=== PATIENT | female | born 1945 | race Caucasian/White ===

== ENCOUNTER 2018-05-20 15:39 | Inpatient (IN) ==
[2018-05-20] MEDS ORDERED: Sod Chloride 0.9% Inj 1,000 ML IV.SIG ONE ×2 (15:45→17:53)
--- NOTE | 2018-05-20 16:03 | ED ---
HPI General Chief Complaint: Altered Mental Status Stated Complaint: Evac/Weakness Time Seen by Provider: 05/20/18 15:45 Source: patient and EMS Mode of arrival: ambulatory Limitations: altered mental status History of Present Illness HPI narrative: The patient is 71 years old. She arrives by EMS. The patient was found unresponsive at home by family. She was last seen normal a few days ago. EMS reports the house to be in a state of total disarray unkempt. Urine and stool odor was present. EMS reports difficulty obtaining blood pressure and on scene it was 62 over palp. The heart rate was about 100. In the ED the patient has no complaint however is not cooperative with exam and history upon arrival. Related Data Home Medications Medication Instructions Recorded Confirmed naproxen sodium [Aleve] 1 - 2 tab PO BID PRN 05/20/18 05/20/18 Allergies Allergy/AdvReac Type Severity Reaction Status Date / Time No Known Allergies Uncoded 06/26/11 16:48 Review of Systems ROS Unobtainable ROS Unobtainable: unobtainable due to mental status PMFSH Social History Social History Second Hand Smoke Exposure: No Smoking Status: Never smoker How Often Do You Have a Drink Containing Alcohol: Never Recent Travel in [facility] within the Last 8 Weeks: No Recent Out of Country Travel within the Last 8 Weeks: No Immunization History Tetanus Immunization: Unsure Exam Narrative Exam Narrative: GENERAL: 72 female well-nourished well-developed, somewhat disheveled, well-nourished. Foul odor. SKIN: Occasional grade 1 wounds upon the buttocks. HEAD: Atraumatic. Normocephalic. EYES: Pupils equal and round. No scleral icterus. No injection or drainage. ENT: No nasal bleeding or discharge. Mucous membranes pink and moist. NECK: Trachea midline. No JVD. CARDIOVASCULAR: Regular rate and rhythm. No murmur appreciated. RESPIRATORY: No accessory muscle use. Clear to auscultation. Breath sounds equal bilaterally. GASTROINTESTINAL: Soft. No focal tenderness. MUSCULOSKELETAL: No obvious deformities. No clubbing. No cyanosis. No edema. NEUROLOGICAL: No focal cranial nerve deficit. Moving all extremities. PSYCHIATRIC: Uncooperative initially. Disheveled. Course Reevaluation(s) Reevaluation #1: Patient reassessed found to be resting comfortably. She is a and O 3. She reports following today. She was unable to get up. She states she is on the ground for a few hours. She reports being able to ambulate normally at home however today she felt much weaker than normal. She describes some dizziness in the ED. Vital signs are normal. She has no focus of tenderness. She reports her neighbor came to sit her upright and found her on the ground and for that reason EMS was activated. Time: 17:36 Initial Documented Vital Signs Temperature 98.3 F 05/20/18 15:44 Pulse Rate 103 H 05/20/18 15:44 Respiratory Rate 18 05/20/18 15:44 Blood Pressure 123/66 05/20/18 15:44 Pulse Oximetry 100 05/20/18 15:44 Last Documented Vital Signs Temperature 98.3 F 05/20/18 15:44 Pulse Rate 103 H 05/20/18 15:44 Respiratory Rate 18 05/20/18 15:44 Blood Pressure 123/66 05/20/18 15:44 Pulse Oximetry 100 05/20/18 15:53 Medical Decision Making MDM Narrative Medical decision making narrative: The patient will be admitted. Rocephin was ordered. Will bolus 1 L normal saline. Gradual second liter will be transfused. Hypernatremia noted as well as hypokalemia. Case discussed with Dr. Bills. Medical Screen Exam Complete: Yes Emergency Medical Condition: Yes Lab Data Lab results reviewed: Yes I reviewed the patient's lab results. Lab results narrative: Urinalysis shows UTI We see hypernatremia and hypokalemia There is mild dehydration with a BUN creatinine 27 and 1.37 Result diagrams: 05/20/18 16:10 05/20/18 17:05 Lab Results 05/20/18 05/20/18 05/20/18 Range/Units 16:05 16:05 16:10 WBC 10.6 (4.0-11.0) th/mm3 RBC 5.58 H (4.00-5.30) mil/mm3 Hgb 14.9 (11.6-15.3) gm/dL Hct 45.6 (35.0-46.0) % MCV 81.7 (80.0-100.0) fL MCH 26.7 L (27.0-34.0) pg MCHC 32.7 (32.0-36.0) % RDW 19.4 H (11.6-17.2) % Plt Count 350 (150-450) th/mm3 MPV 8.4 (7.0-11.0) fL Prelim Diff (Auto) Slide review pending Neut % (Auto) 75.2 H (16.0-70.0) % Lymph % (Auto) 15.7 (9.0-44.0) % [place] % (Auto) 8.7 H (0.0-8.0) % Eos % (Auto) 0.2 (0.0-4.0) % Baso % (Auto) 0.2 (0.0-2.0) % Neut # (Auto) 8.0 H (1.8-7.7) th/mm3 Lymph # (Auto) 1.7 (1.0-4.8) th/mm3 [place] # (Auto) 0.9 (0.0-0.9) th/mm3 Eos # (Auto) 0.0 (0.0-0.4) th/mm3 Baso # (Auto) 0.0 (0.0-0.2) th/mm3 WBC Differential Manual diff final Seg Neuts % (Manual) 67 (16-70) % Band Neuts % (Manual) 12 H (0-6) % Lymphocytes % (Manual) 12 (9-44) % Monocytes % (Manual) 7 (0-8) % Myelocytes % (Man) 1 H (0-0) % Promyelocytes % (Man) 1 H (0-0) % Abs Neuts (Manual) 8.6 H (1.8-7.7) th/mm3 Nucleated RBCs/100 WBC 5 H (0-0) /100 WBC Differential Comment . Platelet Estimate Normal (Normal) Platelet Morphology Normal (Normal) Ovalocytes 1+ H (None) PT (9.8-11.6) sec INR Ratio APTT (24.3-30.1) sec Sodium (136-145) meq/L Potassium (3.5-5.1) meq/L Chloride (98-107) meq/L Carbon Dioxide (21.0-32.0) meq/L Anion Gap (5-15) meq/L BUN (7-18) mg/dL Creatinine (0.50-1.00) mg/dL Estimated GFR (>89) mL/min Random Glucose (74-106) mg/dL Lactic Acid (0.4-2.0) mmol/L Calcium (8.5-10.1) mg/dL Total Bilirubin (0.2-1.0) mg/dL AST (15-37) U/L ALT (10-53) U/L Alkaline Phosphatase (45-117) U/L Ammonia (11-32) mcmol/L Total Creatine Kinase (26-192) U/L Troponin I (0.02-0.05) ng/mL Total Protein (6.4-8.2) g/dL Albumin (3.4-5.0) g/dL TSH (0.358-3.740) uIU/mL Urine Color Jaimie (Yellw/Straw) Urine Clarity Cloudy H (Clear) Urine pH 5.0 (5.0-8.5) Ur Specific Adams 1.029 (1.002-1.035) Urine Protein 100 H (Neg-Trace) mg/dL Urine Glucose (UA) Negative (Negative) mg/dL Urine Ketones Trace H (Negative) mg/dL Urine Occult Blood Small H (Negative) Urine Nitrate Positive H (Negative) Urine Bilirubin Negative (Negative) Urine Urobilinogen 4 or greater (Less than 2) mg/dL Ur Leukocyte Esterase Negative (Negative) Urine RBC Less than 1 (0-3) /hpf Urine WBC 4 (0-5) /hpf Ur Squamous Epith Cells 23 (0-5) /hpf Urine Bacteria Many H (None) /hpf Urine Mucus Few H (Occasional) /lpf Micro UA Comment Cath-culture ind Urine Culture Comments Cath-cult indicated Urine Opiates Screen Neg (Neg) Ur Barbiturates Screen Neg (Neg) Ur Amphetamines Screen Neg (Neg) U Benzodiazepines Scrn Neg (Neg) Urine Cocaine Screen Neg (Neg) U Cannabinoids Screen Neg (Neg) 05/20/18 05/20/18 05/20/18 Range/Units 16:10 16:10 16:10 WBC (4.0-11.0) th/mm3 RBC (4.00-5.30) mil/mm3 Hgb (11.6-15.3) gm/dL Hct (35.0-46.0) % MCV (80.0-100.0) fL MCH (27.0-34.0) pg MCHC (32.0-36.0) % RDW (11.6-17.2) % Plt Count (150-450) th/mm3 MPV (7.0-11.0) fL Prelim Diff (Auto) Neut % (Auto) (16.0-70.0) % Lymph % (Auto) (9.0-44.0) % [place] % (Auto) (0.0-8.0) % Eos % (Auto) (0.0-4.0) % Baso % (Auto) (0.0-2.0) % Neut # (Auto) (1.8-7.7) th/mm3 Lymph # (Auto) (1.0-4.8) th/mm3 [place] # (Auto) (0.0-0.9) th/mm3 Eos # (Auto) (0.0-0.4) th/mm3 Baso # (Auto) (0.0-0.2) th/mm3 WBC Differential Seg Neuts % (Manual) (16-70) % Band Neuts % (Manual) (0-6) % Lymphocytes % (Manual) (9-44) % Monocytes % (Manual) (0-8) % Myelocytes % (Man) (0-0) % Promyelocytes % (Man) (0-0) % Abs Neuts (Manual) (1.8-7.7) th/mm3 Nucleated RBCs/100 WBC (0-0) /100 WBC Differential Comment Platelet Estimate (Normal) Platelet Morphology (Normal) Ovalocytes (None) PT 11.4 (9.8-11.6) sec INR 1.1 Ratio APTT 23.1 L (24.3-30.1) sec Sodium (136-145) meq/L Potassium (3.5-5.1) meq/L Chloride (98-107) meq/L Carbon Dioxide (21.0-32.0) meq/L Anion Gap (5-15) meq/L BUN (7-18) mg/dL Creatinine (0.50-1.00) mg/dL Estimated GFR (>89) mL/min Random Glucose (74-106) mg/dL Lactic Acid 5.3 H* (0.4-2.0) mmol/L Calcium (8.5-10.1) mg/dL Total Bilirubin (0.2-1.0) mg/dL AST (15-37) U/L ALT (10-53) U/L Alkaline Phosphatase (45-117) U/L Ammonia Less than 10 L (11-32) mcmol/L Total Creatine Kinase (26-192) U/L Troponin I (0.02-0.05) ng/mL Total Protein (6.4-8.2) g/dL Albumin (3.4-5.0) g/dL TSH (0.358-3.740) uIU/mL Urine Color (Yellw/Straw) Urine Clarity (Clear) Urine pH (5.0-8.5) Ur Specific Adams (1.002-1.035) Urine Protein (Neg-Trace) mg/dL Urine Glucose (UA) (Negative) mg/dL Urine Ketones (Negative) mg/dL Urine Occult Blood (Negative) Urine Nitrate (Negative) Urine Bilirubin (Negative) Urine Urobilinogen (Less than 2) mg/dL Ur Leukocyte Esterase (Negative) Urine RBC (0-3) /hpf Urine WBC (0-5) /hpf Ur Squamous Epith Cells (0-5) /hpf Urine Bacteria (None) /hpf Urine Mucus (Occasional) /lpf Micro UA Comment Urine Culture Comments Urine Opiates Screen (Neg) Ur Barbiturates Screen (Neg) Ur Amphetamines Screen (Neg) U Benzodiazepines Scrn (Neg) Urine Cocaine Screen (Neg) U Cannabinoids Screen (Neg) 05/20/18 05/20/18 Range/Units 17:05 18:05 WBC (4.0-11.0) th/mm3 RBC (4.00-5.30) mil/mm3 Hgb (11.6-15.3) gm/dL Hct (35.0-46.0) % MCV (80.0-100.0) fL MCH (27.0-34.0) pg MCHC (32.0-36.0) % RDW (11.6-17.2) % Plt Count (150-450) th/mm3 MPV (7.0-11.0) fL Prelim Diff (Auto) Neut % (Auto) (16.0-70.0) % Lymph % (Auto) (9.0-44.0) % [place] % (Auto) (0.0-8.0) % Eos % (Auto) (0.0-4.0) % Baso % (Auto) (0.0-2.0) % Neut # (Auto) (1.8-7.7) th/mm3 Lymph # (Auto) (1.0-4.8) th/mm3 [place] # (Auto) (0.0-0.9) th/mm3 Eos # (Auto) (0.0-0.4) th/mm3 Baso # (Auto) (0.0-0.2) th/mm3 WBC Differential Seg Neuts % (Manual) (16-70) % Band Neuts % (Manual) (0-6) % Lymphocytes % (Manual) (9-44) % Monocytes % (Manual) (0-8) % Myelocytes % (Man) (0-0) % Promyelocytes % (Man) (0-0) % Abs Neuts (Manual) (1.8-7.7) th/mm3 Nucleated RBCs/100 WBC (0-0) /100 WBC Differential Comment Platelet Estimate (Normal) Platelet Morphology (Normal) Ovalocytes (None) PT (9.8-11.6) sec INR Ratio APTT (24.3-30.1) sec Sodium 157 H* (136-145) meq/L Potassium 2.9 L* (3.5-5.1) meq/L Chloride 117 H (98-107) meq/L Carbon Dioxide 26.7 (21.0-32.0) meq/L Anion Gap 13 (5-15) meq/L BUN 27 H (7-18) mg/dL Creatinine 1.37 H (0.50-1.00) mg/dL Estimated GFR 38 L (>89) mL/min Random Glucose 93 (74-106) mg/dL Lactic Acid 3.2 H (0.4-2.0) mmol/L Calcium 7.5 L (8.5-10.1) mg/dL Total Bilirubin 1.9 H (0.2-1.0) mg/dL AST 23 (15-37) U/L ALT 21 (10-53) U/L Alkaline Phosphatase 63 (45-117) U/L Ammonia (11-32) mcmol/L Total Creatine Kinase 43 (26-192) U/L Troponin I Less than 0.02 L (0.02-0.05) ng/mL Total Protein 6.0 L (6.4-8.2) g/dL Albumin 2.1 L (3.4-5.0) g/dL TSH 0.184 L (0.358-3.740) uIU/mL Urine Color (Yellw/Straw) Urine Clarity (Clear) Urine pH (5.0-8.5) Ur Specific Adams (1.002-1.035) Urine Protein (Neg-Trace) mg/dL Urine Glucose (UA) (Negative) mg/dL Urine Ketones (Negative) mg/dL Urine Occult Blood (Negative) Urine Nitrate (Negative) Urine Bilirubin (Negative) Urine Urobilinogen (Less than 2) mg/dL Ur Leukocyte Esterase (Negative) Urine RBC (0-3) /hpf Urine WBC (0-5) /hpf Ur Squamous Epith Cells (0-5) /hpf Urine Bacteria (None) /hpf Urine Mucus (Occasional) /lpf Micro UA Comment Urine Culture Comments Urine Opiates Screen (Neg) Ur Barbiturates Screen (Neg) Ur Amphetamines Screen (Neg) U Benzodiazepines Scrn (Neg) Urine Cocaine Screen (Neg) U Cannabinoids Screen (Neg) Imaging Data Radiologist's impression: Chest X-Ray 05/20/18 15:45 CONCLUSION: No acute cardiopulmonary process to explain current clinical symptoms. Head CT 05/20/18 15:45 CONCLUSION: 1. Stable senescent changes without acute intracranial abnormality. . Discharge Plan Discharge Disposition Patient Disposition: 30 Still Patient Physicians Team ED Provider: Alejandro Cadet Primary Care Provider: Harjeet Lund Attending Provider: Harjeet La Status ED Status: Admitted Patient
[2018-05-20 16:48] LABS: Baso % (Auto) 0.2 % (0.0-2.0); Eos % (Auto) 0.2 % (0.0-4.0); Hematocrit 45.6 % (35.0-46.0); Hemoglobin 14.9 gm/dL (11.6-15.3); Lymph # (Auto) 1.7 th/mm3 (1.0-4.8); Lymph % (Auto) 15.7 % (9.0-44.0); Mean Corpuscular HGB Conc 32.7 % (32.0-36.0); Mean Corpuscular Hemoglobin 26.7 pg (27.0-34.0); Mean Corpuscular Volume 81.7 fL (80.0-100.0); Mean Platelet Volume 8.4 fL (7.0-11.0); Mono # (Auto) 0.9 th/mm3 (0.0-0.9); Mono % (Auto) 8.7 % (0.0-8.0); Neut % (Auto) 75.2 % (16.0-70.0); Platelet Count 350 th/mm3 (150-450); Red Blood Count 5.58 mil/mm3 (4.00-5.30); Red Cell Distribution Width 19.4 % (11.6-17.2); White Blood Count 10.6 th/mm3 (4.0-11.0)
--- NOTE | 2018-05-20 16:52 | CT ---
EXAM DATE: 05/20/2018 4:44 PM EDT AGE/SEX: 72 years / Female INDICATIONS: Altered mental status hypotensive CLINICAL DATA: This is the patient's initial encounter. Patient reports that signs and symptoms have been present for 1 day and indicates a pain score of Nonresponsive. MEDICAL/SURGICAL HISTORY: Non-responsive. Non-responsive. RADIATION DOSE: 56.35 CTDI (mGy) COMPARISON: [facility], CT BRAIN W/O CONTRAST, 08/13/2014. . TECHNIQUE: CT of the head without contrast. Using automated exposure control and adjustment of the mA and/or kV according to patient size, radiation dose was kept as low as reasonably achievable to ob tain optimal diagnostic quality images. DICOM format image data is available electronically for revi ew and comparison. FINDINGS: Cerebrum: Moderate diffuse cerebral atrophy. The ventricles are normal for degree of atrophy. No mariela dence of midline shift, mass lesion, hemorrhage or acute infarction. No extraaxial fluid collections are seen. Posterior Fossa: The cerebellum and brainstem are intact. The 4th ventricle is midline. The cerebe llopontine angle is unremarkable. Extracranial: The visualized portion of the orbits is intact. Skull: The calvaria is intact. No evidence of skull fracture. CONCLUSION: 1. Stable senescent changes without acute intracranial abnormality. . Electronically signed by: Yo Ridley MD 05/20/2018 4:50 PM EDT
[2018-05-20 16:56] LABS: Amphetamine Screen,Urine Neg (Neg); Barbiturate Screen,Urine Neg (Neg); Cannabinoid Screen,Urine Neg (Neg); Cocaine Screen,Urine Neg (Neg)
[2018-05-20 16:57] LABS: Opiate Screen,Urine Neg (Neg)
[2018-05-20 17:02] LABS: Bacteria,Urine Many /hpf; Clarity,Urine Cloudy (Clear); Color,Urine Amber (Yellw/Straw); Glucose,Urine (UA) Negative (Negative); Leukocyte Esterase,Urine Negative (Negative); Mucus,Urine Few /lpf (Occasional); Nitrite,Urine Positive (Negative); Specific Gravity,Urine 1.029 (1.002-1.035); Squamous Epithelial Cell,Urine 23 /hpf (0-5); Urobilinogen,Urine 4 or Greater mg/dL (Less than 2)
[2018-05-20 17:02] LABS: Activated Partial Thrombo Time 23.1 sec (24.3-30.1); INR 1.1 Ratio
--- NOTE | 2018-05-20 17:02 | XR ---
EXAM DATE: 05/20/2018 4:55 PM EDT AGE/SEX: 72 years / Female INDICATIONS: Fever. CLINICAL DATA: This is the patient's initial encounter. Patient reports that signs and symptoms have been present for 1 day and indicates a pain score of Nonresponsive. MEDICAL/SURGICAL HISTORY: Non-responsive. Non-responsive. COMPARISON: [facility] [place], CHEST SINGLE AP, 06/26/2011. . FINDINGS: A single AP view of the chest demonstrates the lungs to be symmetrically aerated without evidence of mass, infiltrate or effusion. The cardiomediastinal contours are unremarkable. Osseous structures a re intact with some degenerative spurring of the dorsal spine. CONCLUSION: No acute cardiopulmonary process to explain current clinical symptoms. Electronically signed by: Garland Stock MD 05/20/2018 5:00 PM EDT
[2018-05-20 17:04] LABS: Prothrombin Time 11.4 sec (9.8-11.6)
[2018-05-20 17:06] LABS: Bilirubin,Urine Negative (Negative)
[2018-05-20 17:46] LABS: Lymphocytes 12 % (9-44); Monocytes 7 % (0-8); Myelocytes 1 % (0-0); Promyelocyte 1 % (0-0); Tallied Nucleated RBC 5 (0-0)
[2018-05-20 17:49] LABS: Ovalocytes 1+; Platelet Estimate Normal (Normal); Platelet Morphology Normal (Normal)
[2018-05-20 18:16] LABS: Anion Gap 13 meq/L (5-15)
[2018-05-20 18:19] LABS: Alanine Aminotransferase 21 U/L (10-53); Albumin 2.1 g/dL (3.4-5.0); Alkaline Phosphatase 63 U/L (45-117); Aspartate Aminotransferase 23 U/L (15-37); Blood Urea Nitrogen 27 mg/dL (7-18); Calcium 7.5 mg/dL (8.5-10.1); Carbon Dioxide 26.7 meq/L (21.0-32.0); Chloride 117 meq/L (98-107); Glomerular Filtration Rate 38 mL/min (>89); Glucose,Random 93 mg/dL (74-106); Thyroid Stimulating Hormone 0.184 uIU/mL (0.358-3.740)
[2018-05-20 18:20] LABS: Creatine Kinase 43 U/L (26-192)
[2018-05-20 18:22] LABS: Potassium 2.9 meq/L (3.5-5.1); Sodium 157 meq/L (136-145)
--- NOTE | 2018-05-20 20:58 | ECG ---
Date Performed: 05/20/2018 Time Performed: 15:49:46 PTAGE: 72 years EKG: Sinus rhythm POSSIBLE RIGHT VENTRICULAR CONDUCTION DELAY NONSPECIFIC ST & T-WAVE ABNORMALITY BORDERLINE ECG NO PREVIOUS TRACING DOCTOR: George Ambriz Interpretating Date/Time 05/20/2018 20:57:18
[2018-05-20] MEDS ORDERED: Temazepam 15 MG Capsule PO PRN (21:51)
[2018-05-20] MEDS ORDERED: Bisacodyl 10 MG Supp RECTAL PRN (21:51)
[2018-05-20] MEDS ORDERED: Sodium Chloride 0.45 % Inj 1,000 ML IV.CONT SCH (22:00)
[2018-05-20] MEDS ORDERED: Acetaminophen 325 MG Tablet PO PRN (22:22)
--- NOTE | 2018-05-20 22:22 | P.HP ---
History of Present Illness Service: CP Hospitalist Primary Care Physician: Harjeet Lund MD Chief Complaint: found on floor in home poorly responsive History of Present Illness: Patient brought by [facility] to hospital . Patient was unresponsive ,given IV fluid and became more responsive. Approximately 4 weeks ago had food poisoning and has had intermittent nausea and vomit poor oral intake and today was very weak and was on floor unable to get up ,friends found her and they tried to give her some water but she vomited . In er found to have UTI with elevated lactic acid and increase sodium and admitted for IV hydration sepsis protocol in er and lactic acid repeat is improved . Patient denies any chest pain, SOB, not sure if she had loose stool but did have GERD symptoms. - Diagnosis (1) Dehydration (2) Sepsis (3) UTI (urinary tract infection) (4) Hypernatremia (5) Hypokalemia Inpatient Certification: I certify that the inpatient services were ordered in accordance with Medicare regulations governing the order. This includes certification that hospital inpatient services are reasonable and necessary and in the case of services not specified as inpatient-only under 42 CFR 419.22(n), that they are appropriately provided as inpatient services in accordance to with the 2-midnight benchmark under 43 CFR 412.3(e) Estimated Total Length of Stay (Days): 2 Plans for Post Hospital Care: Not yet determined Review of Systems Constitutional: Reports fatigue, Reports lack of energy, Reports weakness Gastrointestinal: Reports heartburn, Reports loose stools, Reports nausea, Reports vomiting PMFSH - History History Provided By: Irrigationist Designer / EMT - Medical / Surgical Hx Neg / Unobtainable Medical Problems Denied: Unable to Obtain Surgical History: No Previous Surgery - Tobacco History Second Hand Smoke Exposure: No Tobacco Use In Past 30 Days: No Smoking Status: Never smoker - Alcohol History How Often Do You Have a Drink Containing Alcohol: Never - Travel History Recent Travel in the [place] Within the Last 8 Weeks: No Recent Travel Out of the Country Within the Last 8 Weeks: No - Immunization History Tetanus Immunization: Unsure Medications and Allergies Active Medications: Active Medications Al Hydroxide/Mg Hydroxide (Milk Of Magnesia Liq) 30 ml PO Q12H PRN PRN Reason: Mild Constipation Bisacodyl (Dulcolax Supp) 10 mg RECTAL DAILY PRN PRN Reason: SEVERE CONSITIPATION Ceftriaxone Sodium 1,000 mg/ (Sodium Chloride) 100 mls @ 200 mls/hr IV.SIG Q24H SEB Potassium Chloride 10 meq/ (Sodium Chloride) 1,005 mls @ 84 mls/hr IV.CONT .[id number] SEB Lactulose (Lactulose Liq) 30 ml PO DAILY PRN PRN Reason: SEVERE CONSITIPATION Ondansetron HCl (Zofran Inj) 4 mg IV.PUSH Q6H PRN PRN Reason: NAUSEA OR VOMITING Pantoprazole Sodium (Protonix Inj) 40 mg IV.PUSH Q24H SEB Senna/Docusate Sodium (Gladys-Colace) 1 tab PO BID SEB Sennosides (Senokot) 17.2 mg PO Q12H PRN PRN Reason: Moderate Constipation Sodium Chloride (Ns Flush) 2 ml IV.FLUSH PRN PRN PRN Reason: FLUSH AFTER USING IV ACCESS Temazepam (Restoril) 15 mg PO HS PRN PRN Reason: INSOMNIA Allergies Allergy/AdvReac Type Severity Reaction Status Date / Time No Known Allergies Uncoded 06/26/11 16:48 Home Medications Medication Instructions Recorded Confirmed Type naproxen sodium [Aleve] 1 - 2 tab PO BID PRN 05/20/18 05/20/18 History Exam Vital signs: Vital Signs 05/20/18 15:44 05/20/18 15:53 05/20/18 19:00 Temperature 98.3 F Pulse Rate 103 H 89 Respiratory Rate 18 16 Blood Pressure 123/66 112/66 Pulse Oximetry 100 100 100 05/20/18 19:55 Temperature Pulse Rate Respiratory Rate Blood Pressure Pulse Oximetry 100 Intake & Output 05/20/18 05/20/18 05/21/18 06:59 18:59 06:59 Weight 127.006 kg 87.8 kg Other: Weight On Admission 127 kg Narrative: GENERAL: SKIN: poor skin turgor HEAD: Atraumatic. Normocephalic. EYES: Pupils equal and round. No scleral icterus. No injection or drainage. ENT: No nasal bleeding or discharge. Mucous membranes pink and moist. NECK: Trachea midline. No JVD. CARDIOVASCULAR: Regular rate and rhythm. RESPIRATORY: No accessory muscle use. Clear to auscultation. Breath sounds equal bilaterally. GASTROINTESTINAL: Abdomen soft, non-tender, nondistended. Hepatic and splenic margins not palpable. MUSCULOSKELETAL: Extremities without clubbing, cyanosis, or edema. No obvious deformities. NEUROLOGICAL: Awake and alert. No obvious cranial nerve deficits. Motor grossly within normal limits. Five out of 5 muscle strength in the arms and legs. Normal speech. PSYCHIATRIC: Appropriate mood and affect; insight and judgment normal. Results - Labs CBC & Chem 7: 05/20/18 16:10 05/20/18 17:05 Labs: Laboratory Results - last 24 hr 05/20/18 05/20/18 05/20/18 16:05 16:05 16:10 WBC 10.6 RBC 5.58 H Hgb 14.9 Hct 45.6 MCV 81.7 MCH 26.7 L MCHC 32.7 RDW 19.4 H Plt Count 350 MPV 8.4 Prelim Diff (Auto) Slide review pending Neut % (Auto) 75.2 H Lymph % (Auto) 15.7 Clare % (Auto) 8.7 H Eos % (Auto) 0.2 Baso % (Auto) 0.2 Neut # (Auto) 8.0 H Lymph # (Auto) 1.7 Clare # (Auto) 0.9 Eos # (Auto) 0.0 Baso # (Auto) 0.0 WBC Differential Manual diff final Seg Neuts % (Manual) 67 Band Neuts % (Manual) 12 H Lymphocytes % (Manual) 12 Monocytes % (Manual) 7 Myelocytes % (Man) 1 H Promyelocytes % (Man) 1 H Abs Neuts (Manual) 8.6 H Nucleated RBCs/100 WBC 5 H Differential Comment . Platelet Estimate Normal Platelet Morphology Normal Ovalocytes 1+ H PT INR APTT Sodium Potassium Chloride Carbon Dioxide Anion Gap BUN Creatinine Estimated GFR Random Glucose Lactic Acid Calcium Total Bilirubin AST ALT Alkaline Phosphatase Ammonia Total Creatine Kinase Troponin I Total Protein Albumin TSH Urine Color Jaimie Urine Clarity Cloudy H Urine pH 5.0 Ur Specific [place] 1.029 Urine Protein 100 H Urine Glucose (UA) Negative Urine Ketones Trace H Urine Occult Blood Small H Urine Nitrate Positive H Urine Bilirubin Negative Urine Urobilinogen 4 or greater Ur Leukocyte Esterase Negative Urine RBC Less than 1 Urine WBC 4 Ur Squamous Epith Cells 23 Urine Bacteria Many H Urine Mucus Few H Micro UA Comment Cath-culture ind Urine Culture Comments Cath-cult indicated Urine Opiates Screen Neg Ur Barbiturates Screen Neg Ur Amphetamines Screen Neg U Benzodiazepines Scrn Neg Urine Cocaine Screen Neg U Cannabinoids Screen Neg 05/20/18 05/20/18 05/20/18 16:10 16:10 16:10 WBC RBC Hgb Hct MCV MCH MCHC RDW Plt Count MPV Prelim Diff (Auto) Neut % (Auto) Lymph % (Auto) Clare % (Auto) Eos % (Auto) Baso % (Auto) Neut # (Auto) Lymph # (Auto) Clare # (Auto) Eos # (Auto) Baso # (Auto) WBC Differential Seg Neuts % (Manual) Band Neuts % (Manual) Lymphocytes % (Manual) Monocytes % (Manual) Myelocytes % (Man) Promyelocytes % (Man) Abs Neuts (Manual) Nucleated RBCs/100 WBC Differential Comment Platelet Estimate Platelet Morphology Ovalocytes PT 11.4 INR 1.1 APTT 23.1 L Sodium Potassium Chloride Carbon Dioxide Anion Gap BUN Creatinine Estimated GFR Random Glucose Lactic Acid 5.3 H* Calcium Total Bilirubin AST ALT Alkaline Phosphatase Ammonia Less than 10 L Total Creatine Kinase Troponin I Total Protein Albumin TSH Urine Color Urine Clarity Urine pH Ur Specific [place] Urine Protein Urine Glucose (UA) Urine Ketones Urine Occult Blood Urine Nitrate Urine Bilirubin Urine Urobilinogen Ur Leukocyte Esterase Urine RBC Urine WBC Ur Squamous Epith Cells Urine Bacteria Urine Mucus Micro UA Comment Urine Culture Comments Urine Opiates Screen Ur Barbiturates Screen Ur Amphetamines Screen U Benzodiazepines Scrn Urine Cocaine Screen U Cannabinoids Screen 05/20/18 05/20/18 17:05 18:05 WBC RBC Hgb Hct MCV MCH MCHC RDW Plt Count MPV Prelim Diff (Auto) Neut % (Auto) Lymph % (Auto) Clare % (Auto) Eos % (Auto) Baso % (Auto) Neut # (Auto) Lymph # (Auto) Clare # (Auto) Eos # (Auto) Baso # (Auto) WBC Differential Seg Neuts % (Manual) Band Neuts % (Manual) Lymphocytes % (Manual) Monocytes % (Manual) Myelocytes % (Man) Promyelocytes % (Man) Abs Neuts (Manual) Nucleated RBCs/100 WBC Differential Comment Platelet Estimate Platelet Morphology Ovalocytes PT INR APTT Sodium 157 H* Potassium 2.9 L* Chloride 117 H Carbon Dioxide 26.7 Anion Gap 13 BUN 27 H Creatinine 1.37 H Estimated GFR 38 L Random Glucose 93 Lactic Acid 3.2 H Calcium 7.5 L Total Bilirubin 1.9 H AST 23 ALT 21 Alkaline Phosphatase 63 Ammonia Total Creatine Kinase 43 Troponin I Less than 0.02 L Total Protein 6.0 L Albumin 2.1 L TSH 0.184 L Urine Color Urine Clarity Urine pH Ur Specific [place] Urine Protein Urine Glucose (UA) Urine Ketones Urine Occult Blood Urine Nitrate Urine Bilirubin Urine Urobilinogen Ur Leukocyte Esterase Urine RBC Urine WBC Ur Squamous Epith Cells Urine Bacteria Urine Mucus Micro UA Comment Urine Culture Comments Urine Opiates Screen Ur Barbiturates Screen Ur Amphetamines Screen U Benzodiazepines Scrn Urine Cocaine Screen U Cannabinoids Screen - Imaging Impressions Chest X-Ray 05/20/18 15:45 CONCLUSION: No acute cardiopulmonary process to explain current clinical symptoms. Head CT 05/20/18 15:45 CONCLUSION: 1. Stable senescent changes without acute intracranial abnormality. . Caprini VTE Risk Assessment Caprini VTE Risk Assessment: Moderate/High Risk (score >= 2) Caprini Risk Assessment Model: Point Value = 1 Point Value = 2 Point Value = 3 Point Value = 5 Age 41-60 Minor surgery BMI > 25 kg/m2 Swollen legs Varicose veins or History of unexplained or recurrent spontaneous Oral contraceptives or hormone replacement Sepsis (< 1 month) Serious lung disease, including pneumonia (< 1 month) Abnormal pulmonary function Acute myocardial infarction Congestive heart failure (< 1 month) History of inflammatory bowel disease Medical patient at bed rest Age 61-74 Arthroscopic surgery Major open surgery (> 45 min) Laparoscopic surgery (> 45 min) Malignancy Confined to bed (> 72 hours) Immobilizing plaster cast Central venous access Age >= 75 History of VTE Family history of VTE Factor V Leiden Prothrombin [id number] Lupus anticoagulant Anticardiolipin antibodies Elevated serum homocysteine Heparin-induced thrombocytopenia Other congenital or acquired thrombophilia Stroke (< 1 month) Elective arthroplasty Hip, pelvis, or leg fracture Acute spinal cord injury (< 1 month) Prophylaxis Regimen: Total Risk Factor Score Risk Level Prophylaxis Regimen 0-1 Low Early ambulation 2 Moderate Order ONE of the following: *Sequential Compression Device (SCD) *Heparin 5000 units SQ BID 3-4 Higher Order ONE of the following medications: *Heparin 5000 units SQ TID *Enoxaparin/Lovenox 40 mg SQ daily (WT < 150 kg, CrCl > 30 mL/min) *Enoxaparin/Lovenox 30 mg SQ daily (WT < 150 kg, CrCl > 10-29 mL/min) *Enoxaparin/Lovenox 30 mg SQ BID (WT < 150 kg, CrCl > 30 mL/min) AND/OR *Sequential Compression Device (SCD) 5 or more Highest Order ONE of the following medications: *Heparin 5000 units SQ TID (Preferred with Epidurals) *Enoxaparin/Lovenox 40 mg SQ daily (WT < 150 kg, CrCl > 30 mL/min) *Enoxaparin/Lovenox 30 mg SQ daily (WT < 150 kg, CrCl > 10-29 mL/min) *Enoxaparin/Lovenox 30 mg SQ BID (WT < 150 kg, CrCl > 30 mL/min) AND *Sequential Compression Device (SCD) Assessment and Plan - Assessment (1) Dehydration Code(s): E86.0 - Dehydration Status: Acute Plan: IV fluid recheck labs follow electrolytes (2) Sepsis Code(s): A41.9 - Sepsis, unspecified organism Status: Acute Plan: based on lab work and lactic acid probable urine source as has urine smell (3) UTI (urinary tract infection) Code(s): N39.0 - Urinary tract infection, site not specified Status: Acute Plan: for now rocephin IV urine and blood c/s sent (4) Hypernatremia Code(s): E87.0 - Hyperosmolality and hypernatremia Status: Acute Plan: IV fluid and follow up labs (5) Hypokalemia Code(s): E87.6 - Hypokalemia Status: Acute Plan: IV potassium and follow up labs - Plan further plan as case develops Code Status: full Discussed Condition With: patient
[2018-05-20] MEDS: Potassium Chloride Inj 10 MEQ in Sodium Chloride 0.45 % Inj 1,000 ML IV.CONT SCH (23:21)
[2018-05-20] MEDS: Pantoprazole Inj 40 MG Vial IV.PUSH SCH (23:21)
[2018-05-21 07:19] LABS: Baso % (Auto) 0.1 % (0.0-2.0); Eos % (Auto) 0.4 % (0.0-4.0); Hematocrit 31.9 % (35.0-46.0); Hemoglobin 10.5 gm/dL (11.6-15.3); Lymph # (Auto) 1.7 th/mm3 (1.0-4.8); Lymph % (Auto) 17.9 % (9.0-44.0); Mean Corpuscular Hemoglobin 26.8 pg (27.0-34.0); Mono # (Auto) 0.9 th/mm3 (0.0-0.9); Mono % (Auto) 9.6 % (0.0-8.0); Neut # (Auto) 6.7 th/mm3 (1.8-7.7); Platelet Count 233 th/mm3 (150-450); Red Blood Count 3.94 mil/mm3 (4.00-5.30); Red Cell Distribution Width 19.2 % (11.6-17.2); White Blood Count 9.4 th/mm3 (4.0-11.0)
[2018-05-21 08:01] LABS: Albumin 1.8 g/dL (3.4-5.0); Calcium 6.7 mg/dL (8.5-10.1); Carbon Dioxide 24.5 meq/L (21.0-32.0); Total Protein 5.2 g/dL (6.4-8.2)
[2018-05-21 08:10] LABS: Potassium 2.7 meq/L (3.5-5.1)
[2018-05-21] MEDS: Senna/Docusate Sodium 8.6/50 MG Tablet PO SCH ×2 (09:55→22:09)
--- NOTE | 2018-05-21 15:50 | P.PNIM ---
Subjective Interval history: Pt eating meals, but having some nausea after meals. Some relief of nausea with zofran. Physical Exam Vital signs: 05/21/18 12:00 Temperature 97.3 F L Pulse Rate 91 H Respiratory Rate 18 Blood Pressure 131/66 Pulse Oximetry 100 Narrative: GENERAL: This is a well-nourished, well-developed patient, in no apparent distress. CARDIOVASCULAR: Regular rate and rhythm without murmurs, gallops, or rubs. RESPIRATORY: Clear to auscultation. Breath sounds equal bilaterally. No wheezes , rales, or rhonchi. GASTROINTESTINAL: Abdomen soft, non-tender, nondistended. Normal active bowel sounds MUSCULOSKELETAL: Extremities without clubbing, cyanosis, or edema. NEURO: Alert & Oriented x4 to person, place, time, situation. Moves all ext x4 - Urinary Catheter Management Straight Cath placed during this visit: yes Reason for continuing: Not indwelling catheter Insertion date: 05/20/18 Insertion time: 15:54 Results - Labs CBC & Chem 7: 05/21/18 06:45 05/21/18 06:43 Microbiology 05/20/18 16:05 Catheterized Urine Urine Culture - Preliminary gram negative rods 05/20/18 18:05 Blood - Peripheral Aerobic Blood Culture - Preliminary No growth in 1 day 05/20/18 18:05 Blood - Peripheral Anaerobic Blood Culture - Preliminary No growth in 1 day 05/20/18 17:30 Blood - Peripheral Aerobic Blood Culture - Preliminary No growth in 1 day 05/20/18 17:30 Blood - Peripheral Anaerobic Blood Culture - Preliminary No growth in 1 day - Imaging Chest X-Ray 05/20/18 15:45 CONCLUSION: No acute cardiopulmonary process to explain current clinical symptoms. Head CT 05/20/18 15:45 CONCLUSION: 1. Stable senescent changes without acute intracranial abnormality. . Assessment and Plan - Assessment (1) Dehydration Code(s): E86.0 - Dehydration Status: Acute Plan: Patient brought by [facility] to hospital . Patient was unresponsive ,given IV fluid and became more responsive. Approximately 4 weeks ago had food poisoning and has had intermittent nausea and vomit poor oral intake and today was very weak and was on floor unable to get up ,friends found her and they tried to give her some water but she vomited . In er found to have UTI with elevated lactic acid and increase sodium and admitted for IV hydration sepsis protocol in er and lactic acid repeat is improved . Patient denies any chest pain, SOB, not sure if she had loose stool but did have GERD symptoms. - Pt has been afebrile since presentation to the ER - No hypotension or tachycardia - No leukocytosis - elevated lactic acid likely d/t dehydration NOT sepsis - hypernatremia slowly improving - continue IVFs - Urine Cx (05/20) --> gram negative rods, await final results - Blood Cx (05/20) --> No growth to date - follow cultures - continue IV rocephin - DVT prophylaxis - supportive care (3) UTI (urinary tract infection) Code(s): N39.0 - Urinary tract infection, site not specified Status: Acute - see above (4) Hypernatremia - see above (5) Hypokalemia Code(s): E87.6 - Hypokalemia Status: Acute - continue repletion - repeat bmp/mag in AM (2) Hypernatremia Code(s): E87.0 - Hyperosmolality and hypernatremia Status: Acute (3) Hypokalemia Code(s): E87.6 - Hypokalemia Status: Acute (4) Sepsis Code(s): A41.9 - Sepsis, unspecified organism Status: Acute (5) UTI (urinary tract infection) Code(s): N39.0 - Urinary tract infection, site not specified Status: Acute
[2018-05-21] MEDS: Potassium Chloride Inj 10 MEQ in Sodium Chloride 0.45 % Inj 1,000 ML IV.CONT SCH (16:57)
[2018-05-21 19:09] LABS: Calcium 7.1 mg/dL (8.5-10.1); Carbon Dioxide 22.8 meq/L (21.0-32.0)
[2018-05-21 19:22] LABS: Total Protein 6.3 g/dL (6.4-8.2)
[2018-05-21] MEDS: Pantoprazole Inj 40 MG Vial IV.PUSH SCH (22:08)
[2018-05-22] MEDS: Potassium Chloride Inj 10 MEQ in Sodium Chloride 0.45 % Inj 1,000 ML IV.CONT SCH ×3 (05:44→18:49)
[2018-05-22 08:50] LABS: Baso % (Auto) 0.1 % (0.0-2.0); Eos # (Auto) 0.1 th/mm3 (0.0-0.4); Eos % (Auto) 0.6 % (0.0-4.0); Hematocrit 36.2 % (35.0-46.0); Hemoglobin 11.7 gm/dL (11.6-15.3); Lymph # (Auto) 1.1 th/mm3 (1.0-4.8); Lymph % (Auto) 13.2 % (9.0-44.0); Mean Corpuscular HGB Conc 32.4 % (32.0-36.0); Mean Corpuscular Hemoglobin 26.5 pg (27.0-34.0); Mean Corpuscular Volume 81.6 fL (80.0-100.0); Mean Platelet Volume 7.9 fL (7.0-11.0); Mono # (Auto) 0.6 th/mm3 (0.0-0.9); Mono % (Auto) 7.8 % (0.0-8.0); Neut # (Auto) 6.5 th/mm3 (1.8-7.7); Neut % (Auto) 78.3 % (16.0-70.0); Platelet Count 224 th/mm3 (150-450); Red Blood Count 4.43 mil/mm3 (4.00-5.30); Red Cell Distribution Width 19.7 % (11.6-17.2); White Blood Count 8.2 th/mm3 (4.0-11.0)
[2018-05-22] MEDS: Senna/Docusate Sodium 8.6/50 MG Tablet PO SCH ×2 (08:55→23:13)
[2018-05-22 09:33] LABS: Calcium 6.7 mg/dL (8.5-10.1); Carbon Dioxide 27.1 meq/L (21.0-32.0); Magnesium 1.6 mg/dL (1.5-2.5)
[2018-05-22 09:52] LABS: Total Protein 5.6 g/dL (6.4-8.2)
[2018-05-22] MEDS: Mag Sulf 1 gm/100 ml Premix 100 ML IV.SIG SCH ×2 (11:01→12:23)
--- NOTE | 2018-05-22 17:50 | P.PNIM ---
Subjective Interval history: No new complaints. Pt is tolerating PO intake. Nausea improved from admission. Physical Exam Vital signs: 05/22/18 12:00 Temperature 97.7 F Pulse Rate 84 Respiratory Rate 18 Blood Pressure 133/75 Pulse Oximetry 98 Narrative: GENERAL: This is a well-nourished, well-developed patient, in no apparent distress. CARDIOVASCULAR: Regular rate and rhythm without murmurs, gallops, or rubs. RESPIRATORY: Clear to auscultation. Breath sounds equal bilaterally. No wheezes , rales, or rhonchi. GASTROINTESTINAL: Abdomen soft, non-tender, nondistended. Normal active bowel sounds MUSCULOSKELETAL: Extremities without clubbing, cyanosis, or edema. NEURO: Alert & Oriented x4 to person, place, time, situation. Moves all ext x4 - Urinary Catheter Management Straight Cath placed during this visit: yes Reason for continuing: Not indwelling catheter Insertion date: 05/20/18 Insertion time: 15:54 Results - Labs CBC & Chem 7: 05/23/18 10:45 05/23/18 10:45 Microbiology 05/20/18 18:05 Blood - Peripheral Aerobic Blood Culture - Preliminary No growth in 2 days 05/20/18 18:05 Blood - Peripheral Anaerobic Blood Culture - Preliminary No growth in 2 days 05/20/18 17:30 Blood - Peripheral Aerobic Blood Culture - Preliminary No growth in 2 days 05/20/18 17:30 Blood - Peripheral Anaerobic Blood Culture - Preliminary No growth in 2 days 05/20/18 16:05 Catheterized Urine Urine Culture - Final Escherichia coli Assessment and Plan - Assessment (1) Dehydration Code(s): E86.0 - Dehydration Status: Acute Plan: Patient brought by [facility] to hospital . Patient was unresponsive ,given IV fluid and became more responsive. Approximately 4 weeks ago had food poisoning and has had intermittent nausea and vomit poor oral intake and today was very weak and was on floor unable to get up ,friends found her and they tried to give her some water but she vomited . In er found to have UTI with elevated lactic acid and increase sodium and admitted for IV hydration sepsis protocol in er and lactic acid repeat is improved . Patient denies any chest pain, SOB, not sure if she had loose stool but did have GERD symptoms. - Pt has been afebrile since presentation to the ER - No hypotension or tachycardia - No leukocytosis - elevated lactic acid likely d/t dehydration NOT sepsis - hypernatremia slowly improving - continue IVFs - Urine Cx (05/20) --> gram negative rods, await final results - Blood Cx (05/20) --> E. Coli - follow cultures - continue IV rocephin - DVT prophylaxis - supportive care - anticipate d/c to [facility] 05/23 (3) UTI (urinary tract infection) Code(s): N39.0 - Urinary tract infection, site not specified Status: Acute - see above (4) Hypernatremia - see above (5) Hypokalemia Code(s): E87.6 - Hypokalemia Status: Acute - improving - continue repletion - repeat bmp/mag in AM (2) Hypernatremia Code(s): E87.0 - Hyperosmolality and hypernatremia Status: Acute (3) Hypokalemia Code(s): E87.6 - Hypokalemia Status: Acute (4) Sepsis Code(s): A41.9 - Sepsis, unspecified organism Status: Acute (5) UTI (urinary tract infection) Code(s): N39.0 - Urinary tract infection, site not specified Status: Acute
[2018-05-22] MEDS: Pantoprazole Inj 40 MG Vial IV.PUSH SCH (23:13)
[2018-05-23] MEDS: Potassium Chloride Inj 10 MEQ in Sodium Chloride 0.45 % Inj 1,000 ML IV.CONT SCH ×2 (05:28→11:43)
[2018-05-23] MEDS: Senna/Docusate Sodium 8.6/50 MG Tablet PO SCH (08:28)
[2018-05-23 11:12] LABS: Baso % (Auto) 0.2 % (0.0-2.0); Eos % (Auto) 0.5 % (0.0-4.0); Hematocrit 36.9 % (35.0-46.0); Hemoglobin 12.1 gm/dL (11.6-15.3); Lymph # (Auto) 1.5 th/mm3 (1.0-4.8); Lymph % (Auto) 20.2 % (9.0-44.0); Mean Corpuscular HGB Conc 32.7 % (32.0-36.0); Mean Corpuscular Hemoglobin 26.4 pg (27.0-34.0); Mean Corpuscular Volume 80.9 fL (80.0-100.0); Mean Platelet Volume 8.3 fL (7.0-11.0); Mono # (Auto) 0.8 th/mm3 (0.0-0.9); Neut # (Auto) 4.9 th/mm3 (1.8-7.7); Neut % (Auto) 68.1 % (16.0-70.0); Platelet Count 216 th/mm3 (150-450); Red Blood Count 4.56 mil/mm3 (4.00-5.30); White Blood Count 7.2 th/mm3 (4.0-11.0)
[2018-05-23 11:41] LABS: Calcium 6.5 mg/dL (8.5-10.1); Carbon Dioxide 27.3 meq/L (21.0-32.0)
[2018-05-23 11:42] LABS: Potassium 3.5 meq/L (3.5-5.1)
[2018-05-23 11:54] LABS: Total Protein 5.5 g/dL (6.4-8.2)
[2018-05-23 12:44] VITALS: RESP 18
[2018-05-23] MEDS ORDERED: Calcium Chloride Inj 1 GM in Dextrose 5% in Water Inj 100 ML IV.SIG ONE ×2 (14:00)
--- NOTE | 2018-05-23 15:03 | P.DS ---
<Shahla Ag W - Last Filed: 05/23/18 14:58> Date of admission: 05/20/18 18:36 Primary care physician: Harjeet Lund MD Attending physician on discharge: Harjeet La Anticipated date of discharge: 05/23/18 Brief History from admission: Patient brought by [facility] to hospital . Patient was unresponsive ,given IV fluid and became more responsive. Approximately 4 weeks ago had food poisoning and has had intermittent nausea and vomit poor oral intake and today was very weak and was on floor unable to get up ,friends found her and they tried to give her some water but she vomited . In er found to have UTI with elevated lactic acid and increase sodium and admitted for IV hydration sepsis protocol in er and lactic acid repeat is improved . Patient denies any chest pain, SOB, not sure if she had loose stool but did have GERD symptoms. DS: Diagnosis - Discharge Diagnosis (1) Dehydration Status: Acute (2) UTI (urinary tract infection) Status: Acute (3) Hypernatremia Status: Acute (4) Hypokalemia Status: Acute DS: Summary Hospital Course: Dehydration Patient brought by [facility] to hospital . Patient was unresponsive ,given IV fluid and became more responsive. Approximately 4 weeks ago had food poisoning and has had intermittent nausea and vomit poor oral intake and today was very weak and was on floor unable to get up ,friends found her and they tried to give her some water but she vomited . In er found to have UTI with elevated lactic acid and increase sodium and admitted for IV hydration sepsis protocol in er and lactic acid repeat is improved . Patient denies any chest pain, SOB, not sure if she had loose stool but did have GERD symptoms. - Pt has been afebrile since presentation to the ER - No hypotension or tachycardia - No leukocytosis - elevated lactic acid likely d/t dehydration NOT sepsis - hypernatremia improved - IVFs - Urine Cx (05/20) --> E coli - Blood Cx (05/20) --> NG x 3days - IV Rocephin - DVT prophylaxis - supportive care UTI (urinary tract infection) - Urine culture reveled E coli sensitive to Rocephin - Patient completed 3 days of Rocephin Hypernatremia - Improved after hydration Hypokalemia - improved after replacement - Time Spent with Patient Total time spent providing and/or coordinating discharge services: Greater than 30 minutes - Quality: VTE Deep Vein Thrombosis/Pulmonary Embolism Present on Admission: No Exam Vital signs: Vital Signs 05/22/18 16:00 05/22/18 19:54 05/22/18 20:00 Temperature 97.3 F L 97.3 F L Pulse Rate 82 79 83 Respiratory Rate 18 18 Blood Pressure 133/71 139/63 Pulse Oximetry 99 99 05/22/18 23:49 05/23/18 00:00 05/23/18 04:00 Temperature 98.0 F 97.8 F Pulse Rate 94 H 91 H 100 H Respiratory Rate 18 18 Blood Pressure 134/63 151/71 H Pulse Oximetry 95 99 05/23/18 08:00 05/23/18 11:18 05/23/18 12:00 Temperature 98.2 F 98.0 F Pulse Rate 89 89 Respiratory Rate 17 18 Blood Pressure 142/82 H 116/69 Pulse Oximetry 100 99 99 Intake & Output 05/22/18 05/23/18 05/23/18 18:59 06:59 18:59 Intake Total 1905 / 1905 1125 / 1125 110 / 110 Balance 1905 / 1905 1125 / 1125 110 / 110 Weight 90.5 kg Intake: IV 1305 / 1305 1005 / 1005 110 / 110 KCl Inj 10 MEQ In 1/2 Normal 1005 / 1005 1005 / 1005 Saline Inj 1,000 ML @ 84 mls/hr IV.CONT .[id number] [facility] Rx#: [id number] Calcium Chloride Inj 1 GM In 110 / 110 D5W Inj 100 ML @ 110 mls/hr IV. SIG ONCE ONE Rx#:[id number] Magnesium Sulfate 1 gm/D5W 100 200 / 200 ml Premix 100 ML @ 100 mls/hr IV.SIG Q1H [facility] Rx#:[id number] Rocephin Inj 1,000 MG In NS Inj 100 / 100 100 ML @ 200 mls/hr IV.SIG Q24H [facility] Rx#:[id number] Oral 600 / 600 120 / 120 Other: # Voids 2 # Incontinent Voids 3 # Bowel Movements 2 2 Narrative: GENERAL: This is a well-nourished, well-developed patient, in no apparent distress. CARDIOVASCULAR: Regular rate and rhythm RESPIRATORY: Clear to auscultation. Breath sounds equal bilaterally. GASTROINTESTINAL: Abdomen soft, non-tender, nondistended. Normal active bowel sounds MUSCULOSKELETAL: Extremities without clubbing, cyanosis, or edema. NEURO: Alert & Oriented x4 to person, place, time, situation. Moves all ext x4 Results Procedures completed during hospitalization: None Labs on day of discharge: Labs from last 24 hours 05/23/18 05/23/18 10:45 10:45 WBC 7.2 RBC 4.56 Hgb 12.1 Hct 36.9 MCV 80.9 MCH 26.4 L MCHC 32.7 RDW 19.0 H Plt Count 216 MPV 8.3 Neut % (Auto) 68.1 Lymph % (Auto) 20.2 [place] % (Auto) 11.0 H Eos % (Auto) 0.5 Baso % (Auto) 0.2 Neut # (Auto) 4.9 Lymph # (Auto) 1.5 [place] # (Auto) 0.8 Eos # (Auto) 0.0 Baso # (Auto) 0.0 WBC Differential . Differential Comment Auto diff final Sodium 142 Potassium 3.5 Chloride 106 Carbon Dioxide 27.3 Anion Gap 9 BUN 13 Creatinine 0.93 Estimated GFR 59 L Random Glucose 110 H Calcium 6.5 L* Prot Corrected Calcium 7.3 L* Total Protein 5.5 L Preliminary micro results at discharge 05/20/18 18:05 Aerobic Blood Culture - Preliminary Blood - Peripheral No growth in 3 days Anaerobic Blood Culture - Preliminary No growth in 3 days 05/20/18 17:30 Aerobic Blood Culture - Preliminary Blood - Peripheral No growth in 3 days Anaerobic Blood Culture - Preliminary No growth in 3 days - Impressions ITS Impressions Chest X-Ray 05/20/18 15:45 CONCLUSION: No acute cardiopulmonary process to explain current clinical symptoms. Head CT 05/20/18 15:45 CONCLUSION: 1. Stable senescent changes without acute intracranial abnormality. . <Harjeet La - Last Filed: 05/27/18 12:40> Date of admission: 05/20/18 18:36 Primary care physician: Harjeet Lund MD DS: Diagnosis - Discharge Diagnosis (1) Dehydration Status: Acute (2) Hypernatremia Status: Acute (3) Hypokalemia Status: Acute (4) Sepsis Status: Acute (5) UTI (urinary tract infection) Status: Acute DS: Summary Hospital Course: Patient examined. Assessment and plan formulated with Shahla Ag PA-C. I agree with the above. - Time Spent with Patient Total time spent providing and/or coordinating discharge services: Results - Impressions ITS Impressions Chest X-Ray 05/20/18 15:45 CONCLUSION: No acute cardiopulmonary process to explain current clinical symptoms. Head CT 05/20/18 15:45 CONCLUSION: 1. Stable senescent changes without acute intracranial abnormality. . Discharge Plan - Discharge Order Discharge Orders: Discharge Order (Routine); Ordered 05/23/18 Ordered By: Shahla Ag - Discharge Details Anticipated Discharge Date: 05/23/18 - Physicians Team Primary Care Provider: Harjeet Lund Attending Provider: Harjeet La Other Providers: [facility] ; [facility] [place],[facility]
[2018-05-23 16:58] VITALS: BP 131/77; TEMP 98.1; O2SAT 100
[2018-05-23 17:03] VITALS: PULSE 93
== END 2018-05-23 17:22 ==
LOC: NEPE 15:39 → NEDA 18:36 → N04 21:00
PROVIDERS: ADMIT Hospitalist; ATTEND Hospitalist

== ENCOUNTER 2018-05-26 19:26 | Inpatient (IN) ==
[2018-05-26] MEDS ORDERED: Sod Chloride 0.9% Inj 1,000 ML IV.SIG ONE (19:42)
--- NOTE | 2018-05-26 19:50 | ED ---
HPI General Chief complaint: GI Bleed Stated complaint: Vomiting Time Seen by Provider: 05/26/18 19:42 Source: patient, EMS, RN notes reviewed and old records reviewed Mode of arrival: EMS Limitations: no limitations History of Present Illness HPI Narrative: The patient is a 72-year-old female with past history significant for GERD and recent admission to the hospital for the weakness that was brought in from a rehab center where she was sent 4 days ago after she was discharged from [facility], for coffee-ground emesis. Patient reports that she has been having coffee-ground emesis for the past 2 weeks and she started having abdominal pain in the last couple of days. Today she had several episodes of coffee-ground emesis and was brought to the emergency department for evaluation. Blood thinners. Has no history of peptic ulcers. She does take NSAIDs occasionally but has not had any months. MD complaint: coffee ground emesis Onset (ago): week(s) (2) Pain Consistency: intermittent Severity: moderate Relieving factors: none Associated symptoms: abdominal pain, nausea, vomiting, malaise and weakness Related Data Home Medications Medication Instructions Recorded Confirmed acetaminophen [Tylenol] 650 mg PO Q6H PRN 05/26/18 05/26/18 omeprazole magnesium [Prilosec OTC] 20 mg PO BID 05/26/18 05/26/18 Allergies Allergy/AdvReac Type Severity Reaction Status Date / Time Penicillins AdvReac Dizziness Verified 05/26/18 19:40 Review of Systems ROS: all other systems reviewed are negative [facility] Medical History Medical History GERD (gastroesophageal reflux disease) (Acute) Hyperosmolality and hypernatremia (Acute) Hypokalemia (Acute) Sepsis (Acute) UTI (urinary tract infection) (Acute) Social History Social History Substance History: No History of Abuse Second Hand Smoke Exposure: No Smoking Status: Never smoker How Often Do You Have a Drink Containing Alcohol: Monthly or less Recent Travel in [facility] within the Last 8 Weeks: No Recent Out of Country Travel within the Last 8 Weeks: No Exam Narrative Exam Narrative: GENERAL: Alert and oriented in no distress SKIN: Focused skin assessment warm/dry. Pale. Patient with several stage II decubitus ulcers on bilateral buttocks that were dressed with Mepilex. No signs of overlying cellulitis. Desitin cream noted on the perirectal area HEAD: Atraumatic. Normocephalic. EYES: Pupils equal and round. No scleral icterus. No injection or drainage. Pale conjunctiva ENT: No nasal bleeding or discharge. Mucous membranes pink and moist. Dried blood in oral cavity NECK: Trachea midline. No JVD. CARDIOVASCULAR: Tachycardia. No murmur appreciated. Distal pulses intact no pitting edema RESPIRATORY: No accessory muscle use. Clear to auscultation. Breath sounds equal bilaterally. GASTROINTESTINAL: Abdomen soft, obese with diffuse tenderness to palpation, nondistended. Hepatic and splenic margins not palpable. Rectal exam revealed several external hemorrhoids nonthrombosed nonbleeding stool was green positive guaiac for occult blood MUSCULOSKELETAL: No obvious deformities. No clubbing. No cyanosis. No edema. NEUROLOGICAL: Awake and alert. No obvious cranial nerve deficits. Motor grossly within normal limits. Normal speech. PSYCHIATRIC: Appropriate mood and affect; insight and judgment normal. Course Hospital Course: Patient with upper and lower GI bleeds based on examination and symptoms. Tachycardic on arrival. Started on octreotide and Protonix. Typed and screened. Fluids given for tachycardia. We will place an NG tube. Initial Documented Vital Signs Temperature 98.7 F 05/26/18 19:46 Pulse Rate 117 H 05/26/18 19:46 Respiratory Rate 20 05/26/18 19:46 Blood Pressure 133/87 05/26/18 19:46 Pulse Oximetry 99 05/26/18 19:46 Last Documented Vital Signs Temperature 98.5 F 05/27/18 04:00 Pulse Rate 96 H 05/27/18 04:00 Respiratory Rate 19 05/27/18 04:00 Blood Pressure 118/64 05/27/18 04:00 Pulse Oximetry 95 05/27/18 04:00 Critical Care Time Critical Care Time: Yes Total Critical Care Time: 35 Attestation: Aggregate critical care time was 35 minutes. Time to perform other separately billable procedures was not included in the critical care time. My time did not include minutes spent treating any other patients simultaneously or on activities that did not directly contribute to the patient's treatment. The services I provided to this patient were to treat and/or prevent clinically significant deterioration that could result in: Cardiopulmonary collapse loss of current lifestyle I provided critical care services requiring my management, as noted below: Chart data review, documentation time, medication orders and management, vital sign assessments/reviewing monitor data, ordering and reviewing lab tests, ordering and interpreting/reviewing x-rays and diagnostic studies, care of the patient and discussion of the patient with the admitting physicians. Medical Decision Making MDM Narrative Medical decision making narrative: Patient with pneumatosis coli several dilated loops on CT abdomen and pelvis. Findings were discussed with surgery senior electronics technician. No recommendation for antibiotics at this time. No lactic acidosis. No peritoneal signs no signs of perforation. Primary care physician at bedside. Findings discussed with patient. Hemoglobin stable at 13.3. Occult was negative. NG tube was inserted and there was no aspirate. Was admitted for further evaluation and surgical consultation in the a.m. No signs of acute abdomen Medical Screen Exam Complete: Yes Emergency Medical Condition: Yes Lab Data Lab results reviewed: Yes I reviewed the patient's lab results. Result diagrams: 05/26/18 19:45 05/26/18 19:45 Lab Results 05/26/18 05/26/18 05/26/18 Range/Units 19:45 19:45 19:45 WBC 6.1 (4.0-11.0) th/mm3 RBC 5.06 (4.00-5.30) mil/mm3 Hgb 13.3 (11.6-15.3) gm/dL Hct 41.1 (35.0-46.0) % MCV 81.2 (80.0-100.0) fL MCH 26.3 L (27.0-34.0) pg MCHC 32.4 (32.0-36.0) % RDW 19.7 H (11.6-17.2) % Plt Count 219 (150-450) th/mm3 MPV 8.4 (7.0-11.0) fL Neut % (Auto) 61.2 (16.0-70.0) % Lymph % (Auto) 23.3 (9.0-44.0) % [place] % (Auto) 14.4 H (0.0-8.0) % Eos % (Auto) 0.6 (0.0-4.0) % Baso % (Auto) 0.5 (0.0-2.0) % Neut # (Auto) 3.8 (1.8-7.7) th/mm3 Lymph # (Auto) 1.4 (1.0-4.8) th/mm3 [place] # (Auto) 0.9 (0.0-0.9) th/mm3 Eos # (Auto) 0.0 (0.0-0.4) th/mm3 Baso # (Auto) 0.0 (0.0-0.2) th/mm3 WBC Differential . Differential Comment Auto diff final PT 10.0 (9.8-11.6) sec INR 1.0 Ratio APTT 24.3 (24.3-30.1) sec Sodium 138 (136-145) meq/L Potassium 4.0 (3.5-5.1) meq/L Chloride 102 (98-107) meq/L Carbon Dioxide 27.0 (21.0-32.0) meq/L Anion Gap 9 (5-15) meq/L BUN 13 (7-18) mg/dL Creatinine 0.92 (0.50-1.00) mg/dL Estimated GFR 60 L (>89) mL/min Random Glucose 107 H (74-106) mg/dL Lactic Acid (0.4-2.0) mmol/L Calcium 7.7 L (8.5-10.1) mg/dL Magnesium 1.9 (1.5-2.5) mg/dL Total Bilirubin 0.6 (0.2-1.0) mg/dL AST 16 (15-37) U/L ALT 18 (10-53) U/L Alkaline Phosphatase 83 (45-117) U/L Total Protein 6.1 L D (6.4-8.2) g/dL Albumin 1.8 L (3.4-5.0) g/dL Blood Type Blood Type Recheck Antibody Screen 05/26/18 05/26/18 Range/Units 19:45 23:20 WBC (4.0-11.0) th/mm3 RBC (4.00-5.30) mil/mm3 Hgb (11.6-15.3) gm/dL Hct (35.0-46.0) % MCV (80.0-100.0) fL MCH (27.0-34.0) pg MCHC (32.0-36.0) % RDW (11.6-17.2) % Plt Count (150-450) th/mm3 MPV (7.0-11.0) fL Neut % (Auto) (16.0-70.0) % Lymph % (Auto) (9.0-44.0) % [place] % (Auto) (0.0-8.0) % Eos % (Auto) (0.0-4.0) % Baso % (Auto) (0.0-2.0) % Neut # (Auto) (1.8-7.7) th/mm3 Lymph # (Auto) (1.0-4.8) th/mm3 [place] # (Auto) (0.0-0.9) th/mm3 Eos # (Auto) (0.0-0.4) th/mm3 Baso # (Auto) (0.0-0.2) th/mm3 WBC Differential Differential Comment PT (9.8-11.6) sec INR Ratio APTT (24.3-30.1) sec Sodium (136-145) meq/L Potassium (3.5-5.1) meq/L Chloride (98-107) meq/L Carbon Dioxide (21.0-32.0) meq/L Anion Gap (5-15) meq/L BUN (7-18) mg/dL Creatinine (0.50-1.00) mg/dL Estimated GFR (>89) mL/min Random Glucose (74-106) mg/dL Lactic Acid 1.7 (0.4-2.0) mmol/L Calcium (8.5-10.1) mg/dL Magnesium (1.5-2.5) mg/dL Total Bilirubin (0.2-1.0) mg/dL AST (15-37) U/L ALT (10-53) U/L Alkaline Phosphatase (45-117) U/L Total Protein (6.4-8.2) g/dL Albumin (3.4-5.0) g/dL Blood Type A Positive Blood Type Recheck Required Antibody Screen Negative Imaging Data Radiologist's impression: Abdomen/Pelvis CT 05/26/18 19:42 CONCLUSION: 1. Abnormal appearance to the bowel with pneumatosis coli and dilated loops of both small and large bowel. No evidence of free fluid, portal gas, or free intraperitoneal gas. 2. Moderate size hiatus hernia. 3. Tiny bilateral pleural effusions. Chest X-Ray 05/26/18 21:33 CONCLUSION: The lungs are clear. Discharge Plan Discharge Disposition Patient Disposition: 30 Still Patient Discharge Condition Condition: Good Discharge Details Diagnosis: Acute GI bleeding, Dehydration, Pneumatosis coli Physicians Team ED Provider: Yared Forman Primary Care Provider: Harjeet Lund Attending Provider: Quinn Mancilla Other Providers: Amado Chester Jonathan Discharge Interventions Interventions: ED Discharge Assessment Last Done: 05/27/18 03:32 Status ED Status: Left Department Discharge Information Discharge Date/Time: 05/27/18 03:33
[2018-05-26 20:16] LABS: Baso % (Auto) 0.5 % (0.0-2.0); Eos % (Auto) 0.6 % (0.0-4.0); Hematocrit 41.1 % (35.0-46.0); Hemoglobin 13.3 gm/dL (11.6-15.3); Lymph # (Auto) 1.4 th/mm3 (1.0-4.8); Lymph % (Auto) 23.3 % (9.0-44.0); Mean Corpuscular HGB Conc 32.4 % (32.0-36.0); Mean Corpuscular Hemoglobin 26.3 pg (27.0-34.0); Mean Corpuscular Volume 81.2 fL (80.0-100.0); Mean Platelet Volume 8.4 fL (7.0-11.0); Mono # (Auto) 0.9 th/mm3 (0.0-0.9); Mono % (Auto) 14.4 % (0.0-8.0); Neut # (Auto) 3.8 th/mm3 (1.8-7.7); Neut % (Auto) 61.2 % (16.0-70.0); Platelet Count 219 th/mm3 (150-450); Red Blood Count 5.06 mil/mm3 (4.00-5.30); Red Cell Distribution Width 19.7 % (11.6-17.2); White Blood Count 6.1 th/mm3 (4.0-11.0)
[2018-05-26 20:34] LABS: Alanine Aminotransferase 18 U/L (10-53); Albumin 1.8 g/dL (3.4-5.0); Anion Gap 9 meq/L (5-15); Aspartate Aminotransferase 16 U/L (15-37); Blood Urea Nitrogen 13 mg/dL (7-18); Calcium 7.7 mg/dL (8.5-10.1); Chloride 102 meq/L (98-107); Glomerular Filtration Rate 60 mL/min (>89); Glucose,Random 107 mg/dL (74-106); Magnesium 1.9 mg/dL (1.5-2.5); Sodium 138 meq/L (136-145)
[2018-05-26 20:37] LABS: Alkaline Phosphatase 83 U/L (45-117); Total Protein 6.1 g/dL (6.4-8.2)
[2018-05-26 20:39] LABS: Activated Partial Thrombo Time 24.3 sec (24.3-30.1)
[2018-05-26] MEDS: Octreotide Inj 500 MCG in Sodium Chlor 0.9% Inj 500 ML IV.CONT SCH (20:56)
[2018-05-26] MEDS: Pantoprazole Inj 80 MG in Sodium Chlor 0.9% Inj 100 ML IV.CONT SCH (20:56)
--- NOTE | 2018-05-26 22:18 | CT ---
EXAM DATE: 05/26/2018 8:50 PM EDT AGE/SEX: 72 years / Female INDICATIONS: Coffee-ground emesis for three days, abdominal distention. CLINICAL DATA: This is the patient's initial encounter. Patient reports that signs and symptoms have been present for 3 days and indicates a pain score of 4/10. MEDICAL/SURGICAL HISTORY: Gastroesophageal reflux disease. Sepsis. None. RADIATION DOSE: 14.82 CTDI (mGy) COMPARISON: No prior exams available for comparison. TECHNIQUE: Multiple contiguous axial images were obtained through the abdomen. Images were obtained using multiple row detector helical technique. Using automated exposure control and adjustment of the mA and/or kV according to patient size, radiation dose was kept as low as reasonably achievable to o btain optimal diagnostic quality images. DICOM format image data is available electronically for rev iew and comparison. FINDINGS: Lower Lungs: The visualized lower lungs are clear. Tiny bilateral pleural effusions. Prominent hiatus hernia measuring 6.2 cm in width. Liver: The liver has a homogeneous density without space-occupying lesion for noncontrast technique.. There is no dilation of the biliary tree. No evidence of portal gas. No calcified gallstones. Spleen: Homogeneous density without enlargement. Pancreas: Unremarkable without mass or calcification. Kidneys: Normal in size and shape. No evidence of mass or hydronephrosis. Adrenal Glands: Unremarkable. Aorta: The aorta and proximal iliac vessels are grossly unremarkable without aneurysmal dilation. Bowel/Mesentery: There is an abnormal appearance to colon with diffuse dilation of the colon. There is gas seen in the wall of both dependent and nondependent colon suggesting pneumatosis; this extends from the hepatic flexure to the sigmoid. There are also multiple dilated loops of small bowel measur ing up to 3.8 cm in size. No evidence of free fluid. No evidence of free intraperitoneal gas. There i s a calcific density in the second portion of the duodenum which measures 9 mm. Abdominal Wall: Intact. Retroperitoneum: No evidence of adenopathy in the retrocrural, para-aortic, or deep pelvic regions. Bladder: Contours are smooth. Reproductive Organs: No abnormal masses or calcifications seen. Inguinal: The inguinal region is unremarkable without evidence of adenopathy. Bony Structures: Left lumbar curvature with moderate discogenic degenerative changes. CONCLUSION: 1. Abnormal appearance to the bowel with pneumatosis coli and dilated loops of both small and large bowel. No evidence of free fluid, portal gas, or free intraperitoneal gas. 2. Moderate size hiatus hernia. 3. Tiny bilateral pleural effusions. Electronically signed by: Fer Varela MD 05/26/2018 10:16 PM EDT
--- NOTE | 2018-05-26 22:38 | XR ---
EXAM DATE: 05/26/2018 9:55 PM EDT AGE/SEX: 72 years / Female INDICATIONS: Shortness of breath with vomiting. CLINICAL DATA: This is the patient's initial encounter. Patient reports that signs and symptoms have been present for 1 day and indicates a pain score of 0/10. MEDICAL/SURGICAL HISTORY: Gastroesophageal reflux disease. None. COMPARISON: [facility] [place], CHEST 1V SINGLE AP, 05/20/2018. . FINDINGS: A single AP view of the chest demonstrates the lungs to be symmetrically aerated without evidence of mass, infiltrate or effusion. The cardiomediastinal contours are unremarkable. Osseous structures a re intact. CONCLUSION: The lungs are clear. Electronically signed by: Fer Varela MD 05/26/2018 10:36 PM EDT
--- NOTE | 2018-05-27 00:19 | P.HP ---
History of Present Illness Service: [facility] Primary Care Physician: Harjeet Lund MD Chief Complaint: nausea ,vomit heamtemesis History of Present Illness: HPI Narrative: The patient is a 72-year-old female with past history significant for GERD and recent admission to the hospital for the weakness, dehydration. Patient has been having nausea vomiting with hematemesis for the last several days since admitted to the rehab center hematemesis started today with coffee-ground emesis. Patient reports that she started having abdominal pain in the last couple of days. Today she had several episodes of coffee- ground emesis and was brought to the emergency department for evaluation. On no blood thinners. Has no history of peptic ulcers. She does take NSAIDs occasionally but has not had any months. complaint: coffee ground emesis Onset (ago): week(s) (2) Pain Consistency: intermittent Severity: moderate Relieving factors: none Associated symptoms: abdominal pain, nausea, vomiting, malaise and weakness lab work in the emergency room was essentially unremarkable with ptosis coli with dilated loops of both small and large bowel patient will be admitted now for surgical evaluation as well as GI evaluation. Patient denies any chest pain shortness of breath does have generalized weakness and some chronic lower extremity +1 edema. 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 - Medical History Medical History: Medical History (Last Reviewed 05/26/18 @ 19:47 by Yared Forman DO) GERD (gastroesophageal reflux disease) Hyperosmolality and hypernatremia Hypokalemia Sepsis UTI (urinary tract infection) - Tobacco History Second Hand Smoke Exposure: No Smoking Status: Former smoker - Alcohol History How Often Do You Have a Drink Containing Alcohol: Monthly or less - Substance Use History Substance History: No History of Abuse - Travel History Recent Travel in the [place] Within the Last 8 Weeks: No Recent Travel Out of the Country Within the Last 8 Weeks: No - Immunization History Tetanus Immunization: <5 Years Hx Influenza Vaccine This Season: Yes Medications and Allergies Active Medications: Active Medications Pantoprazole Sodium 80 mg/ (Sodium Chloride) 100 mls @ 10 mls/hr IV.CONT CONT SEB Last Admin: 05/26/18 20:56 Dose: 10 mls/hr Octreotide Acetate 500 mcg/ (Sodium Chloride) 500.5 mls @ 50.05 mls/hr IV.CONT .Q10H SEB Last Admin: 05/26/18 20:56 Dose: 50 mcg/hr, 50.05 mls/hr Ondansetron HCl (Zofran Inj) 4 mg IV.PUSH Q6H PRN PRN Reason: NAUSEA OR VOMITING Sodium Chloride (Ns Flush) 2 ml IV.FLUSH PRN PRN PRN Reason: FLUSH AFTER USING IV ACCESS Allergies Allergy/AdvReac Type Severity Reaction Status Date / Time Penicillins AdvReac Dizziness Verified 05/26/18 19:40 Home Medications Medication Instructions Recorded Confirmed Type acetaminophen [Tylenol] 650 mg PO Q6H PRN 05/26/18 05/26/18 History omeprazole magnesium [Prilosec OTC] 20 mg PO BID 05/26/18 05/26/18 History Exam Vital signs: Vital Signs 05/26/18 19:46 05/26/18 19:49 05/26/18 20:29 Temperature 98.7 F Pulse Rate 117 H Respiratory Rate 20 Blood Pressure 133/87 Pulse Oximetry 99 98 98 05/26/18 21:06 05/26/18 22:37 05/26/18 23:00 Temperature Pulse Rate 100 H 99 H 100 H Respiratory Rate 19 18 19 Blood Pressure 140/80 141/81 H 124/81 Pulse Oximetry 95 100 98 Intake & Output 05/26/18 05/26/18 05/27/18 06:59 18:59 06:59 Intake Total 1000 / 1000 Balance 1000 / 1000 Weight 81.647 kg Intake: IV 1000 / 1000 NS Inj 1,000 ML @ Wide Open IV. 1000 / 1000 SIG BOLUS ONE Rx#:[id number] Narrative: GENERAL: SKIN: Warm and dry. HEAD: Atraumatic. Normocephalic. EYES: Pupils equal and round. No scleral icterus. No injection or drainage. ENT: No nasal bleeding or discharge. Mucous membranes pink and moist. NECK: Trachea midline. No JVD. CARDIOVASCULAR: Regular rate and rhythm. RESPIRATORY: No accessory muscle use. Clear to auscultation. Breath sounds equal bilaterally. GASTROINTESTINAL: Abdomen , -tender to direct palpation distended no rebound. Hepatic and splenic margins not palpable. MUSCULOSKELETAL: Extremities without clubbing, cyanosis, plus 2 edema. No obvious deformities. NEUROLOGICAL: Awake and alert. No obvious cranial nerve deficits. Motor grossly within normal limits. Five out of 5 muscle strength in the arms and legs. Normal speech. PSYCHIATRIC: Appropriate mood and affect; insight and judgment normal. Results - Labs CBC & Chem 7: 05/26/18 19:45 05/26/18 19:45 Labs: Laboratory Results - last 24 hr 05/26/18 05/26/18 05/26/18 19:45 19:45 19:45 WBC 6.1 RBC 5.06 Hgb 13.3 Hct 41.1 MCV 81.2 MCH 26.3 L MCHC 32.4 RDW 19.7 H Plt Count 219 MPV 8.4 Neut % (Auto) 61.2 Lymph % (Auto) 23.3 Richardson % (Auto) 14.4 H Eos % (Auto) 0.6 Baso % (Auto) 0.5 Neut # (Auto) 3.8 Lymph # (Auto) 1.4 Richardson # (Auto) 0.9 Eos # (Auto) 0.0 Baso # (Auto) 0.0 WBC Differential . Differential Comment Auto diff final PT 10.0 INR 1.0 APTT 24.3 Sodium 138 Potassium 4.0 Chloride 102 Carbon Dioxide 27.0 Anion Gap 9 BUN 13 Creatinine 0.92 Estimated GFR 60 L Random Glucose 107 H Lactic Acid Calcium 7.7 L Magnesium 1.9 Total Bilirubin 0.6 AST 16 ALT 18 Alkaline Phosphatase 83 Total Protein 6.1 L D Albumin 1.8 L Blood Type Blood Type Recheck Antibody Screen 05/26/18 05/26/18 19:45 23:20 WBC RBC Hgb Hct MCV MCH MCHC RDW Plt Count MPV Neut % (Auto) Lymph % (Auto) Richardson % (Auto) Eos % (Auto) Baso % (Auto) Neut # (Auto) Lymph # (Auto) Richardson # (Auto) Eos # (Auto) Baso # (Auto) WBC Differential Differential Comment PT INR APTT Sodium Potassium Chloride Carbon Dioxide Anion Gap BUN Creatinine Estimated GFR Random Glucose Lactic Acid 1.7 Calcium Magnesium Total Bilirubin AST ALT Alkaline Phosphatase Total Protein Albumin Blood Type A Positive Blood Type Recheck Required Antibody Screen Negative - Imaging Impressions Abdomen/Pelvis CT 05/26/18 19:42 CONCLUSION: 1. Abnormal appearance to the bowel with pneumatosis coli and dilated loops of both small and large bowel. No evidence of free fluid, portal gas, or free intraperitoneal gas. 2. Moderate size hiatus hernia. 3. Tiny bilateral pleural effusions. Chest X-Ray 05/26/18 21:33 CONCLUSION: The lungs are clear. Caprini VTE Risk Assessment Caprini VTE Risk Assessment: Moderate/High Risk (score >= 2) Caprini Risk Assessment Model: Point Value = 1 Point Value = 2 Point Value = 3 Point Value = 5 Age 41-60 Minor surgery BMI > 25 kg/m2 Swollen legs Varicose veins or History of unexplained or recurrent spontaneous Oral contraceptives or hormone replacement Sepsis (< 1 month) Serious lung disease, including pneumonia (< 1 month) Abnormal pulmonary function Acute myocardial infarction Congestive heart failure (< 1 month) History of inflammatory bowel disease Medical patient at bed rest Age 61-74 Arthroscopic surgery Major open surgery (> 45 min) Laparoscopic surgery (> 45 min) Malignancy Confined to bed (> 72 hours) Immobilizing plaster cast Central venous access Age >= 75 History of VTE Family history of VTE Factor V Leiden Prothrombin [id number] Lupus anticoagulant Anticardiolipin antibodies Elevated serum homocysteine Heparin-induced thrombocytopenia Other congenital or acquired thrombophilia Stroke (< 1 month) Elective arthroplasty Hip, pelvis, or leg fracture Acute spinal cord injury (< 1 month) Prophylaxis Regimen: Total Risk Factor Score Risk Level Prophylaxis Regimen 0-1 Low Early ambulation 2 Moderate Order ONE of the following: *Sequential Compression Device (SCD) *Heparin 5000 units SQ BID 3-4 Higher Order ONE of the following medications: *Heparin 5000 units SQ TID *Enoxaparin/Lovenox 40 mg SQ daily (WT < 150 kg, CrCl > 30 mL/min) *Enoxaparin/Lovenox 30 mg SQ daily (WT < 150 kg, CrCl > 10-29 mL/min) *Enoxaparin/Lovenox 30 mg SQ BID (WT < 150 kg, CrCl > 30 mL/min) AND/OR *Sequential Compression Device (SCD) 5 or more Highest Order ONE of the following medications: *Heparin 5000 units SQ TID (Preferred with Epidurals) *Enoxaparin/Lovenox 40 mg SQ daily (WT < 150 kg, CrCl > 30 mL/min) *Enoxaparin/Lovenox 30 mg SQ daily (WT < 150 kg, CrCl > 10-29 mL/min) *Enoxaparin/Lovenox 30 mg SQ BID (WT < 150 kg, CrCl > 30 mL/min) AND *Sequential Compression Device (SCD) Assessment and Plan - Assessment (1) Hematemesis/vomiting blood Code(s): K92.0 - Hematemesis Status: Acute Plan: We will continue Protonix at this time IV will add Zofran for nausea (2) Pneumatosis coli Code(s): K63.89 - Other specified diseases of intestine Status: Acute Plan: Place NG tube and will consult general surgery ER as already discussed case with general surgery - Plan Further plan as case develops Code Status: Full Discussed Condition With: Patient
[2018-05-27] MEDS ORDERED: Bisacodyl 10 MG Supp RECTAL PRN (00:20)
[2018-05-27] MEDS: Sodium Chloride 0.45 % Inj 1,000 ML IV.CONT SCH ×2 (07:01→14:58)
[2018-05-27 07:36] LABS: Calcium 7.1 mg/dL (8.5-10.1); Carbon Dioxide 27.3 meq/L (21.0-32.0); Potassium 4.1 meq/L (3.5-5.1)
[2018-05-27 07:44] LABS: Baso % (Auto) 0.3 % (0.0-2.0); Eos # (Auto) 0.1 th/mm3 (0.0-0.4); Eos % (Auto) 0.8 % (0.0-4.0); Hematocrit 32.9 % (35.0-46.0); Hemoglobin 11.3 gm/dL (11.6-15.3); Lymph # (Auto) 1.7 th/mm3 (1.0-4.8); Lymph % (Auto) 23.4 % (9.0-44.0); Mean Corpuscular HGB Conc 34.4 % (32.0-36.0); Mean Corpuscular Hemoglobin 27.4 pg (27.0-34.0); Mean Corpuscular Volume 79.8 fL (80.0-100.0); Mean Platelet Volume 9.1 fL (7.0-11.0); Mono % (Auto) 13.5 % (0.0-8.0); Neut # (Auto) 4.4 th/mm3 (1.8-7.7); Platelet Count 195 th/mm3 (150-450); Red Blood Count 4.13 mil/mm3 (4.00-5.30); White Blood Count 7.1 th/mm3 (4.0-11.0)
[2018-05-27] MEDS: Octreotide Inj 500 MCG in Sodium Chlor 0.9% Inj 500 ML IV.CONT SCH ×2 (08:07→16:47)
[2018-05-27 08:18] LABS: Total Protein 5.2 g/dL (6.4-8.2)
[2018-05-27 08:42] LABS: Eosinophils 2 % (0-4); Lymphocytes 31 % (9-44); Monocytes 14 % (0-8)
[2018-05-27 08:43] LABS: Ovalocytes 1+; Platelet Estimate Normal (Normal); Platelet Morphology Clumped (Normal)
[2018-05-27] MEDS ORDERED: Senna/Docusate Sodium 8.6/50 MG Tablet PO SCH (09:00)
--- NOTE | 2018-05-27 09:48 | P.PNIM ---
Subjective Interval history: Patient sitting on edge of bed with [employer]OCI[employer] at bedside NG tube to LIWS with brown coffee ground appearance Patient reports that lower abd pain coffee ground emesis and diarrhea started yesterday abd pain has improved since last night - asking for water Physical Exam Vital signs: Vital Signs 05/26/18 19:46 05/26/18 19:49 05/26/18 20:29 Temperature 98.7 F Pulse Rate 117 H Respiratory Rate 20 Blood Pressure 133/87 Pulse Oximetry 99 98 98 05/26/18 21:06 05/26/18 22:37 05/26/18 23:00 Temperature Pulse Rate 100 H 99 H 100 H Respiratory Rate 19 18 19 Blood Pressure 140/80 141/81 H 124/81 Pulse Oximetry 95 100 98 05/27/18 02:01 05/27/18 02:44 05/27/18 04:00 Temperature 98.5 F Pulse Rate 101 H 98 H 96 H Respiratory Rate 18 18 19 Blood Pressure 131/96 H 128/80 118/64 Pulse Oximetry 96 95 95 05/27/18 08:00 Temperature 98.0 F Pulse Rate 98 H Respiratory Rate 16 Blood Pressure Pulse Oximetry 100 Intake & Output 05/26/18 05/27/18 05/27/18 18:59 06:59 18:59 Intake Total 1310 / 1310 330 / 330 Balance 1310 / 1310 330 / 330 Weight 81.647 kg Intake: IV 1310 / 1310 330 / 330 SandoSTATIN Inj 500 MCG In NS 270 / 270 270 / 270 Inj 500 ML @ 50 MCG/HR 50.05 mls/hr IV.CONT .Q10H [facility] Rx#: [id number] Protonix Inj 80 MG In NS Inj 40 / 40 60 / 60 100 ML @ 10 mls/hr IV.CONT CONT SEB Rx#:[id number] NS Inj 1,000 ML @ Wide Open IV. 1000 / 1000 SIG BOLUS ONE Rx#:[id number] Other: Date of Last Bowel Movement 05/26/18 Weight On Admission 81.647 kg Narrative: GENERAL: This is a 74 year old female with NG tube to LIWS with brown coffee ground appearance CARDIOVASCULAR: Regular rate and rhythm RESPIRATORY: Clear to auscultation. Breath sounds equal bilaterally. GASTROINTESTINAL: Abdomen soft, mild-tenderness bilateral lower abdomen, distended. quite hypoactive bowel sounds MUSCULOSKELETAL: Extremities without clubbing, cyanosis, or edema. NEURO: Alert & Oriented x4 to person, place, time, situation. Moves all ext x4 Results - Labs CBC & Chem 7: 05/27/18 06:40 05/27/18 06:40 Laboratory Results - last 24 hr 05/26/18 05/26/18 05/26/18 19:45 19:45 19:45 WBC 6.1 RBC 5.06 Hgb 13.3 Hct 41.1 MCV 81.2 MCH 26.3 L MCHC 32.4 RDW 19.7 H Plt Count 219 MPV 8.4 Prelim Diff (Auto) Neut % (Auto) 61.2 Lymph % (Auto) 23.3 [place] % (Auto) 14.4 H Eos % (Auto) 0.6 Baso % (Auto) 0.5 Neut # (Auto) 3.8 Lymph # (Auto) 1.4 [place] # (Auto) 0.9 Eos # (Auto) 0.0 Baso # (Auto) 0.0 WBC Differential . Seg Neuts % (Manual) Band Neuts % (Manual) Lymphocytes % (Manual) Monocytes % (Manual) Eosinophils % (Manual) Basophils % (Manual) Abs Neuts (Manual) Differential Comment Auto diff final Platelet Estimate Platelet Morphology Ovalocytes PT 10.0 INR 1.0 APTT 24.3 Sodium 138 Potassium 4.0 Chloride 102 Carbon Dioxide 27.0 Anion Gap 9 BUN 13 Creatinine 0.92 Estimated GFR 60 L Random Glucose 107 H Lactic Acid Calcium 7.7 L Prot Corrected Calcium Magnesium 1.9 Total Bilirubin 0.6 AST 16 ALT 18 Alkaline Phosphatase 83 Total Protein 6.1 L D Albumin 1.8 L Blood Type Blood Type Recheck Antibody Screen 05/26/18 05/26/18 05/27/18 19:45 23:20 06:40 WBC RBC Hgb Hct MCV MCH MCHC RDW Plt Count MPV Prelim Diff (Auto) Neut % (Auto) Lymph % (Auto) [place] % (Auto) Eos % (Auto) Baso % (Auto) Neut # (Auto) Lymph # (Auto) [place] # (Auto) Eos # (Auto) Baso # (Auto) WBC Differential Seg Neuts % (Manual) Band Neuts % (Manual) Lymphocytes % (Manual) Monocytes % (Manual) Eosinophils % (Manual) Basophils % (Manual) Abs Neuts (Manual) Differential Comment Platelet Estimate Platelet Morphology Ovalocytes PT INR APTT Sodium 140 Potassium 4.1 Chloride 105 Carbon Dioxide 27.3 Anion Gap 8 BUN 13 Creatinine 0.91 Estimated GFR 61 L Random Glucose 127 H Lactic Acid 1.7 Calcium 7.1 L* Prot Corrected Calcium 8.1 L Magnesium Total Bilirubin AST ALT Alkaline Phosphatase Total Protein 5.2 L D Albumin Blood Type A Positive Blood Type Recheck Required Antibody Screen Negative 05/27/18 06:40 WBC 7.1 RBC 4.13 Hgb 11.3 L D Hct 32.9 L MCV 79.8 L MCH 27.4 MCHC 34.4 RDW 20.0 H Plt Count 195 MPV 9.1 Prelim Diff (Auto) Slide review pending Neut % (Auto) 62.0 Lymph % (Auto) 23.4 [place] % (Auto) 13.5 H Eos % (Auto) 0.8 Baso % (Auto) 0.3 Neut # (Auto) 4.4 Lymph # (Auto) 1.7 [place] # (Auto) 1.0 H Eos # (Auto) 0.1 Baso # (Auto) 0.0 WBC Differential Manual diff final Seg Neuts % (Manual) 39 Band Neuts % (Manual) 13 H Lymphocytes % (Manual) 31 Monocytes % (Manual) 14 H Eosinophils % (Manual) 2 Basophils % (Manual) 1 Abs Neuts (Manual) 3.7 Differential Comment . Platelet Estimate Normal Platelet Morphology Clumped H Ovalocytes 1+ H PT INR APTT Sodium Potassium Chloride Carbon Dioxide Anion Gap BUN Creatinine Estimated GFR Random Glucose Lactic Acid Calcium Prot Corrected Calcium Magnesium Total Bilirubin AST ALT Alkaline Phosphatase Total Protein Albumin Blood Type Blood Type Recheck Antibody Screen - Imaging Impressions Abdomen/Pelvis CT 05/26/18 19:42 CONCLUSION: 1. Abnormal appearance to the bowel with pneumatosis coli and dilated loops of both small and large bowel. No evidence of free fluid, portal gas, or free intraperitoneal gas. 2. Moderate size hiatus hernia. 3. Tiny bilateral pleural effusions. Chest X-Ray 05/26/18 21:33 CONCLUSION: The lungs are clear. Assessment and Plan - Assessment (1) Acute GI bleeding Code(s): K92.2 - Gastrointestinal hemorrhage, unspecified Status: Acute Plan: Acute GI bleed Hematemesis/vomiting blood hgb on admission 13.3 -> 11.3 (05/27) We will continue Protonix drip continue Zofran for nausea IV hydration NG tube to LIWS consult to GI NPO Abdomen/Pelvis CT 05/26/18 1. Abnormal appearance to the bowel with pneumatosis coli and dilated loops of both small and large bowel. No evidence of free fluid, portal gas, or free intraperitoneal gas. 2. Moderate size hiatus hernia. 3. Tiny bilateral pleural effusions. consult general surgery ER as already discussed case with general surgery stool studies C diff, ova and parasites, enteric pathogens repeat KUB start IV Flagyl,high concern for Cdiff, infectious cause for bowel distention/ pneumatosis coli, await stool studies DVT prophylaxis SCDs avoid chemical DVT prophylaxis due to GI bleed The exam, history, and the medical decision-making described in the above note were completed with the assistance of the mid-level provider. I reviewed and agree with the findings presented. I attest that I had a [id number] encounter with the patient on the same day, and personally performed and documented my assessment and findings in the medical record. distended small/large bowel ileus pattern. pneumatosis coli. now having some diarrhea per nursing. recent abx use. await stool studies. pt npo and pulled out ngt. IV flagyl initiated while awaiting stool. GI following.
--- NOTE | 2018-05-27 11:43 | P.CONGI ---
History of Present Illness Consult date: 05/27/18 Consult reason: Hematemesis ,coffee-ground emesis Chief complaint: GI Bleed, Pneumatosis Coli History of Present Illness: This is a 72-year-old female who came into the hospital for evaluation of weakness and dehydration according to the record. It is also noted that patient had dyspepsia for the past few months and notes that this heartburn sensation has gotten worse over the past few weeks. Patient notes that she has been taking Tums at least 2-3 times a week for alleviating factors. Aggregating factors unknown but patient does note acute onset of nausea and vomiting 2 hours after eating. Patient notes she has had a decreased appetite also during this period of time patient started having acute onset of hematemesis over the last 2 days as well as some lower abdominal cramping and loose melena stools. On day of admission she did have coffee-ground emesis and no history of peptic ulcer disease. Patient does note occasional hard stools and notes BMs every other day, probable mild constipation. Patient denies any family history of colon cancer and no previous EGD or colonoscopy performed. Patient does note social alcohol but only about once a month. Gastroenterology was consulted to assist with her hematemesis and coffee-ground emesis and plan of care. Abdominal pelvic CT scan shows abnormal appearance in the bowel with pneumatosis coli and dilated loops of the small and large bowel no evidence of free fluid, portal gas or free intraperitoneal gas. Moderate hiatal hernia. Current labs show hemoglobin 11.3, PT/INR 1, normal bilirubin and LFTs. Protonix drip infused, currently octreotide drip still infusing. <Pili Mejia - Last Filed: 05/27/18 11:24> Review of Systems All other systems reviewed negative except as stated in HPI <Pili Mejia - Last Filed: 05/27/18 11:24> PMFSH - History History Provided By: Patient - Medical History Medical History: Medical History (Last Reviewed 05/26/18 @ 19:47 by Yared Forman DO) GERD (gastroesophageal reflux disease) Hyperosmolality and hypernatremia Hypokalemia Sepsis UTI (urinary tract infection) - Tobacco History Second Hand Smoke Exposure: No Smoking Status: Never smoker - Alcohol History How Often Do You Have a Drink Containing Alcohol: Monthly or less - Substance Use History Substance History: No History of Abuse - Travel History Recent Travel in the [place] Within the Last 8 Weeks: No Recent Travel Out of the Country Within the Last 8 Weeks: No - Immunization History Tetanus Immunization: <5 Years Hx Influenza Vaccine This Season: Yes <Pili Mejia - Last Filed: 05/27/18 11:24> - Medical History Medical History: Medical History (Last Reviewed 05/26/18 @ 19:47 by Yared Forman DO) GERD (gastroesophageal reflux disease) Hyperosmolality and hypernatremia Hypokalemia Sepsis UTI (urinary tract infection) <Amado Chester - Last Filed: 05/28/18 01:14> Medications and Allergies Active Medications: Active Medications Al Hydroxide/Mg Hydroxide (Milk Of Magnesia Liq) 30 ml PO Q12H PRN PRN Reason: Mild Constipation Bisacodyl (Dulcolax Supp) 10 mg RECTAL DAILY PRN PRN Reason: SEVERE CONSITIPATION Pantoprazole Sodium 80 mg/ (Sodium Chloride) 100 mls @ 10 mls/hr IV.CONT CONT [facility] Last Infusion: 05/27/18 07:27 Dose: Infused Octreotide Acetate 500 mcg/ (Sodium Chloride) 500.5 mls @ 50.05 mls/hr IV.CONT .Q10H [facility] Last Admin: 05/27/18 08:07 Dose: 50 mcg/hr, 50.05 mls/hr Sodium Chloride (1/2 Normal Saline Inj) 1,000 mls @ 75 mls/hr IV.CONT .[id number] [facility] Last Admin: 05/27/18 07:01 Dose: 75 mls/hr Lactulose (Lactulose Liq) 30 ml PO DAILY PRN PRN Reason: SEVERE CONSITIPATION Ondansetron HCl (Zofran Inj) 4 mg IV.PUSH Q6H PRN PRN Reason: NAUSEA OR VOMITING Senna/Docusate Sodium (Gladys-Colace) 1 tab PO BID [facility] Last Admin: 05/27/18 08:09 Dose: Not Given Sennosides (Senokot) 17.2 mg PO Q12H PRN PRN Reason: Moderate Constipation Sodium Chloride (Ns Flush) 2 ml IV.FLUSH PRN PRN PRN Reason: FLUSH AFTER USING IV ACCESS <Pili Mejia - Last Filed: 05/27/18 11:24> Active Medications: Active Medications Al Hydroxide/Mg Hydroxide (Milk Of Magnesia Liq) 30 ml PO Q12H PRN PRN Reason: Mild Constipation Bisacodyl (Dulcolax Supp) 10 mg RECTAL DAILY PRN PRN Reason: SEVERE CONSITIPATION Pantoprazole Sodium 80 mg/ (Sodium Chloride) 100 mls @ 10 mls/hr IV.CONT CONT [facility] Last Infusion: 05/27/18 07:27 Dose: Infused Sodium Chloride (1/2 Normal Saline Inj) 1,000 mls @ 75 mls/hr IV.CONT .[id number] [facility] Last Infusion: 05/27/18 19:09 Dose: 75 mls/hr Metronidazole/Sodium Chloride (Flagyl 500 Mg Inj) 100 mls @ 100 mls/hr IV.SIG Q8H [facility] Last Infusion: 05/28/18 00:31 Dose: Infused Lactulose (Lactulose Liq) 30 ml PO DAILY PRN PRN Reason: SEVERE CONSITIPATION Ondansetron HCl (Zofran Inj) 4 mg IV.PUSH Q6H PRN PRN Reason: NAUSEA OR VOMITING Sodium Chloride (Ns Flush) 2 ml IV.FLUSH PRN PRN PRN Reason: FLUSH AFTER USING IV ACCESS Tramadol HCl (Ultram) 50 mg PO Q8H PRN PRN Reason: PAIN 1-10 <Amado Chester - Last Filed: 05/28/18 01:14> Allergies Allergy/AdvReac Type Severity Reaction Status Date / Time Penicillins AdvReac Dizziness Verified 05/26/18 19:40 Home Medications Medication Instructions Recorded Confirmed Type acetaminophen [Tylenol] 650 mg PO Q6H PRN 05/26/18 05/26/18 History omeprazole magnesium [Prilosec OTC] 20 mg PO BID 05/26/18 05/26/18 History Exam Vital signs: Vital Signs 05/26/18 19:46 05/26/18 19:49 05/26/18 20:29 Temperature 98.7 F Pulse Rate 117 H Respiratory Rate 20 Blood Pressure 133/87 Pulse Oximetry 99 98 98 05/26/18 21:06 05/26/18 22:37 05/26/18 23:00 Temperature Pulse Rate 100 H 99 H 100 H Respiratory Rate 19 18 19 Blood Pressure 140/80 141/81 H 124/81 Pulse Oximetry 95 100 98 05/27/18 02:01 05/27/18 02:44 05/27/18 04:00 Temperature 98.5 F Pulse Rate 101 H 98 H 96 H Respiratory Rate 18 18 19 Blood Pressure 131/96 H 128/80 118/64 Pulse Oximetry 96 95 95 05/27/18 08:00 Temperature 98.0 F Pulse Rate 98 H Respiratory Rate 16 Blood Pressure Pulse Oximetry 100 Intake & Output 05/26/18 05/27/18 05/27/18 18:59 06:59 18:59 Intake Total 1310 / 1310 330 / 330 Balance 1310 / 1310 330 / 330 Weight 81.647 kg Intake: IV 1310 / 1310 330 / 330 SandoSTATIN Inj 500 MCG In NS 270 / 270 270 / 270 Inj 500 ML @ 50 MCG/HR 50.05 mls/hr IV.CONT .Q10H [facility] Rx#: [id number] Protonix Inj 80 MG In NS Inj 40 / 40 60 / 60 100 ML @ 10 mls/hr IV.CONT CONT [facility] Rx#:[id number] NS Inj 1,000 ML @ Wide Open IV. 1000 / 1000 SIG BOLUS ONE Rx#:[id number] Other: Date of Last Bowel Movement 05/26/18 Weight On Admission 81.647 kg - Constitutional mild distress (Obese) - Routine HEENT Exam Head: Present: normocephalic ENT: Present: mucous membranes dry - Routine Neck Exam Present: supple - Routine Respiratory Exam Present: accessory muscle use (No obvious shortness of breath at rest) - Routine Cardiovascular Exam Present: S1, S2 - Routine Abdominal Exam Present: soft (Round, obese, soft bowel sounds), drain (NG tube draining to low intermittent suction, occasional lower abdominal cramping.) <Pili Mejia - Last Filed: 05/27/18 11:24> Vital signs: Vital Signs 05/27/18 02:01 05/27/18 02:44 05/27/18 04:00 Temperature 98.5 F Pulse Rate 101 H 98 H 96 H Respiratory Rate 18 18 19 Blood Pressure 131/96 H 128/80 118/64 Pulse Oximetry 96 95 95 05/27/18 08:00 05/27/18 12:00 05/27/18 16:00 Temperature 98.0 F 98.0 F 97.7 F Pulse Rate 98 H 95 H 92 H Respiratory Rate 16 16 16 Blood Pressure 143/71 H 127/57 L Pulse Oximetry 100 99 97 05/27/18 19:42 05/27/18 20:00 05/28/18 00:00 Temperature 97.2 F L 99.7 F H Pulse Rate 96 H 79 Respiratory Rate 16 16 Blood Pressure 127/64 144/76 H Pulse Oximetry 98 96 97 Intake & Output 05/27/18 05/27/18 05/28/18 06:59 18:59 06:59 Intake Total 1310 / 1310 780.5 / 780.5 100 / 100 Balance 1310 / 1310 780.5 / 780.5 100 / 100 Weight 81.647 kg Intake: IV 1310 / 1310 780.5 / 780.5 100 / 100 SandoSTATIN Inj 500 MCG In NS 270 / 270 620.5 / 620.5 Inj 500 ML @ 50 MCG/HR 50.05 mls/hr IV.CONT .Q10H [facility] Rx#: [id number] Protonix Inj 80 MG In NS Inj 40 / 40 60 / 60 100 ML @ 10 mls/hr IV.CONT CONT [facility] Rx#:[id number] NS Inj 1,000 ML @ Wide Open IV. 1000 / 1000 SIG BOLUS ONE Rx#:[id number] Flagyl 500 MG Inj 100 ML @ 100 100 / 100 100 / 100 mls/hr IV.SIG Q8H [facility] Rx#: [id number] Other: Date of Last Bowel Movement 05/27/18 05/27/18 Weight On Admission 81.647 kg <Amado Chester - Last Filed: 05/28/18 01:14> Results - Labs CBC & Chem 7: 05/27/18 06:40 05/27/18 06:40 Labs: Laboratory Results - last 24 hr 05/26/18 05/26/18 05/26/18 19:45 19:45 19:45 WBC 6.1 RBC 5.06 Hgb 13.3 Hct 41.1 MCV 81.2 MCH 26.3 L MCHC 32.4 RDW 19.7 H Plt Count 219 MPV 8.4 Prelim Diff (Auto) Neut % (Auto) 61.2 Lymph % (Auto) 23.3 [place] % (Auto) 14.4 H Eos % (Auto) 0.6 Baso % (Auto) 0.5 Neut # (Auto) 3.8 Lymph # (Auto) 1.4 [place] # (Auto) 0.9 Eos # (Auto) 0.0 Baso # (Auto) 0.0 WBC Differential . Seg Neuts % (Manual) Band Neuts % (Manual) Lymphocytes % (Manual) Monocytes % (Manual) Eosinophils % (Manual) Basophils % (Manual) Abs Neuts (Manual) Differential Comment Auto diff final Platelet Estimate Platelet Morphology Ovalocytes PT 10.0 INR 1.0 APTT 24.3 Sodium 138 Potassium 4.0 Chloride 102 Carbon Dioxide 27.0 Anion Gap 9 BUN 13 Creatinine 0.92 Estimated GFR 60 L Random Glucose 107 H Lactic Acid Calcium 7.7 L Prot Corrected Calcium Magnesium 1.9 Total Bilirubin 0.6 AST 16 ALT 18 Alkaline Phosphatase 83 Total Protein 6.1 L D Albumin 1.8 L Blood Type Blood Type Recheck Antibody Screen 05/26/18 05/26/18 05/27/18 19:45 23:20 06:40 WBC RBC Hgb Hct MCV MCH MCHC RDW Plt Count MPV Prelim Diff (Auto) Neut % (Auto) Lymph % (Auto) [place] % (Auto) Eos % (Auto) Baso % (Auto) Neut # (Auto) Lymph # (Auto) [place] # (Auto) Eos # (Auto) Baso # (Auto) WBC Differential Seg Neuts % (Manual) Band Neuts % (Manual) Lymphocytes % (Manual) Monocytes % (Manual) Eosinophils % (Manual) Basophils % (Manual) Abs Neuts (Manual) Differential Comment Platelet Estimate Platelet Morphology Ovalocytes PT INR APTT Sodium 140 Potassium 4.1 Chloride 105 Carbon Dioxide 27.3 Anion Gap 8 BUN 13 Creatinine 0.91 Estimated GFR 61 L Random Glucose 127 H Lactic Acid 1.7 Calcium 7.1 L* Prot Corrected Calcium 8.1 L Magnesium Total Bilirubin AST ALT Alkaline Phosphatase Total Protein 5.2 L D Albumin Blood Type A Positive Blood Type Recheck Required Antibody Screen Negative 05/27/18 06:40 WBC 7.1 RBC 4.13 Hgb 11.3 L D Hct 32.9 L MCV 79.8 L MCH 27.4 MCHC 34.4 RDW 20.0 H Plt Count 195 MPV 9.1 Prelim Diff (Auto) Slide review pending Neut % (Auto) 62.0 Lymph % (Auto) 23.4 [place] % (Auto) 13.5 H Eos % (Auto) 0.8 Baso % (Auto) 0.3 Neut # (Auto) 4.4 Lymph # (Auto) 1.7 [place] # (Auto) 1.0 H Eos # (Auto) 0.1 Baso # (Auto) 0.0 WBC Differential Manual diff final Seg Neuts % (Manual) 39 Band Neuts % (Manual) 13 H Lymphocytes % (Manual) 31 Monocytes % (Manual) 14 H Eosinophils % (Manual) 2 Basophils % (Manual) 1 Abs Neuts (Manual) 3.7 Differential Comment . Platelet Estimate Normal Platelet Morphology Clumped H Ovalocytes 1+ H PT INR APTT Sodium Potassium Chloride Carbon Dioxide Anion Gap BUN Creatinine Estimated GFR Random Glucose Lactic Acid Calcium Prot Corrected Calcium Magnesium Total Bilirubin AST ALT Alkaline Phosphatase Total Protein Albumin Blood Type Blood Type Recheck Antibody Screen - Imaging Impressions Abdomen/Pelvis CT 05/26/18 19:42 CONCLUSION: 1. Abnormal appearance to the bowel with pneumatosis coli and dilated loops of both small and large bowel. No evidence of free fluid, portal gas, or free intraperitoneal gas. 2. Moderate size hiatus hernia. 3. Tiny bilateral pleural effusions. Chest X-Ray 05/26/18 21:33 CONCLUSION: The lungs are clear. <Pili Mejia - Last Filed: 05/27/18 11:24> - Labs CBC & Chem 7: 05/27/18 06:40 05/27/18 06:40 Labs: Laboratory Results - last 24 hr 05/27/18 05/27/18 05/27/18 06:40 06:40 21:00 WBC 7.1 RBC 4.13 Hgb 11.3 L D Hct 32.9 L MCV 79.8 L MCH 27.4 MCHC 34.4 RDW 20.0 H Plt Count 195 MPV 9.1 Prelim Diff (Auto) Slide review pending Neut % (Auto) 62.0 Lymph % (Auto) 23.4 [place] % (Auto) 13.5 H Eos % (Auto) 0.8 Baso % (Auto) 0.3 Neut # (Auto) 4.4 Lymph # (Auto) 1.7 [place] # (Auto) 1.0 H Eos # (Auto) 0.1 Baso # (Auto) 0.0 WBC Differential Manual diff final Seg Neuts % (Manual) 39 Band Neuts % (Manual) 13 H Lymphocytes % (Manual) 31 Monocytes % (Manual) 14 H Eosinophils % (Manual) 2 Basophils % (Manual) 1 Abs Neuts (Manual) 3.7 Differential Comment . Platelet Estimate Normal Platelet Morphology Clumped H Ovalocytes 1+ H Sodium 140 Potassium 4.1 Chloride 105 Carbon Dioxide 27.3 Anion Gap 8 BUN 13 Creatinine 0.91 Estimated GFR 61 L Random Glucose 127 H Calcium 7.1 L* Prot Corrected Calcium 8.1 L Total Protein 5.2 L D Stl C.difficile Tox PCR Negative St C. diff Tox Epid 027 Negative - Imaging Impressions Abdomen X-Ray 05/27/18 00:00 CONCLUSION: Findings may represent small bowel obstruction. <Amado Chester E - Last Filed: 05/28/18 01:14> Assessment and Plan (1) Dehydration Status: Acute Code(s): E86.0 - Dehydration (2) Sepsis Status: Acute Code(s): A41.9 - Sepsis, unspecified organism (3) Hematemesis/vomiting blood Status: Acute Code(s): K92.0 - Hematemesis (4) Pneumatosis coli Status: Acute Code(s): K63.89 - Other specified diseases of intestine (5) Acute GI bleeding Status: Acute Code(s): K92.2 - Gastrointestinal hemorrhage, unspecified - Plan 72-year-old obese female admitted on 05/26/2018 with symptoms of dyspepsia, for the last few months worsening over the past few weeks. Has been taking Tums 3- 4 times a week. Melena stools, loose Hematemesis and nausea and vomiting requiring NG tube to drain coffee-ground emesis worsened over the past 2 days. Lower abdominal cramping dull possibly due to loose melena stools. Decreased appetite and nausea and vomiting 2 hours after eating approximately CT scan shows abnormal appearance of the bowel with pneumatosis coli and dilated loops of both small and large bowel no evidence of free fluid. Moderate size hiatal hernia Labs show hemoglobin 11.3, PT/INR 1, normal bilirubin and LFTs. May consider colonoscopy outpatient versus inpatient. Plan Diet n.p.o. for now Continue NG tube to low intermittent suction and monitor coffee-ground emesis Monitor labs with special attention to hemoglobin, and transfuse as needed Consider EGD after patient is stabilized, possibly in a.m. PPI Supportive care Further recommendations to follow Patient was seen per myself and Dr. Chester, note was written on his behalf <Pili Mejia M - Last Filed: 05/27/18 11:24> (1) Dehydration Status: Acute Code(s): E86.0 - Dehydration (2) Sepsis Status: Acute Code(s): A41.9 - Sepsis, unspecified organism (3) Hematemesis/vomiting blood Status: Acute Code(s): K92.0 - Hematemesis (4) Pneumatosis coli Status: Acute Code(s): K63.89 - Other specified diseases of intestine (5) Acute GI bleeding Status: Acute Code(s): K92.2 - Gastrointestinal hemorrhage, unspecified - Attending Attestation Patient seen and examined Agree with above Continue with current supportive care Monitor labs Plan for an EGD tomorrow <Amado Chester - Last Filed: 05/28/18 01:14>
--- NOTE | 2018-05-27 14:13 | XR ---
EXAM DATE: 05/27/2018 1:44 PM EDT AGE/SEX: 72 years / Female INDICATIONS: Abdominal distention. CLINICAL DATA: This is the patient's initial encounter. Patient reports that signs and symptoms have been present for 3 days and indicates a pain score of 4/10. MEDICAL/SURGICAL HISTORY: Gastroesophageal reflux disease. None. COMPARISON: [facility], CT ABDOMEN & PELVIS W/O CONTRAST, 05/26/2018. . FINDINGS: There are multiple distended organized loops of small bowel maximum diameter 4.2 cm in the left side of the abdomen. There is moderate amount of stool in the colon. There is no evidence for f ree intraperitoneal air for technique. CONCLUSION: Findings may represent small bowel obstruction. Electronically signed by: Juarez Boyer MD 05/27/2018 2:12 PM EDT
--- NOTE | 2018-05-27 20:01 | ECG ---
Date Performed: 05/26/2018 Time Performed: 19:41:11 PTAGE: 72 years EKG: SINUS TACHYCARDIA POSSIBLE LEFT ATRIAL ENLARGEMENT ABNORMAL RHYTHM ECG PREVIOUS TRACING : 05/20/2018 15.49 Since the previous tracing, no significant change noted DOCTOR: Kim Martin Interpretating Date/Time 05/27/2018 19:57:53
[2018-05-28] MEDS: Sodium Chloride 0.45 % Inj 1,000 ML IV.CONT SCH ×2 (03:10→17:05)
[2018-05-28] MEDS: Pantoprazole Inj 80 MG in Sodium Chlor 0.9% Inj 100 ML IV.CONT SCH (06:55)
[2018-05-28 10:14] LABS: Baso % (Auto) 0.5 % (0.0-2.0); Eos # (Auto) 0.1 th/mm3 (0.0-0.4); Eos % (Auto) 1.1 % (0.0-4.0); Hematocrit 34.8 % (35.0-46.0); Hemoglobin 11.3 gm/dL (11.6-15.3); Lymph # (Auto) 1.5 th/mm3 (1.0-4.8); Lymph % (Auto) 30.5 % (9.0-44.0); Mean Corpuscular HGB Conc 32.4 % (32.0-36.0); Mean Corpuscular Hemoglobin 26.6 pg (27.0-34.0); Mean Corpuscular Volume 82.1 fL (80.0-100.0); Mean Platelet Volume 8.3 fL (7.0-11.0); Mono # (Auto) 0.6 th/mm3 (0.0-0.9); Mono % (Auto) 12.1 % (0.0-8.0); Neut # (Auto) 2.8 th/mm3 (1.8-7.7); Neut % (Auto) 55.8 % (16.0-70.0); Platelet Count 254 th/mm3 (150-450); Red Blood Count 4.23 mil/mm3 (4.00-5.30); Red Cell Distribution Width 20.4 % (11.6-17.2)
--- NOTE | 2018-05-28 10:21 | P.PNIM ---
Subjective Interval history: Pt had one liquid BM overnight Afebrile Physical Exam Vital signs: Vital Signs 05/27/18 12:00 05/27/18 16:00 05/27/18 19:42 Temperature 98.0 F 97.7 F Pulse Rate 95 H 92 H Respiratory Rate 16 16 Blood Pressure 143/71 H 127/57 L Pulse Oximetry 99 97 98 05/27/18 20:00 05/28/18 00:00 05/28/18 04:00 Temperature 97.2 F L 99.7 F H 97.6 F Pulse Rate 96 H 79 81 Respiratory Rate 16 16 16 Blood Pressure 127/64 144/76 H 142/76 H Pulse Oximetry 96 97 98 05/28/18 08:00 Temperature 97.6 F Pulse Rate 85 Respiratory Rate 12 Blood Pressure 143/78 H Pulse Oximetry 98 Intake & Output 05/27/18 05/28/18 05/28/18 18:59 06:59 18:59 Intake Total 780.5 / 780.5 100 / 100 100 / 100 Balance 780.5 / 780.5 100 / 100 100 / 100 Intake: IV 780.5 / 780.5 100 / 100 100 / 100 SandoSTATIN Inj 500 MCG In NS 620.5 / 620.5 Inj 500 ML @ 50 MCG/HR 50.05 mls/hr IV.CONT .Q10H [facility] Rx#: [id number] Protonix Inj 80 MG In NS Inj 60 / 60 100 ML @ 10 mls/hr IV.CONT CONT [facility] Rx#:[id number] Flagyl 500 MG Inj 100 ML @ 100 100 / 100 100 / 100 100 / 100 mls/hr IV.SIG Q8H [facility] Rx#: [id number] Other: Date of Last Bowel Movement 05/27/18 05/27/18 05/27/18 Narrative: GENERAL: NAD, Awake, alert CARDIO: Regular RESP: CTA bilaterally. ABD: +BS, soft, mild-tenderness bilateral lower abdomen, distended. EXT: Extremities without clubbing, cyanosis, or edema. Results - Labs CBC & Chem 7: 05/28/18 08:52 05/28/18 08:52 Laboratory Results - last 24 hr 05/27/18 21:00 Stl C.difficile Tox PCR Negative St C. diff Tox Epid 027 Negative Microbiology 05/27/18 21:00 Stool Stool for WBCs - Final 05/27/18 21:00 Stool Stool Occult Blood (PRICILA) - Final Hemoccult positive 05/26/18 23:00 Blood - Peripheral Aerobic Blood Culture - Preliminary No growth in 1 day 05/26/18 23:00 Blood - Peripheral Anaerobic Blood Culture - Preliminary No growth in 1 day 05/26/18 23:20 Blood - Peripheral Aerobic Blood Culture - Preliminary No growth in 1 day 05/26/18 23:20 Blood - Peripheral Anaerobic Blood Culture - Preliminary No growth in 1 day - Imaging Impressions Abdomen/Pelvis CT 05/26/18 19:42 CONCLUSION: 1. Abnormal appearance to the bowel with pneumatosis coli and dilated loops of both small and large bowel. No evidence of free fluid, portal gas, or free intraperitoneal gas. 2. Moderate size hiatus hernia. 3. Tiny bilateral pleural effusions. Chest X-Ray 05/26/18 21:33 CONCLUSION: The lungs are clear. Abdomen X-Ray 05/27/18 00:00 CONCLUSION: Findings may represent small bowel obstruction. Assessment and Plan - Assessment (1) Acute GI bleeding Code(s): K92.2 - Gastrointestinal hemorrhage, unspecified Status: Acute Plan: Acute GI bleed Hematemesis/vomiting blood - Pt is a 72 y/o female with GERD who was recently admitted to the hospital for the weakness, dehydration. Patient reported having nausea/vomiting with several days since she was admitted to the rehab center then started having hematemesis with coffee-ground emesis on the day of admission. Pt is not on any anticoagulants. - Hgb on admission 13.3 -> 11.3 (05/27) --> pending on 05/28 - Pt started on Protonix drip - Zofran PRN for nausea - IVF - pt initially had NG tube to LIWS but she pulled this out on 05/27 - Appreciate consult from GI. Pt planned for EGD this morning. - CT Abdomen/Pelvis (05/26/18) 1. Abnormal appearance to the bowel with pneumatosis coli and dilated loops of both small and large bowel. No evidence of free fluid, portal gas, or free intraperitoneal gas. 2. Moderate size hiatus hernia. 3. Tiny bilateral pleural effusions. - General surgery was consulted in the ER, no plans for surgical intervention at this time. - Stool studies were negative for C. diff - Stool for ova and parasites, enteric pathogens are pending - Blood cultures are pending. - Pt was started on IV Flagyl (05/27/18) - Repeat KUB in AM DVT prophylaxis SCDs avoid chemical DVT prophylaxis due to GI bleed
[2018-05-28 10:44] LABS: Calcium 7.2 mg/dL (8.5-10.1); Carbon Dioxide 26.8 meq/L (21.0-32.0); Potassium 3.5 meq/L (3.5-5.1)
[2018-05-28 10:58] LABS: Total Protein 5.5 g/dL (6.4-8.2)
--- NOTE | 2018-05-28 13:53 | P.PCN ---
Date of procedure: 05/28/18 Pre-op diagnosis: Hematemesis, coffee-ground emesis, nausea and vomiting, abdominal pain Procedure: PROCEDURE PERFORMED EGD with biopsy INDICATION FOR PROCEDURE Abdominal pain, nausea vomiting, hematemesis, coffee-ground emesis PROCEDURE: The procedure, risks and benefits were discussed with Patient/POA and informed consent was obtained. Anesthesia sedated Patient with Diprivan. Patient was placed in the left lateral decubitus position. EGD: The Pentax videoscope was introduced through the oropharynx and advanced to the second portion of the duodenum under direct visualization. Retroflexion was performed in the stomach. FINDINGS: The esophagus there was distal esophageal mucosal changes consistent with grade D reflux esophagitis biopsies were taken for further evaluation the proximal esophagus was unremarkable The stomach there was large hiatal hernia there was also patchy erythema in the antrum no ulcers and no erosions and no active bleeding the rest of the stomach was unremarkable antral biopsies were taken for further evaluation The duodenum this was normal ESTIMATED BLOOD LOSS: None SPECIMENS REMOVED: Esophageal and gastric biopsies COMPLICATIONS: None IMPRESSION: Severe esophagitis Large hiatal hernia Gastritis PLAN: Await biopsies Recommend pantoprazole 40 mg twice daily Recommend reflux precautions Advance diet as tolerated Patient may be discharged from a GI standpoint Follow-up with GI in 3-4 weeks Recommend EGD in 2 months Anesthesia: ALMAZ Surgeon: Amado Chester Condition: stable Disposition: floor
[2018-05-29] MEDS: Sodium Chloride 0.45 % Inj 1,000 ML IV.CONT SCH ×2 (06:37→19:29)
--- NOTE | 2018-05-29 08:44 | XR ---
EXAM DATE: 05/29/2018 8:32 AM EDT AGE/SEX: 72 years / Female INDICATIONS: Diarrhea. Abdominal distention. CLINICAL DATA: This is the patient's subsequent encounter. Patient reports that signs and symptoms h ave been present for 4 - 6 days and indicates a pain score of 5/10. MEDICAL/SURGICAL HISTORY: Gastroesophageal reflux disease. None. COMPARISON: [facility], CHEST 1V SINGLE AP, 05/26/2018. . FINDINGS: Diffuse gaseous dilatation of small bowel appears to be slightly improved from yesterday's exam. Con tent visualized throughout the colon. CONCLUSION: Slight improvement in small bowel distention Electronically signed by: Bro Tsai MD 05/29/2018 8:43 AM EDT
--- NOTE | 2018-05-29 14:36 | P.PNIM ---
Subjective Interval history: doing better. no vomiting. eating more. stool was more formed Physical Exam Vital signs: Vital Signs 05/28/18 15:47 05/28/18 19:43 05/28/18 20:00 Temperature 97.4 F L 97.8 F Pulse Rate 81 97 H 87 Respiratory Rate 16 20 Blood Pressure 146/78 H 142/79 H Pulse Oximetry 98 98 05/29/18 00:00 05/29/18 04:00 05/29/18 08:00 Temperature 97.7 F 99.0 F 97.8 F Pulse Rate 86 103 H 97 H Respiratory Rate 18 18 18 Blood Pressure 113/52 L 107/60 131/59 L Pulse Oximetry 97 95 94 L 05/29/18 12:00 Temperature 97.4 F L Pulse Rate 94 H Respiratory Rate 18 Blood Pressure 124/66 Pulse Oximetry 93 L Intake & Output 05/28/18 05/29/18 05/29/18 18:59 06:59 18:59 Intake Total 490 / 490 1100 / 1100 Balance 490 / 490 1100 / 1100 Weight 102.7 kg Intake: IV 290 / 290 1100 / 1100 Protonix Inj 80 MG In NS Inj 90 / 90 100 ML @ 10 mls/hr IV.CONT CONT SEB Rx#:[id number] 1/2 Normal Saline Inj 1,000 ML 1000 / 1000 @ 75 mls/hr IV.CONT .[id number] SEB Rx#:[id number] Flagyl 500 MG Inj 100 ML @ 100 200 / 200 100 / 100 mls/hr IV.SIG Q8H SEB Rx#: [id number] Oral 0 / 0 Anesthesia Amount 200 / 200 Other: # Voids 5 Date of Last Bowel Movement 05/27/18 05/29/18 05/29/18 # Bowel Movements 1 heart reg lung cta abd s/mild distention. bs ext no edema Results - Labs CBC & Chem 7: 05/28/18 08:52 05/28/18 08:52 Microbiology 05/27/18 21:00 Stool Cryptosporidium Antigen - Final Negative - No Cryptosporicium antigen detected In selected cases of patients with a history of immunosuppression or foreign travel, a full ova and parasites examination may be desired. Contact the microbiology lab if full workup is indicated and subit another specimen for testing. 05/27/18 21:00 Stool Giardia Antigen (PRICILA) - Final Negative - No Giardia Antigen detected In selected cases of patients with a history of immunosuppression or foreign travel, a full ova and parasites examination may be desired. Contact the microbiology lab if full workup is indicated and subit another specimen for testing. 05/26/18 23:00 Blood - Peripheral Aerobic Blood Culture - Preliminary No growth in 3 days 05/26/18 23:00 Blood - Peripheral Anaerobic Blood Culture - Preliminary No growth in 3 days 05/26/18 23:20 Blood - Peripheral Aerobic Blood Culture - Preliminary No growth in 3 days 05/26/18 23:20 Blood - Peripheral Anaerobic Blood Culture - Preliminary No growth in 3 days 05/27/18 21:00 Stool Enteric Pathogens (PCR) - Final No enteric pathogens detected by PCR (No Salmonella sp., Shigella sp., Campylobacter sp., Yersinia enterocolitica, Vibrio sp., Norovirus, or EHEC (Shiga Toxin 1 or Shiga Toxin 2) detected. - Imaging Impressions Abdomen X-Ray 05/29/18 07:00 CONCLUSION: Slight improvement in small bowel distention Assessment and Plan - Assessment (1) Acute GI bleeding Code(s): K92.2 - Gastrointestinal hemorrhage, unspecified Status: Acute Plan: Acute GI bleed Hematemesis/vomiting blood - Pt is a 72 y/o female with GERD who was recently admitted to the hospital for the weakness, dehydration. Patient reported having nausea/vomiting with several days since she was admitted to the rehab center then started having hematemesis with coffee-ground emesis on the day of admission. Pt is not on any anticoagulants. - Hgb on admission 13.3 - - Pt started on Protonix drip - Zofran PRN for nausea - IVF - pt initially had NG tube to LIWS but she pulled this out on 05/27 - Appreciate consult from GI. Pt planned for EGD this morning. - CT Abdomen/Pelvis (05/26/18) 1. Abnormal appearance to the bowel with pneumatosis coli and dilated loops of both small and large bowel. No evidence of free fluid, portal gas, or free intraperitoneal gas. 2. Moderate size hiatus hernia. 3. Tiny bilateral pleural effusions. -EGD 05/28 Severe esophagitis Large hiatal hernia Gastritis - - General surgery was consulted in the ER, no plans for surgical intervention at this time. - Stool studies were negative for C. diff - Stool for ova and parasites, enteric pathogens are negative - Blood cultures ngtd - Pt was started on IV Flagyl (05/27/18) - Repeat KUB in AM -plan for return to snf 24-48hrs. DVT prophylaxis SCDs avoid chemical DVT prophylaxis due to GI bleed
--- NOTE | 2018-05-30 06:42 | XR ---
EXAM DATE: 05/30/2018 6:35 AM EDT AGE/SEX: 72 years / Female INDICATIONS: Abdominal pain, possible ileus. CLINICAL DATA: This is the patient's subsequent encounter. Patient reports that signs and symptoms h ave been present for 2 days and indicates a pain score of 6/10. MEDICAL/SURGICAL HISTORY: Gastroesophageal reflux disease. None. COMPARISON: [facility], ABDOMEN 1V KUB, 05/29/2018. . FINDINGS: Air distention of small bowel loops in the midabdomen. There appears to be stool in the visualized p ortions of the colon. No pneumoperitoneum CONCLUSION: Findings suggest constipation with associated hypodynamic ileus Electronically signed by: Garland Stock MD 05/30/2018 6:40 AM EDT
--- NOTE | 2018-05-30 08:54 | P.PNGI ---
Subjective Interval history: Pt awake alert sitting up in bed. States tolerating diet (cardiac) without nausea or vomiting. States no bm x 3 days. Denies abdominal pain. <Pili Mejia - Last Filed: 05/30/18 12:18> Physical Exam Vital signs: Vital Signs 05/29/18 12:00 05/29/18 15:50 05/29/18 16:00 Temperature 97.4 F L 97.6 F Pulse Rate 89 88 95 H Respiratory Rate 18 18 Blood Pressure 124/66 126/68 Pulse Oximetry 93 L 93 L 05/29/18 20:00 05/29/18 20:51 05/30/18 00:00 Temperature 97.8 F 97.1 F L Pulse Rate 94 H 91 H Respiratory Rate 18 18 Blood Pressure 159/76 H 113/68 Pulse Oximetry 97 97 96 05/30/18 04:00 Temperature 97.8 F Pulse Rate 88 Respiratory Rate 17 Blood Pressure 130/60 Pulse Oximetry 97 Intake & Output 05/29/18 05/30/18 05/30/18 18:59 06:59 18:59 Intake Total 560 / 560 1340 / 1340 Balance 560 / 560 1340 / 1340 Weight 104.4 kg Intake: IV 200 / 200 1100 / 1100 1/2 Normal Saline Inj 1,000 ML 1000 / 1000 @ 75 mls/hr IV.CONT .[id number] SEB Rx#:[id number] Flagyl 500 MG Inj 100 ML @ 100 200 / 200 100 / 100 mls/hr IV.SIG Q8H SEB Rx#: [id number] Oral 360 / 360 240 / 240 Other: # Voids 1 # Incontinent Voids 3 Date of Last Bowel Movement 05/29/18 - Constitutional no acute distress, cooperative - Routine HEENT Exam Head: Present: normocephalic - Routine Respiratory Exam Present: CTA bilaterally. Absent: accessory muscle use - Routine Cardiovascular Exam Present: S1, S2 - Routine Abdominal Exam Present: soft, normoactive bowel sounds. Absent: tenderness, guarding, firm Comments: mild bloating without firmness - Routine Skin Exam Present: dry, warm - Routine Neurological Exam Present: alert, oriented X3 <Pili Mejia - Last Filed: 05/30/18 12:18> Vital signs: Vital Signs 05/30/18 16:00 05/30/18 16:10 05/30/18 18:17 Temperature 97.2 F L Pulse Rate 102 H 118 H Respiratory Rate 18 Blood Pressure 135/65 Pulse Oximetry 99 97 05/30/18 20:00 05/31/18 00:00 05/31/18 04:00 Temperature 97.3 F L 97.3 F L 97.4 F L Pulse Rate 103 H 97 H 99 H Respiratory Rate 19 18 18 Blood Pressure 122/67 109/64 132/68 Pulse Oximetry 97 96 98 05/31/18 08:00 Temperature 97.8 F Pulse Rate 99 H Respiratory Rate 18 Blood Pressure 125/69 Pulse Oximetry 98 Intake & Output 05/30/18 05/31/18 05/31/18 18:59 06:59 18:59 Intake Total 1400 / 1400 100 / 100 Balance 1400 / 1400 100 / 100 Weight 105.2 kg Intake: IV 200 / 200 100 / 100 Flagyl 500 MG Inj 100 ML @ 100 200 / 200 100 / 100 mls/hr IV.SIG Q8H SEB Rx#: [id number] Oral 1200 / 1200 Other: # Incontinent Voids 4 5 Date of Last Bowel Movement 05/29/18 05/29/18 # Incontinent Bowel Movements 3 <Amado Chester E - Last Filed: 05/31/18 12:20> Results - Labs CBC & Chem 7: 05/28/18 08:52 05/28/18 08:52 Microbiology 05/27/18 21:00 Stool Cryptosporidium Antigen - Final Negative - No Cryptosporicium antigen detected In selected cases of patients with a history of immunosuppression or foreign travel, a full ova and parasites examination may be desired. Contact the microbiology lab if full workup is indicated and subit another specimen for testing. 05/27/18 21:00 Stool Giardia Antigen (PRICILA) - Final Negative - No Giardia Antigen detected In selected cases of patients with a history of immunosuppression or foreign travel, a full ova and parasites examination may be desired. Contact the microbiology lab if full workup is indicated and subit another specimen for testing. 05/26/18 23:00 Blood - Peripheral Aerobic Blood Culture - Preliminary No growth in 3 days 05/26/18 23:00 Blood - Peripheral Anaerobic Blood Culture - Preliminary No growth in 3 days 05/26/18 23:20 Blood - Peripheral Aerobic Blood Culture - Preliminary No growth in 3 days 05/26/18 23:20 Blood - Peripheral Anaerobic Blood Culture - Preliminary No growth in 3 days - Imaging Impressions Abdomen X-Ray 05/30/18 06:00 CONCLUSION: Findings suggest constipation with associated hypodynamic ileus <Pili Mejia - Last Filed: 05/30/18 12:18> - Labs CBC & Chem 7: 05/28/18 08:52 05/28/18 08:52 Microbiology 05/26/18 23:00 Blood - Peripheral Aerobic Blood Culture - Final No growth in 5 days 05/26/18 23:00 Blood - Peripheral Anaerobic Blood Culture - Final No growth in 5 days 05/26/18 23:20 Blood - Peripheral Aerobic Blood Culture - Final No growth in 5 days 05/26/18 23:20 Blood - Peripheral Anaerobic Blood Culture - Final No growth in 5 days <Amado Chester - Last Filed: 05/31/18 12:20> Assessment and Plan (1) Dehydration Status: Acute Code(s): E86.0 - Dehydration (2) Sepsis Status: Acute Code(s): A41.9 - Sepsis, unspecified organism (3) Hematemesis/vomiting blood Status: Acute Code(s): K92.0 - Hematemesis (4) Pneumatosis coli Status: Acute Code(s): K63.89 - Other specified diseases of intestine (5) Acute GI bleeding Status: Acute Code(s): K92.2 - Gastrointestinal hemorrhage, unspecified - Plan 72-year-old obese female admitted on 05/26/2018 with symptoms of dyspepsia, for the last few months worsening over the past few weeks. Has been taking Tums 3- 4 times a week. Melena stools, loose Hematemesis and nausea and vomiting requiring NG tube to drain coffee-ground emesis worsened over the past 2 days. Lower abdominal cramping dull possibly due to loose melena stools. Decreased appetite and nausea and vomiting 2 hours after eating approximately CT scan shows abnormal appearance of the bowel with pneumatosis coli and dilated loops of both small and large bowel no evidence of free fluid. Moderate size hiatal hernia Labs show hemoglobin 11.3, PT/INR 1, normal bilirubin and LFTs. May consider colonoscopy outpatient versus inpatient. 05/30/18- Pt tolerating cardiac diet well and denies nausea or vomiting. Abdominal bloating noted, abd soft with positive bowel sounds present. Dyspepsia- Controlled with PPI. Pt denies heartburn. EGD done 05/29/18 revealed Severe esophagitis, large hiatal hernia, and gastritis. Results discussed with patient. Constipation- Pt states no bm x 2 days . KUB --> constipation with hypodynamic ileus. Pts abdomen is tympanic, pt states abdominal pain improved. Plan: Diet as tolerated Await Biopsy results Continue PPI daily Reflux precautions Recommend EGD in 2 months Add Dulcolax daily Supportive care Patient was seen per myself and Dr. Chester, note was written on his behalf <Pili Mejia - Last Filed: 05/30/18 12:18> (1) Dehydration Status: Acute Code(s): E86.0 - Dehydration (2) Sepsis Status: Acute Code(s): A41.9 - Sepsis, unspecified organism (3) Hematemesis/vomiting blood Status: Acute Code(s): K92.0 - Hematemesis (4) Pneumatosis coli Status: Acute Code(s): K63.89 - Other specified diseases of intestine (5) Acute GI bleeding Status: Acute Code(s): K92.2 - Gastrointestinal hemorrhage, unspecified - Attending Attestation Patient seen and examined Agree with above Continue with current supportive care Monitor labs Continue PPI Follow-up with GI post discharge No active GI bleed Not much to add from a GI perspective at this point we will sign off <Amado Chester - Last Filed: 05/31/18 12:20>
--- NOTE | 2018-05-30 10:22 | P.PNIM ---
Subjective Interval history: had vomiting x 1 yesterday. small bm. Physical Exam Vital signs: Vital Signs 05/29/18 12:00 05/29/18 15:50 05/29/18 16:00 Temperature 97.4 F L 97.6 F Pulse Rate 89 88 95 H Respiratory Rate 18 18 Blood Pressure 124/66 126/68 Pulse Oximetry 93 L 93 L 05/29/18 20:00 05/29/18 20:51 05/30/18 00:00 Temperature 97.8 F 97.1 F L Pulse Rate 94 H 91 H Respiratory Rate 18 18 Blood Pressure 159/76 H 113/68 Pulse Oximetry 97 97 96 05/30/18 04:00 05/30/18 08:00 05/30/18 09:41 Temperature 97.8 F 98.0 F 97.3 F L Pulse Rate 88 87 94 H Respiratory Rate 17 17 18 Blood Pressure 130/60 178/88 H 144/77 H Pulse Oximetry 97 98 97 Intake & Output 05/29/18 05/30/18 05/30/18 18:59 06:59 18:59 Intake Total 560 / 560 1340 / 1340 Balance 560 / 560 1340 / 1340 Weight 104.4 kg Intake: IV 200 / 200 1100 / 1100 1/2 Normal Saline Inj 1,000 ML 1000 / 1000 @ 75 mls/hr IV.CONT .[id number] SEB Rx#:[id number] Flagyl 500 MG Inj 100 ML @ 100 200 / 200 100 / 100 mls/hr IV.SIG Q8H SEB Rx#: [id number] Oral 360 / 360 240 / 240 Other: # Voids 1 # Incontinent Voids 3 Date of Last Bowel Movement 05/29/18 heart reg lung cta abd s/nt ext no edema Results - Labs CBC & Chem 7: 05/28/18 08:52 05/28/18 08:52 Microbiology 05/27/18 21:00 Stool Cryptosporidium Antigen - Final Negative - No Cryptosporicium antigen detected In selected cases of patients with a history of immunosuppression or foreign travel, a full ova and parasites examination may be desired. Contact the microbiology lab if full workup is indicated and subit another specimen for testing. 05/27/18 21:00 Stool Giardia Antigen (PRICILA) - Final Negative - No Giardia Antigen detected In selected cases of patients with a history of immunosuppression or foreign travel, a full ova and parasites examination may be desired. Contact the microbiology lab if full workup is indicated and subit another specimen for testing. 05/26/18 23:00 Blood - Peripheral Aerobic Blood Culture - Preliminary No growth in 3 days 05/26/18 23:00 Blood - Peripheral Anaerobic Blood Culture - Preliminary No growth in 3 days 05/26/18 23:20 Blood - Peripheral Aerobic Blood Culture - Preliminary No growth in 3 days 05/26/18 23:20 Blood - Peripheral Anaerobic Blood Culture - Preliminary No growth in 3 days - Imaging Impressions Abdomen X-Ray 05/30/18 06:00 CONCLUSION: Findings suggest constipation with associated hypodynamic ileus Assessment and Plan - Assessment (1) Acute GI bleeding Code(s): K92.2 - Gastrointestinal hemorrhage, unspecified Status: Acute Plan: Acute GI bleed Hematemesis/vomiting blood - Pt is a 72 y/o female with GERD who was recently admitted to the hospital for the weakness, dehydration. Patient reported having nausea/vomiting with several days since she was admitted to the rehab center then started having hematemesis with coffee-ground emesis on the day of admission. Pt is not on any anticoagulants. - Hgb on admission 13.3 - - Pt started on Protonix drip - Zofran PRN for nausea - IVF - pt initially had NG tube to LIWS but she pulled this out on 05/27 - Appreciate consult from GI. Pt planned for EGD this morning. - CT Abdomen/Pelvis (05/26/18) 1. Abnormal appearance to the bowel with pneumatosis coli and dilated loops of both small and large bowel. No evidence of free fluid, portal gas, or free intraperitoneal gas. 2. Moderate size hiatus hernia. 3. Tiny bilateral pleural effusions. -EGD 05/28 Severe esophagitis Large hiatal hernia Gastritis - - General surgery was consulted in the ER, no plans for surgical intervention at this time. - Stool studies were negative for C. diff - Stool for ova and parasites, enteric pathogens are negative - Blood cultures ngtd - Pt was started on IV Flagyl (05/27/18) - kub suggesting constipation. laxatives today and then dc back to snf. DVT prophylaxis SCDs avoid chemical DVT prophylaxis due to GI bleed
[2018-05-30] MEDS: Bisacodyl 10 MG Supp RECTAL SCH (19:04)
[2018-05-30] MEDS: Sodium Chloride 0.45 % Inj 1,000 ML IV.CONT SCH ×2 (20:27→22:06)
--- NOTE | 2018-05-31 09:55 | P.PNIM ---
Subjective Interval history: pt reports some bm yesterday but vomited also no abdomen pain Physical Exam Vital signs: Vital Signs 05/30/18 11:57 05/30/18 16:00 05/30/18 16:10 Temperature 97.2 F L Pulse Rate 86 102 H 118 H Respiratory Rate 18 Blood Pressure 135/65 Pulse Oximetry 99 05/30/18 18:17 05/30/18 20:00 05/31/18 00:00 Temperature 97.3 F L 97.3 F L Pulse Rate 103 H 97 H Respiratory Rate 19 18 Blood Pressure 122/67 109/64 Pulse Oximetry 97 97 96 05/31/18 04:00 05/31/18 08:00 Temperature 97.4 F L 97.8 F Pulse Rate 99 H 99 H Respiratory Rate 18 18 Blood Pressure 132/68 125/69 Pulse Oximetry 98 98 Intake & Output 05/30/18 05/31/18 05/31/18 18:59 06:59 18:59 Intake Total 1400 / 1400 100 / 100 Balance 1400 / 1400 100 / 100 Weight 105.2 kg Intake: IV 200 / 200 100 / 100 Flagyl 500 MG Inj 100 ML @ 100 200 / 200 100 / 100 mls/hr IV.SIG Q8H SEB Rx#: [id number] Oral 1200 / 1200 Other: # Incontinent Voids 4 5 Date of Last Bowel Movement 05/29/18 05/29/18 # Incontinent Bowel Movements 3 heart reg lung cta abd bs/nt/nd ext no edema Results - Labs CBC & Chem 7: 05/28/18 08:52 05/28/18 08:52 Microbiology 05/26/18 23:00 Blood - Peripheral Aerobic Blood Culture - Preliminary No growth in 4 days 05/26/18 23:00 Blood - Peripheral Anaerobic Blood Culture - Preliminary No growth in 4 days 05/26/18 23:20 Blood - Peripheral Aerobic Blood Culture - Preliminary No growth in 4 days 05/26/18 23:20 Blood - Peripheral Anaerobic Blood Culture - Preliminary No growth in 4 days Assessment and Plan - Assessment (1) Acute GI bleeding Code(s): K92.2 - Gastrointestinal hemorrhage, unspecified Status: Acute Plan: Acute GI bleed Hematemesis/vomiting blood - Pt is a 72 y/o female with GERD who was recently admitted to the hospital for the weakness, dehydration. Patient reported having nausea/vomiting with several days since she was admitted to the rehab center then started having hematemesis with coffee-ground emesis on the day of admission. Pt is not on any anticoagulants. - Hgb on admission 13.3 - - Pt started on Protonix drip - Zofran PRN for nausea - IVF - pt initially had NG tube to LIWS but she pulled this out on 05/27 - Appreciate consult from GI. Pt planned for EGD this morning. - CT Abdomen/Pelvis (05/26/18) 1. Abnormal appearance to the bowel with pneumatosis coli and dilated loops of both small and large bowel. No evidence of free fluid, portal gas, or free intraperitoneal gas. 2. Moderate size hiatus hernia. 3. Tiny bilateral pleural effusions. -EGD 05/28 Severe esophagitis Large hiatal hernia Gastritis - - General surgery was consulted in the ER, no plans for surgical intervention at this time. - Stool studies were negative for C. diff - Stool for ova and parasites, enteric pathogens are negative - Blood cultures ngtd - Pt was started on IV Flagyl (05/27/18) emperically - kub suggesting constipation. laxatives again today and then dc back to snf. DVT prophylaxis SCDs avoid chemical DVT prophylaxis due to GI bleed
[2018-05-31] MEDS ORDERED: Magnesium Citrate Liq 300 ML Bottle PO ONE (10:00)
[2018-05-31] MEDS: Sodium Chloride 0.45 % Inj 1,000 ML IV.CONT SCH (11:29)
[2018-05-31 13:28] LABS: Calcium 6.7 mg/dL (8.5-10.1); Carbon Dioxide 24.3 meq/L (21.0-32.0); Potassium 3.1 meq/L (3.5-5.1)
[2018-05-31 13:42] LABS: Total Protein 5.2 g/dL (6.4-8.2)
[2018-05-31] MEDS: Bisacodyl 10 MG Supp RECTAL SCH (15:01)
--- NOTE | 2018-06-01 06:49 | XR ---
EXAM DATE: 06/01/2018 6:38 AM EDT AGE/SEX: 73 years / Female INDICATIONS: Abdominal distention. CLINICAL DATA: This is the patient's subsequent encounter. Patient reports that signs and symptoms h ave been present for 3 days and indicates a pain score of 4/10. MEDICAL/SURGICAL HISTORY: Gastroesophageal reflux disease. None. COMPARISON: [facility], ABDOMEN 1V KUB, 05/30/2018. . FINDINGS: Persistent mild dilation of small bowel loops in the midabdomen. There is still some stool identifie d predominantly in the distal aspect of the colon CONCLUSION: 1. Colonic stool is noted more distally possibly representing an element of constipation. 2. Persistent mild air distention of small bowel loops in the midabdomen. Findings are nonspecific b ut could represent hypodynamic ileus associated with constipation. Low-grade obstruction cannot be ex cluded, however. Electronically signed by: Garland Stock MD 06/01/2018 6:48 AM EDT
[2018-06-01] MEDS ORDERED: Sod Phosphate/Sod Biphosphate (Adult) Enema 133 ML Bottle RECTAL ONE (08:00)
--- NOTE | 2018-06-01 09:11 | P.PNIM ---
Subjective Interval history: refusing enema. says she had 4bm yesterday and feels better. no vomiting and allen. food. Physical Exam Vital signs: Vital Signs 05/31/18 12:00 05/31/18 16:00 05/31/18 20:00 Temperature 97.9 F 98.2 F 98 F Pulse Rate 97 H 101 H 100 H Respiratory Rate 18 18 16 Blood Pressure 115/63 134/64 127/60 Pulse Oximetry 97 98 99 06/01/18 00:00 06/01/18 04:00 Temperature 97.7 F 97.8 F Pulse Rate 100 H 104 H Respiratory Rate 16 16 Blood Pressure 130/62 135/61 Pulse Oximetry 99 99 Intake & Output 05/31/18 06/01/18 06/01/18 18:59 06:59 18:59 Intake Total 440 / 440 1260 / 1260 Balance 440 / 440 1260 / 1260 Weight 105.2 kg Intake: IV 200 / 200 300 / 300 1/2 Normal Saline Inj 1,000 ML 100 / 100 @ 75 mls/hr IV.CONT .[id number] SEB Rx#:[id number] Flagyl 500 MG Inj 100 ML @ 100 200 / 200 200 / 200 mls/hr IV.SIG Q8H SEB Rx#: [id number] Oral 240 / 240 960 / 960 Other: # Voids 3 4 Date of Last Bowel Movement 05/29/18 06/01/18 # Bowel Movements 1 2 heart reg lung cta abd nd/nt/bs present ext no edema Results - Labs CBC & Chem 7: 05/28/18 08:52 05/31/18 12:25 Laboratory Results - last 24 hr 05/31/18 12:25 Sodium 139 Potassium 3.1 L Chloride 104 Carbon Dioxide 24.3 Anion Gap 11 BUN 18 Creatinine 1.04 H Estimated GFR 52 L Random Glucose 87 Calcium 6.7 L* Prot Corrected Calcium 7.7 L Total Protein 5.2 L Microbiology 05/26/18 23:00 Blood - Peripheral Aerobic Blood Culture - Final No growth in 5 days 05/26/18 23:00 Blood - Peripheral Anaerobic Blood Culture - Final No growth in 5 days 05/26/18 23:20 Blood - Peripheral Aerobic Blood Culture - Final No growth in 5 days 05/26/18 23:20 Blood - Peripheral Anaerobic Blood Culture - Final No growth in 5 days - Imaging Impressions Abdomen X-Ray 06/01/18 06:00 CONCLUSION: 1. Colonic stool is noted more distally possibly representing an element of constipation. 2. Persistent mild air distention of small bowel loops in the midabdomen. Findings are nonspecific but could represent hypodynamic ileus associated with constipation. Low-grade obstruction cannot be excluded, however. Assessment and Plan - Assessment (1) Acute GI bleeding Code(s): K92.2 - Gastrointestinal hemorrhage, unspecified Status: Acute Plan: Acute GI bleed Hematemesis/vomiting blood - Pt is a 72 y/o female with GERD who was recently admitted to the hospital for the weakness, dehydration. Patient reported having nausea/vomiting with several days since she was admitted to the rehab center then started having hematemesis with coffee-ground emesis on the day of admission. Pt is not on any anticoagulants. - Hgb on admission 13.3 - - Pt started on Protonix drip - Zofran PRN for nausea - IVF - pt initially had NG tube to LIWS but she pulled this out on 05/27 - Appreciate consult from GI. Pt planned for EGD this morning. - CT Abdomen/Pelvis (05/26/18) 1. Abnormal appearance to the bowel with pneumatosis coli and dilated loops of both small and large bowel. No evidence of free fluid, portal gas, or free intraperitoneal gas. 2. Moderate size hiatus hernia. 3. Tiny bilateral pleural effusions. -EGD 05/28 Severe esophagitis Large hiatal hernia Gastritis - - General surgery was consulted in the ER, no plans for surgical intervention at this time. - Stool studies were negative for C. diff - Stool for ova and parasites, enteric pathogens are negative - Blood cultures ngtd - Pt was started on IV Flagyl (05/27/18) emperically - kub suggesting constipation. Pt is moving bowels. refused supp./enema. will only accept po meds dc back to snf. She reports feeling ready for snf/rehab again. DVT prophylaxis SCDs avoid chemical DVT prophylaxis due to GI bleed
[2018-06-01] MEDS: Bisacodyl 10 MG Supp RECTAL SCH (09:20)
[2018-06-01] MEDS ORDERED: Polyethylene Glycol 3350 17 GM Packet PO ONE (10:00)
--- NOTE | 2018-06-04 13:30 | P.DS ---
Date of admission: 05/27/18 00:20 Primary care physician: Harjeet Lund MD Anticipated date of discharge: 06/01/18 Brief History from admission: HPI Narrative: The patient is a 72-year-old female with past history significant for GERD and recent admission to the hospital for the weakness, dehydration. Patient has been having nausea vomiting with hematemesis for the last several days since admitted to the rehab center hematemesis started today with coffee-ground emesis. Patient reports that she started having abdominal pain in the last couple of days. Today she had several episodes of coffee- ground emesis and was brought to the emergency department for evaluation. On no blood thinners. Has no history of peptic ulcers. She does take NSAIDs occasionally but has not had any months. complaint: coffee ground emesis Onset (ago): week(s) (2) Pain Consistency: intermittent Severity: moderate Relieving factors: none Associated symptoms: abdominal pain, nausea, vomiting, malaise and weakness lab work in the emergency room was essentially unremarkable with ptosis coli with dilated loops of both small and large bowel patient will be admitted now for surgical evaluation as well as GI evaluation. Patient denies any chest pain shortness of breath does have generalized weakness and some chronic lower extremity +1 edema. DS: Diagnosis - Discharge Diagnosis (1) Acute GI bleeding Status: Acute DS: Medications - Discharge Medications Prescriptions: metronidazole [Flagyl] 500 mg PO TID 5 Days #15 tab pantoprazole 40 mg PO BID 30 Days #60 tab polyethylene glycol 3350 [Miralax] 17 g PO DAILY 5 Days each DS: Summary Hospital Course: Assessment and Plan - Assessment (1) Acute GI bleeding Code(s): K92.2 - Gastrointestinal hemorrhage, unspecified Status: Acute Plan: Acute GI bleed Hematemesis/vomiting blood - Pt is a 72 y/o female with GERD who was recently admitted to the hospital for the weakness, dehydration. Patient reported having nausea/vomiting with several days since she was admitted to the rehab center then started having hematemesis with coffee-ground emesis on the day of admission. Pt is not on any anticoagulants. - Hgb on admission 13.3 - - Pt started on Protonix drip - Zofran PRN for nausea - IVF - pt initially had NG tube to [facility] but she pulled this out on 05/27 - Appreciate consult from GI. Pt planned for EGD this morning. - CT Abdomen/Pelvis (05/26/18) 1. Abnormal appearance to the bowel with pneumatosis coli and dilated loops of both small and large bowel. No evidence of free fluid, portal gas, or free intraperitoneal gas. 2. Moderate size hiatus hernia. 3. Tiny bilateral pleural effusions. -EGD 05/28 Severe esophagitis Large hiatal hernia Gastritis - - General surgery was consulted in the ER, no plans for surgical intervention at this time. - Stool studies were negative for C. diff - Stool for ova and parasites, enteric pathogens are negative - Blood cultures ngtd - Pt was started on IV Flagyl (05/27/18) emperically. will complete 10d total - kub suggesting constipation. Pt is moving bowels. refused supp./enema. will only accept po meds dc back to snf. She reports feeling ready for snf/rehab again. DVT prophylaxis SCDs avoid chemical DVT prophylaxis due to GI bleed - Time Spent with Patient Total time spent providing and/or coordinating discharge services: Greater than 30 minutes - Quality: VTE Deep Vein Thrombosis/Pulmonary Embolism Present on Admission: No Exam Vital signs: heart reg lung cta abd /snt ext no edema Results Procedures completed during hospitalization: ct a/p egd Completed studies during hospitalization: Pending at discharge 05/28/18 07:32 Surgical [PTH] Routine - Impressions ITS Impressions Abdomen/Pelvis CT 05/26/18 19:42 CONCLUSION: 1. Abnormal appearance to the bowel with pneumatosis coli and dilated loops of both small and large bowel. No evidence of free fluid, portal gas, or free intraperitoneal gas. 2. Moderate size hiatus hernia. 3. Tiny bilateral pleural effusions. Chest X-Ray 05/26/18 21:33 CONCLUSION: The lungs are clear. Abdomen X-Ray 06/01/18 06:00 CONCLUSION: 1. Colonic stool is noted more distally possibly representing an element of constipation. 2. Persistent mild air distention of small bowel loops in the midabdomen. Findings are nonspecific but could represent hypodynamic ileus associated with constipation. Low-grade obstruction cannot be excluded, however. Discharge Plan - Discharge Disposition Patient Disposition: Discharge to SNF - Discharge Condition Condition: Good - Discharge Order Discharge Orders: Discharge Order (Routine); Ordered 06/01/18 Ordered By: Quinn L Laurent - Discharge Details Anticipated Discharge Date: 06/01/18 - Physicians Team Primary Care Provider: Harjeet Lund Attending Provider: Quinn Mancilla Other Providers: Amado Chester MD ; [facility]
== END 2018-06-01 14:29 ==
LOC: NEPC 19:26 → NEDA 05-27 00:20 → NEPFCDU 05-27 03:17 → N04 05-28 17:27
PROVIDERS: ADMIT Hospitalist; ATTEND Hospitalist
PROC: PANENDO (2018-05-28 13:24)

== ENCOUNTER 2018-06-23 20:56 | Inpatient (IN) ==
--- NOTE | 2018-06-23 22:20 | ED ---
HPI General Chief Complaint: Recheck/Abnormal Lab/Rx Stated Complaint: Abnormal Labs Time Seen by Provider: 06/23/18 21:47 Source: patient Mode of arrival: EMS Limitations: no limitations History of Present Illness HPI narrative: 73 YO F with PMH of GERD, recent hospitalization 2/2 dehydration and UTI presents to the ED from rehab for evaluation of low hemoglobin (7.1 reportedly) by outpatient labs and 1 day history of RLE pain. Gradual onset. Alleviating by propping the leg. No exacerbating factors reported. Patient can identify no acute injury. She states that her activity level is "0." She endorses "a little bit" of dizziness, worsened by change in position. She denies chest pain, palpitations, shortness of breath. She states that she has had loose bowel movements since she was administered magnesium citrate in the hospital. She estimates 2-3 of these per day. She denies fever, chills, nausea , vomiting, abdominal pain, melena, hematochezia. She is currently at [facility]. She is followed by Dr. Lund. Related Data Home Medications Medication Instructions Recorded Confirmed polyethylene glycol 3350 [Miralax] 17 gm PO DAILY 06/07/18 06/23/18 acetaminophen 650 mg PO Q6H PRN 06/23/18 06/23/18 ferrous sulfate 324 mg PO BID 06/23/18 06/23/18 [id number] acid-vit K 500 mg PO DAILY 06/23/18 06/23/18 [Multi For Her 50 Plus] potassium chloride 10 meq PO BID 06/23/18 06/23/18 Previous Rx's Medication Instructions Recorded pantoprazole 40 mg PO BID 30 Days #60 tab 06/01/18 Allergies Allergy/AdvReac Type Severity Reaction Status Date / Time Penicillins AdvReac Dizziness Verified 05/26/18 19:40 Review of Systems ROS: all other systems reviewed are negative [facility] Medical History Medical History Ileus (Acute) Iron deficiency anemia (Acute) GERD (gastroesophageal reflux disease) (Acute) GI bleed (Acute) Hyperosmolality and hypernatremia (Acute) Hypokalemia (Acute) Sepsis (Acute) UTI (urinary tract infection) (Acute) Surgical History Surgical History Hx of tonsillectomy (Acute) Social History Social History Substance History: No History of Abuse Second Hand Smoke Exposure: No Smoking Status: Former smoker Tobacco Type: Cigarettes How Often Do You Have a Drink Containing Alcohol: Monthly or less Recent Travel in [facility] within the Last 8 Weeks: No Recent Out of Country Travel within the Last 8 Weeks: No Immunization History Tetanus Immunization: <5 Years Hx Influenza Vaccine This Season: Yes Exam Narrative Exam Narrative: GENERAL: Well-nourished, well-developed, pleasant white female no acute distress. SKIN: Focused skin assessment warm/dry. HEAD: Atraumatic. Normocephalic. EYES: Pupils equal and round. No scleral icterus. No injection or drainage. ENT: No nasal bleeding or discharge. Mucous membranes pink and moist. NECK: Trachea midline. No JVD. CARDIOVASCULAR: Regular rate and rhythm. No murmur appreciated. RESPIRATORY: No accessory muscle use. Clear to auscultation. Breath sounds equal bilaterally. GASTROINTESTINAL: Abdomen soft, non-tender, nondistended. Hepatic and splenic margins not palpable. RECTAL EXAM: No masses or tenderness, stool is brown. Guaiac weakly positive. MUSCULOSKELETAL: No obvious deformities. No clubbing. No cyanosis. No edema. NEUROLOGICAL: Awake and alert. No obvious cranial nerve deficits. Motor grossly within normal limits. Normal speech. PSYCHIATRIC: Appropriate mood and affect; insight and judgment normal. Procedures Hemaprompt Gastric Content Procedural Steps Taken: specimen placed in appropriate test area and controls appropriately positive and negative Hemaprompt Gastric Result: positive Additional Comments: weakly positive. Stool is yellow/brown. Course Initial Documented Vital Signs Pulse Rate 118 H 06/23/18 21:38 Respiratory Rate 16 06/23/18 21:38 Blood Pressure 140/71 06/23/18 21:38 Pulse Oximetry 98 06/23/18 21:38 Last Documented Vital Signs Temperature 98 F 06/24/18 03:51 Pulse Rate 112 H 06/24/18 03:51 Respiratory Rate 16 06/24/18 03:51 Blood Pressure 134/96 H 06/24/18 03:51 Pulse Oximetry 98 06/24/18 03:51 Medical Decision Making MIKEL Attestation MIKEL supervised visit: Yes Attestation: I, Dr. Ledezma, have reviewed the advance practice practitioner's documentation and am in agreement, met with the patient face to face, made the diagnosis, and the medical decision making was done by me. The patient was initially evaluated by Paty, the MIKEL. Please see their complete history and physical. *My assessment and Findings: The patient presents with history of a low hemoglobin noted on laboratory studies done as an outpatient recently with a hemoglobin of 7.1 who also presents with reports of right lower extremity pain and swelling that began a day ago. The patient's examination is remarkable for right lower extremity calf tenderness. During the course of the patient's emergency department visit, the patient's history, examination, and differential diagnosis were reviewed with the patient. The patient was placed on a campus monitor with oximetry and frequent blood pressure monitoring. The patient had IV access obtained and blood work sent for analysis. The patient's diagnostic studies were reviewed and remarkable for a white count of 6.9, hemoglobin done today at 9.5, platelets of 544 with 13.6 monocytes, PT is 12.1, INR 1.2, PTT 22.9, chemistry is remarkable for a chloride of 108, GFR 74, calcium 6.7, protein corrected calcium is 7.5, total protein 5.4. An ultrasound of the left lower extremity reveals a nonocclusive DVT. A CTA to rule out PE was negative for pulmonary embolism. After further discussion with the admitting hospitalist the patient was started on a heparin drip for DVT without boluses. The patient's results were discussed with the patient, including the plan of care. I explained that further testing and/ or monitoring is indicated based on the patient's history, examination, and/ or laboratory findings. Therefore, I recommended admission for additional evaluation. The patient expressed understanding and was agreeable with this plan. The patient was admitted to the hospital in guarded condition and sent to a bed under the care of the [facility] hospitalist service. MDM Narrative Medical decision making narrative: 73 YO F with PMH of GERD, recent hospitalization 2/2 dehydration and UTI presents to the ED from rehab for evaluation of low hemoglobin (7.1 reportedly) by outpatient labs and 1 day history of RLE pain. She endorses "a little bit" of dizziness, worsened by change in position. She complains of ongoing diarrhea, nonbloody. Patient's tachycardic, afebrile on presentation. Physical exam reveals a pleasant, pale elderly white female in no acute distress. Homans sign is positive in the left lower extremity. Guaiac faintly positive on rectal exam. Stool is yellow- brown. There is edema of bilateral lower extremities. Breath sounds clear and equal bilaterally. Ultrasound reveals nonocclusive thrombus in the superficial femoral vein. Hemoglobin 9.5. CTA ordered and pending. I discussed the patient with Dr. Mancilla. He recommends initiating heparin drip without bolus. I discussed the plan with the patient. She is agreeable to admission. Please see medicine notes for disposition. Medical Screen Exam Complete: Yes Emergency Medical Condition: Yes Differential Diagnosis Differential Diagnosis: Anemia versus GI bleed versus metabolic derangement versus DVT versus PE versus other Lab Data Result diagrams: 06/23/18 22:30 06/23/18 22:30 Lab Results 06/23/18 06/23/18 06/23/18 Range/Units 22:30 22:30 22:30 WBC 6.9 (4.0-11.0) th/mm3 RBC 3.15 L (4.00-5.30) mil/mm3 Hgb 9.5 L (11.6-15.3) gm/dL Hct 29.5 L (35.0-46.0) % MCV 93.9 (80.0-100.0) fL MCH 30.1 (27.0-34.0) pg MCHC 32.1 (32.0-36.0) % RDW 22.8 H (11.6-17.2) % Plt Count 544 H D (150-450) th/mm3 MPV 7.5 (7.0-11.0) fL Neut % (Auto) 54.1 (16.0-70.0) % Lymph % (Auto) 31.3 (9.0-44.0) % [place] % (Auto) 13.6 H (0.0-8.0) % Eos % (Auto) 0.5 (0.0-4.0) % Baso % (Auto) 0.5 (0.0-2.0) % Neut # (Auto) 3.7 (1.8-7.7) th/mm3 Lymph # (Auto) 2.2 (1.0-4.8) th/mm3 [place] # (Auto) 0.9 (0.0-0.9) th/mm3 Eos # (Auto) 0.0 (0.0-0.4) th/mm3 Baso # (Auto) 0.0 (0.0-0.2) th/mm3 WBC Differential . Differential Comment Auto diff final PT Cancelled INR Cancelled APTT (24.3-30.1) sec Sodium 142 (136-145) meq/L Potassium 3.6 (3.5-5.1) meq/L Chloride 108 H (98-107) meq/L Carbon Dioxide 25.4 (21.0-32.0) meq/L Anion Gap 9 (5-15) meq/L BUN 15 (7-18) mg/dL Creatinine 0.76 (0.50-1.00) mg/dL Estimated GFR 74 L (>89) mL/min Random Glucose 75 (74-106) mg/dL Calcium 6.7 L* (8.5-10.1) mg/dL Prot Corrected Calcium 7.5 L (8.5-10.1) mg/dL Total Protein 5.4 L (6.4-8.2) g/dL 06/23/18 Range/Units 23:40 WBC (4.0-11.0) th/mm3 RBC (4.00-5.30) mil/mm3 Hgb (11.6-15.3) gm/dL Hct (35.0-46.0) % MCV (80.0-100.0) fL MCH (27.0-34.0) pg MCHC (32.0-36.0) % RDW (11.6-17.2) % Plt Count (150-450) th/mm3 MPV (7.0-11.0) fL Neut % (Auto) (16.0-70.0) % Lymph % (Auto) (9.0-44.0) % [place] % (Auto) (0.0-8.0) % Eos % (Auto) (0.0-4.0) % Baso % (Auto) (0.0-2.0) % Neut # (Auto) (1.8-7.7) th/mm3 Lymph # (Auto) (1.0-4.8) th/mm3 [place] # (Auto) (0.0-0.9) th/mm3 Eos # (Auto) (0.0-0.4) th/mm3 Baso # (Auto) (0.0-0.2) th/mm3 WBC Differential Differential Comment PT 12.1 H INR 1.2 APTT 22.9 L (24.3-30.1) sec Sodium (136-145) meq/L Potassium (3.5-5.1) meq/L Chloride (98-107) meq/L Carbon Dioxide (21.0-32.0) meq/L Anion Gap (5-15) meq/L BUN (7-18) mg/dL Creatinine (0.50-1.00) mg/dL Estimated GFR (>89) mL/min Random Glucose (74-106) mg/dL Calcium (8.5-10.1) mg/dL Prot Corrected Calcium (8.5-10.1) mg/dL Total Protein (6.4-8.2) g/dL Imaging Data Radiologist's impression: Venous Doppler Study 06/23/18 21:52 CONCLUSION: 1. Positive for nonocclusive deep venous thrombosis in the left superficial femoral vein. Chest CTA 06/24/18 00:00 CONCLUSION: This study is negative for pulmonary embolism. Discharge Plan Discharge Disposition Patient Disposition: 30 Still Patient Physicians Team ED Provider: Barbara Ledezma ED Midlevel Provider: Paty Leonardo Primary Care Provider: UNKNOWN, Attending Provider: Quinn Mancilla Status ED Status: Admitted Patient
--- NOTE | 2018-06-23 22:40 | US ---
EXAM DATE: 06/23/2018 10:13 PM EDT AGE/SEX: 73 years / Female INDICATIONS: Left leg pain. CLINICAL DATA: This is the patient's initial encounter. Patient reports that signs and symptoms have been present for 1 week and indicates a pain score of 4/10. MEDICAL/SURGICAL HISTORY: Gastroesophageal reflux disease. GI bleed. Hypokalemia. Ileus. Iron d eficiency anemia. Sepsis. Urinary tract infection. Tonsillectomy. COMPARISON: No prior exams available for comparison. TECHNIQUE: Venous ultrasound of both lower extremities was performed from the inguinal ligament to t he proximal calf. Real-time, color Doppler and spectral tracing, compression and augmentation techni ques were used. FINDINGS: There is a nonocclusive thrombus in the superficial femoral vein proximal to distal. Commo n femoral vein, saphenous vein, popliteal and peroneal and posterior tibial veins are patent. CONCLUSION: 1. Positive for nonocclusive deep venous thrombosis in the left superficial femoral vein. Electronically signed by: Ran Gaitan MD 06/23/2018 10:39 PM EDT
[2018-06-23 22:59] LABS: Baso % (Auto) 0.5 % (0.0-2.0); Eos % (Auto) 0.5 % (0.0-4.0); Hematocrit 29.5 % (35.0-46.0); Hemoglobin 9.5 gm/dL (11.6-15.3); Lymph # (Auto) 2.2 th/mm3 (1.0-4.8); Lymph % (Auto) 31.3 % (9.0-44.0); Mean Corpuscular HGB Conc 32.1 % (32.0-36.0); Mean Corpuscular Hemoglobin 30.1 pg (27.0-34.0); Mean Corpuscular Volume 93.9 fL (80.0-100.0); Mean Platelet Volume 7.5 fL (7.0-11.0); Mono # (Auto) 0.9 th/mm3 (0.0-0.9); Mono % (Auto) 13.6 % (0.0-8.0); Neut # (Auto) 3.7 th/mm3 (1.8-7.7); Neut % (Auto) 54.1 % (16.0-70.0); Platelet Count 544 th/mm3 (150-450); Red Blood Count 3.15 mil/mm3 (4.00-5.30); Red Cell Distribution Width 22.8 % (11.6-17.2); White Blood Count 6.9 th/mm3 (4.0-11.0)
[2018-06-23 23:17] LABS: Calcium 6.7 mg/dL (8.5-10.1); Carbon Dioxide 25.4 meq/L (21.0-32.0); Potassium 3.6 meq/L (3.5-5.1)
[2018-06-23] MEDS ORDERED: Acetaminophen 325 MG Tablet PO PRN (23:35)
[2018-06-23] MEDS ORDERED: Sod Chloride 0.9% Inj 1,000 ML IV.SIG ONE (23:39)
[2018-06-23 23:43] LABS: Total Protein 5.4 g/dL (6.4-8.2)
[2018-06-24 00:08] LABS: Activated Partial Thrombo Time 22.9 sec (24.3-30.1); INR 1.2 Ratio; Prothrombin Time 12.1 sec (9.8-11.6)
[2018-06-24] MEDS: Pantoprazole Inj 40 MG Vial IV.PUSH SCH ×2 (00:29→12:59)
--- NOTE | 2018-06-24 00:43 | CT ---
EXAM DATE: 06/24/2018 12:19 AM EDT AGE/SEX: 73 years / Female INDICATIONS: Blood clot left lower extremity. Evaluate for emboli. CLINICAL DATA: This is the patient's initial encounter. Patient reports that signs and symptoms have been present for 1 day and indicates a pain score of 0/10. MEDICAL/SURGICAL HISTORY: Asthma. Gastroesophageal reflux disease. None. RADIATION DOSE: 22.57 CTDI (mGy) COMPARISON: No prior exams available for comparison. TECHNIQUE: Volumetric scanning was performed using a multi-row detector CT scanner during bolus infu manolo of 80 ml Omnipaque 350 (iohexol) nonionic water-soluble contrast as a single exam dose. The altagracia a was post processed with a variety of visualization algorithms including full volume maximum intensi ty projection and sliding thin slab reformation. Using automated exposure control and adjustment of the mA and/or kV according to patient size, radiation dose was kept as low as reasonably achievable t o obtain optimal diagnostic quality images. DICOM format image data is available electronically for review and comparison. FINDINGS: Pulmonary Arteries: No filling defects are seen in the pulmonary arteries out to the subsegmental ve ssels. The left and right pulmonary arteries are normal in diameter. Lung: Mild lingular infiltrate. Effusion: Small left effusion Mediastinum: Thyroid goiter. Coronary artery calcifications. Moderate size hiatal hernia. Other: The axilla is unremarkable. Moderate gaseous distention bowel loops in the visualized upper a bdomen. CONCLUSION: This study is negative for pulmonary embolism. Electronically signed by: Bro Tsai MD 06/24/2018 12:42 AM EDT
[2018-06-24] MEDS: Heparin Drip 25,000 UNIT/250 ML BAG IV.CONT PRN ×2 (00:58→17:55)
[2018-06-24 06:47] LABS: Hematocrit 25.7 % (35.0-46.0); Hemoglobin 8.5 gm/dL (11.6-15.3); Mean Corpuscular HGB Conc 33.3 % (32.0-36.0); Mean Corpuscular Hemoglobin 30.8 pg (27.0-34.0); Mean Corpuscular Volume 92.5 fL (80.0-100.0); Mean Platelet Volume 7.9 fL (7.0-11.0); Platelet Count 490 th/mm3 (150-450); Red Blood Count 2.78 mil/mm3 (4.00-5.30); Red Cell Distribution Width 23.2 % (11.6-17.2)
[2018-06-24 06:56] LABS: Calcium 6.8 mg/dL (8.5-10.1); Carbon Dioxide 27.1 meq/L (21.0-32.0); Potassium 3.1 meq/L (3.5-5.1)
[2018-06-24] MEDS: Ferrous Sulfate 325 MG Tablet PO SCH ×2 (08:51→21:03)
--- NOTE | 2018-06-24 10:11 | P.HPIM ---
History of Present Illness Service: [facility] Primary Care Physician: UNKNOWN History of Present Illness: The patient is a 73-year-old female with past history significant for GERD and recent admission to the hospital for the weakness,dehydrationk, and readmission for ileus, severe n/v and severe esophagitis and coffee ground emesis. She also had pneumotosis coli for unclear reasons but a course of flagyl was given. case discussed with gen surgery who felt no surgery indicated. Pt did have an EGD that showed severe erosive esophagitis and pt sent back to snf with ppi bid. Sent to ED last night for reported hgb of 7. On arrival hgb found to be over 9 and similar to recent dc hgb. She complained to ED of left leg pain x 1 week. An u/s revealed nonocclusive dvt in sup fem vein. ED checked and positive heme stool....but pt on iron and no obvious bleeding. Heparin initiated and admitted. PMH -gerd -hh -recent ileus and n/v. -pneumotosis coli -severe esophagitis. - CT Abdomen/Pelvis (05/26/18) 1. Abnormal appearance to the bowel with pneumatosis coli and dilated loops of both small and large bowel. No evidence of free fluid, portal gas, or free intraperitoneal gas. 2. Moderate size hiatus hernia. 3. Tiny bilateral pleural effusions. -EGD 05/28 Severe esophagitis Large hiatal hernia Gastritis sh: no etoh/tob fh: noncontributory. - - Diagnosis (1) DVT (deep venous thrombosis) (2) Esophagitis (3) Hypokalemia (4) Pneumatosis coli Inpatient Certification: I certify that the inpatient services were ordered in accordance with Medicare regulations governing the order. This includes certification that hospital inpatient services are reasonable and necessary and in the case of services not specified as inpatient-only under 42 CFR 419.22(n), that they are appropriately provided as inpatient services in accordance to with the 2-midnight benchmark under 43 CFR 412.3(e) Estimated Total Length of Stay (Days): 5 Plans for Post Hospital Care: SNF Review of Systems left leg pain abnormal lab PMFSH - History History Provided By: Patient - Medical History Medical History: Medical History (Last Reviewed 06/23/18 @ 22:33 by HARMAN Hardy) Ileus Iron deficiency anemia GERD (gastroesophageal reflux disease) GI bleed Hyperosmolality and hypernatremia Hypokalemia Sepsis UTI (urinary tract infection) - Surgical History Surgical History: Surgical History (Last Reviewed 06/23/18 @ 22:33 by HARMAN Hardy) Hx of tonsillectomy - Tobacco History Second Hand Smoke Exposure: No (quit smoking in high school) Tobacco Use In Past 30 Days: No Smoking Status: Former smoker Tobacco Type: Cigarettes - Alcohol History How Often Do You Have a Drink Containing Alcohol: Monthly or less - Substance Use History Substance History: No History of Abuse - Travel History Recent Travel in the [place] Within the Last 8 Weeks: No Recent Travel Out of the Country Within the Last 8 Weeks: No - Immunization History Tetanus Immunization: <5 Years Hx Influenza Vaccine This Season: Yes Medications and Allergies Active Medications: Active Medications Acetaminophen (Tylenol) 650 mg PO Q4H PRN PRN Reason: pain 1-10, fever Ferrous Sulfate (Ferosul) 325 mg PO BID [facility] Last Admin: 06/24/18 08:51 Dose: 325 mg Heparin Sodium/Dextrose (Heparin/D5w 25,000 U/250 Ml) 25,000 unit in 250 mls @ 0 mls/hr IV.CONT TITRATE PRN; Protocol PRN Reason: Per Protocol Last Admin: 06/24/18 00:58 Dose: 1,400 units/hr, 14 mls/hr Ondansetron HCl (Zofran Inj) 4 mg IV.PUSH Q6H PRN PRN Reason: NAUSEA OR VOMITING Pantoprazole Sodium (Protonix Inj) 40 mg IV.PUSH Q12H [facility] Last Admin: 06/24/18 00:29 Dose: 40 mg Allergies Allergy/AdvReac Type Severity Reaction Status Date / Time Penicillins AdvReac Dizziness Verified 05/26/18 19:40 Home Medications Medication Instructions Recorded Confirmed Type polyethylene glycol 3350 [Miralax] 17 gm PO DAILY 06/07/18 06/23/18 History acetaminophen 650 mg PO Q6H PRN 06/23/18 06/23/18 History ferrous sulfate 324 mg PO BID 06/23/18 06/23/18 History rkycevsf-wbv-lcezi acid-vit K 500 mg PO DAILY 06/23/18 06/23/18 History [Multi For Her 50 Plus] potassium chloride 10 meq PO BID 06/23/18 06/23/18 History Exam Vital signs: Vital Signs 06/23/18 21:38 06/23/18 21:39 06/24/18 01:05 Temperature Pulse Rate 118 H 121 H 112 H Respiratory Rate 16 16 16 Blood Pressure 140/71 140/71 133/96 H Pulse Oximetry 98 98 96 06/24/18 03:51 06/24/18 05:15 06/24/18 06:02 Temperature 98 F 98.1 F Pulse Rate 112 H 115 H 110 H Respiratory Rate 16 16 Blood Pressure 134/96 H 121/77 Pulse Oximetry 98 96 06/24/18 07:00 06/24/18 08:00 06/24/18 09:00 Temperature 98.1 F Pulse Rate 110 H 112 H 118 H Respiratory Rate 20 Blood Pressure 143/83 H Pulse Oximetry 97 Intake & Output 06/23/18 06/24/18 06/24/18 18:59 06:59 18:59 Intake Total 1000 / 1000 Balance 1000 / 1000 Weight 79.379 kg Intake: IV 1000 / 1000 NS Inj 1,000 ML @ Wide Open IV. 1000 / 1000 SIG [facility] Rx#:[id number] Other: # Incontinent Voids 1 Date of Last Bowel Movement 06/24/18 # Incontinent Bowel Movements 1 heart reg lung cta abd s/nt/nabs ext left leg about same diameter as right. no significant edema or any redness Results - Labs CBC & Chem 7: 06/24/18 05:33 06/24/18 05:33 Labs: Short CBC 06/23/18 06/24/18 Range/Units 22:30 05:33 WBC 6.9 6.0 (4.0-11.0) th/mm3 Hgb 9.5 L 8.5 L (11.6-15.3) gm/dL Hct 29.5 L 25.7 L (35.0-46.0) % Plt Count 544 H D 490 H (150-450) th/mm3 BMP 06/23/18 06/24/18 22:30 05:33 Sodium 142 146 H Potassium 3.6 3.1 L Chloride 108 H 109 H Carbon Dioxide 25.4 27.1 BUN 15 14 Creatinine 0.76 0.73 Calcium 6.7 L* 6.8 L* - Imaging Impressions Venous Doppler Study 06/23/18 21:52 CONCLUSION: 1. Positive for nonocclusive deep venous thrombosis in the left superficial femoral vein. Chest CTA 06/24/18 00:00 CONCLUSION: This study is negative for pulmonary embolism. Caprini VTE Risk Assessment Caprini VTE Risk Assessment: Moderate/High Risk (score >= 2) Caprini Risk Assessment Model: Point Value = 1 Point Value = 2 Point Value = 3 Point Value = 5 Age 41-60 Minor surgery BMI > 25 kg/m2 Swollen legs Varicose veins or History of unexplained or recurrent spontaneous Oral contraceptives or hormone replacement Sepsis (< 1 month) Serious lung disease, including pneumonia (< 1 month) Abnormal pulmonary function Acute myocardial infarction Congestive heart failure (< 1 month) History of inflammatory bowel disease Medical patient at bed rest Age 61-74 Arthroscopic surgery Major open surgery (> 45 min) Laparoscopic surgery (> 45 min) Malignancy Confined to bed (> 72 hours) Immobilizing plaster cast Central venous access Age >= 75 History of VTE Family history of VTE Factor V Leiden Prothrombin [id number] Lupus anticoagulant Anticardiolipin antibodies Elevated serum homocysteine Heparin-induced thrombocytopenia Other congenital or acquired thrombophilia Stroke (< 1 month) Elective arthroplasty Hip, pelvis, or leg fracture Acute spinal cord injury (< 1 month) Prophylaxis Regimen: Total Risk Factor Score Risk Level Prophylaxis Regimen 0-1 Low Early ambulation 2 Moderate Order ONE of the following: *Sequential Compression Device (SCD) *Heparin 5000 units SQ BID 3-4 Higher Order ONE of the following medications: *Heparin 5000 units SQ TID *Enoxaparin/Lovenox 40 mg SQ daily (WT < 150 kg, CrCl > 30 mL/min) *Enoxaparin/Lovenox 30 mg SQ daily (WT < 150 kg, CrCl > 10-29 mL/min) *Enoxaparin/Lovenox 30 mg SQ BID (WT < 150 kg, CrCl > 30 mL/min) AND/OR *Sequential Compression Device (SCD) 5 or more Highest Order ONE of the following medications: *Heparin 5000 units SQ TID (Preferred with Epidurals) *Enoxaparin/Lovenox 40 mg SQ daily (WT < 150 kg, CrCl > 30 mL/min) *Enoxaparin/Lovenox 30 mg SQ daily (WT < 150 kg, CrCl > 10-29 mL/min) *Enoxaparin/Lovenox 30 mg SQ BID (WT < 150 kg, CrCl > 30 mL/min) AND *Sequential Compression Device (SCD) Assessment and Plan - Assessment (1) DVT (deep venous thrombosis) Code(s): I82.409 - Acute embolism and thrombosis of unspecified deep veins of unspecified lower extremity Status: Acute Plan: 1. left leg superficial femoral dvt heparin gtt initiated cont bid ppi advised nursing to monitor for signs of bleeding. liquid diet today transfuse prbc prn h/h later today. pt evalutuation. If she has bleeding then might need hematology consult or filter. 2. recent ugib from n/v and severe erosive esophagitis 3. large HH 4. recent pneumotosis coli and ileus (2) Esophagitis Code(s): K20.9 - Esophagitis, unspecified Status: Acute (3) Hypokalemia Code(s): E87.6 - Hypokalemia Status: Acute (4) Pneumatosis coli Code(s): K63.89 - Other specified diseases of intestine Status: Resolved H&P: Quality - VTE Deep Vein Thrombosis/Pulmonary Embolism Present on Admission: Yes
[2018-06-24 16:32] LABS: Hematocrit 28.2 % (35.0-46.0); Hemoglobin 8.9 gm/dL (11.6-15.3)
[2018-06-25] MEDS: Pantoprazole Inj 40 MG Vial IV.PUSH SCH ×3 (00:09→22:52)
[2018-06-25 01:49] LABS: Hematocrit 24.5 % (35.0-46.0); Hemoglobin 8.1 gm/dL (11.6-15.3); Mean Corpuscular Hemoglobin 30.9 pg (27.0-34.0); Mean Corpuscular Volume 93.7 fL (80.0-100.0); Mean Platelet Volume 7.8 fL (7.0-11.0); Platelet Count 450 th/mm3 (150-450); Red Blood Count 2.62 mil/mm3 (4.00-5.30); Red Cell Distribution Width 23.1 % (11.6-17.2); White Blood Count 5.8 th/mm3 (4.0-11.0)
[2018-06-25 02:13] LABS: Calcium 6.6 mg/dL (8.5-10.1); Carbon Dioxide 26.5 meq/L (21.0-32.0); Potassium 3.4 meq/L (3.5-5.1)
[2018-06-25 02:29] LABS: Total Protein 4.7 g/dL (6.4-8.2)
--- NOTE | 2018-06-25 08:21 | P.PNIM ---
Subjective Interval history: no report bleeding overnight syncopized with PT yesterday. had some left leg pain now better. allen liquids. Physical Exam Vital signs: Vital Signs 06/24/18 09:00 06/24/18 10:00 06/24/18 11:00 Temperature Pulse Rate 118 H 118 H 116 H Respiratory Rate Blood Pressure Pulse Oximetry 06/24/18 12:00 06/24/18 13:00 06/24/18 14:00 Temperature 98.2 F Pulse Rate 109 H 120 H 116 H Respiratory Rate 20 Blood Pressure 132/79 Pulse Oximetry 96 06/24/18 15:30 06/24/18 16:00 06/24/18 17:00 Temperature 98.1 F Pulse Rate 113 H 116 H 116 H Respiratory Rate 22 Blood Pressure 125/77 Pulse Oximetry 98 06/24/18 18:00 06/24/18 19:00 06/24/18 20:00 Temperature 98.4 F Pulse Rate 116 H 118 H 118 H Respiratory Rate 18 Blood Pressure 111/74 Pulse Oximetry 96 06/24/18 21:00 06/24/18 21:35 06/24/18 22:00 Temperature Pulse Rate 118 H 118 H Respiratory Rate 16 Blood Pressure Pulse Oximetry 06/24/18 23:00 06/25/18 00:00 06/25/18 01:00 Temperature 98.3 F Pulse Rate 118 H 119 H 116 H Respiratory Rate 18 Blood Pressure 115/63 Pulse Oximetry 96 06/25/18 02:00 06/25/18 03:00 06/25/18 04:00 Temperature 98.2 F Pulse Rate 112 H 110 H 115 H Respiratory Rate 16 Blood Pressure 126/76 Pulse Oximetry 98 06/25/18 05:00 06/25/18 06:00 Temperature Pulse Rate 110 H 114 H Respiratory Rate Blood Pressure Pulse Oximetry Intake & Output 06/24/18 06/25/18 06/25/18 18:59 06:59 18:59 Intake Total 730 / 730 240 / 240 1000 / 1000 Output Total 200 / 200 Balance 530 / 530 240 / 240 1000 / 1000 Weight 97.5 kg Intake: IV 250 / 250 1000 / 1000 Heparin/D5W 25,000 U/250 mL 25, 250 / 250 000 unit In 250 ml @ Per Protocol IV.CONT TITRATE PRN Rx #:[id number] NS + KCl 20 mEq Inj 1,000 ML @ 1000 / 1000 70 mls/hr IV.CONT .[id number] [facility] Rx#:[id number] Oral 480 / 480 240 / 240 Output: Urine 200 / 200 Other: # Incontinent Voids 4 2 Date of Last Bowel Movement 06/24/18 06/25/18 06/25/18 # Incontinent Bowel Movements 3 3 heart reg lung cta abd s/nt ext mild swelling left leg. nontender. Results - Labs CBC & Chem 7: 06/25/18 01:15 06/25/18 01:15 Laboratory Results - last 24 hr 06/24/18 06/24/18 06/24/18 13:35 15:02 15:55 WBC RBC Hgb 8.9 L Hct 28.2 L MCV MCH MCHC RDW Plt Count MPV APTT 96.2 H* D Sodium Potassium Chloride Carbon Dioxide Anion Gap BUN Creatinine Estimated GFR POC Glucose 130 H Random Glucose Calcium Prot Corrected Calcium Total Protein Stl C.difficile Tox PCR St C. diff Tox Epid 027 06/24/18 06/24/18 06/24/18 15:55 20:40 23:08 WBC RBC Hgb Hct MCV MCH MCHC RDW Plt Count MPV APTT 70.4 H D 98.2 H* D Sodium Potassium Chloride Carbon Dioxide Anion Gap BUN Creatinine Estimated GFR POC Glucose Random Glucose Calcium Prot Corrected Calcium Total Protein Stl C.difficile Tox PCR Negative St C. diff Tox Epid 027 Negative 06/25/18 06/25/18 06/25/18 01:15 01:15 01:15 WBC 5.8 RBC 2.62 L Hgb 8.1 L Hct 24.5 L MCV 93.7 MCH 30.9 MCHC 33.0 RDW 23.1 H Plt Count 450 MPV 7.8 APTT 72.4 H D Sodium 145 Potassium 3.4 L Chloride 111 H Carbon Dioxide 26.5 Anion Gap 8 BUN 14 Creatinine 0.78 Estimated GFR 72 L POC Glucose Random Glucose 82 Calcium 6.6 L* Prot Corrected Calcium 7.8 L Total Protein 4.7 L Stl C.difficile Tox PCR St C. diff Tox Epid 027 06/25/18 07:04 WBC RBC Hgb Hct MCV MCH MCHC RDW Plt Count MPV APTT 51.1 H D Sodium Potassium Chloride Carbon Dioxide Anion Gap BUN Creatinine Estimated GFR POC Glucose Random Glucose Calcium Prot Corrected Calcium Total Protein Stl C.difficile Tox PCR St C. diff Tox Epid 027 Assessment and Plan - Assessment (1) DVT (deep venous thrombosis) Code(s): I82.409 - Acute embolism and thrombosis of unspecified deep veins of unspecified lower extremity Status: Acute Plan: 1. left leg superficial femoral dvt syncope with PT on 06/24 heparin gtt initiated cont bid ppi advised nursing to monitor for signs of bleeding. advance to soft diet dc ivf check orthostatics today with PT. if positive might need blood transfuse prbc prn hgb slightly lower might be dilutional. If she has bleeding then might need hematology consult or filter. 2. recent ugib from n/v and severe erosive esophagitis 3. large HH 4. recent pneumotosis coli and ileus (2) Esophagitis Code(s): K20.9 - Esophagitis, unspecified Status: Acute (3) Hypokalemia Code(s): E87.6 - Hypokalemia Status: Acute
[2018-06-25] MEDS: Ferrous Sulfate 325 MG Tablet PO SCH ×2 (10:28→21:24)
[2018-06-26 03:57] LABS: Hematocrit 25.2 % (35.0-46.0); Hemoglobin 8.4 gm/dL (11.6-15.3); Mean Corpuscular HGB Conc 33.3 % (32.0-36.0); Mean Corpuscular Hemoglobin 31.3 pg (27.0-34.0); Mean Corpuscular Volume 93.9 fL (80.0-100.0); Mean Platelet Volume 7.8 fL (7.0-11.0); Platelet Count 446 th/mm3 (150-450); Red Blood Count 2.68 mil/mm3 (4.00-5.30); White Blood Count 5.9 th/mm3 (4.0-11.0)
[2018-06-26] MEDS: Ferrous Sulfate 325 MG Tablet PO SCH ×2 (08:10→20:10)
--- NOTE | 2018-06-26 08:52 | P.PNIM ---
Subjective Interval history: no sign of bleeding tolerating foods gets dizzy with activity. Physical Exam Vital signs: Vital Signs 06/25/18 09:00 06/25/18 10:00 06/25/18 11:00 Temperature Pulse Rate 116 H 110 H 111 H Respiratory Rate Blood Pressure Pulse Oximetry 06/25/18 12:00 06/25/18 15:00 06/25/18 16:00 Temperature 98.2 F 99.0 F Pulse Rate 114 H 116 H 119 H Respiratory Rate 19 18 Blood Pressure 122/66 120/75 Pulse Oximetry 98 99 06/25/18 17:00 06/25/18 18:00 06/25/18 19:00 Temperature Pulse Rate 112 H 118 H 118 H Respiratory Rate Blood Pressure Pulse Oximetry 06/25/18 20:00 06/25/18 22:00 06/25/18 23:00 Temperature 98.4 F Pulse Rate 119 H 110 H 116 H Respiratory Rate 20 Blood Pressure 122/76 Pulse Oximetry 98 06/26/18 00:00 06/26/18 00:42 06/26/18 01:00 Temperature 99 F Pulse Rate 114 H 110 H Respiratory Rate 20 18 Blood Pressure 128/74 Pulse Oximetry 97 06/26/18 02:00 06/26/18 03:00 06/26/18 04:00 Temperature 98.2 F Pulse Rate 110 H 116 H 122 H Respiratory Rate 18 Blood Pressure 127/83 Pulse Oximetry 96 06/26/18 05:00 06/26/18 05:37 06/26/18 07:00 Temperature Pulse Rate 116 H 115 H 116 H Respiratory Rate Blood Pressure Pulse Oximetry Intake & Output 06/25/18 06/26/18 06/26/18 18:59 06:59 18:59 Intake Total 1670 / 1670 480 / 480 Balance 1670 / 1670 480 / 480 Weight 97.5 kg Intake: IV 1070 / 1070 NS + KCl 20 mEq Inj 1,000 ML @ 1070 / 1070 70 mls/hr IV.CONT .[id number] [facility] Rx#:[id number] Oral 600 / 600 480 / 480 Other: # Incontinent Voids 3 3 Date of Last Bowel Movement 06/25/18 06/25/18 # Incontinent Bowel Movements 5 2 heart reg lung cta abd s/nt ext mild swelling left lower leg Results - Labs CBC & Chem 7: 06/26/18 03:21 06/25/18 01:15 Laboratory Results - last 24 hr 06/25/18 06/26/18 06/26/18 18:54 03:21 03:21 WBC 5.9 RBC 2.68 L Hgb 8.4 L Hct 25.2 L MCV 93.9 MCH 31.3 MCHC 33.3 RDW 23.0 H Plt Count 446 MPV 7.8 APTT 39.2 H D 41.4 H Assessment and Plan - Assessment (1) DVT (deep venous thrombosis) Code(s): I82.409 - Acute embolism and thrombosis of unspecified deep veins of unspecified lower extremity Status: Acute Plan: 1. left leg superficial femoral dvt syncope with PT on 06/24 heparin gtt initiated. if no bleeding today then convert to oral agent. cont bid ppi advised nursing to monitor for signs of bleeding. advance to soft diet off ivf cont daily PT transfuse prbc prn for symptomatic anemia If she has bleeding then might need hematology consult or filter. 2. recent ugib from n/v and severe erosive esophagitis 3. large HH 4. recent pneumotosis coli and ileus (2) Esophagitis Code(s): K20.9 - Esophagitis, unspecified Status: Acute (3) Hypokalemia Code(s): E87.6 - Hypokalemia Status: Acute
[2018-06-26] MEDS: Pantoprazole Inj 40 MG Vial IV.PUSH SCH (12:42)
--- NOTE | 2018-06-26 17:01 | P.PNWCN ---
Wound Care Nurse Consult Description: Consult for wound to left buttock per Dr Mancilla Communicated with: Patient who is very well known to investigative writer from previous admissions Communicated to MELLISA Suarez that investigative writer was going to assess patient, however was unavailable during assessment Recommendation: Continue to reposition patient every 2 hours and PRN for comfort. Continue to apply Calazime skin protectant paste to partial thickness skin loss noted to left buttock and surrounding healing wounds noted to bilateral buttocks. Additional information: Patient seen on [facility] for wound evaluation of left buttock Wound/Pressure Injury - Wound Left buttock Is This a Chronic Wound: Yes Requested from Provider a Wound Care Consult: Yes Length: 0.8 (cm) Width: 1.2 (cm) Depth: 0.1 (cm) Wound Bed Appearance: [place] Wound Bed Appearance: shallow, non draining, no odor noted, wound margins are flaking Drainage Amount: None Dressing Status: Open to Air Topical: Calazime
[2018-06-27] MEDS: Pantoprazole Inj 40 MG Vial IV.PUSH SCH ×3 (01:01→22:47)
[2018-06-27] MEDS: Heparin Drip 25,000 UNIT/250 ML BAG IV.CONT PRN (01:03)
--- NOTE | 2018-06-27 08:37 | P.PNIM ---
Subjective Interval history: no bleeding reported allen food syncope with hypotension during PT again yesterday. Physical Exam Vital signs: Vital Signs 06/26/18 09:00 06/26/18 10:00 06/26/18 11:00 Temperature Pulse Rate 116 H 118 H 115 H Respiratory Rate Blood Pressure Pulse Oximetry 06/26/18 12:00 06/26/18 13:00 06/26/18 14:00 Temperature 98.2 F Pulse Rate 118 H 122 H 122 H Respiratory Rate 18 Blood Pressure 119/73 Pulse Oximetry 95 06/26/18 15:00 06/26/18 16:00 06/26/18 17:00 Temperature 98.0 F Pulse Rate 119 H 116 H 114 H Respiratory Rate 18 Blood Pressure 130/70 Pulse Oximetry 95 06/26/18 17:13 06/26/18 17:32 06/26/18 18:00 Temperature 98.3 F 98.6 F Pulse Rate 121 H 121 H 120 H Respiratory Rate 18 18 Blood Pressure 138/78 132/74 Pulse Oximetry 97 97 06/26/18 19:00 06/26/18 19:37 06/26/18 20:00 Temperature 98.6 F Pulse Rate 119 H 121 H 123 H Respiratory Rate 18 Blood Pressure 132/74 Pulse Oximetry 97 06/26/18 20:15 06/26/18 21:00 06/26/18 21:23 Temperature 98.8 F 98.6 F Pulse Rate 120 H 126 H 121 H Respiratory Rate 17 18 Blood Pressure 142/73 H 133/83 Pulse Oximetry 100 98 06/26/18 21:30 06/26/18 22:00 06/26/18 23:00 Temperature Pulse Rate 122 H 120 H 118 H Respiratory Rate 16 Blood Pressure 156/85 H Pulse Oximetry 98 06/27/18 00:00 06/27/18 00:56 06/27/18 01:00 Temperature 98.0 F 98.3 F Pulse Rate 117 H 117 H 119 H Respiratory Rate 18 15 Blood Pressure 149/82 H 150/82 H Pulse Oximetry 97 97 06/27/18 02:00 06/27/18 03:00 06/27/18 04:00 Temperature 97.8 F Pulse Rate 118 H 116 H 116 H Respiratory Rate 18 Blood Pressure 143/91 H Pulse Oximetry 98 06/27/18 05:00 06/27/18 06:00 Temperature Pulse Rate 114 H 113 H Respiratory Rate Blood Pressure Pulse Oximetry Intake & Output 06/26/18 06/27/18 06/27/18 18:59 06:59 18:59 Intake Total 480 / 480 1280 / 1280 Output Total 200 / 200 Balance 280 / 280 1280 / 1280 Weight 98 kg Intake: Oral 480 / 480 480 / 480 Intake (Blood Product) Amt 0 / 0 800 / 800 Rbc As-3 Leukoreduced Unit 400 / 400 [id number] Rbc As-3 Leukoreduced Unit 0 / 0 400 / 400 [id number] Output: Urine 200 / 200 Other: # Voids 1 # Incontinent Voids 1 Date of Last Bowel Movement 06/26/18 06/27/18 # Incontinent Bowel Movements 3 3 nad heart reg lung cta abd s/nt ext no edema Results - Labs CBC & Chem 7: 06/26/18 03:21 06/25/18 01:15 Laboratory Results - last 24 hr 06/26/18 06/26/18 09:35 14:17 APTT 50.6 H D Blood Type A Positive Antibody Screen Negative MTS Gel Crossmatch See Detail Assessment and Plan - Assessment (1) DVT (deep venous thrombosis) Code(s): I82.409 - Acute embolism and thrombosis of unspecified deep veins of unspecified lower extremity Status: Acute Plan: 1. left leg superficial femoral dvt syncope with PT on 06/24,06/25,06/26. hypotension to 70s noted symptomatic anemia from recent gib losses stop heparin gtt and start eliquis. no bleeding noted with heparin s/p 2units prbc 06/26 reassess pt oob with PT again today. if still orthostatic/syncope then trial of midodrine. cont bid ppi advised nursing to monitor for signs of bleeding. advanced to soft diet off ivf cont daily PT transfuse prbc prn for symptomatic anemia If she has bleeding then might need hematology consult or filter. 2. recent ugib from n/v and severe erosive esophagitis 3. large HH 4. recent pneumotosis coli and ileus (2) Esophagitis Code(s): K20.9 - Esophagitis, unspecified Status: Acute (3) Hypokalemia Code(s): E87.6 - Hypokalemia Status: Acute
[2018-06-27 09:19] LABS: Baso % (Auto) 0.4 % (0.0-2.0); Eos % (Auto) 0.7 % (0.0-4.0); Hematocrit 33.9 % (35.0-46.0); Hemoglobin 11.4 gm/dL (11.6-15.3); Lymph # (Auto) 1.8 th/mm3 (1.0-4.8); Lymph % (Auto) 30.9 % (9.0-44.0); Mean Corpuscular HGB Conc 33.7 % (32.0-36.0); Mean Corpuscular Hemoglobin 30.5 pg (27.0-34.0); Mean Corpuscular Volume 90.4 fL (80.0-100.0); Mean Platelet Volume 8.2 fL (7.0-11.0); Mono # (Auto) 0.8 th/mm3 (0.0-0.9); Neut # (Auto) 3.3 th/mm3 (1.8-7.7); Platelet Count 414 th/mm3 (150-450); Red Blood Count 3.75 mil/mm3 (4.00-5.30); Red Cell Distribution Width 21.3 % (11.6-17.2); White Blood Count 5.9 th/mm3 (4.0-11.0)
[2018-06-27 09:27] LABS: Calcium 6.9 mg/dL (8.5-10.1); Carbon Dioxide 23.9 meq/L (21.0-32.0); Potassium 3.1 meq/L (3.5-5.1)
[2018-06-27] MEDS: Ferrous Sulfate 325 MG Tablet PO SCH ×2 (09:50→20:38)
[2018-06-27 10:07] LABS: Total Protein 5.4 g/dL (6.4-8.2)
[2018-06-27] MEDS: Potassium Chloride 10 MEQ ER Capsule PO SCH (20:38)
[2018-06-28] MEDS: Ferrous Sulfate 325 MG Tablet PO SCH ×2 (09:43→21:42)
[2018-06-28] MEDS: Potassium Chloride 10 MEQ ER Capsule PO SCH ×2 (09:43→21:42)
--- NOTE | 2018-06-28 10:11 | P.PNIM ---
Subjective Interval history: c/o weakness in hands and some radicular pain in both arms. unable top hold cups or utensils. some diarrhea still . no n/v Physical Exam Vital signs: Vital Signs 06/27/18 11:00 06/27/18 12:00 06/27/18 13:00 Temperature 98 F Pulse Rate 108 H 113 H 113 H Respiratory Rate 18 Blood Pressure 118/72 Pulse Oximetry 94 L 06/27/18 14:00 06/27/18 15:00 06/27/18 16:00 Temperature 97.9 F Pulse Rate 113 H 113 H 114 H Respiratory Rate 18 Blood Pressure 122/78 Pulse Oximetry 98 06/27/18 19:00 06/27/18 20:00 06/27/18 21:00 Temperature 98.7 F Pulse Rate 113 H 114 H 110 H Respiratory Rate 16 Blood Pressure 117/72 Pulse Oximetry 96 06/27/18 21:22 06/27/18 22:00 06/27/18 23:00 Temperature Pulse Rate 113 H 103 H Respiratory Rate 18 Blood Pressure Pulse Oximetry 06/28/18 00:00 06/28/18 01:00 06/28/18 02:00 Temperature 97.8 F Pulse Rate 115 H 107 H 110 H Respiratory Rate 18 Blood Pressure 139/88 Pulse Oximetry 96 06/28/18 03:00 06/28/18 04:00 06/28/18 05:00 Temperature 98.0 F Pulse Rate 109 H 112 H 114 H Respiratory Rate 18 Blood Pressure 137/67 Pulse Oximetry 96 06/28/18 06:00 Temperature Pulse Rate 107 H Respiratory Rate Blood Pressure Pulse Oximetry Intake & Output 06/27/18 06/28/18 06/28/18 18:59 06:59 18:59 Intake Total 390 / 390 240 / 240 Balance 390 / 390 240 / 240 Weight 97.5 kg Intake: IV 150 / 150 Heparin/D5W 25,000 U/250 mL 25, 150 / 150 000 unit In 250 ml @ Per Protocol IV.CONT TITRATE PRN Rx #:[id number] Oral 240 / 240 240 / 240 Other: # Voids 1 # Incontinent Voids 2 Date of Last Bowel Movement 06/27/18 06/28/18 # Incontinent Bowel Movements 3 heart reg lung cta abd s/nt ext no pitting week prizer hand hands eber. no spams no clonus.unable to lift either leg off the bed able to lift her arms but weakly. Results - Labs CBC & Chem 7: 06/28/18 11:19 06/28/18 11:19 Laboratory Results - last 24 hr 06/27/18 08:25 Prot Corrected Calcium 7.8 L Total Protein 5.4 L D Assessment and Plan - Assessment (1) DVT (deep venous thrombosis) Code(s): I82.409 - Acute embolism and thrombosis of unspecified deep veins of unspecified lower extremity Status: Acute Plan: 1. left leg superficial femoral dvt syncope with PT on 06/24,06/25,06/26. hypotension to 70s noted symptomatic anemia from recent gib losses stop heparin gtt and started eliquis 06/27. no bleeding noted with heparin s/p 2units prbc 06/26 . if still orthostatic/syncope then trial of midodrine. cont bid ppi advised nursing to monitor for signs of bleeding. advanced to soft diet off ivf cont daily PT transfuse prbc prn for symptomatic anemia If she has bleeding then might need hematology consult or filter. 2. bilateral upper extremity/hand weakness pt unable to use cups/utensils. hands weak with radicular complaints mri c spine. metabolic evaluation. ADDENDUM: MRI c spine: C4-C5: A diffuse disc bulge is seen eccentric to the left abutting the cord with mild ventral flattening of the cord surface and moderate canal stenosis. There is uncovertebral hypertrophy suspected and moderate bilateral foraminal narrowing. C5-C6: A diffuse disc osteophyte complex is noted. There is uncovertebral hypertrophy and severe left greater than right foraminal stenosis, and severe canal stenosis with cord compression. This is slightly eccentric to the left. C6-C7: There is mild canal narrowing secondary to a diffuse disc osteophyte complex. Mild bilateral foraminal narrowing secondary to uncovertebral hypertrophy and facet hypertrophy. CONCLUSION: 1. Degenerative changes are noted most pronounced at C5-6 where severe canal stenosis is seen. will ask nsg to see given severe cervical stenosis and eber ue weakness iv decadron for now. 3. recent ugib from n/v and severe erosive esophagitis 4. large HH 5. recent pneumotosis coli and ileus (2) Esophagitis Code(s): K20.9 - Esophagitis, unspecified Status: Acute (3) Hypokalemia Code(s): E87.6 - Hypokalemia Status: Acute
[2018-06-28 12:07] LABS: Baso % (Auto) 0.4 % (0.0-2.0); Eos % (Auto) 0.7 % (0.0-4.0); Hematocrit 30.9 % (35.0-46.0); Hemoglobin 10.5 gm/dL (11.6-15.3); Lymph # (Auto) 1.3 th/mm3 (1.0-4.8); Lymph % (Auto) 27.5 % (9.0-44.0); Mean Corpuscular HGB Conc 34.1 % (32.0-36.0); Mean Platelet Volume 8.4 fL (7.0-11.0); Mono # (Auto) 0.7 th/mm3 (0.0-0.9); Mono % (Auto) 14.6 % (0.0-8.0); Neut # (Auto) 2.8 th/mm3 (1.8-7.7); Neut % (Auto) 56.8 % (16.0-70.0); Platelet Count 367 th/mm3 (150-450); Red Cell Distribution Width 20.9 % (11.6-17.2); White Blood Count 4.9 th/mm3 (4.0-11.0)
[2018-06-28] MEDS: Calcium Carbonate 500 MG Tablet PO SCH ×2 (12:16→21:42)
[2018-06-28] MEDS: Pantoprazole Inj 40 MG Vial IV.PUSH SCH (12:21)
[2018-06-28 12:38] LABS: Calcium 7.1 mg/dL (8.5-10.1); Carbon Dioxide 26.5 meq/L (21.0-32.0); Magnesium 1.6 mg/dL (1.5-2.5); Phosphorus 2.7 mg/dL (2.5-4.9); Potassium 3.5 meq/L (3.5-5.1)
[2018-06-28 12:54] LABS: Total Protein 4.8 g/dL (6.4-8.2)
[2018-06-28] MEDS ORDERED: Gadobutrol PF 10 MMOL/10 ML Vial (for RAD) IV.SIG ONE (14:38)
--- NOTE | 2018-06-28 14:54 | MR ---
EXAM DATE: 06/28/2018 2:44 PM EDT AGE/SEX: 73 years / Female INDICATIONS: . Bilateral upper extremity weakness. CLINICAL DATA: This is the patient's initial encounter. Patient reports that signs and symptoms have been present for 1 day and indicates a pain score of 0/10. MEDICAL/SURGICAL HISTORY: None. Tonsillectomy. COMPARISON: No prior exams available for comparison. TECHNIQUE: Multiplanar, multisequence MRI examination of the cervical spine was performed without an d with 10 ml Gadavist (gadobutrol) contrast as a single exam dose. FINDINGS: Alignment is normal. Diffuse disc desiccation. Moderate disc space narrowing at C5-6 and C6-7 with an terior osteophyte formation seen. The bone marrow signal intensity is normal. Spinal cord signal inte nsity is normal. C2-C3: The thecal sac has a normal configuration. There is no evidence of disc herniation or spinal canal stenosis. The neural foramina are patent bilaterally. C3-C4: The thecal sac has a normal configuration. There is no evidence of disc herniation or spinal canal stenosis. The neural foramina are patent bilaterally. C4-C5: A diffuse disc bulge is seen eccentric to the left abutting the cord with mild ventral flatte allyssa of the cord surface and moderate canal stenosis. There is uncovertebral hypertrophy suspected an d moderate bilateral foraminal narrowing. C5-C6: A diffuse disc osteophyte complex is noted. There is uncovertebral hypertrophy and severe lef t greater than right foraminal stenosis, and severe canal stenosis with cord compression. This is sli ghtly eccentric to the left. C6-C7: There is mild canal narrowing secondary to a diffuse disc osteophyte complex. Mild bilateral foraminal narrowing secondary to uncovertebral hypertrophy and facet hypertrophy. C7-T1: No epidural impressions seen. CONCLUSION: 1. Degenerative changes are noted most pronounced at C5-6 where severe canal stenosis is seen. Electronically signed by: Alcides Tierney MD 06/28/2018 2:53 PM EDT
[2018-06-29] MEDS: Pantoprazole Inj 40 MG Vial IV.PUSH SCH ×2 (00:53→12:27)
[2018-06-29] MEDS: Calcium Carbonate 500 MG Tablet PO SCH ×2 (09:13→21:52)
[2018-06-29] MEDS: Potassium Chloride 10 MEQ ER Capsule PO SCH ×2 (09:14→21:51)
[2018-06-29] MEDS: Ferrous Sulfate 325 MG Tablet PO SCH ×2 (09:14→21:52)
--- NOTE | 2018-06-29 09:17 | P.PNIM ---
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 some radicular pains arms slightly better. Physical Exam Vital signs: Vital Signs 06/28/18 09:26 06/28/18 10:00 06/28/18 11:00 Temperature 98.2 F Pulse Rate 86 110 H 111 H Respiratory Rate 16 Blood Pressure 114/81 Pulse Oximetry 100 06/28/18 12:00 06/28/18 13:00 06/28/18 14:00 Temperature 97.9 F Pulse Rate 110 H 114 H 111 H Respiratory Rate 18 Blood Pressure 121/70 Pulse Oximetry 98 06/28/18 15:00 06/28/18 16:00 06/28/18 17:00 Temperature 98.4 F Pulse Rate 114 H 110 H 109 H Respiratory Rate 18 Blood Pressure 122/70 Pulse Oximetry 06/28/18 18:00 06/28/18 19:00 06/28/18 20:00 Temperature 97.6 F Pulse Rate 125 H 108 H 112 H Respiratory Rate 24 Blood Pressure 120/74 Pulse Oximetry 97 06/28/18 21:00 06/28/18 22:00 06/28/18 23:00 Temperature Pulse Rate 108 H 106 H 110 H Respiratory Rate Blood Pressure Pulse Oximetry 06/29/18 00:00 06/29/18 01:00 06/29/18 02:00 Temperature 98.2 F Pulse Rate 104 H 105 H 106 H Respiratory Rate 22 Blood Pressure 122/68 Pulse Oximetry 96 06/29/18 03:00 06/29/18 04:00 06/29/18 05:00 Temperature 97.5 F L Pulse Rate 109 H 110 H 108 H Respiratory Rate 20 Blood Pressure 146/93 H Pulse Oximetry 98 06/29/18 06:00 Temperature Pulse Rate 110 H Respiratory Rate Blood Pressure Pulse Oximetry Intake & Output 06/28/18 06/29/18 06/29/18 18:59 06:59 18:59 Intake Total 1200 / 1200 240 / 240 Balance 1200 / 1200 240 / 240 Weight 97 kg Intake: Oral 1200 / 1200 240 / 240 Other: # Voids 3 # Incontinent Voids 1 Date of Last Bowel Movement 06/28/18 06/29/18 # Bowel Movements 3 3 heart reg lung cta abd s/nt ext no edema unable to hip hop dancer and hold cup in either hand Results - Labs CBC & Chem 7: 06/28/18 11:19 06/28/18 11:19 Laboratory Results - last 24 hr 06/28/18 06/28/18 11:19 11:19 WBC 4.9 RBC 3.40 L Hgb 10.5 L Hct 30.9 L MCV 91.0 MCH 31.0 MCHC 34.1 RDW 20.9 H Plt Count 367 MPV 8.4 Neut % (Auto) 56.8 Lymph % (Auto) 27.5 Sharp % (Auto) 14.6 H Eos % (Auto) 0.7 Baso % (Auto) 0.4 Neut # (Auto) 2.8 Lymph # (Auto) 1.3 Sharp # (Auto) 0.7 Eos # (Auto) 0.0 Baso # (Auto) 0.0 WBC Differential . Differential Comment Auto diff final Sodium 144 Potassium 3.5 Chloride 111 H Carbon Dioxide 26.5 Anion Gap 7 BUN 16 Creatinine 0.84 Estimated GFR 66 L Random Glucose 88 Calcium 7.1 L* Prot Corrected Calcium 8.4 L Phosphorus 2.7 Magnesium 1.6 Total Protein 4.8 L D - Imaging Impressions Cervical Spine MRI 06/28/18 00:00 CONCLUSION: 1. Degenerative changes are noted most pronounced at C5-6 where severe canal stenosis is seen. Assessment and Plan - Assessment (1) DVT (deep venous thrombosis) Code(s): I82.409 - Acute embolism and thrombosis of unspecified deep veins of unspecified lower extremity Status: Acute Plan: 1. left leg superficial femoral dvt syncope with PT on 06/24,06/25,06/26. hypotension to 70s noted symptomatic anemia from recent gib losses stop heparin gtt and started eliquis 06/27. no bleeding noted with heparin s/p 2units prbc 06/26 . if still orthostatic/syncope then trial of midodrine. cont bid ppi advised nursing to monitor for signs of bleeding. advanced to soft diet off ivf cont daily PT transfuse prbc prn for symptomatic anemia If she has bleeding then might need hematology consult or filter. 2. bilateral upper extremity/hand weakness c5/6 disc osteophyte complex/severe foraminal stenosis/severe canal stenosis with cord compression pt unable to use cups/utensils. hands weak with radicular complaints iv decadron started nsg consulted for opinion currently she is on anticoagulation for nonocclusive dvt. if she were to need any nsg intervention then we would probably need to discuss ivc filter. MRI c spine: C4-C5: A diffuse disc bulge is seen eccentric to the left abutting the cord with mild ventral flattening of the cord surface and moderate canal stenosis. There is uncovertebral hypertrophy suspected and moderate bilateral foraminal narrowing. C5-C6: A diffuse disc osteophyte complex is noted. There is uncovertebral hypertrophy and severe left greater than right foraminal stenosis, and severe canal stenosis with cord compression. This is slightly eccentric to the left. C6-C7: There is mild canal narrowing secondary to a diffuse disc osteophyte complex. Mild bilateral foraminal narrowing secondary to uncovertebral hypertrophy and facet hypertrophy. CONCLUSION: 1. Degenerative changes are noted most pronounced at C5-6 where severe canal stenosis is seen. 3. recent ugib from n/v and severe erosive esophagitis 4. large HH 5. recent pneumotosis coli and ileus (2) Esophagitis Code(s): K20.9 - Esophagitis, unspecified Status: Acute (3) Hypokalemia Code(s): E87.6 - Hypokalemia Status: Acute
--- NOTE | 2018-06-29 10:19 | P.CONNS ---
History of Present Illness Primary Care Provider: UNKNOWN Chief Complaint: Cervical stenosis History of Present Illness: Ms. Hart is a 73 y/o female who presents with a 1 month history of syncopal episodes. She states that she has had difficulty with hand coordination in her right hand for about the last month. She was admitted to the hospital on for evaluation of syncopal episodes. During evaluation with PT she will have spontaneous episodes of syncope without a pre-syncope aura. On 06/28/18 she was noted to have difficulty with hand coordination and brand protection manager strength. She underwent a MRI of the cervical spine that demonstrated C4/5 and C5/6 cervical stenosis. Neurosurgery was consulted for evaluation. Of note she has undergone evaluation and treatment for several medical issues recently including: dehydration, ileus, esophagitis, coffee ground emesis, pneumatosis coli, and deep venous thrombosis of the left lower extremity. [facility] - History History Provided By: Patient - Medical History Medical History: Medical History (Last Reviewed 06/29/18 @ 07:43 by [facility] [employer]) Ileus Iron deficiency anemia GERD (gastroesophageal reflux disease) GI bleed Hyperosmolality and hypernatremia Hypokalemia Sepsis UTI (urinary tract infection) - Surgical History Surgical History: Surgical History (Last Reviewed 06/29/18 @ 07:43 by [facility] [employer]) Hx of tonsillectomy - Tobacco History Second Hand Smoke Exposure: No (quit smoking in high school) Tobacco Use In Past 30 Days: No Smoking Status: Former smoker Tobacco Type: Cigarettes - Alcohol History How Often Do You Have a Drink Containing Alcohol: Monthly or less - Substance Use History Substance History: No History of Abuse - Travel History Recent Travel in the [place] Within the Last 8 Weeks: No Recent Travel Out of the Country Within the Last 8 Weeks: No - Immunization History Tetanus Immunization: <5 Years Hx Influenza Vaccine This Season: Yes Medications and Allergies Active Medications: Active Medications Acetaminophen (Tylenol) 650 mg PO Q4H PRN PRN Reason: pain 1-2, fever Hydrocodone Bitart/Acetaminophen ([place] 5/325) 1 tab PO Q4H PRN PRN Reason: PAIN SCALE 3 TO 10 Last Admin: 06/29/18 09:14 Dose: 1 tab Apixaban (Eliquis) 5 mg PO BID SEB Last Admin: 06/29/18 09:14 Dose: 5 mg Calcium Carbonate (Oscal) 1,000 mg PO BID SEB Last Admin: 06/29/18 09:13 Dose: 1,000 mg Dexamethasone Sodium Phosphate (Decadron Inj) 4 mg IV.PUSH Q6HR [facility] Last Admin: 06/29/18 05:27 Dose: 4 mg Ferrous Sulfate (Ferosul) 325 mg PO BID [facility] Last Admin: 06/29/18 09:14 Dose: 325 mg Ondansetron HCl (Zofran Inj) 4 mg IV.PUSH Q6H PRN PRN Reason: NAUSEA OR VOMITING Pantoprazole Sodium (Protonix Inj) 40 mg IV.PUSH Q12H [facility] Last Admin: 06/29/18 00:53 Dose: 40 mg Potassium Chloride (Kcl) 20 meq PO BID [facility] Last Admin: 06/29/18 09:14 Dose: 20 meq Allergies Allergy/AdvReac Type Severity Reaction Status Date / Time Penicillins AdvReac Dizziness Verified 05/26/18 19:40 Home Medications Medication Instructions Recorded Confirmed Type polyethylene glycol 3350 [Miralax] 17 gm PO DAILY 06/07/18 06/23/18 History acetaminophen 650 mg PO Q6H PRN 06/23/18 06/23/18 History ferrous sulfate 324 mg PO BID 06/23/18 06/23/18 History gakhfubf-[id number]-wtnhe acid-vit K 500 mg PO DAILY 06/23/18 06/23/18 History [Multi For Her 50 Plus] potassium chloride 10 meq PO BID 06/23/18 06/23/18 History Exam Vital signs: Vital Signs 06/28/18 11:00 06/28/18 12:00 06/28/18 13:00 Temperature 97.9 F Pulse Rate 111 H 110 H 114 H Respiratory Rate 18 Blood Pressure 121/70 Pulse Oximetry 98 06/28/18 14:00 06/28/18 15:00 06/28/18 16:00 Temperature 98.4 F Pulse Rate 111 H 114 H 110 H Respiratory Rate 18 Blood Pressure 122/70 Pulse Oximetry 06/28/18 17:00 06/28/18 18:00 06/28/18 19:00 Temperature Pulse Rate 109 H 125 H 108 H Respiratory Rate Blood Pressure Pulse Oximetry 06/28/18 20:00 06/28/18 21:00 06/28/18 22:00 Temperature 97.6 F Pulse Rate 112 H 108 H 106 H Respiratory Rate 24 Blood Pressure 120/74 Pulse Oximetry 97 06/28/18 23:00 06/29/18 00:00 06/29/18 01:00 Temperature 98.2 F Pulse Rate 110 H 104 H 105 H Respiratory Rate 22 Blood Pressure 122/68 Pulse Oximetry 96 06/29/18 02:00 06/29/18 03:00 06/29/18 04:00 Temperature 97.5 F L Pulse Rate 106 H 109 H 110 H Respiratory Rate 20 Blood Pressure 146/93 H Pulse Oximetry 98 06/29/18 05:00 06/29/18 06:00 Temperature Pulse Rate 108 H 110 H Respiratory Rate Blood Pressure Pulse Oximetry Intake & Output 06/28/18 06/29/18 06/29/18 18:59 06:59 18:59 Intake Total 1200 / 1200 240 / 240 Balance 1200 / 1200 240 / 240 Weight 97 kg Intake: Oral 1200 / 1200 240 / 240 Other: # Voids 3 # Incontinent Voids 1 Date of Last Bowel Movement 06/28/18 06/29/18 # Bowel Movements 3 3 Narrative: Opens eyes spontaneously Alert and oriented to self, place PERRL Motor exam: 4+/5 bilateral deltoids 4/5 bilateral triceps, biceps 4+/5 left brand protection manager, hand intrinsics 4-/5 right brand protection manager, hand intrinsics 4+/5 bilateral iliopsoas, quadriceps, gastroc, tibialis anterior, EHL Reflexes: 1/4 throughout Normal sensation to light touch Results - Laboratory Findings CBC and BMP: 06/28/18 11:19 06/28/18 11:19 Abnormal lab findings: Abnormal Labs 06/23/18 06/23/18 06/23/18 22:30 22:30 23:40 RBC 3.15 L Hgb 9.5 L Hct 29.5 L RDW 22.8 H Plt Count 544 H D Delta % (Auto) 13.6 H PT 12.1 H APTT 22.9 L Sodium Potassium Chloride 108 H Estimated GFR 74 L POC Glucose Random Glucose Calcium 6.7 L* Prot Corrected Calcium 7.5 L Total Protein 5.4 L MTS Gel Crossmatch 06/24/18 06/24/18 06/24/18 05:33 05:33 05:33 RBC 2.78 L Hgb 8.5 L Hct 25.7 L RDW 23.2 H Plt Count 490 H Delta % (Auto) PT APTT 70.7 H D Sodium 146 H Potassium 3.1 L Chloride 109 H Estimated GFR 78 L POC Glucose Random Glucose 71 L Calcium 6.8 L* Prot Corrected Calcium 7.9 L Total Protein 5.0 L MTS Gel Crossmatch 06/24/18 06/24/18 06/24/18 13:35 15:02 15:55 RBC Hgb 8.9 L Hct 28.2 L RDW Plt Count Delta % (Auto) PT APTT 96.2 H* D Sodium Potassium Chloride Estimated GFR POC Glucose 130 H Random Glucose Calcium Prot Corrected Calcium Total Protein MTS Gel Crossmatch 06/24/18 06/24/18 06/25/18 15:55 23:08 01:15 RBC 2.62 L Hgb 8.1 L Hct 24.5 L RDW 23.1 H Plt Count Delta % (Auto) PT APTT 70.4 H D 98.2 H* D Sodium Potassium Chloride Estimated GFR POC Glucose Random Glucose Calcium Prot Corrected Calcium Total Protein MTS Gel Crossmatch 06/25/18 06/25/18 06/25/18 01:15 01:15 07:04 RBC Hgb Hct RDW Plt Count Delta % (Auto) PT APTT 72.4 H D 51.1 H D Sodium Potassium 3.4 L Chloride 111 H Estimated GFR 72 L POC Glucose Random Glucose Calcium 6.6 L* Prot Corrected Calcium 7.8 L Total Protein 4.7 L MTS Gel Crossmatch 06/25/18 06/26/18 06/26/18 18:54 03:21 03:21 RBC 2.68 L Hgb 8.4 L Hct 25.2 L RDW 23.0 H Plt Count Delta % (Auto) PT APTT 39.2 H D 41.4 H Sodium Potassium Chloride Estimated GFR POC Glucose Random Glucose Calcium Prot Corrected Calcium Total Protein MTS Gel Crossmatch 06/26/18 06/26/18 06/27/18 09:35 14:17 08:25 RBC 3.75 L Hgb 11.4 L D Hct 33.9 L RDW 21.3 H Plt Count Delta % (Auto) 13.0 H PT APTT 50.6 H D Sodium Potassium Chloride Estimated GFR POC Glucose Random Glucose Calcium Prot Corrected Calcium Total Protein MTS Gel Crossmatch See Detail 06/27/18 06/27/18 06/28/18 08:25 08:25 11:19 RBC 3.40 L Hgb 10.5 L Hct 30.9 L RDW 20.9 H Plt Count Delta % (Auto) 14.6 H PT APTT 40.0 H D Sodium Potassium 3.1 L Chloride 109 H Estimated GFR 66 L POC Glucose Random Glucose Calcium 6.9 L* Prot Corrected Calcium 7.8 L Total Protein 5.4 L D MTS Gel Crossmatch 06/28/18 11:19 RBC Hgb Hct RDW Plt Count Delta % (Auto) PT APTT Sodium Potassium Chloride 111 H Estimated GFR 66 L POC Glucose Random Glucose Calcium 7.1 L* Prot Corrected Calcium 8.4 L Total Protein 4.8 L D MTS Gel Crossmatch - Diagnostic Findings Additional findings: MRI of the cervical spine demonstrates C4/5 and C5/6 cervical stenosis. Assessment and Plan - Plan Ms. Hart is a 73 y/o female with multiple medical issues (esophagitis, DVT, syncope) presenting with ~1 month of poor coordination with her hands. Yesterday she was reportedly unable to hold a cup or use her utensils, prompting a MRI of the cervical spine. Today, she states her coordination is improved as she was able to hold a cup without issue. She has moderate cervical stenosis at C4/5 and severe cervical stenosis at C5/6, no evidence of cord signal change. Given her frequent syncopal episodes (some resulting in falls over the past several months), she is at risk for cervical cord injury with her cervical stenosis. I discussed with her the indications for cervical decompression aimed at preventing future neurologic injury. I counseled her that we need to have a thorough understanding of the etiology of her syncopal episodes and medical clearance for general anesthesia before we can proceed with cervical spine surgery. Her MRI findings are chronic in appearance and do not warrant an urgent intervention. 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 Will follow and update on surgical timing once her medical issues are nearing resolution.
[2018-06-29 15:10] LABS: Calcium 6.8 mg/dL (8.5-10.1); Carbon Dioxide 22.5 meq/L (21.0-32.0); Potassium 3.9 meq/L (3.5-5.1)
[2018-06-29 15:26] LABS: Total Protein 4.9 g/dL (6.4-8.2)
[2018-06-30] MEDS: Pantoprazole Inj 40 MG Vial IV.PUSH SCH ×2 (01:44→13:24)
[2018-06-30] MEDS: Potassium Chloride 10 MEQ ER Capsule PO SCH ×2 (08:06→21:39)
[2018-06-30] MEDS: Calcium Carbonate 500 MG Tablet PO SCH ×2 (08:06→21:39)
[2018-06-30] MEDS: Ferrous Sulfate 325 MG Tablet PO SCH ×2 (08:06→21:40)
--- NOTE | 2018-06-30 16:58 | P.PNNS ---
Subjective Interval history: Ms. Hart is a 73 y/o female who presents with a 1 month history of syncopal episodes. She states that she has had difficulty with hand coordination in her right hand for about the last month. She was admitted to the hospital on for evaluation of syncopal episodes. During evaluation with PT she will have spontaneous episodes of syncope without a pre-syncope aura. On 06/28/18 she was noted to have difficulty with hand coordination and mid level clinician strength. She underwent a MRI of the cervical spine that demonstrated C4/5 and C5/6 cervical stenosis. Neurosurgery was consulted for evaluation. Of note she has undergone evaluation and treatment for several medical issues recently including: dehydration, ileus, esophagitis, coffee ground emesis, pneumatosis coli, and deep venous thrombosis of the left lower extremity. 06/30/18: She complains of weakness in UEs and stiffness in her LEs. She denies neck pain. <Jersey Espinosa - Last Filed: 06/30/18 16:44> Physical Exam Vital signs: Vital Signs 06/29/18 17:00 06/29/18 18:00 06/29/18 19:00 Temperature Pulse Rate 108 H 101 H 98 H Respiratory Rate Blood Pressure Pulse Oximetry 06/29/18 20:00 06/29/18 21:00 06/29/18 22:00 Temperature 97.7 F Pulse Rate 104 H 110 H 114 H Respiratory Rate 22 Blood Pressure 137/81 Pulse Oximetry 97 06/29/18 22:52 06/29/18 23:00 06/30/18 00:00 Temperature 97.7 F Pulse Rate 114 H 110 H Respiratory Rate 20 20 Blood Pressure 144/88 H Pulse Oximetry 96 06/30/18 01:00 06/30/18 02:00 06/30/18 03:00 Temperature Pulse Rate 104 H 106 H 105 H Respiratory Rate Blood Pressure Pulse Oximetry 06/30/18 04:00 06/30/18 05:00 06/30/18 06:00 Temperature 97.7 F Pulse Rate 106 H 114 H 104 H Respiratory Rate 20 Blood Pressure 131/92 H Pulse Oximetry 98 06/30/18 07:00 06/30/18 08:00 06/30/18 09:00 Temperature 97.8 F Pulse Rate 101 H 112 H 114 H Respiratory Rate 20 Blood Pressure 128/80 Pulse Oximetry 95 06/30/18 10:00 06/30/18 11:00 06/30/18 12:00 Temperature 97.9 F Pulse Rate 116 H 115 H 118 H Respiratory Rate 18 Blood Pressure 125/72 Pulse Oximetry 98 06/30/18 13:00 06/30/18 14:00 06/30/18 15:00 Temperature Pulse Rate 110 H 106 H 103 H Respiratory Rate Blood Pressure Pulse Oximetry 06/30/18 16:00 Temperature 98.1 F Pulse Rate 112 H Respiratory Rate 18 Blood Pressure 131/90 Pulse Oximetry 94 L Intake & Output 06/29/18 06/30/18 06/30/18 18:59 06:59 18:59 Intake Total 720 / 720 120 / 120 Output Total 300 / 300 Balance 420 / 420 120 / 120 Weight 97 kg Intake: Oral 720 / 720 120 / 120 Output: Urine 300 / 300 Other: # Voids 4 # Incontinent Voids 1 Date of Last Bowel Movement 06/29/18 06/30/18 06/30/18 # Incontinent Bowel Movements 3 - Constitutional no acute distress, obese - Routine HEENT Exam Head: Present: normocephalic, atraumatic Eye: Present: PERRL. Absent: conjunctival icterus ENT: Present: oropharynx clear - Routine Neck Exam Present: trachea midline - Routine Respiratory Exam Present: CTA bilaterally. Absent: respiratory distress, rhonchi, wheezes - Routine Cardiovascular Exam Present: RRR, S1, S2. Absent: murmur - Routine Abdominal Exam Present: soft, normoactive bowel sounds. Absent: distended, firm - Routine Skin Exam Absent: cyanosis, erythema - Routine Neurological Exam Present: alert, motor deficit (Weakness in UEs more than LEs. Grossly strength 3/5 in UEs.), moving all extremities (She has weakness more in UEs than LEs with incoordination in UEs. ) - Routine Psychiatric Exam Present: normal affect, cooperative <Jersey Espinosa - Last Filed: 06/30/18 16:44> Vital signs: Vital Signs 06/29/18 18:00 06/29/18 19:00 06/29/18 20:00 Temperature 97.7 F Pulse Rate 101 H 98 H 104 H Respiratory Rate 22 Blood Pressure 137/81 Pulse Oximetry 97 06/29/18 21:00 06/29/18 22:00 06/29/18 22:52 Temperature Pulse Rate 110 H 114 H Respiratory Rate 20 Blood Pressure Pulse Oximetry 06/29/18 23:00 06/30/18 00:00 06/30/18 01:00 Temperature 97.7 F Pulse Rate 114 H 110 H 104 H Respiratory Rate 20 Blood Pressure 144/88 H Pulse Oximetry 96 06/30/18 02:00 06/30/18 03:00 06/30/18 04:00 Temperature 97.7 F Pulse Rate 106 H 105 H 106 H Respiratory Rate 20 Blood Pressure 131/92 H Pulse Oximetry 98 06/30/18 05:00 06/30/18 06:00 06/30/18 07:00 Temperature Pulse Rate 114 H 104 H 101 H Respiratory Rate Blood Pressure Pulse Oximetry 06/30/18 08:00 06/30/18 09:00 06/30/18 10:00 Temperature 97.8 F Pulse Rate 112 H 114 H 116 H Respiratory Rate 20 Blood Pressure 128/80 Pulse Oximetry 95 06/30/18 11:00 06/30/18 12:00 06/30/18 13:00 Temperature 97.9 F Pulse Rate 115 H 118 H 110 H Respiratory Rate 18 Blood Pressure 125/72 Pulse Oximetry 98 06/30/18 14:00 06/30/18 15:00 06/30/18 16:00 Temperature 98.1 F Pulse Rate 106 H 103 H 112 H Respiratory Rate 18 Blood Pressure 131/90 Pulse Oximetry 94 L Intake & Output 06/29/18 06/30/18 06/30/18 18:59 06:59 18:59 Intake Total 720 / 720 120 / 120 Output Total 300 / 300 Balance 420 / 420 120 / 120 Weight 97 kg Intake: Oral 720 / 720 120 / 120 Output: Urine 300 / 300 Other: # Voids 4 # Incontinent Voids 1 Date of Last Bowel Movement 06/29/18 06/30/18 06/30/18 # Incontinent Bowel Movements 3 <Jeremiah Reynolds - Last Filed: 06/30/18 17:16> Assessment and Plan - Plan Ms. Hart is a 73 y/o female with multiple medical issues (esophagitis, DVT, syncope) presenting with ~1 month of poor coordination with her hands. Yesterday she was reportedly unable to hold a cup or use her utensils, prompting a MRI of the cervical spine. Today, she states her coordination is improved as she was able to hold a cup without issue. She has moderate cervical stenosis at C4/5 and severe cervical stenosis at C5/6, no evidence of cord signal change. Given her frequent syncopal episodes (some resulting in falls over the past several months), she is at risk for cervical cord injury with her cervical stenosis. I discussed with her the indications for cervical decompression aimed at preventing future neurologic injury. I counseled her that we need to have a thorough understanding of the etiology of her syncopal episodes and medical clearance for general anesthesia before we can proceed with cervical spine surgery. Her MRI findings are chronic in appearance and do not warrant an urgent intervention. 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 Pts initial evaluation was done by Dr. Bennett Neurosurgeon from . Pt seen today in conjunction with Dr. Reynolds. If pt elects to proceed with surgical intervention for her cervical stenosis she would need to be cleared medically and also have her anticoagulation held with possibly a Lovenox bridge if needed but will still need to be off anticoagulation for a period of time. P: Continue with current care. We have discussed with her if she wants to proceed with surgery her anticoagulation would need to be held which carries a risk. We will also discuss with the medical team once her medical workup is complete and she would be cleared for cervical decompression and fusion. <Jersey Espinosa - Last Filed: 06/30/18 16:44> - Attending Attestation The exam, history, and the medical decision-making described in the above note were completed with the assistance of the mid-level provider. I reviewed and agree with the findings presented. I attest that I had a [id number] encounter with the patient on the same day, and personally performed and documented my assessment and findings in the medical record. She will need medical clearance for cervical spine surgery and will likely need IVC filter since anticoagulation will need to be held perioperatively. <Jeremiah Reynolds - Last Filed: 06/30/18 17:16>
--- NOTE | 2018-06-30 17:07 | P.PNIM ---
Subjective Interval history: Pt will with weakness in the bilateral UE She is unable to feed herself Physical Exam Vital signs: Vital Signs 06/29/18 17:00 06/29/18 18:00 06/29/18 19:00 Temperature Pulse Rate 108 H 101 H 98 H Respiratory Rate Blood Pressure Pulse Oximetry 06/29/18 20:00 06/29/18 21:00 06/29/18 22:00 Temperature 97.7 F Pulse Rate 104 H 110 H 114 H Respiratory Rate 22 Blood Pressure 137/81 Pulse Oximetry 97 06/29/18 22:52 06/29/18 23:00 06/30/18 00:00 Temperature 97.7 F Pulse Rate 114 H 110 H Respiratory Rate 20 20 Blood Pressure 144/88 H Pulse Oximetry 96 06/30/18 01:00 06/30/18 02:00 06/30/18 03:00 Temperature Pulse Rate 104 H 106 H 105 H Respiratory Rate Blood Pressure Pulse Oximetry 06/30/18 04:00 06/30/18 05:00 06/30/18 06:00 Temperature 97.7 F Pulse Rate 106 H 114 H 104 H Respiratory Rate 20 Blood Pressure 131/92 H Pulse Oximetry 98 06/30/18 07:00 06/30/18 08:00 06/30/18 09:00 Temperature 97.8 F Pulse Rate 101 H 112 H 114 H Respiratory Rate 20 Blood Pressure 128/80 Pulse Oximetry 95 06/30/18 10:00 06/30/18 11:00 06/30/18 12:00 Temperature 97.9 F Pulse Rate 116 H 115 H 118 H Respiratory Rate 18 Blood Pressure 125/72 Pulse Oximetry 98 06/30/18 13:00 06/30/18 14:00 06/30/18 15:00 Temperature Pulse Rate 110 H 106 H 103 H Respiratory Rate Blood Pressure Pulse Oximetry 06/30/18 16:00 Temperature 98.1 F Pulse Rate 112 H Respiratory Rate 18 Blood Pressure 131/90 Pulse Oximetry 94 L Intake & Output 06/29/18 06/30/18 06/30/18 18:59 06:59 18:59 Intake Total 720 / 720 120 / 120 Output Total 300 / 300 Balance 420 / 420 120 / 120 Weight 97 kg Intake: Oral 720 / 720 120 / 120 Output: Urine 300 / 300 Other: # Voids 4 # Incontinent Voids 1 Date of Last Bowel Movement 06/29/18 06/30/18 06/30/18 # Incontinent Bowel Movements 3 Narrative: General: NAD, AAOx3 Cardiac: Regular Chest: CTA Abd: +BS, soft, NT/ND Ext: No edema. 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 Positive for nonocclusive deep venous thrombosis in the left superficial femoral vein. Chest CTA 06/24/18 00:00 CONCLUSION: This study is negative for pulmonary embolism. Cervical Spine MRI 06/28/18 00:00 CONCLUSION: 1. Degenerative changes are noted most pronounced at C5-6 where severe canal stenosis is seen. Assessment and Plan - Assessment (1) DVT (deep venous thrombosis) Code(s): I82.409 - Acute embolism and thrombosis of unspecified deep veins of unspecified lower extremity Status: Acute Plan: Left leg superficial femoral DVT Syncope with PT on 06/24, 06/25, 06/26. Hypotension to 70s noted Symptomatic anemia from recent UGIB from n/v and severe erosive esophagitis - Pts heparin gtt was stopped and she was started on Eliquis on 06/27/18. No bleeding noted with heparin - Pt s/p 2units prbc 06/26 - Cont Protonix 40mg BID - Advised nursing to monitor for signs of bleeding. - Diet was advanced to soft diet - H/H stable at this time - Repeat labs in AM - Transfuse PRBCs prn for symptomatic anemia - If she has bleeding then might need hematology consult or filter. 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 Hands weak with radicular complaints - Cont. IV Decadron 4mg Q6H - MRI C-spine (06/28/18): - C4-C5: A diffuse disc bulge is seen eccentric to the left abutting the cord with mild ventral flattening of the cord surface and moderate canal stenosis. There is uncovertebral hypertrophy suspected and moderate bilateral foraminal narrowing. - C5-C6: A diffuse disc osteophyte complex is noted. There is uncovertebral hypertrophy and severe left greater than right foraminal stenosis, and severe canal stenosis with cord compression. This is slightly eccentric to the left. - C6-C7: There is mild canal narrowing secondary to a diffuse disc osteophyte complex. Mild bilateral foraminal narrowing secondary to uncovertebral hypertrophy and facet hypertrophy. - Pt is currently on anticoagulation for nonocclusive DVT. - Appreciate Neurosurgery evaluation. - Per the Neurosurgery consult note, no surgical intervention is planned at this time. Will discuss any further recommendations with Neurosurgery - Cont. PT and OT - Pt will need continued therapy at SNF at the conclusion of this hospitalization. Recent pneumatosis coli and ileus (2) Esophagitis Code(s): K20.9 - Esophagitis, unspecified Status: Acute (3) Hypokalemia Code(s): E87.6 - Hypokalemia Status: Acute - Attending Attestation Patient examined. Assessment and plan formulated with Vicky Pate PA-C. I agree with the above.
[2018-07-01] MEDS: Pantoprazole Inj 40 MG Vial IV.PUSH SCH ×3 (00:38→23:53)
[2018-07-01 06:35] LABS: Baso % (Auto) 0.3 % (0.0-2.0); Hematocrit 32.6 % (35.0-46.0); Hemoglobin 10.9 gm/dL (11.6-15.3); Lymph % (Auto) 20.7 % (9.0-44.0); Mean Corpuscular HGB Conc 33.4 % (32.0-36.0); Mean Corpuscular Hemoglobin 31.4 pg (27.0-34.0); Mean Platelet Volume 8.2 fL (7.0-11.0); Mono # (Auto) 0.7 th/mm3 (0.0-0.9); Mono % (Auto) 14.8 % (0.0-8.0); Neut # (Auto) 3.1 th/mm3 (1.8-7.7); Neut % (Auto) 64.2 % (16.0-70.0); Platelet Count 392 th/mm3 (150-450); Red Blood Count 3.47 mil/mm3 (4.00-5.30); Red Cell Distribution Width 20.3 % (11.6-17.2); White Blood Count 4.8 th/mm3 (4.0-11.0)
[2018-07-01 07:12] LABS: Calcium 7.3 mg/dL (8.5-10.1); Carbon Dioxide 22.7 meq/L (21.0-32.0); Potassium 4.5 meq/L (3.5-5.1)
[2018-07-01] MEDS: Calcium Carbonate 500 MG Tablet PO SCH ×2 (08:57→20:53)
[2018-07-01] MEDS: Potassium Chloride 10 MEQ ER Capsule PO SCH ×2 (08:58→20:54)
[2018-07-01] MEDS: Ferrous Sulfate 325 MG Tablet PO SCH ×2 (08:59→20:54)
--- NOTE | 2018-07-01 14:48 | P.PNIM ---
Subjective Interval history: No new complaints. Physical Exam Vital signs: 07/01/18 12:00 Temperature 97.4 F L Pulse Rate 109 H Respiratory Rate 18 Blood Pressure 129/89 Pulse Oximetry Narrative: General: NAD, AAOx3 Cardiac: Regular Chest: CTA Abd: +BS, soft, NT/ND Ext: No edema. 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 Hypotension to 70s noted Symptomatic anemia from recent UGIB from n/v and severe erosive esophagitis - Pts heparin gtt was stopped and she was started on Eliquis on 06/27/18. No bleeding noted with heparin - Pt s/p 2units prbc 06/26 - Cont Protonix 40mg BID - Advised nursing to monitor for signs of bleeding. - Diet was advanced to soft diet - H/H stable at this time - Repeat labs in AM - Transfuse PRBCs prn for symptomatic anemia - If she has bleeding then might need hematology consult or filter. 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 Hands weak with radicular complaints - Cont. IV Decadron 4mg Q6H - MRI C-spine (06/28/18): - C4-C5: A diffuse disc bulge is seen eccentric to the left abutting the cord with mild ventral flattening of the cord surface and moderate canal stenosis. There is uncovertebral hypertrophy suspected and moderate bilateral foraminal narrowing. - C5-C6: A diffuse disc osteophyte complex is noted. There is uncovertebral hypertrophy and severe left greater than right foraminal stenosis, and severe canal stenosis with cord compression. This is slightly eccentric to the left. - C6-C7: There is mild canal narrowing secondary to a diffuse disc osteophyte complex. Mild bilateral foraminal narrowing secondary to uncovertebral hypertrophy and facet hypertrophy. - Pt is currently on anticoagulation for nonocclusive DVT. - Appreciate Neurosurgery evaluation. - Cont. PT and OT - Pt will need continued therapy at SNF at the conclusion of this hospitalization. Recent pneumatosis coli and ileus (2) Esophagitis Code(s): K20.9 - Esophagitis, unspecified Status: Acute (3) Hypokalemia Code(s): E87.6 - Hypokalemia Status: Acute
--- NOTE | 2018-07-01 15:00 | P.PNIM ---
Subjective Interval history: Follow up: Left leg superficial femoral DVT Syncope with PT on 06/24, 06/25, 06/26. 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 Physical Exam Vital signs: Vital Signs 06/30/18 15:00 06/30/18 16:00 06/30/18 17:00 Temperature 98.1 F Pulse Rate 103 H 112 H 110 H Respiratory Rate 18 Blood Pressure 131/90 Pulse Oximetry 94 L 06/30/18 18:00 06/30/18 19:00 06/30/18 20:00 Temperature 97.8 F Pulse Rate 114 H 124 H 112 H Respiratory Rate 20 Blood Pressure 123/76 Pulse Oximetry 98 06/30/18 21:00 06/30/18 22:00 06/30/18 23:00 Temperature Pulse Rate 110 H 108 H 109 H Respiratory Rate Blood Pressure Pulse Oximetry 07/01/18 00:00 07/01/18 01:00 07/01/18 02:00 Temperature 97.4 F L Pulse Rate 104 H 92 H 108 H Respiratory Rate 22 Blood Pressure 138/94 H Pulse Oximetry 97 07/01/18 03:00 07/01/18 04:00 07/01/18 05:00 Temperature 97.9 F Pulse Rate 117 H 111 H 108 H Respiratory Rate 20 Blood Pressure 140/90 Pulse Oximetry 97 07/01/18 05:58 07/01/18 06:00 07/01/18 07:00 Temperature Pulse Rate 109 H 107 H Respiratory Rate 20 Blood Pressure Pulse Oximetry 07/01/18 08:00 07/01/18 09:00 07/01/18 10:00 Temperature 97.0 F L Pulse Rate 114 H 112 H 110 H Respiratory Rate 16 Blood Pressure 125/75 Pulse Oximetry 97 07/01/18 12:00 Temperature 97.4 F L Pulse Rate 109 H Respiratory Rate 18 Blood Pressure 129/89 Pulse Oximetry Intake & Output 06/30/18 07/01/18 07/01/18 18:59 06:59 18:59 Intake Total 480 / 480 350 / 350 Balance 480 / 480 350 / 350 Weight 97 kg Intake: Oral 480 / 480 350 / 350 Other: # Incontinent Voids 2 2 Date of Last Bowel Movement 06/30/18 06/30/18 07/01/18 # Incontinent Bowel Movements 2 2 Narrative: General: NAD, AAOx3 Cardiac: Regular Chest: CTA Abd: +BS, soft, NT/ND Ext: No edema. 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 - Urinary Catheter Management Indwelling Urethral Catheter Cath placed during this visit: yes Reason for continuing: Other continuation reason Insertion date: 07/03/18 Insertion time: 15:30 Results - Labs CBC & Chem 7: 07/04/18 15:15 07/04/18 15:15 Laboratory Results - last 24 hr 07/01/18 07/01/18 06:10 06:10 WBC 4.8 RBC 3.47 L Hgb 10.9 L Hct 32.6 L MCV 94.0 MCH 31.4 MCHC 33.4 RDW 20.3 H Plt Count 392 MPV 8.2 Neut % (Auto) 64.2 Lymph % (Auto) 20.7 Castro % (Auto) 14.8 H Eos % (Auto) 0.0 Baso % (Auto) 0.3 Neut # (Auto) 3.1 Lymph # (Auto) 1.0 Castro # (Auto) 0.7 Eos # (Auto) 0.0 Baso # (Auto) 0.0 WBC Differential . Differential Comment Auto diff final Sodium 141 Potassium 4.5 Chloride 109 H Carbon Dioxide 22.7 Anion Gap 9 BUN 25 H Creatinine 0.95 Estimated GFR 58 L Random Glucose 90 Calcium 7.3 L* Prot Corrected Calcium 8.5 Total Protein 5.0 L Assessment and Plan - Assessment (1) DVT (deep venous thrombosis) Code(s): I82.409 - Acute embolism and thrombosis of unspecified deep veins of unspecified lower extremity Status: Acute Plan: Left leg superficial femoral DVT Syncope with PT on 06/24, 06/25, 06/26. Hypotension to 70s noted Symptomatic anemia from recent UGIB from n/v and severe erosive esophagitis - Pts heparin gtt was stopped and she was started on Eliquis on 06/27/18. No bleeding noted with heparin - Pt s/p 2units prbc 06/26 - Cont Protonix 40mg BID - Advised nursing to monitor for signs of bleeding. - Diet was advanced to soft diet - H/H stable at this time - Repeat labs in AM - Transfuse PRBCs prn for symptomatic anemia - If she has bleeding then might need hematology consult or filter. 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 Hands weak with radicular complaints - Cont. IV Decadron 4mg Q6H - MRI C-spine (06/28/18): - C4-C5: A diffuse disc bulge is seen eccentric to the left abutting the cord with mild ventral flattening of the cord surface and moderate canal stenosis. There is uncovertebral hypertrophy suspected and moderate bilateral foraminal narrowing. - C5-C6: A diffuse disc osteophyte complex is noted. There is uncovertebral hypertrophy and severe left greater than right foraminal stenosis, and severe canal stenosis with cord compression. This is slightly eccentric to the left. - C6-C7: There is mild canal narrowing secondary to a diffuse disc osteophyte complex. Mild bilateral foraminal narrowing secondary to uncovertebral hypertrophy and facet hypertrophy. - Pt is currently on anticoagulation for nonocclusive DVT. - Appreciate Neurosurgery evaluation. - 07/01 Dr. La discussed the case with Jersey Espinosa Neurosurgery [facility]. Patient would like to proceed with neurosurgery plan to stop Eliquis and start Lovenox. Then consult IR to place IVC filter. Neurosurgery also requesting cardiology clearance. - Consult placed to Cardiology. Case discussed with Dr. Segura who recommends pre-op lexiscan and metoprolol. - Cont. PT and OT - Pt will need continued therapy at SNF at the conclusion of this hospitalization. Recent pneumatosis coli and ileus (2) Esophagitis Code(s): K20.9 - Esophagitis, unspecified Status: Acute (3) Hypokalemia Code(s): E87.6 - Hypokalemia Status: Acute - Attending Attestation Patient examined. Assessment and plan formulated with Shahla Ag PA-C. I agree with the above.
--- NOTE | 2018-07-01 15:58 | P.CONCA ---
History of Present Illness Service: [facility] cardiology Consult date: 07/01/18 Requesting Physician: Harjeet La Reason for Consult: preoperative cardiac evaluation, syncope Primary Care Provider: UNKNOWN Dr. Sargent Family Provider: Dr Harjeet Lund Chief Complaint: Cervical stenosis History of Present Illness: There is a 73-year-old lady with a history of hypertension, and chronic low back pain as well as GERD and recent admissions to the hospital for weakness, dehydration, pneumatosis coli s/p antibiotics, and recent readmission for ileus with severe nausea vomiting and severe esophagitis and coffee ground emesis with finding of blood loss anemia, hemoglobin as low as 7 now s/p PRBC transfusions. Apparently she has been complaining of left leg pain times 1 week on this admission and a lower extremity duplex ultrasound revealed nonocclusive DVT in the left SFV. She has started on Eliquis following a heparin drip. She has been followed by PT since the day after admission on 06/24/18. While working with her, on multiple occasions that are well documented in the PT notes , including 06/24, 06/25, 06/29 she has had recurrent episodes where they would sit her to the edge of the bed and within a few minutes of sitting upright she would have a syncopal episode and briefly lose consciousness. The events were witnessed by the PT provider. I have reviewed the telemetry strips from these well-documented time/dates and I do not see any arrhythmogenic cause of syncope. Patient denies any presyncopal symptoms of GI disturbance, nausea, diaphoresis, or chest pain, dyspnea, palpitations. Telemetry review reveals sinus tachycardia with frequent APCs, occasional PVCs, and short atrial runs. None of the atrial runs associated with the documented times of witnessed syncope. Patient did undergo a chest CTA PE protocol on 06/24 which was negative for pulmonary embolus. The study did reveal coronary calcification. The patient has had sinus tachycardia since arrival with HR low 100s-100 teens. Patient is maintained normotensive status with majority of BP readings 100 teens-120s. Patient apparently also reported difficulty with hand coordination in the right hand for the past month as well as decreased manager of care strength. MRI of the cervical spine demonstrated C4/5 and C5/6 cervical stenosis. Neurosurgery was consulted who felt that her neurologic exam and symptoms are consistent with cervical myelopathy and remote spinal cord injury. She was offered surgical intervention however Dr. Bennett clearly stated in his consultation that the findings appeared chronic in nature and do not warrant an urgent intervention. Cardiology was consulted for preoperative cardiovascular risk assessment prior to undergoing presumed cervical decompression and for evaluation of recurrent syncope. Review of Systems All other systems reviewed negative except as stated in [facility] - History History Provided By: Patient - Medical History Medical History: Medical History (Last Reviewed 06/30/18 @ 09:48 by Bebe Chatterjee) Ileus Iron deficiency anemia GERD (gastroesophageal reflux disease) GI bleed Hyperosmolality and hypernatremia Hypokalemia Sepsis UTI (urinary tract infection) - Surgical History Surgical History: Surgical History (Last Reviewed 06/30/18 @ 09:48 by Bebe Chatterjee) Hx of tonsillectomy - Tobacco History Second Hand Smoke Exposure: No (quit smoking in high school) Tobacco Use In Past 30 Days: No Smoking Status: Former smoker Tobacco Type: Cigarettes - Alcohol History How Often Do You Have a Drink Containing Alcohol: Monthly or less - Substance Use History Substance History: No History of Abuse - Travel History Recent Travel in the [place] Within the Last 8 Weeks: No Recent Travel Out of the Country Within the Last 8 Weeks: No - Immunization History Tetanus Immunization: <5 Years Hx Influenza Vaccine This Season: Yes Medications and Allergies Active Medications: Active Medications Acetaminophen (Tylenol) 650 mg PO Q4H PRN PRN Reason: pain 1-2, fever Hydrocodone Bitart/Acetaminophen ([place] 5/325) 1 tab PO Q4H PRN PRN Reason: PAIN SCALE 3 TO 10 Last Admin: 07/01/18 08:58 Dose: 1 tab Calcium Carbonate (Oscal) 1,000 mg PO BID [facility] Last Admin: 07/01/18 08:57 Dose: 1,000 mg Dexamethasone Sodium Phosphate (Decadron Inj) 4 mg IV.PUSH Q6HR [facility] [place] Last Admin: 07/01/18 05:22 Dose: 4 mg Enoxaparin Sodium (Lovenox Inj) 100 mg SQ Q12H [facility] [place] Ferrous Sulfate (Ferosul) 325 mg PO BID [facility] [place] Last Admin: 07/01/18 08:59 Dose: 325 mg Metoprolol Tartrate (Lopressor) 25 mg PO BID [facility] [place] Ondansetron HCl (Zofran Inj) 4 mg IV.PUSH Q6H PRN PRN Reason: NAUSEA OR VOMITING Pantoprazole Sodium (Protonix Inj) 40 mg IV.PUSH Q12H [facility] [place] Last Admin: 07/01/18 00:38 Dose: 40 mg Potassium Chloride (Kcl) 20 meq PO BID [facility] [place] Last Admin: 07/01/18 08:58 Dose: 20 meq Allergies Allergy/AdvReac Type Severity Reaction Status Date / Time Penicillins AdvReac Dizziness Verified 05/26/18 19:40 Home Medications Medication Instructions Recorded Confirmed Type polyethylene glycol 3350 [Miralax] 17 gm PO DAILY 06/07/18 06/23/18 History acetaminophen 650 mg PO Q6H PRN 06/23/18 06/23/18 History ferrous sulfate 324 mg PO BID 06/23/18 06/23/18 History [id number]-[id number] acid-vit K 500 mg PO DAILY 06/23/18 06/23/18 History [Multi For Her 50 Plus] potassium chloride 10 meq PO BID 06/23/18 06/23/18 History Exam Vital signs: Vital Signs 06/30/18 16:00 06/30/18 17:00 06/30/18 18:00 Temperature 98.1 F Pulse Rate 112 H 110 H 114 H Respiratory Rate 18 Blood Pressure 131/90 Pulse Oximetry 94 L 06/30/18 19:00 06/30/18 20:00 06/30/18 21:00 Temperature 97.8 F Pulse Rate 124 H 112 H 110 H Respiratory Rate 20 Blood Pressure 123/76 Pulse Oximetry 98 06/30/18 22:00 06/30/18 23:00 07/01/18 00:00 Temperature 97.4 F L Pulse Rate 108 H 109 H 104 H Respiratory Rate 22 Blood Pressure 138/94 H Pulse Oximetry 97 07/01/18 01:00 07/01/18 02:00 07/01/18 03:00 Temperature Pulse Rate 92 H 108 H 117 H Respiratory Rate Blood Pressure Pulse Oximetry 07/01/18 04:00 07/01/18 05:00 07/01/18 05:58 Temperature 97.9 F Pulse Rate 111 H 108 H Respiratory Rate 20 20 Blood Pressure 140/90 Pulse Oximetry 97 07/01/18 06:00 07/01/18 07:00 07/01/18 08:00 Temperature 97.0 F L Pulse Rate 109 H 107 H 114 H Respiratory Rate 16 Blood Pressure 125/75 Pulse Oximetry 97 07/01/18 09:00 07/01/18 10:00 07/01/18 12:00 Temperature 97.4 F L Pulse Rate 112 H 110 H 109 H Respiratory Rate 18 Blood Pressure 129/89 Pulse Oximetry Intake & Output 06/30/18 07/01/18 07/01/18 18:59 06:59 18:59 Intake Total 480 / 480 350 / 350 Balance 480 / 480 350 / 350 Weight 97 kg Intake: Oral 480 / 480 350 / 350 Other: # Incontinent Voids 2 2 Date of Last Bowel Movement 06/30/18 06/30/18 07/01/18 # Incontinent Bowel Movements 2 2 Narrative: GENERAL: A and O x3 comfortable appearing speaking full sentences SKIN: Warm and dry. HEAD: Atraumatic. Normocephalic. EYES: Pupils equal and round. No scleral icterus. No injection or drainage. NECK: Trachea midline. JVP approximately 7 cm CARDIOVASCULAR: Tachycardic with irregular rhythm. No significant murmurs appreciated RESPIRATORY: No accessory muscle use. Clear to auscultation. Breath sounds equal bilaterally. GASTROINTESTINAL: Abdomen soft, non-tender, nondistended. MUSCULOSKELETAL: Extremities without clubbing, cyanosis. Trace bilateral lower extremity edema with asymmetric enlargement of the left calf. no obvious deformities. NEUROLOGICAL: Awake and alert. No obvious cranial nerve deficits. Normal speech. PSYCHIATRIC: Appropriate mood and affect; insight and judgment normal. Results 07/01/18 06:10 07/01/18 06:10 CBC 07/01/18 Range/Units 06:10 WBC 4.8 (4.0-11.0) th/mm3 RBC 3.47 L (4.00-5.30) mil/mm3 Hgb 10.9 L (11.6-15.3) gm/dL Hct 32.6 L (35.0-46.0) % Plt Count 392 (150-450) th/mm3 Neut # (Auto) 3.1 (1.8-7.7) th/mm3 Lymph # (Auto) 1.0 (1.0-4.8) th/mm3 Bay # (Auto) 0.7 (0.0-0.9) th/mm3 Eos # (Auto) 0.0 (0.0-0.4) th/mm3 Baso # (Auto) 0.0 (0.0-0.2) th/mm3 Comprehensive Metabolic Panel 07/01/18 Range/Units 06:10 Sodium 141 (136-145) meq/L Potassium 4.5 (3.5-5.1) meq/L Chloride 109 H (98-107) meq/L Carbon Dioxide 22.7 (21.0-32.0) meq/L BUN 25 H (7-18) mg/dL Creatinine 0.95 (0.50-1.00) mg/dL Calcium 7.3 L* (8.5-10.1) mg/dL Total Protein 5.0 L (6.4-8.2) g/dL Intake and Output 07/01/18 07/01/18 07/01/18 06:59 14:59 22:59 Intake Total 350 / 350 Balance 350 / 350 Intake: Oral 350 / 350 Other: # Incontinent Voids 2 Date of Last Bowel Movement 06/30/18 07/01/18 # Incontinent Bowel Movements 2 Weight 97 kg Assessment and Plan - Plan Assessment: Syncope-patient has had multiple episodes of witnessed syncope, each occurring with similar situation, whereby she would be sitting upright with her legs dangling from the edge of the bed. No arrhythmias were noted on telemetry during the episodes of syncope. It is very likely that her syncope is due to orthostatic hypotension with transient reduction in preload due to venous pooling in her legs. Treatment would include appropriate hydration, consider graduated compression stockings to the bilateral lower extremities. This would be appropriate as well due to her left lower extremity DVT to prevent post thrombotic venous insufficiency. It is likely that she has some level of LV diastolic dysfunction and given her resting tachycardia. Beta-camille therapy may improve her symptoms as a beta-camille would likely blunt the reflex tachycardia during episodes of orthostasis, which could provide improved LV filling time and thus improved cardiac output. Initiate metoprolol tartrate 25 mg twice daily and uptitrate as HR/BP allow. Preoperative cardiovascular risk assessment prior to noncardiac surgery-patient has established atherosclerotic coronary artery disease by chest CT 06/24/18. She is asymptomatic with no symptoms of chest pain, dyspnea, and has no history of ME, malignant arrhythmia, aortic stenosis, and has been monitored on telemetry for her underlying syncopal episodes which are clearly non- arrhythmogenic. At this juncture, she would represent an intermediate to high risk patient for an intermediate risk procedure. Her exercise capacity cannot be established. Would recommend Lexiscan stress test for further risk stratification as well as perioperative beta-camille therapy. Initiate metoprolol tartrate 25 mg twice daily and uptitrate as HR/BP allow. If Lexiscan stress test is low risk, proceed with intended surgery following comprehensive discussion of informed consent with the patient by her surgeon. Frequent APCs, occasional PVCs-rule out structural heart disease with transthoracic echocardiogram. Initiate metoprolol as above.
--- NOTE | 2018-07-01 17:01 | P.PNNS ---
Subjective Interval history: Pt awake and alert. Complains of pain in her legs in calfs bilaterally. She states no changes in her hands and complains of weakness and incoordination. <FranciscaJersey - Last Filed: 07/01/18 16:51> Physical Exam Vital signs: Vital Signs 06/30/18 17:00 06/30/18 18:00 06/30/18 19:00 Temperature Pulse Rate 110 H 114 H 124 H Respiratory Rate Blood Pressure Pulse Oximetry 06/30/18 20:00 06/30/18 21:00 06/30/18 22:00 Temperature 97.8 F Pulse Rate 112 H 110 H 108 H Respiratory Rate 20 Blood Pressure 123/76 Pulse Oximetry 98 06/30/18 23:00 07/01/18 00:00 07/01/18 01:00 Temperature 97.4 F L Pulse Rate 109 H 104 H 92 H Respiratory Rate 22 Blood Pressure 138/94 H Pulse Oximetry 97 07/01/18 02:00 07/01/18 03:00 07/01/18 04:00 Temperature 97.9 F Pulse Rate 108 H 117 H 111 H Respiratory Rate 20 Blood Pressure 140/90 Pulse Oximetry 97 07/01/18 05:00 07/01/18 05:58 07/01/18 06:00 Temperature Pulse Rate 108 H 109 H Respiratory Rate 20 Blood Pressure Pulse Oximetry 07/01/18 07:00 07/01/18 08:00 07/01/18 09:00 Temperature 97.0 F L Pulse Rate 107 H 114 H 112 H Respiratory Rate 16 Blood Pressure 125/75 Pulse Oximetry 97 07/01/18 10:00 07/01/18 11:00 07/01/18 12:00 Temperature 97.4 F L Pulse Rate 110 H 109 H 108 H Respiratory Rate 18 Blood Pressure 129/89 Pulse Oximetry 07/01/18 13:00 07/01/18 14:00 07/01/18 15:00 Temperature Pulse Rate 108 H 106 H 108 H Respiratory Rate Blood Pressure Pulse Oximetry Intake & Output 06/30/18 07/01/18 07/01/18 18:59 06:59 18:59 Intake Total 480 / 480 350 / 350 Balance 480 / 480 350 / 350 Weight 97 kg Intake: Oral 480 / 480 350 / 350 Other: # Incontinent Voids 2 2 Date of Last Bowel Movement 06/30/18 06/30/18 07/01/18 # Incontinent Bowel Movements 2 2 - Constitutional no acute distress, obese, cooperative - Routine HEENT Exam Head: Present: normocephalic, atraumatic Eye: Present: PERRL. Absent: conjunctival icterus ENT: Present: oropharynx clear - Routine Neck Exam Present: trachea midline - Routine Respiratory Exam Present: CTA bilaterally. Absent: respiratory distress, rhonchi, wheezes - Routine Cardiovascular Exam Present: RRR, S1, S2. Absent: murmur - Routine Abdominal Exam Present: soft, normoactive bowel sounds. Absent: distended, firm - Routine Extremities Exam Present: edema Comments: LEs. - Routine Skin Exam Absent: cyanosis, erythema - Routine Neurological Exam Present: alert, oriented X3, motor deficit (weakness in UEs 3/5 biceps, triceps , HI. Deltoid 4/5 bilaterally.), moving all extremities - Routine Psychiatric Exam Present: normal affect, cooperative. Absent: anxious, agitated <Jersey Espinosa - Last Filed: 07/01/18 16:51> Vital signs: Vital Signs 06/30/18 19:00 06/30/18 20:00 06/30/18 21:00 Temperature 97.8 F Pulse Rate 124 H 112 H 110 H Respiratory Rate 20 Blood Pressure 123/76 Pulse Oximetry 98 06/30/18 22:00 06/30/18 23:00 07/01/18 00:00 Temperature 97.4 F L Pulse Rate 108 H 109 H 104 H Respiratory Rate 22 Blood Pressure 138/94 H Pulse Oximetry 97 07/01/18 01:00 07/01/18 02:00 07/01/18 03:00 Temperature Pulse Rate 92 H 108 H 117 H Respiratory Rate Blood Pressure Pulse Oximetry 07/01/18 04:00 07/01/18 05:00 07/01/18 05:58 Temperature 97.9 F Pulse Rate 111 H 108 H Respiratory Rate 20 20 Blood Pressure 140/90 Pulse Oximetry 97 07/01/18 06:00 07/01/18 07:00 07/01/18 08:00 Temperature 97.0 F L Pulse Rate 109 H 107 H 114 H Respiratory Rate 16 Blood Pressure 125/75 Pulse Oximetry 97 07/01/18 09:00 07/01/18 10:00 07/01/18 11:00 Temperature Pulse Rate 112 H 110 H 109 H Respiratory Rate Blood Pressure Pulse Oximetry 07/01/18 12:00 07/01/18 13:00 07/01/18 14:00 Temperature 97.4 F L Pulse Rate 108 H 108 H 106 H Respiratory Rate 18 Blood Pressure 129/89 Pulse Oximetry 07/01/18 15:00 07/01/18 16:00 Temperature 97.7 F Pulse Rate 108 H 111 H Respiratory Rate 18 Blood Pressure 137/75 Pulse Oximetry Intake & Output 06/30/18 07/01/18 07/01/18 18:59 06:59 18:59 Intake Total 480 / 480 350 / 350 Balance 480 / 480 350 / 350 Weight 97 kg Intake: Oral 480 / 480 350 / 350 Other: # Incontinent Voids 2 2 Date of Last Bowel Movement 06/30/18 06/30/18 07/01/18 # Incontinent Bowel Movements 2 2 <Jeremiah Reynolds - Last Filed: 07/01/18 18:13> Assessment and Plan - Assessment (1) Cervical myelopathy Code(s): G95.9 - Disease of spinal cord, unspecified Status: Acute (2) Cervical spinal stenosis Code(s): M48.02 - Spinal stenosis, cervical region Status: Acute - Plan Ms. Hart is a 73 y/o female with multiple medical issues (esophagitis, DVT, syncope) presenting with ~1 month of poor coordination with her hands. Yesterday she was reportedly unable to hold a cup or use her utensils, prompting a MRI of the cervical spine. Today, she states her coordination is improved as she was able to hold a cup without issue. She has moderate cervical stenosis at C4/5 and severe cervical stenosis at C5/6, no evidence of cord signal change. Given her frequent syncopal episodes (some resulting in falls over the past several months), she is at risk for cervical cord injury with her cervical stenosis. I discussed with her the indications for cervical decompression aimed at preventing future neurologic injury. I counseled her that we need to have a thorough understanding of the etiology of her syncopal episodes and medical clearance for general anesthesia before we can proceed with cervical spine surgery. Her MRI findings are chronic in appearance and do not warrant an urgent intervention. 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 Pts initial evaluation was done by Dr. Bennett Neurosurgeon from . If pt elects to proceed with surgical intervention for her cervical stenosis she would need to be cleared medically and also have her anticoagulation held with possibly a Lovenox bridge if needed but will still need to be off anticoagulation for a period of time. She has been seen by Cardiology who recommended further testing. I discussed with Dr. la treatment plan. If pt is cleared and wants to proceed with surgery on her cervical spine her anticoagulation will be changed and will likely need a IVC filter as she will need to be off all anticoagulation for a few days before and after her procedure. P: Continue with current care. I have called pts brother Jl per pts request and given him an update. I have discussed with Dr. La. Additional cardiac testing to evaluate cardiac risk for cervical spine decompression and fusion. <Jersey Espinosa - Last Filed: 07/01/18 16:51> - Attending Attestation The exam, history, and the medical decision-making described in the above note were completed with the assistance of the mid-level provider. I reviewed and agree with the findings presented. I attest that I had a [id number] encounter with the patient on the same day, and personally performed and documented my assessment and findings in the medical record. <Jeremiah Reynolds - Last Filed: 07/01/18 18:13>
[2018-07-01] MEDS: Metoprolol Tartrate 25 MG Tablet PO SCH ×2 (17:26→20:54)
[2018-07-02 07:42] LABS: Baso % (Auto) 0.2 % (0.0-2.0); Eos % (Auto) 0.2 % (0.0-4.0); Hemoglobin 10.6 gm/dL (11.6-15.3); Lymph # (Auto) 0.8 th/mm3 (1.0-4.8); Mean Corpuscular Hemoglobin 31.6 pg (27.0-34.0); Mean Corpuscular Volume 95.6 fL (80.0-100.0); Mean Platelet Volume 8.4 fL (7.0-11.0); Mono # (Auto) 0.4 th/mm3 (0.0-0.9); Mono % (Auto) 9.2 % (0.0-8.0); Neut # (Auto) 2.8 th/mm3 (1.8-7.7); Neut % (Auto) 70.4 % (16.0-70.0); Platelet Count 370 th/mm3 (150-450); Red Blood Count 3.35 mil/mm3 (4.00-5.30); Red Cell Distribution Width 19.9 % (11.6-17.2); White Blood Count 3.9 th/mm3 (4.0-11.0)
--- NOTE | 2018-07-02 07:51 | P.PNCA ---
Subjective Interval history: No chest pain or shortness of breath. Telemetry was short atrial runs overnight. N.p.o. for [place] today. Medications and Allergies Allergies Allergy/AdvReac Type Severity Reaction Status Date / Time Penicillins AdvReac Dizziness Verified 05/26/18 19:40 Home Medications Medication Instructions Recorded Confirmed Type polyethylene glycol 3350 [Miralax] 17 gm PO DAILY 06/07/18 06/23/18 History acetaminophen 650 mg PO Q6H PRN 06/23/18 06/23/18 History ferrous sulfate 324 mg PO BID 06/23/18 06/23/18 History onqnfsyt-seu-wziqf acid-vit K 500 mg PO DAILY 06/23/18 06/23/18 History [Multi For Her 50 Plus] potassium chloride 10 meq PO BID 06/23/18 06/23/18 History Active Medications: Active Medications Acetaminophen (Tylenol) 650 mg PO Q4H PRN PRN Reason: pain 1-2, fever Hydrocodone Bitart/Acetaminophen ([place] 5/325) 1 tab PO Q4H PRN PRN Reason: PAIN SCALE 3 TO 10 Last Admin: 07/01/18 23:53 Dose: 1 tab Calcium Carbonate (Oscal) 1,000 mg PO BID [facility] Last Admin: 07/01/18 20:53 Dose: 1,000 mg Dexamethasone Sodium Phosphate (Decadron Inj) 4 mg IV.PUSH Q6HR [facility] Last Admin: 07/02/18 05:30 Dose: 4 mg Enoxaparin Sodium (Lovenox Inj) 100 mg SQ Q12H [facility] Ferrous Sulfate (Ferosul) 325 mg PO BID [facility] Last Admin: 07/01/18 20:54 Dose: 325 mg Metoprolol Tartrate (Lopressor) 25 mg PO BID [facility] Last Admin: 07/01/18 20:54 Dose: 25 mg Ondansetron HCl (Zofran Inj) 4 mg IV.PUSH Q6H PRN PRN Reason: NAUSEA OR VOMITING Pantoprazole Sodium (Protonix Inj) 40 mg IV.PUSH Q12H [facility] Last Admin: 07/01/18 23:53 Dose: 40 mg Potassium Chloride (Kcl) 20 meq PO BID [facility] Last Admin: 07/01/18 20:54 Dose: 20 meq Physical Exam Vital signs: Vital Signs 07/01/18 08:00 07/01/18 09:00 07/01/18 10:00 Temperature 97.0 F L Pulse Rate 114 H 112 H 110 H Respiratory Rate 16 Blood Pressure 125/75 Pulse Oximetry 97 07/01/18 11:00 07/01/18 12:00 07/01/18 13:00 Temperature 97.4 F L Pulse Rate 109 H 108 H 108 H Respiratory Rate 18 Blood Pressure 129/89 Pulse Oximetry 07/01/18 14:00 07/01/18 15:00 07/01/18 16:00 Temperature 97.7 F Pulse Rate 106 H 108 H 110 H Respiratory Rate 18 Blood Pressure 137/75 Pulse Oximetry 07/01/18 17:00 07/01/18 18:00 07/01/18 19:00 Temperature 97.7 F Pulse Rate 110 H 108 H 112 H Respiratory Rate 20 Blood Pressure 125/76 Pulse Oximetry 97 07/01/18 20:00 07/01/18 21:00 07/01/18 22:00 Temperature Pulse Rate 104 H 104 H 92 H Respiratory Rate Blood Pressure Pulse Oximetry 07/01/18 23:00 07/02/18 00:00 07/02/18 01:00 Temperature 97.5 F L Pulse Rate 90 82 82 Respiratory Rate 20 Blood Pressure 123/73 Pulse Oximetry 95 07/02/18 02:00 07/02/18 03:00 07/02/18 04:00 Temperature 97.5 F L Pulse Rate 80 85 88 Respiratory Rate 20 Blood Pressure 118/78 Pulse Oximetry 97 07/02/18 05:00 07/02/18 06:00 Temperature Pulse Rate 84 87 Respiratory Rate Blood Pressure Pulse Oximetry Intake & Output 07/01/18 07/02/18 07/02/18 18:59 06:59 18:59 Intake Total 480 / 480 240 / 240 Balance 480 / 480 240 / 240 Weight 210 lb 8.663 oz Intake: Oral 480 / 480 240 / 240 Other: # Incontinent Voids 2 2 Date of Last Bowel Movement 07/01/18 07/02/18 # Incontinent Bowel Movements 3 2 Narrative: GENERAL: Well-developed well-nourished. In no acute distress. NECK: No carotid bruits. No JVD. CARDIOVASCULAR: Regular rate and rhythm. No murmur appreciated. RESPIRATORY: No accessory muscle use. Clear to auscultation. Breath sounds equal bilaterally. MUSCULOSKELETAL: No clubbing or cyanosis. Trace bilateral lower extremity edema with asymmetric enlargement of the left calf. NEUROLOGICAL: Awake and alert. Normal speech. Results 07/02/18 05:43 07/01/18 06:10 CBC 07/01/18 07/02/18 Range/Units 06:10 05:43 WBC 4.8 3.9 L (4.0-11.0) th/mm3 RBC 3.47 L 3.35 L (4.00-5.30) mil/mm3 Hgb 10.9 L 10.6 L (11.6-15.3) gm/dL Hct 32.6 L 32.0 L (35.0-46.0) % Plt Count 392 370 (150-450) th/mm3 Neut # (Auto) 3.1 2.8 (1.8-7.7) th/mm3 Lymph # (Auto) 1.0 0.8 L (1.0-4.8) th/mm3 [place] # (Auto) 0.7 0.4 (0.0-0.9) th/mm3 Eos # (Auto) 0.0 0.0 (0.0-0.4) th/mm3 Baso # (Auto) 0.0 0.0 (0.0-0.2) th/mm3 Comprehensive Metabolic Panel 07/01/18 Range/Units 06:10 Sodium 141 (136-145) meq/L Potassium 4.5 (3.5-5.1) meq/L Chloride 109 H (98-107) meq/L Carbon Dioxide 22.7 (21.0-32.0) meq/L BUN 25 H (7-18) mg/dL Creatinine 0.95 (0.50-1.00) mg/dL Calcium 7.3 L* (8.5-10.1) mg/dL Total Protein 5.0 L (6.4-8.2) g/dL Intake and Output 07/01/18 07/02/18 07/02/18 22:59 06:59 14:59 Intake Total 480 / 480 240 / 240 Balance 480 / 480 240 / 240 Intake: Oral 480 / 480 240 / 240 Other: # Incontinent Voids 2 2 Date of Last Bowel Movement 07/01/18 07/02/18 # Incontinent Bowel Movements 3 2 Weight 210 lb 8.663 oz Assessment and Plan - Plan Assessment: Syncope-patient has had multiple episodes of witnessed syncope, each occurring with similar situation, whereby she would be sitting upright with her legs dangling from the edge of the bed. No arrhythmias were noted on telemetry during the episodes of syncope. It is very likely that her syncope is due to orthostatic hypotension with transient reduction in preload due to venous pooling in her legs. Treatment would include appropriate hydration, consider graduated compression stockings to the bilateral lower extremities. This would be appropriate as well due to her left lower extremity DVT to prevent post thrombotic venous insufficiency. It is likely that she has some level of LV diastolic dysfunction and given her resting tachycardia. Beta-camille therapy may improve her symptoms as a beta-camille would likely blunt the reflex tachycardia during episodes of orthostasis, which could provide improved LV filling time and thus improved cardiac output. Started on metoprolol tartrate 25 mg twice daily and would uptitrate as HR/BP allow. Preoperative cardiovascular risk assessment prior to noncardiac surgery-patient has established atherosclerotic coronary artery disease by chest CT 06/24/18. She is asymptomatic with no symptoms of chest pain, dyspnea, and has no history of [place], malignant arrhythmia, aortic stenosis, and has been monitored on telemetry for her underlying syncopal episodes which are clearly non- arrhythmogenic. At this juncture, she would represent an intermediate to high risk patient for an intermediate risk procedure. Her exercise capacity cannot be established. Would recommend Lexiscan stress test for further risk stratification as well as perioperative beta-camille therapy. Started on metoprolol tartrate 25 mg twice daily and would uptitrate as HR/BP allow. If Lexiscan stress test is low risk, proceed with intended surgery following comprehensive discussion of informed consent with the patient by her surgeon. Frequent APCs, occasional PVCs-rule out structural heart disease with transthoracic echocardiogram. Initiate metoprolol as above.
[2018-07-02] MEDS: Potassium Chloride 10 MEQ ER Capsule PO SCH ×2 (10:00→21:26)
[2018-07-02] MEDS: Metoprolol Tartrate 25 MG Tablet PO SCH ×2 (10:00→21:26)
[2018-07-02] MEDS: Ferrous Sulfate 325 MG Tablet PO SCH ×2 (10:00→21:26)
[2018-07-02] MEDS: Calcium Carbonate 500 MG Tablet PO SCH ×2 (10:01→21:26)
[2018-07-02] MEDS: Pantoprazole Inj 40 MG Vial IV.PUSH SCH (11:40)
[2018-07-02] MEDS ORDERED: Regadenoson Inj 0.4 MG/5 ML Syringe IV.PUSH ONE (14:01)
--- NOTE | 2018-07-02 14:16 | ECHRPT ---
Indication: coronary atherosclerosis CONCLUSIONS Normal left ventricular size. Wall thickness is normal. The left ventricular systolic function is normal with an estimated ejection fraction in the range of 60-65%. No definite regional wall motion abnormalities are present. Mild thickening of the aortic valve leaflets. Trace aortic valve regurgitation. There is trace tricuspid valve regurgitation. The estimated pulmonary arterial pressure is 30 mmHg. BP: / HR: Rhythm: MEASUREMENTS (Male / Female) Normal Values Technical Quality: 2D ECHO LV Diastolic Diameter PLAX 5.1 cm 4.2 - 5.9 / 3.9 - 5.3 cm LV Systolic Diameter PLAX 3.8 cm IVS Diastolic Thickness 1.1 cm 0.6 - 1.0 / 0.6 - 0.9 cm LVPW Diastolic Thickness 1.1 cm 0.6 - 1.0 / 0.6 - 0.9 cm LV Relative Wall Thickness 0.4 RV Internal Dim ED PLAX 2.8 cm LVOT Diameter 1.9 cm Aortic Root Diameter 2.5 cm LA Systolic Diameter LX 4.0 cm 3.0 - 4.0 / 2.7 - 3.8 cm LV Ejection Fraction MOD 4C 64.5 % LV Ejection Fraction 4C AL 64.8 % M-MODE Aortic Root Diameter MM 3.3 cm LA Systolic Diameter MM 4.7 cm LA Ao Ratio MM 1.4 AV Cusp Separation MM 1.4 cm DOPPLER AV Peak Velocity 167.0 cm/s AV Peak Gradient 11.2 mmHg LVOT Peak Velocity 103.0 cm/s LVOT Peak Gradient 4.2 mmHg AV Area Cont Eq pk 1.7 cm Mitral E Point Velocity 83.4 cm/s Mitral A Point Velocity 29.6 cm/s Mitral E to A Ratio 2.8 TR Peak Velocity 221.0 cm/s TR Peak Gradient 19.5 mmHg Right Atrial Pressure 10.0 mmHg Pulmonary Artery Systolic Pressu 29.5 mmHg Right Ventricular Systolic Press 29.5 mmHg PV Peak Velocity 115.0 cm/s PV Peak Gradient 5.3 mmHg FINDINGS LEFT VENTRICLE Normal left ventricular size. Wall thickness is normal. The left ventricular systolic function is normal with an estimated ejection fraction in the range of 60-65%. No definite regional wall motion abnormalities are present. RIGHT VENTRICLE Normal right ventricular size and systolic function. LEFT ATRIUM The left atrial size is mildly dilated. RIGHT ATRIUM The right atrial size is normal. ATRIAL SEPTUM Normal atrial septal thickness without atrial level shunting by limited color doppler interrogation. AORTA The aortic root and proximal ascending aorta are normal in size on limited imaging. MITRAL VALVE Trace mitral valve regurgitation. AORTIC VALVE Mild thickening of the aortic valve leaflets. Trace aortic valve regurgitation. TRICUSPID VALVE There is trace tricuspid valve regurgitation. The estimated pulmonary arterial pressure is 30 mmHg. PULMONARY VALVE No pulmonary valve regurgitation or stenosis. VESSELS The inferior vena cava is normal in size. PERICARDIUM No pericardial effusion. George Ambriz MD (Electronically Signed) Final Date:02 July 2018 14:13
--- NOTE | 2018-07-02 15:12 | NM ---
EXAM DATE: 07/02/2018 1:35 PM EDT AGE/SEX: 73 years / Female INDICATIONS:Coronary artery disease. . Syncope. Risk stratification for surgery of cervical spine. CLINICAL DATA: This is the patient's initial encounter. Patient reports that signs and symptoms have been present for 1 day and indicates a pain score of 0/10. MEDICAL/SURGICAL HISTORY: Hypertension. Gastroesophageal reflux disease. Deep venous thrombos is. Tonsillectomy. COMPARISON: No prior exams available for comparison. DOSE: 8.8 mCi Tc 99m Myoview at rest 25.4 mCi [id number] at stress 0.04 mg Lexiscan STRESS SYMPTOMS: Asymptomatic. EJECTION FRACTION: 66 % TECHNIQUE: The patient underwent pharmacologic stress with infusion of prescribed dose. Continuous ECG tracing was monitored during stress. Gated SPECT imaging was performed after stress and conventi onal SPECT imaging was performed at rest. The examination was performed on a SPECT/CT scanner, both attenuation and non-corrected datasets were reviewed. FINDINGS: Distribution: The maximum perfused segment at stress is in the inferior lateral wall. Perfusion Study: The pattern of perfusion at stress is within normal limits. Gated Study: There are intact wall motion and wall thickening without hypokinetic or dyskinetic segm ents. The ejection fraction is calculated at 66%. RISK CATEGORY: Low (<1% Annual Motality Rate) CONCLUSION: 1. No left ventricle perfusion abnormality is identified. 2. Normal left ventricle ejection fraction and wall motion. Electronically signed by: Bro Stoll MD 07/02/2018 3:11 PM EDT
[2018-07-02] MEDS ORDERED: Sodium Chloride 0.9% 2 ML Flush PRN IV.FLUSH (15:20)
--- NOTE | 2018-07-02 15:40 | P.PNIM ---
Subjective Interval history: Follow up: Left leg superficial femoral DVT Syncope with PT on 06/24, 06/25, 06/26. 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 Patient continues to be unable to gasop with either hand and continues to c/o incoordination of bilateral upper extremities Physical Exam Vital signs: Vital Signs 07/01/18 16:00 07/01/18 17:00 07/01/18 18:00 Temperature 97.7 F Pulse Rate 110 H 110 H 108 H Respiratory Rate 18 Blood Pressure 137/75 Pulse Oximetry 07/01/18 19:00 07/01/18 20:00 07/01/18 21:00 Temperature 97.7 F Pulse Rate 112 H 104 H 104 H Respiratory Rate 20 Blood Pressure 125/76 Pulse Oximetry 97 07/01/18 22:00 07/01/18 23:00 07/02/18 00:00 Temperature 97.5 F L Pulse Rate 92 H 90 82 Respiratory Rate 20 Blood Pressure 123/73 Pulse Oximetry 95 07/02/18 01:00 07/02/18 02:00 07/02/18 03:00 Temperature 97.5 F L Pulse Rate 82 80 85 Respiratory Rate 20 Blood Pressure 118/78 Pulse Oximetry 97 07/02/18 04:00 07/02/18 05:00 07/02/18 06:00 Temperature Pulse Rate 88 84 87 Respiratory Rate Blood Pressure Pulse Oximetry 07/02/18 07:00 07/02/18 08:00 07/02/18 09:00 Temperature 97.9 F Pulse Rate 93 H 96 H 98 H Respiratory Rate 16 Blood Pressure 121/72 Pulse Oximetry 96 07/02/18 10:00 07/02/18 11:00 07/02/18 12:00 Temperature 97.3 F L Pulse Rate 98 H 93 H 100 H Respiratory Rate 20 Blood Pressure 119/73 Pulse Oximetry 97 07/02/18 13:00 07/02/18 14:00 Temperature Pulse Rate 98 H 90 Respiratory Rate Blood Pressure Pulse Oximetry Intake & Output 07/01/18 07/02/18 07/02/18 18:59 06:59 18:59 Intake Total 480 / 480 240 / 240 Balance 480 / 480 240 / 240 Weight 95.5 kg Intake: Oral 480 / 480 240 / 240 Other: # Incontinent Voids 2 2 Date of Last Bowel Movement 07/01/18 07/02/18 07/02/18 # Incontinent Bowel Movements 3 2 Narrative: General: NAD, AAOx3 Cardiac: Regular Chest: CTA Abd: +BS, soft, NT/ND Ext: No edema. 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 in either hand - Urinary Catheter Management Indwelling Urethral Catheter Cath placed during this visit: yes Reason for continuing: Hourly intake/output Insertion date: 07/03/18 Insertion time: 15:30 Results - Labs CBC & Chem 7: 07/08/18 03:29 07/08/18 03:13 Laboratory Results - last 24 hr 07/02/18 05:43 WBC 3.9 L RBC 3.35 L Hgb 10.6 L Hct 32.0 L MCV 95.6 MCH 31.6 MCHC 33.0 RDW 19.9 H Plt Count 370 MPV 8.4 Neut % (Auto) 70.4 H Lymph % (Auto) 20.0 [place] % (Auto) 9.2 H Eos % (Auto) 0.2 Baso % (Auto) 0.2 Neut # (Auto) 2.8 Lymph # (Auto) 0.8 L [place] # (Auto) 0.4 Eos # (Auto) 0.0 Baso # (Auto) 0.0 WBC Differential . Differential Comment Auto diff final - Imaging Impressions Myocardial Perfusion Scan Nuc Med 07/02/18 00:00 CONCLUSION: 1. No left ventricle perfusion abnormality is identified. 2. Normal left ventricle ejection fraction and wall motion. Assessment and Plan - Assessment (1) DVT (deep venous thrombosis) Code(s): I82.409 - Acute embolism and thrombosis of unspecified deep veins of unspecified lower extremity Status: Acute Plan: Left leg superficial femoral DVT Syncope with PT on 06/24, 06/25, 06/26. Hypotension to 70s noted Symptomatic anemia from recent UGIB from n/v and severe erosive esophagitis - Pts heparin gtt was stopped and she was started on Eliquis on 06/27/18. No bleeding noted with heparin - Pt s/p 2units prbc 06/26 - Cont Protonix 40mg BID - Advised nursing to monitor for signs of bleeding. - Diet was advanced to soft diet - H/H stable at this time - Repeat labs in AM - Transfuse PRBCs prn for symptomatic anemia - If she has bleeding then might need hematology consult or filter. 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 Hands weak with radicular complaints - Cont. IV Decadron 4mg Q6H - MRI C-spine (06/28/18): - C4-C5: A diffuse disc bulge is seen eccentric to the left abutting the cord with mild ventral flattening of the cord surface and moderate canal stenosis. There is uncovertebral hypertrophy suspected and moderate bilateral foraminal narrowing. - C5-C6: A diffuse disc osteophyte complex is noted. There is uncovertebral hypertrophy and severe left greater than right foraminal stenosis, and severe canal stenosis with cord compression. This is slightly eccentric to the left. - C6-C7: There is mild canal narrowing secondary to a diffuse disc osteophyte complex. Mild bilateral foraminal narrowing secondary to uncovertebral hypertrophy and facet hypertrophy. - Pt is currently on anticoagulation for nonocclusive DVT. - Appreciate Neurosurgery evaluation. - 07/01 Dr. La discussed the case with [facility]. Patient would like to proceed with neurosurgery. Stop Eliquis and start Lovenox. Then consult IR to place IVC filter. Neurosurgery also requesting cardiology clearance. - Eliquis stopped 07/01 - Lovenox 100 mg Q12H to start 07/02 then put on hold 07/03 0000 - Consult placed to Cardiology. Case discussed with Dr. Segura who recommends pre-op Lexiscan, echocardiogram and start metoprolol. - Lexiscan reveals: 1. No left ventricle perfusion abnormality is identified. 2. Normal left ventricle ejection fraction and wall motion. - transthoracic Echocardiogram reveals: Normal left ventricular size. Wall thickness is normal. The left ventricular systolic function is normal with an estimated ejection fraction in the range of 60-65%. No definite regional wall motion abnormalities are present. Mild thickening of the aortic valve leaflets. Trace aortic valve regurgitation. There is trace tricuspid valve regurgitation. The estimated pulmonary arterial pressure is 30 mmHg. - Plan for IR to place IVF filter tomorrow, patient NPO after midnight - Cont. PT and OT - Pt will need continued therapy at SNF at the conclusion of this hospitalization. Recent pneumatosis coli and ileus (2) Esophagitis Code(s): K20.9 - Esophagitis, unspecified Status: Acute (3) Hypokalemia Code(s): E87.6 - Hypokalemia Status: Acute - Attending Attestation Patient examined. Assessment and plan formulated with Shahla BEE I agree with the above.
[2018-07-02 17:05] LABS: Activated Partial Thrombo Time 25.2 sec (24.3-30.1); INR 1.1 Ratio; Prothrombin Time 11.5 sec (9.8-11.6)
[2018-07-02] MEDS: Sod Chloride 0.9% Inj 1,000 ML IV.CONT SCH (18:35)
[2018-07-02] MEDS ORDERED: Enoxaparin Inj 100 MG/ML Syringe SQ SCH (20:00)
[2018-07-02] MEDS ORDERED: Enoxaparin Inj 100 MG/ML Syringe SQ ONE (20:00)
[2018-07-02] MEDS: Sodium Chloride 0.9% 2 ML Flush BID IV.FLUSH SCH (23:04)
[2018-07-03] MEDS: Pantoprazole Inj 40 MG Vial IV.PUSH SCH ×3 (00:12→23:00)
[2018-07-03] MEDS: Sod Chloride 0.9% Inj 1,000 ML IV.CONT SCH ×4 (06:27→22:59)
[2018-07-03 08:00] LABS: Baso % (Auto) 0.2 % (0.0-2.0); Hematocrit 33.4 % (35.0-46.0); Hemoglobin 10.9 gm/dL (11.6-15.3); Lymph # (Auto) 0.8 th/mm3 (1.0-4.8); Lymph % (Auto) 15.9 % (9.0-44.0); Mean Corpuscular HGB Conc 32.5 % (32.0-36.0); Mean Corpuscular Hemoglobin 31.6 pg (27.0-34.0); Mean Corpuscular Volume 97.2 fL (80.0-100.0); Mean Platelet Volume 8.8 fL (7.0-11.0); Mono # (Auto) 0.6 th/mm3 (0.0-0.9); Mono % (Auto) 10.5 % (0.0-8.0); Neut # (Auto) 3.9 th/mm3 (1.8-7.7); Neut % (Auto) 73.4 % (16.0-70.0); Platelet Count 371 th/mm3 (150-450); Red Blood Count 3.44 mil/mm3 (4.00-5.30); White Blood Count 5.3 th/mm3 (4.0-11.0)
[2018-07-03 08:29] LABS: Carbon Dioxide 19.4 meq/L (21.0-32.0); Potassium 5.2 meq/L (3.5-5.1)
[2018-07-03] MEDS: Ferrous Sulfate 325 MG Tablet PO SCH ×2 (08:49→20:44)
[2018-07-03] MEDS: Potassium Chloride 10 MEQ ER Capsule PO SCH (08:49)
[2018-07-03] MEDS: Metoprolol Tartrate 25 MG Tablet PO SCH ×2 (08:49→20:44)
[2018-07-03] MEDS: Sodium Chloride 0.9% 2 ML Flush BID IV.FLUSH SCH ×2 (08:50→20:45)
[2018-07-03] MEDS: Calcium Carbonate 500 MG Tablet PO SCH (08:50)
[2018-07-03 09:21] LABS: Total Protein 5.1 g/dL (6.4-8.2)
[2018-07-03] MEDS ORDERED: fentaNYL Citrate Inj 250 MCG/5 ML Ampul ONE (09:57)
--- NOTE | 2018-07-03 10:52 | P.RAD ---
Post Procedure Progress Note - Pre Procedure Diagnosis (1) Acute GI bleeding (2) Cervical spinal stenosis - Post Procedure Diagnosis (1) Acute GI bleeding (2) DVT (deep venous thrombosis) (3) Cervical spinal stenosis - Procedure Information Procedure Date: 07/03/18 Supervising Radiologist: Garland Stock MD Estimated blood loss (mL): 2 Anesthesia: Local, Analgesia, Conscious Sedation - Plan of Activity Patient to Unit: [facility]OPU See PACS Report for procedural detail/treatment. Vascular - Venous Procedure right Abdominal Procedure(s): Permanent IVC Filter ([employer])
--- NOTE | 2018-07-03 10:59 | P.PNIM ---
Subjective Interval history: Follow up: Left leg superficial femoral DVT Syncope with PT on 06/24, 06/25, 06/26. 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 Stock 07/03/18 Patient offers no new concerns/complaints Physical Exam Vital signs: Vital Signs 07/02/18 11:00 07/02/18 12:00 07/02/18 13:00 Temperature 97.3 F L Pulse Rate 93 H 100 H 98 H Respiratory Rate 20 Blood Pressure 119/73 Pulse Oximetry 97 07/02/18 14:00 07/02/18 15:00 07/02/18 16:00 Temperature Pulse Rate 90 88 90 Respiratory Rate 20 Blood Pressure Pulse Oximetry 07/02/18 17:00 07/02/18 18:00 07/02/18 19:00 Temperature 98.0 F Pulse Rate 100 H 88 105 H Respiratory Rate 16 Blood Pressure 145/89 H Pulse Oximetry 97 07/02/18 20:00 07/02/18 21:00 07/02/18 22:00 Temperature Pulse Rate 100 H 102 H 94 H Respiratory Rate Blood Pressure Pulse Oximetry 07/02/18 23:00 07/03/18 00:00 07/03/18 01:00 Temperature 97.6 F Pulse Rate 89 88 86 Respiratory Rate 16 Blood Pressure 130/86 Pulse Oximetry 99 07/03/18 02:00 07/03/18 03:00 07/03/18 04:00 Temperature 98.2 F Pulse Rate 92 H 94 H 91 H Respiratory Rate 16 Blood Pressure 129/88 Pulse Oximetry 97 07/03/18 05:00 07/03/18 06:00 07/03/18 07:00 Temperature 97.8 F Pulse Rate 97 H 96 H 90 Respiratory Rate 20 Blood Pressure 125/78 Pulse Oximetry 97 07/03/18 08:00 Temperature Pulse Rate 97 H Respiratory Rate Blood Pressure Pulse Oximetry Intake & Output 07/02/18 07/03/18 07/03/18 18:59 06:59 18:59 Intake Total 300 / 300 240 / 240 1000 / 1000 Balance 300 / 300 240 / 240 1000 / 1000 Weight 98 kg Intake: IV 1000 / 1000 NS Inj 1,000 ML @ 75 mls/hr IV. 1000 / 1000 CONT .[id number] [facility] Rx#:[id number] Oral 300 / 300 240 / 240 Other: # Voids 3 Date of Last Bowel Movement 07/02/18 07/02/18 07/02/18 # Incontinent Bowel Movements 3 Narrative: General: NAD, AAOx3 Cardiac: Regular Chest: CTA Abd: +BS, soft, NT/ND Ext: No edema. Pt continue to have incoordination bilateral upper extremities and decreased grasp bilateral hands - Urinary Catheter Management Indwelling Urethral Catheter Cath placed during this visit: yes Reason for continuing: Other continuation reason Insertion date: 07/03/18 Insertion time: 15:30 Results - Labs CBC & Chem 7: 07/04/18 15:15 07/04/18 15:15 Laboratory Results - last 24 hr 07/02/18 07/03/18 07/03/18 16:45 07:09 07:09 WBC 5.3 RBC 3.44 L Hgb 10.9 L Hct 33.4 L MCV 97.2 MCH 31.6 MCHC 32.5 RDW 20.0 H Plt Count 371 MPV 8.8 Neut % (Auto) 73.4 H Lymph % (Auto) 15.9 [place] % (Auto) 10.5 H Eos % (Auto) 0.0 Baso % (Auto) 0.2 Neut # (Auto) 3.9 Lymph # (Auto) 0.8 L [place] # (Auto) 0.6 Eos # (Auto) 0.0 Baso # (Auto) 0.0 WBC Differential . Differential Comment Auto diff final PT 11.5 INR 1.1 APTT 25.2 Sodium 136 Potassium 5.2 H Chloride 109 H Carbon Dioxide 19.4 L Anion Gap 8 BUN 29 H Creatinine 0.86 Estimated GFR 65 L Random Glucose 77 Calcium 7.0 L* Prot Corrected Calcium 8.1 L Total Protein 5.1 L - Imaging Impressions Myocardial Perfusion Scan Nuc Med 07/02/18 00:00 CONCLUSION: 1. No left ventricle perfusion abnormality is identified. 2. Normal left ventricle ejection fraction and wall motion. Assessment and Plan - Assessment (1) DVT (deep venous thrombosis) Code(s): I82.409 - Acute embolism and thrombosis of unspecified deep veins of unspecified lower extremity Status: Acute Plan: Left leg superficial femoral DVT Syncope with PT on 06/24, 06/25, 06/26. Hypotension to 70s noted Symptomatic anemia from recent UGIB from n/v and severe erosive esophagitis - Pts heparin gtt was stopped and she was started on Eliquis on 06/27/18. No bleeding noted with heparin - Pt s/p 2units prbc 06/26 - Cont Protonix 40mg BID - Advised nursing to monitor for signs of bleeding. - Diet was advanced to soft diet - H/H stable at this time - Repeat labs in AM - Transfuse PRBCs prn for symptomatic anemia - If she has bleeding then might need hematology consult or filter. 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 Hands weak with radicular complaints - Cont. IV Decadron 4mg Q6H - MRI C-spine (06/28/18): - C4-C5: A diffuse disc bulge is seen eccentric to the left abutting the cord with mild ventral flattening of the cord surface and moderate canal stenosis. There is uncovertebral hypertrophy suspected and moderate bilateral foraminal narrowing. - C5-C6: A diffuse disc osteophyte complex is noted. There is uncovertebral hypertrophy and severe left greater than right foraminal stenosis, and severe canal stenosis with cord compression. This is slightly eccentric to the left. - C6-C7: There is mild canal narrowing secondary to a diffuse disc osteophyte complex. Mild bilateral foraminal narrowing secondary to uncovertebral hypertrophy and facet hypertrophy. - Pt is currently on anticoagulation for nonocclusive DVT. - Appreciate Neurosurgery evaluation. - 07/01 Dr. La discussed the case with Jersey Espinosa Neurosurgery [facility]. Patient would like to proceed with neurosurgery. Stop Eliquis and start Lovenox. Then consult IR to place IVC filter. Neurosurgery also requesting cardiology clearance. - Eliquis stopped 07/01 - Lovenox 100 mg Q12H to start 07/02 then put on hold 07/03 0000 - Consult placed to Cardiology. Case discussed with Dr. Segura who recommends pre-op Lexiscan, echocardiogram and start metoprolol. - Lexiscan reveals: 1. No left ventricle perfusion abnormality is identified. 2. Normal left ventricle ejection fraction and wall motion. - transthoracic Echocardiogram reveals: Normal left ventricular size. Wall thickness is normal. The left ventricular systolic function is normal with an estimated ejection fraction in the range of 60-65%. No definite regional wall motion abnormalities are present. Mild thickening of the aortic valve leaflets. Trace aortic valve regurgitation. There is trace tricuspid valve regurgitation. The estimated pulmonary arterial pressure is 30 mmHg. - s/p Permanent IVC Filter placed by Dr. Stock 07/03/18 - Plan for neurosurgical intervention 07/04 - Cont. PT and OT - Pt will need continued therapy at SNF at the conclusion of this hospitalization. Hyperkalemia potassium 5.2 (07/03) stop supplemental potassium recheck in AM Recent pneumatosis coli and ileus (2) Esophagitis Code(s): K20.9 - Esophagitis, unspecified Status: Acute (3) Hypokalemia Code(s): E87.6 - Hypokalemia Status: Acute - Attending Attestation Patient examined. Assessment and plan formulated with Shahla BEE I agree with the above.
[2018-07-03] MEDS ORDERED: Iohexol 350 MG/ML 50 ML Vial (for Rad Diag) IVCONTRAST ONE (11:05)
--- NOTE | 2018-07-03 11:49 | IR ---
EXAM DATE: 07/03/2018 12:00 AM EDT AGE/SEX: 73 years / Female INDICATIONS: Patient presents with deep vein thrombosis in need of inferior vena cava filter placeme nt. CLINICAL DATA: This is the patient's initial encounter. Patient reports that signs and symptoms have been present for 1 week and indicates a pain score of 0/10. MEDICAL/SURGICAL HISTORY: . GERD, HH, Recent ileus, N/V, Pneumotosis, Severe esophagitis, Hiata l hernia, Sepsis, UTI, GI bleed. . Tonsillectomy. COMPARISON: No prior exams available for comparison. FLUORO TIME (min): 1.11 IMAGE SERIES: 4 ACCESS SITE: Right internal jugular vein SEDATION TIME (min): 20 CONTRAST (cc): 20cc Omnipaque (iohexol) 350 MEDICATION(S): 1 mg midazolam (Versed) IV 50 mcg fentanyl (Sublimaze) IV Vancomycin within 2 hrs of procedure, Ancef (or alternative) within 1 hr of procedure. DEVICE(S): Right IVC vein 7fr Vena tech . . PROCEDURE : 1. Ultrasound-guided venipuncture. 2. Inferior venacavogram. 3. Inferior vena cava filter placement. 4. Conscious sedation with continuous EKG and oximetry monitoring. The risks, benefits and alternatives to the procedure were explained and verbal and written consent w as obtained. The site was prepped in sterile fashion. Full sterile technique was used, including ca p, mask, sterile gloves and gown and a large sterile sheet. Hand hygiene and 2% chlorhexidine and/or betadine/alcohol prep was utilized per protocol for cutaneous antisepsis. Sterile gel and sterile p robe cover were utilized for ultrasound guidance. The skin and subcutaneous tissues were infiltrated with local anesthetic solution. With ultrasound and fluoroscopic guidance the targeted vein was punctured and a vascular sheath was p laced. Inferior venacavogram was performed to demonstrate level of renal veins. No caval thrombus was identified. The prescribed filter was deployed in the infrarenal inferior vena cava. Following deplo yment the filter was identified in good position. Conscious sedation was performed with the prescribed dosages and duration as above in the presence of an independent trained radiology nurse to assist in the monitoring of the patient. EKG and oximetry remained stable throughout the procedure. The patient tolerated the procedure well and there were n o complications. The patient was sent to post anesthesia recovery in stable condition. CONCLUSION: 1. Uncomplicated inferior vena cava filter placement as above. Electronically signed by: Garland Stock MD 07/03/2018 11:48 AM EDT
[2018-07-03] MEDS: Acetaminophen Inj 650 MG/65 ML VIAL IV.SIG SCH ×2 (17:06→23:00)
--- NOTE | 2018-07-03 18:02 | P.PNNS ---
Subjective Interval history: Pt awaken and alert. Denies neck pain. Incoordination and weakness unchanged in UEs. <Jersey Espinosa - Last Filed: 07/03/18 17:53> Physical Exam Vital signs: Vital Signs 07/02/18 18:00 07/02/18 19:00 07/02/18 20:00 Temperature 98.0 F Pulse Rate 88 105 H 100 H Respiratory Rate 16 Blood Pressure 145/89 H Pulse Oximetry 97 07/02/18 21:00 07/02/18 22:00 07/02/18 23:00 Temperature 97.6 F Pulse Rate 102 H 94 H 89 Respiratory Rate 16 Blood Pressure 130/86 Pulse Oximetry 99 07/03/18 00:00 07/03/18 01:00 07/03/18 02:00 Temperature Pulse Rate 88 86 92 H Respiratory Rate Blood Pressure Pulse Oximetry 07/03/18 03:00 07/03/18 04:00 07/03/18 05:00 Temperature 98.2 F Pulse Rate 94 H 91 H 97 H Respiratory Rate 16 Blood Pressure 129/88 Pulse Oximetry 97 07/03/18 06:00 07/03/18 07:00 07/03/18 08:00 Temperature 97.8 F Pulse Rate 96 H 90 97 H Respiratory Rate 20 Blood Pressure 125/78 Pulse Oximetry 97 07/03/18 09:00 07/03/18 11:00 07/03/18 12:00 Temperature Pulse Rate 100 H 88 100 H Respiratory Rate 20 Blood Pressure 136/83 Pulse Oximetry 98 07/03/18 13:00 07/03/18 14:00 Temperature Pulse Rate 88 92 H Respiratory Rate Blood Pressure Pulse Oximetry Intake & Output 07/02/18 07/03/18 07/03/18 18:59 06:59 18:59 Intake Total 300 / 300 240 / 240 1000 / 1000 Balance 300 / 300 240 / 240 1000 / 1000 Weight 98 kg Intake: IV 1000 / 1000 NS Inj 1,000 ML @ 75 mls/hr IV. 1000 / 1000 CONT .[id number] [facility] Rx#:[id number] Oral 300 / 300 240 / 240 Other: # Voids 3 Date of Last Bowel Movement 07/02/18 07/02/18 07/02/18 # Incontinent Bowel Movements 3 - Constitutional no acute distress, cooperative - Routine HEENT Exam Head: Present: normocephalic, atraumatic Eye: Present: PERRL. Absent: conjunctival icterus ENT: Present: oropharynx clear - Routine Neck Exam Present: trachea midline - Routine Respiratory Exam Present: CTA bilaterally. Absent: respiratory distress, rhonchi, wheezes - Routine Cardiovascular Exam Present: RRR, S1, S2. Absent: murmur - Routine Abdominal Exam Present: soft. Absent: distended - Routine Skin Exam Absent: cyanosis, erythema - Routine Neurological Exam Present: alert, oriented X3, motor deficit (Weakness in UEs more than LEs from her cervical myelopathy.), moving all extremities (Weakness in UEs more than LEs consistent with cervical myelopathy.) - Routine Psychiatric Exam Present: normal affect <Jersey Espinosa - Last Filed: 07/03/18 17:53> Vital signs: Vital Signs 07/02/18 19:00 07/02/18 20:00 07/02/18 21:00 Temperature 98.0 F Pulse Rate 105 H 100 H 102 H Respiratory Rate 16 Blood Pressure 145/89 H Pulse Oximetry 97 07/02/18 22:00 07/02/18 23:00 07/03/18 00:00 Temperature 97.6 F Pulse Rate 94 H 89 88 Respiratory Rate 16 Blood Pressure 130/86 Pulse Oximetry 99 07/03/18 01:00 07/03/18 02:00 07/03/18 03:00 Temperature 98.2 F Pulse Rate 86 92 H 94 H Respiratory Rate 16 Blood Pressure 129/88 Pulse Oximetry 97 07/03/18 04:00 07/03/18 05:00 07/03/18 06:00 Temperature Pulse Rate 91 H 97 H 96 H Respiratory Rate Blood Pressure Pulse Oximetry 07/03/18 07:00 07/03/18 08:00 07/03/18 09:00 Temperature 97.8 F Pulse Rate 90 97 H 100 H Respiratory Rate 20 Blood Pressure 125/78 Pulse Oximetry 97 07/03/18 11:00 07/03/18 12:00 07/03/18 13:00 Temperature Pulse Rate 88 100 H 88 Respiratory Rate 20 Blood Pressure 136/83 Pulse Oximetry 98 07/03/18 14:00 07/03/18 15:00 07/03/18 16:01 Temperature Pulse Rate 92 H 88 96 H Respiratory Rate 18 Blood Pressure 129/82 Pulse Oximetry 97 07/03/18 17:00 07/03/18 18:02 Temperature Pulse Rate 90 99 H Respiratory Rate Blood Pressure Pulse Oximetry Intake & Output 07/02/18 07/03/18 07/03/18 18:59 06:59 18:59 Intake Total 300 / 300 240 / 240 1065 / 1065 Balance 300 / 300 240 / 240 1065 / 1065 Weight 98 kg Intake: IV 1065 / 1065 NS Inj 1,000 ML @ 75 mls/hr IV. 1000 / 1000 CONT .[id number] [facility] Rx#:[id number] Ofirmev Inj 650 mg In 65 ml @ 65 / 65 400 mls/hr IV.SIG Q6H [facility] Rx#: [id number] Oral 300 / 300 240 / 240 Other: # Voids 3 Date of Last Bowel Movement 07/02/18 07/02/18 07/02/18 # Incontinent Bowel Movements 3 <Jeremiah Reynolds - Last Filed: 07/03/18 18:55> Assessment and Plan - Assessment (1) Cervical myelopathy Code(s): G95.9 - Disease of spinal cord, unspecified Status: Acute (2) Cervical spinal stenosis Code(s): M48.02 - Spinal stenosis, cervical region Status: Acute - Plan Ms. Hart is a 73 y/o female with multiple medical issues (esophagitis, DVT, syncope) presenting with ~1 month of poor coordination with her hands. Yesterday she was reportedly unable to hold a cup or use her utensils, prompting a MRI of the cervical spine. Today, she states her coordination is improved as she was able to hold a cup without issue. She has moderate cervical stenosis at C4/5 and severe cervical stenosis at C5/6, no evidence of cord signal change. Given her frequent syncopal episodes (some resulting in falls over the past several months), she is at risk for cervical cord injury with her cervical stenosis. I discussed with her the indications for cervical decompression aimed at preventing future neurologic injury. I counseled her that we need to have a thorough understanding of the etiology of her syncopal episodes and medical clearance for general anesthesia before we can proceed with cervical spine surgery. Her MRI findings are chronic in appearance and do not warrant an urgent intervention. 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 Pts initial evaluation was done by Dr. Bennett Neurosurgeon from . Pt is scheduled for surgery tomorrow. We discussed the goal of surgery is to reduce the risk of further weakness and spinal cord injury. She will need rehab to improve her strength. It can take up to a year to improve from her cervical myelopathy and sometimes the symptoms can be permanent. Pt understands and request we proceed. P: Anterior cervical fusion tomorrow. NPO after midnight Called her brother per her request but was unable to get a hold of him or leave him a message. <Jersey Espinosa - Last Filed: 07/03/18 17:53> - Attending Attestation The exam, history, and the medical decision-making described in the above note were completed with the assistance of the mid-level provider. I reviewed and agree with the findings presented. I attest that I had a [id number] encounter with the patient on the same day, and personally performed and documented my assessment and findings in the medical record. Discussed again with patient treatment options for the C5-6 spinal stenosis including nonsurgical versus surgical management. She requested to proceed with surgery and gives informed consent. Surgery scheduled for tomorrow. Discussed with nursing staff. <Jeremiah Reynolds - Last Filed: 07/03/18 18:55>
[2018-07-04] MEDS: Acetaminophen Inj 650 MG/65 ML VIAL IV.SIG SCH ×2 (04:29→09:35)
[2018-07-04] MEDS ORDERED: Bupivacaine/Epinephrine 0.5% Inj 50 ML Vial ONE (06:49)
[2018-07-04] MEDS ORDERED: Gelatin Size 100 Topical Foam ONE ×2 (06:50→12:34)
[2018-07-04] MEDS ORDERED: Thrombin Topical Soln 5,000 UNIT Vial TOPICAL ONE ×2 (06:56→13:50)
[2018-07-04 07:35] LABS: Calcium 6.9 mg/dL (8.5-10.1); Potassium 4.9 meq/L (3.5-5.1)
[2018-07-04] MEDS: Metoprolol Tartrate 25 MG Tablet PO SCH ×2 (08:20→20:28)
[2018-07-04] MEDS: Ferrous Sulfate 325 MG Tablet PO SCH ×2 (08:20→20:28)
[2018-07-04] MEDS: Sodium Chloride 0.9% 2 ML Flush BID IV.FLUSH SCH ×2 (08:20→20:28)
[2018-07-04 08:28] LABS: Total Protein 4.9 g/dL (6.4-8.2)
[2018-07-04] MEDS ORDERED: Sodium Chlor 0.9% Inj 500 ML IV.CONT ONE (09:45)
[2018-07-04] MEDS ORDERED: Chlorhexidine Gluconate 2% 1 Pack (2 Cloths) TOPICAL ONE (09:45)
[2018-07-04] MEDS ORDERED: Metoprolol Tartrate 25 MG Tablet PO ONE (09:45)
[2018-07-04] MEDS ORDERED: HYDROmorphone PF Inj 2 MG/ML Vial ONE (10:59)
[2018-07-04] MEDS ORDERED: Propofol Inj 500 MG/50 ML Vial ONE (10:59)
[2018-07-04] MEDS ORDERED: Sugammadex Inj 200 MG/2 ML Vial IV.PUSH ONE (11:23)
[2018-07-04] MEDS: Sod Chloride 0.9% Inj 1,000 ML IV.CONT SCH ×2 (12:20→16:10)
[2018-07-04] MEDS ORDERED: Magnesium Sulfate Inj 2 GM in Sodium Chlor 0.9% Inj 96 ML IV.SIG PRN (14:44)
[2018-07-04] MEDS ORDERED: Bisacodyl 10 MG Supp RECTAL PRN (14:44)
[2018-07-04] MEDS ORDERED: Calcium Gluconate Inj 1 GM in Sodium Chlor 0.9% Inj 100 ML IV.SIG PRN (14:44)
[2018-07-04] MEDS ORDERED: Aluminum/Magnesium/Simethacone Susp 30 ML UDC PO PRN (14:44)
[2018-07-04] MEDS ORDERED: Potassium Chlor 20 mEq Premix 20 MEQ/100 ML PIGGYBACK IV.SIG PRN (14:44)
[2018-07-04] MEDS ORDERED: Menthol 5.8 MG Lozenge BUCCAL PRN (14:44)
[2018-07-04] MEDS ORDERED: Phenylephrine/NS 1000 MCG/10ML Syringe IV.PUSH ONE (14:45)
--- NOTE | 2018-07-04 14:55 | P.OP ---
- Preoperative Diagnosis (1) Central spinal cord injury (2) Cervical myelopathy (3) Cervical spinal stenosis Date of procedure: 07/04/18 Procedure: Anterior cervical C5-6 microdiscectomy with interbody fusion; anterior C5 and 6 cervical plate placement; C5 and 6 interbody cage placement; microsurgical technique Anesthesia: ULIA Surgeon: Jeremiah Reynolds MD Commercial Service Technician: Natali Tejada Estimated blood loss (mL): 50 Operation and Findings: Following administration of general endotracheal anesthesia, the patient received a gram of vancomycin and Decadron 10 mg intravenously. Sequential compression devices were placed in supine position on a Sam table and all pressure points adequately padded. The head secured in a donut and anterior cervical region then shaved and prepped with Chloraprep and sterilely draped with Ioban along with the usual sterile draping. A transverse skin incision on the left side of the neck was then made after infiltrating the skin with 0.5% Marcaine with epinephrine solution extending down through the platysma. At the anterior border of the sternocleidomastoid further dissection was undertaken developing a plane between the carotid sheath laterally and the trachea esophagus medially. The prevertebral fascia was exposed and dissected out. The medial attachments of the longus colli muscles were detached and a self- retaining retractor used for exposure. The C5-6 disc space was localized with a marking the disc space and using lateral fluoroscopy. [place] distraction screws 14 mm length were placed one in the C5 and one in the C6 body interbody distraction and exposure. There was significant disc degeneration with disc height collapse and anterior osteophytes noted at the C5-6 level and the osteophytes were resected with a Leksell and annulus incised with a 15 blade and further dissection undertaken using microtechnique with microscope magnification. Diskectomy was undertaken with pituitaries and the endplates were also decorticated with curettes and drill bit. And more posteriorly there was disk osteophyte complex compressing the thecal sac along with a significant uncovertebral joint hypertrophy with significant thecal sac stenosis especially on the left side of the large posterior osteophytes as well as foraminal stenosis which was decompressed along with removal of the posterior longitudinal ligament. The foramen was decompressed bilaterally using a Kerrison 's and palpation with a nerve hook, the exiting nerve roots were felt to be free. The area was then copiously irrigated. I then placed a Peek cage packed with local autograft bone at the C5-6 interspace under fluoroscopy guidance. [place] distraction pins were removed and the holes plugged with Gelfoam for hemostasis. In order to facilitate the fusion and provide stabilization, a Precision spine cervical Uniplate was then placed with 16mm mm variable angle screws in the C5 body and 16 mm fixed angle screw in the C6 body. The plate screw locking mechanism was then engaged. AP and lateral fluoroscopy confirmed good placement of the construct and the retractor was then removed. Muscular bleeding points were cauterized with bipolar cautery and Gelfoam was then also used for hemostasis which was removed. The platysma was then approximated using 3-0 Vicryl interrupted stitches and 3-0 Vicryl subcuticular stitch also placed in an interrupted fashion, and final skin closure was with Mastisol and Steri- Strips. Sterile dressing was then applied. Cervical spine immobilized in a [place] collar. The patient was then extubated and taken to the recovery room. There are no intraoperative complications and all sponge and needle counts were correct at the end of procedure. Estimated blood loss was about 50 cc. The patient did undergo intraoperative neurologic monitoring which remained stable throughout the surgery.
[2018-07-04] MEDS ORDERED: fentaNYL Citrate Inj 100 MCG/2 ML Ampul ONE (15:08)
--- NOTE | 2018-07-04 15:16 | ECG ---
Date Performed: 07/04/2018 Time Performed: 08:45:58 PTAGE: 73 years EKG: Normal Sinus rhythm with premature ventricular contractions. Poor R wave progression - probable normal variant Anterosep suleiman T wave changes are nonspecific Low QRS voltages in precordial leads Abnormal ECG PREVIOUS TRACING : 06/07/2018 09.19 Compared to previous tracing, PVC's are new and the PAC's h ave resolved. There is othwerwise no signnificant serial changes. DOCTOR: Tg Mac Interpretating Date/Time 07/04/2018 15:13:16
[2018-07-04] MEDS ORDERED: *morphine SULFATE 10 MG/ML PERIprocedure ONLY ONE (15:26)
[2018-07-04 15:32] LABS: Baso % (Auto) 0.1 % (0.0-2.0); Hematocrit 30.1 % (35.0-46.0); Hemoglobin 10.7 gm/dL (11.6-15.3); Lymph # (Auto) 0.5 th/mm3 (1.0-4.8); Mean Corpuscular HGB Conc 35.5 % (32.0-36.0); Mean Corpuscular Hemoglobin 33.8 pg (27.0-34.0); Mean Corpuscular Volume 95.2 fL (80.0-100.0); Mean Platelet Volume 8.3 fL (7.0-11.0); Mono # (Auto) 0.2 th/mm3 (0.0-0.9); Neut # (Auto) 3.5 th/mm3 (1.8-7.7); Neut % (Auto) 81.9 % (16.0-70.0); Platelet Count 311 th/mm3 (150-450); Red Blood Count 3.16 mil/mm3 (4.00-5.30); Red Cell Distribution Width 19.2 % (11.6-17.2); White Blood Count 4.2 th/mm3 (4.0-11.0)
[2018-07-04] MEDS: Pantoprazole Inj 40 MG Vial IV.PUSH SCH (15:42)
[2018-07-04 16:08] LABS: Calcium 6.1 mg/dL (8.5-10.1); Magnesium 2.1 mg/dL (1.5-2.5); Potassium 4.6 meq/L (3.5-5.1)
--- NOTE | 2018-07-04 16:16 | P.PN ---
Subjective Interval history: Patient off the floor for Anterior cervical C5-6 microdiscectomy with interbody fusion; anterior C5 and 6 cervical plate placement; C5 and 6 interbody cage placement; microsurgical technique with Dr. Reynolds - will see tomorrow Physical Exam Vital signs: Vital Signs 07/03/18 17:00 07/03/18 18:02 07/03/18 20:00 Temperature 97.7 F Pulse Rate 90 99 H 106 H Respiratory Rate 18 Blood Pressure 133/76 Pulse Oximetry 97 07/03/18 21:00 07/03/18 22:00 07/03/18 23:00 Temperature Pulse Rate 104 H 94 H 92 H Respiratory Rate Blood Pressure Pulse Oximetry 07/04/18 00:00 07/04/18 01:00 07/04/18 02:00 Temperature 97.8 F Pulse Rate 94 H 86 80 Respiratory Rate 18 Blood Pressure 130/81 Pulse Oximetry 97 07/04/18 04:00 07/04/18 05:00 07/04/18 06:00 Temperature 98.0 F Pulse Rate 82 81 Respiratory Rate 18 20 Blood Pressure 119/65 Pulse Oximetry 98 07/04/18 07:00 07/04/18 08:00 07/04/18 09:07 Temperature 97.7 F Pulse Rate 90 90 92 H Respiratory Rate 18 Blood Pressure 122/77 Pulse Oximetry 7 L Intake & Output 07/03/18 07/04/18 07/04/18 18:59 06:59 18:59 Intake Total 1065 / 1065 1310 / 1310 2665 / 2665 Output Total 600 / 600 1650 / 1650 Balance 1065 / 1065 710 / 710 1015 / 1015 Weight 98 kg 98 kg Intake: IV 1065 / 1065 1130 / 1130 1065 / 1065 NS Inj 1,000 ML @ 100 mls/hr IV 1000 / 1000 1000 / 1000 1000 / 1000 .CONT .Q10H [facility] Rx#:[id number] Ofirmev Inj 650 mg In 65 ml @ 65 / 65 130 / 130 65 / 65 400 mls/hr IV.SIG Q6H [facility] Rx#: [id number] Oral 180 / 180 Anesthesia Amount 1600 / 1600 Output: Estimated Blood Loss 50 / 50 Urine Amount (Catheter) 600 / 600 1600 / 1600 Indwelling Urethral Catheter 600 / 600 1600 / 1600 Other: # Voids 6 Date of Last Bowel Movement 07/02/18 07/03/18 07/03/18 # Incontinent Bowel Movements 1 - Urinary Catheter Management Indwelling Urethral Catheter Cath placed during this visit: yes Reason for continuing: Terminally ill/Comfort care Insertion date: 07/03/18 Insertion time: 15:30 Results - Labs CBC & Chem 7: 07/04/18 15:15 07/04/18 15:15 Laboratory Results - last 24 hr 07/04/18 07/04/18 07/04/18 05:08 15:15 15:15 WBC 4.2 RBC 3.16 L Hgb 10.7 L Hct 30.1 L MCV 95.2 MCH 33.8 MCHC 35.5 RDW 19.2 H Plt Count 311 MPV 8.3 Neut % (Auto) 81.9 H Lymph % (Auto) 13.0 [place] % (Auto) 5.0 Eos % (Auto) 0.0 Baso % (Auto) 0.1 Neut # (Auto) 3.5 Lymph # (Auto) 0.5 L [place] # (Auto) 0.2 Eos # (Auto) 0.0 Baso # (Auto) 0.0 WBC Differential . Differential Comment Auto diff final Sodium 138 139 Potassium 4.9 4.6 Chloride 105 103 Carbon Dioxide 23.0 22.0 Anion Gap 10 14 BUN 28 H 23 H Creatinine 0.93 0.70 Estimated GFR 59 L 82 L Random Glucose 75 67 L Calcium 6.9 L* 6.1 L* D Prot Corrected Calcium 8.1 L Magnesium 2.1 Total Protein 4.9 L Assessment and Plan - Assessment (1) DVT (deep venous thrombosis) Code(s): I82.409 - Acute embolism and thrombosis of unspecified deep veins of unspecified lower extremity Status: Acute (2) Esophagitis Code(s): K20.9 - Esophagitis, unspecified Status: Acute (3) Hypokalemia Code(s): E87.6 - Hypokalemia Status: Acute - Attending Attestation Patient examined. Assessment and plan formulated with Shahla BEE I agree with the above.
[2018-07-04 16:20] LABS: Total Protein 4.6 g/dL (6.4-8.2)
[2018-07-04] MEDS ORDERED: Vancomycin Inj 1,000 MG in Sodium Chlor 0.9% Inj 250 ML IV.SIG SCH (19:00)
[2018-07-04] MEDS: Senna/Docusate Sodium 8.6/50 MG Tablet PO SCH (20:28)
--- NOTE | 2018-07-04 21:36 | XR ---
EXAM DATE: 07/04/2018 12:00 AM EDT AGE/SEX: 73 years / Female INDICATIONS: Anterior cervical fusion C5-C6. CLINICAL DATA: This is the patient's initial encounter. Patient reports that signs and symptoms have been present for 1 day and indicates a pain score of Nonresponsive. MEDICAL/SURGICAL HISTORY: Non-responsive. Non-responsive. COMPARISON: No prior exams available for comparison. FINDINGS: Spot films reveal anterior fusion across C5-6. Normal alignment. No complications identified on limit ed spot film. CONCLUSION: Fusion C5-6 as above. Electronically signed by: Ran Gaitan MD 07/04/2018 9:34 PM EDT
[2018-07-05] MEDS: Vancomycin Inj 1,000 MG in Sodium Chlor 0.9% Inj 250 ML IV.SIG SCH ×2 (00:12→11:55)
[2018-07-05] MEDS: Morphine Sulfate Inj 2 MG/ML Vial IV.PUSH PRN ×2 (00:12→23:17)
[2018-07-05] MEDS: Sod Chloride 0.9% Inj 1,000 ML IV.CONT SCH ×2 (03:50→10:55)
[2018-07-05] MEDS: Senna/Docusate Sodium 8.6/50 MG Tablet PO SCH ×2 (09:27→20:05)
[2018-07-05] MEDS: Metoprolol Tartrate 25 MG Tablet PO SCH ×2 (09:27→20:05)
[2018-07-05] MEDS: Ferrous Sulfate 325 MG Tablet PO SCH ×2 (09:27→20:05)
[2018-07-05] MEDS: Sodium Chloride 0.9% 2 ML Flush BID IV.FLUSH SCH ×2 (09:27→20:05)
[2018-07-05] MEDS: Pantoprazole Inj 40 MG Vial IV.PUSH SCH ×2 (11:45)
--- NOTE | 2018-07-05 12:19 | P.PNIM ---
Subjective Interval history: Pain is controlled. Pt with some confusion. Pt did NOT know that she had already had laminectomy or why she was wearing a cervical collar. Pt agrees that she has more strength in wrists and hands today. Physical Exam Vital signs: 07/05/18 08:00 Temperature 97.5 F L Pulse Rate 104 H Respiratory Rate 18 Blood Pressure 109/67 Pulse Oximetry 99 Narrative: General: NAD, AAOx3 Cardiac: Regular Chest: CTA Abd: +BS, soft, NT/ND Ext: No edema. Pt with increased strength, coordination of hands/wrists compared to before surgery. - Urinary Catheter Management Indwelling Urethral Catheter Cath placed during this visit: yes Reason for continuing: Terminally ill/Comfort care Insertion date: 07/03/18 Insertion time: 15:30 Results - Labs CBC & Chem 7: 07/08/18 03:29 07/08/18 03:13 - Imaging Venous Doppler Study 06/23/18 21:52 1. Positive for nonocclusive deep venous thrombosis in the left superficial femoral vein. Chest CTA 06/24/18 00:00 This study is negative for pulmonary embolism. Cervical Spine MRI 06/28/18 00:00 1. Degenerative changes are noted most pronounced at C5-6 where severe canal stenosis is seen. Myocardial Perfusion Scan Nuc Med 07/02/18 00:00 1. No left ventricle perfusion abnormality is identified. 2. Normal left ventricle ejection fraction and wall motion. IVC Filter Placement X-Ray 07/03/18 00:00 1. Uncomplicated inferior vena cava filter placement as above. Cervical Spine X-Ray 07/04/18 00:00 Fusion C5-6 as above. Assessment and Plan - Assessment (1) DVT (deep venous thrombosis) Code(s): I82.409 - Acute embolism and thrombosis of unspecified deep veins of unspecified lower extremity Status: Acute Plan: Left leg superficial femoral DVT Syncope with PT on 06/24, 06/25, 06/26. Hypotension to 70s noted Symptomatic anemia from recent UGIB from n/v and severe erosive esophagitis - Pts heparin gtt was stopped and she was started on Eliquis on 06/27/18. No bleeding noted with heparin - Pt s/p 2units prbc 06/26 - Cont Protonix 40mg BID - Advised nursing to monitor for signs of bleeding. - Diet was advanced to soft diet - H/H stable at this time - Repeat labs in AM - Transfuse PRBCs prn for symptomatic anemia - If she has bleeding then might need hematology consult or filter. 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 Hands weak with radicular complaints - Cont. IV Decadron 4mg Q6H - MRI C-spine (06/28/18): - C4-C5: A diffuse disc bulge is seen eccentric to the left abutting the cord with mild ventral flattening of the cord surface and moderate canal stenosis. There is uncovertebral hypertrophy suspected and moderate bilateral foraminal narrowing. - C5-C6: A diffuse disc osteophyte complex is noted. There is uncovertebral hypertrophy and severe left greater than right foraminal stenosis, and severe canal stenosis with cord compression. This is slightly eccentric to the left. - C6-C7: There is mild canal narrowing secondary to a diffuse disc osteophyte complex. Mild bilateral foraminal narrowing secondary to uncovertebral hypertrophy and facet hypertrophy. - Pt is currently on anticoagulation for nonocclusive DVT. - Appreciate Neurosurgery evaluation. - 07/01 Dr. La discussed the case with [facility]. Patient would like to proceed with neurosurgery. Stop Eliquis and start Lovenox. Then consult IR to place IVC filter. Neurosurgery also requesting cardiology clearance. - Eliquis stopped 07/01 - Lovenox 100 mg Q12H to start 07/02 then put on hold 07/03 0000 - Consult placed to Cardiology. Case discussed with Dr. Segura who recommends pre-op Lexiscan, echocardiogram and start metoprolol. - Lexiscan (07/02/18) 1. No left ventricle perfusion abnormality is identified. 2. Normal left ventricle ejection fraction and wall motion. - transthoracic Echocardiogram (07/02/18) Normal left ventricular size. Wall thickness is normal. The left ventricular systolic function is normal with an estimated ejection fraction in the range of 60-65%. No definite regional wall motion abnormalities are present. Mild thickening of the aortic valve leaflets. Trace aortic valve regurgitation. There is trace tricuspid valve regurgitation. The estimated pulmonary arterial pressure is 30 mmHg. - s/p Permanent IVC Filter 07/03/[address] Stock - Neurosurgical Procedure with Dr. Jeremiah Reynolds (07/04/18) - Anterior cervical C5-6 microdiscectomy with interbody fusion; - anterior C5 and 6 cervical plate placement - C5 and 6 interbody cage placement; microsurgical technique - Cont. PT and OT - decadron - lovenox 30mg SUBQ daily. Would like to resume full anticoagulation on Saturday07/07/18 RE: recent DVT, if okay with NSX. Will d/w NSX. - Pt will need continued therapy at SNF at the conclusion of this hospitalization. Hyperkalemia potassium 5.2 (07/03) stop supplemental potassium recheck in AM Recent pneumatosis coli and ileus (2) Esophagitis Code(s): K20.9 - Esophagitis, unspecified Status: Acute (3) Hypokalemia Code(s): E87.6 - Hypokalemia Status: Acute
--- NOTE | 2018-07-05 16:38 | P.PNNS ---
Subjective Interval history: No acute events overnight. Physical Exam Vital signs: Vital Signs 07/04/18 17:00 07/04/18 17:24 07/04/18 17:29 Temperature Pulse Rate 92 H 87 Respiratory Rate 16 Blood Pressure 127/60 Pulse Oximetry 99 97 07/04/18 17:31 07/04/18 20:00 07/04/18 23:00 Temperature 97.3 F L 97.4 F L Pulse Rate 95 H 96 H Respiratory Rate 16 19 18 Blood Pressure 116/69 118/71 Pulse Oximetry 100 100 07/05/18 00:00 07/05/18 04:00 07/05/18 08:00 Temperature 97.7 F 97.5 F L 97.5 F L Pulse Rate 101 H 107 H 104 H Respiratory Rate 16 16 18 Blood Pressure 118/63 126/80 109/67 Pulse Oximetry 100 100 99 07/05/18 12:00 Temperature 98 F Pulse Rate 95 H Respiratory Rate 18 Blood Pressure 119/63 Pulse Oximetry 96 Intake & Output 07/04/18 07/05/18 07/05/18 18:59 06:59 18:59 Intake Total 2775 / 2775 250 / 250 1250 / 1250 Output Total 1650 / 1650 850 / 850 Balance 1125 / 1125 -600 / -600 1250 / 1250 Weight 98 kg 99.5 kg Intake: IV 1175 / 1175 250 / 250 1250 / 1250 NS Inj 1,000 ML @ 100 mls/hr IV 1000 / 1000 1000 / 1000 .CONT .Q10H SEB Rx#:[id number] Ofirmev Inj 650 mg In 65 ml @ 65 / 65 400 mls/hr IV.SIG Q6H SEB Rx#: [id number] Calcium Gluconate Inj 1 GM In 110 / 110 NS Inj 100 ML @ 110 mls/hr IV. SIG UNSCH PRN Rx#:[id number] Vancomycin Inj 1,000 MG In NS 250 / 250 250 / 250 Inj 250 ML @ 250 mls/hr IV.SIG Q12H SEB Rx#:[id number] Anesthesia Amount 1600 / 1600 Output: Urine 850 / 850 Estimated Blood Loss 50 / 50 Urine Amount (Catheter) 1600 / 1600 Indwelling Urethral Catheter 1600 / 1600 Other: Date of Last Bowel Movement 07/03/18 # Bowel Movements 1 Narrative: Opens eyes spontaneously Alert and oriented to self, place PERRL Motor exam: 4+/5 bilateral deltoids 4/5 bilateral triceps, biceps 4+/5 left soccer referee, hand intrinsics 4-/5 right soccer referee, hand intrinsics 4+/5 bilateral iliopsoas, quadriceps, gastroc, tibialis anterior, EHL - Urinary Catheter Management Indwelling Urethral Catheter Cath placed during this visit: yes Reason for continuing: Terminally ill/Comfort care Insertion date: 07/03/18 Insertion time: 15:30 Assessment and Plan - Plan Ms. Hart is a 73 y/o female with multiple medical issues (esophagitis, DVT, syncope) who presented with signs and symptoms of cervical myelopathy s/p C5/[address] Reynolds on 07/04/18. Neurologically stable post-operatively. P: Neurologically stable. Maintain cervical collar. Pain control. PT/OT OOB
[2018-07-06] MEDS: Sod Chloride 0.9% Inj 1,000 ML IV.CONT SCH ×4 (02:58→11:42)
[2018-07-06] MEDS: Pantoprazole Inj 40 MG Vial IV.PUSH SCH ×2 (03:00→11:34)
[2018-07-06] MEDS: Morphine Sulfate Inj 2 MG/ML Vial IV.PUSH PRN ×4 (05:09→17:33)
[2018-07-06] MEDS: Senna/Docusate Sodium 8.6/50 MG Tablet PO SCH ×3 (07:38→20:50)
[2018-07-06] MEDS: Metoprolol Tartrate 25 MG Tablet PO SCH ×3 (07:38→20:49)
[2018-07-06] MEDS: Ferrous Sulfate 325 MG Tablet PO SCH ×3 (07:38→20:50)
[2018-07-06] MEDS: Sodium Chloride 0.9% 2 ML Flush BID IV.FLUSH SCH ×2 (09:47→20:50)
--- NOTE | 2018-07-06 11:07 | P.PNIM ---
Subjective Interval history: Follow up: Left leg superficial femoral DVT, recurrent syncope with PT on 06/24, 06/25, 06/26, Hypotension to 70s noted, Symptomatic anemia from recent UGIB from n /v and severe erosive esophagitis, Bilateral upper extremity/hand weakness and C5/6 disc osteophyte complex/severe foraminal stenosis/severe canal stenosis with cord compression Patient resting in bed with Cervical collar in place Patient A&O x 3 at the time of my evaluation, but per nursing has had periods of confusion Patient feels that hand strength and coordination has improved after C5/[address] Reynolds on 07/04/18 Physical Exam Vital signs: Vital Signs 07/05/18 12:00 07/05/18 16:00 07/05/18 19:04 Temperature 98 F 98 F Pulse Rate 95 H 98 H Respiratory Rate 18 20 16 Blood Pressure 119/63 120/67 Pulse Oximetry 96 99 07/05/18 19:23 07/05/18 20:00 07/06/18 00:00 Temperature 98.1 F 97.9 F Pulse Rate 102 H 103 H Respiratory Rate 20 17 Blood Pressure 133/66 105/65 Pulse Oximetry 96 98 98 07/06/18 02:00 07/06/18 04:00 07/06/18 07:45 Temperature 97.5 F L 97.9 F Pulse Rate 104 H 98 H Respiratory Rate 17 17 16 Blood Pressure 119/62 117/66 Pulse Oximetry 98 97 07/06/18 07:56 Temperature Pulse Rate Respiratory Rate Blood Pressure Pulse Oximetry 95 Intake & Output 07/05/18 07/06/18 07/06/18 18:59 06:59 18:59 Intake Total 1250 / 1250 2180 / 2180 Output Total 350 / 350 Balance 1250 / 1250 1830 / 1830 Weight 99.5 kg Intake: IV 1250 / 1250 2000 / 1999 NS Inj 1,000 ML @ 100 mls/hr IV 1000 / 1000 1000 / 1000 .CONT .Q10H SEB Rx#:[id number] Vancomycin Inj 1,000 MG In NS 250 / 250 Inj 250 ML @ 250 mls/hr IV.SIG Q12H SEB Rx#:[id number] Oral 180 / 180 Output: Urine 350 / 350 Other: Date of Last Bowel Movement 07/05/18 07/05/18 Narrative: General: NAD, Cardiac: Regular Chest: CTA Abd: +BS, soft, NT/ND Ext: bilateral upper and lower extremity edema 2-3+ Pt with increased strength, coordination of hands/wrists compared to before surgery. Nuero: A&O x 3 at the time of my evaluation, but per nursing has had periods of confusion - Urinary Catheter Management Indwelling Urethral Catheter Cath placed during this visit: yes Reason for continuing: Other continuation reason Insertion date: 07/03/18 Insertion time: 15:30 Results - Labs CBC & Chem 7: 07/04/18 15:15 07/04/18 15:15 Assessment and Plan - Assessment (1) DVT (deep venous thrombosis) Code(s): I82.409 - Acute embolism and thrombosis of unspecified deep veins of unspecified lower extremity Status: Acute Plan: Left leg superficial femoral DVT Syncope with PT on 06/24, 06/25, 06/26. Hypotension to 70s noted Symptomatic anemia from recent UGIB from n/v and severe erosive esophagitis - Pts heparin gtt was stopped and she was started on Eliquis on 06/27/18. No bleeding noted with heparin - Pt s/p 2units prbc 06/26 - Cont Protonix 40mg BID - Advised nursing to monitor for signs of bleeding. - Diet was advanced to soft diet - H/H stable at this time - Repeat labs in AM - Transfuse PRBCs prn for symptomatic anemia - If she has bleeding then might need hematology consult or filter. 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 Hands weak with radicular complaints - Cont. IV Decadron 4mg Q6H - MRI C-spine (06/28/18): - C4-C5: A diffuse disc bulge is seen eccentric to the left abutting the cord with mild ventral flattening of the cord surface and moderate canal stenosis. There is uncovertebral hypertrophy suspected and moderate bilateral foraminal narrowing. - C5-C6: A diffuse disc osteophyte complex is noted. There is uncovertebral hypertrophy and severe left greater than right foraminal stenosis, and severe canal stenosis with cord compression. This is slightly eccentric to the left. - C6-C7: There is mild canal narrowing secondary to a diffuse disc osteophyte complex. Mild bilateral foraminal narrowing secondary to uncovertebral hypertrophy and facet hypertrophy. - Pt is currently on anticoagulation for nonocclusive DVT. - Appreciate Neurosurgery evaluation. - 07/01 Dr. La discussed the case with [facility]. Patient would like to proceed with neurosurgery. Stop Eliquis and start Lovenox. Then consult IR to place IVC filter. Neurosurgery also requesting cardiology clearance. - Eliquis stopped 07/01 - Lovenox 100 mg Q12H to start 07/02 then put on hold 07/03 0000 - Consult placed to Cardiology. Case discussed with Dr. Segura who recommends pre-op Lexiscan, echocardiogram and start metoprolol. - Lexiscan (07/02/18) 1. No left ventricle perfusion abnormality is identified. 2. Normal left ventricle ejection fraction and wall motion. - transthoracic Echocardiogram (07/02/18) Normal left ventricular size. Wall thickness is normal. The left ventricular systolic function is normal with an estimated ejection fraction in the range of 60-65%. No definite regional wall motion abnormalities are present. Mild thickening of the aortic valve leaflets. Trace aortic valve regurgitation. There is trace tricuspid valve regurgitation. The estimated pulmonary arterial pressure is 30 mmHg. - s/p Permanent IVC Filter 07/03/[address] Stock - Neurosurgical Procedure with Dr. Jeremiah Reynolds (07/04/18) - Anterior cervical C5-6 microdiscectomy with interbody fusion; - anterior C5 and 6 cervical plate placement - C5 and 6 interbody cage placement; microsurgical technique - Cont. PT and OT - decadron - lovenox 30mg SUBQ daily. Would like to resume full anticoagulation (Eliquis vs Lovenox) on Saturday RE: recent DVT, if okay with NSX. Will d/w NSX. - Pt will need continued therapy at SNF at the conclusion of this hospitalization. - Lasix 80 mg x 1 now then lasix 40 mg IV BID with potassium - recheck labs including albumin in AM - DC IVFs Hyperkalemia potassium 5.2 (07/03) stop supplemental potassium recheck in AM Recent pneumatosis coli and ileus (2) Esophagitis Code(s): K20.9 - Esophagitis, unspecified Status: Acute (3) Hypokalemia Code(s): E87.6 - Hypokalemia Status: Acute - Attending Attestation Patient examined. Assessment and plan formulated with Shahla Ag PA-C. I agree with the above. A&Ox3 diffuse edema stop IVF start lasix 80mgIV now, and then 40mg IV BID repeat BMP/mag in AM
--- NOTE | 2018-07-06 11:28 | P.PNNS ---
Subjective Interval history: No acute events overnight. Physical Exam Vital signs: Vital Signs 07/05/18 12:00 07/05/18 16:00 07/05/18 19:04 Temperature 98 F 98 F Pulse Rate 95 H 98 H Respiratory Rate 18 20 16 Blood Pressure 119/63 120/67 Pulse Oximetry 96 99 07/05/18 19:23 07/05/18 20:00 07/06/18 00:00 Temperature 98.1 F 97.9 F Pulse Rate 102 H 103 H Respiratory Rate 20 17 Blood Pressure 133/66 105/65 Pulse Oximetry 96 98 98 07/06/18 02:00 07/06/18 04:00 07/06/18 07:45 Temperature 97.5 F L 97.9 F Pulse Rate 104 H 98 H Respiratory Rate 17 17 16 Blood Pressure 119/62 117/66 Pulse Oximetry 98 97 07/06/18 07:56 Temperature Pulse Rate Respiratory Rate Blood Pressure Pulse Oximetry 95 Intake & Output 07/05/18 07/06/18 07/06/18 18:59 06:59 18:59 Intake Total 1250 / 1250 2180 / 2180 Output Total 350 / 350 Balance 1250 / 1250 1830 / 1830 Weight 99.5 kg Intake: IV 1250 / 1250 2000 / 2000 NS Inj 1,000 ML @ 100 mls/hr IV 1000 / 1000 1000 / 1000 .CONT .Q10H SEB Rx#:[id number] Vancomycin Inj 1,000 MG In NS 250 / 250 Inj 250 ML @ 250 mls/hr IV.SIG Q12H SEB Rx#:[id number] Oral 180 / 180 Output: Urine 350 / 350 Other: Date of Last Bowel Movement 07/05/18 07/05/18 Narrative: Opens eyes to voice Alert and oriented to self Motor exam: 4+/5 bilateral deltoids 4/5 bilateral triceps, biceps 4+/5 left entry operator, hand intrinsics 4-/5 right entry operator, hand intrinsics 4+/5 bilateral iliopsoas, quadriceps, gastroc, tibialis anterior, EHL - Urinary Catheter Management Indwelling Urethral Catheter Cath placed during this visit: yes Reason for continuing: Other continuation reason Insertion date: 07/03/18 Insertion time: 15:30 Assessment and Plan - Plan Ms. Hart is a 73 y/o female with multiple medical issues (esophagitis, DVT, syncope) who presented with signs and symptoms of cervical myelopathy s/p C5/[address] Reynolds on 07/04/18. Neurologically stable post-operatively. P: Neurologically stable. Maintain cervical collar. Pain control. PT/OT OOB
[2018-07-06] MEDS ORDERED: Enoxaparin Inj 30 MG/0.3 ML Syringe SQ SCH (21:00)
[2018-07-07] MEDS: Pantoprazole Inj 40 MG Vial IV.PUSH SCH (00:48)
[2018-07-07] MEDS: Morphine Sulfate Inj 2 MG/ML Vial IV.PUSH PRN (03:37)
[2018-07-07] MEDS ORDERED: Midazolam Inj 5 MG/ML 1 ML Vial ONE (06:36)
[2018-07-07] MEDS ORDERED: Sodium Bicarbonate 8.4% Inj 50 MEQ/50 ML Syringe ONE ×2 (06:56→08:49)
[2018-07-07 06:58] LABS: VBG Base Excess -16.4 mmol/L (-2-2); VBG Blood Gas Oxygen Content 9.4 Vol % (9.0-17.0); VBG PCO2 49 mmHG (44-48); VBG PH 7.03 (7.360-7.400); VBG PO2 55 mmHG (35-40)
[2018-07-07] MEDS ORDERED: Sodium Chlor 0.9% Inj 500 ML IV.SIG ONE (07:00)
[2018-07-07] MEDS ORDERED: Norepinephrine Inj 4 MG in Sodium Chlor 0.9% Inj 246 ML IV.SIG PRN (07:14)
[2018-07-07 07:21] LABS: Baso % (Auto) 0.1 % (0.0-2.0); Eos % (Auto) 0.2 % (0.0-4.0); Hematocrit 32.6 % (35.0-46.0); Hemoglobin 10.1 gm/dL (11.6-15.3); Lymph # (Auto) 0.9 th/mm3 (1.0-4.8); Lymph % (Auto) 11.2 % (9.0-44.0); Mean Corpuscular Hemoglobin 31.6 pg (27.0-34.0); Mean Corpuscular Volume 102.1 fL (80.0-100.0); Mean Platelet Volume 8.3 fL (7.0-11.0); Mono # (Auto) 0.1 th/mm3 (0.0-0.9); Mono % (Auto) 0.9 % (0.0-8.0); Neut # (Auto) 7.4 th/mm3 (1.8-7.7); Neut % (Auto) 87.6 % (16.0-70.0); Platelet Count 308 th/mm3 (150-450); Red Blood Count 3.19 mil/mm3 (4.00-5.30); Red Cell Distribution Width 18.8 % (11.6-17.2); White Blood Count 8.4 th/mm3 (4.0-11.0)
[2018-07-07 07:35] LABS: Magnesium 1.9 mg/dL (1.5-2.5); Phosphorus 4.9 mg/dL (2.5-4.9)
[2018-07-07 07:39] LABS: Calcium 6.6 mg/dL (8.5-10.1); Carbon Dioxide 11.9 meq/L (21.0-32.0); Potassium 3.5 meq/L (3.5-5.1)
[2018-07-07 07:54] LABS: Total Protein 4.2 g/dL (6.4-8.2)
--- NOTE | 2018-07-07 07:57 | XR ---
EXAM DATE: 07/07/2018 12:00 AM EDT AGE/SEX: 73 years / Female INDICATIONS: Evaluate central line and et tube placement. CLINICAL DATA: This is the patient's subsequent encounter. Patient reports that signs and symptoms h ave been present for 1 month and indicates a pain score of Nonresponsive. MEDICAL/SURGICAL HISTORY: None. Tonsillectomy. COMPARISON: [facility] [place], CHEST 1V SINGLE AP, 06/07/2018. . FINDINGS: Support apparatus in good position. Nasogastric tube across the GE junction. The heart and pulmonary vascularity are normal. The portion of the bony skeleton visualized is unremarkable. Free intraperitoneal air can't be entirely excluded. CONCLUSION: Support apparatus in good position. Decubitus pending to exclude free air. Electronically signed by: Zeke Gutierres MD 07/07/2018 7:56 AM EDT
--- NOTE | 2018-07-07 08:04 | P.CONCC ---
History of Present Illness Consult date: 07/07/18 Reason for Consult: Hypovolemic shock, respiratory arrest Primary Care Provider: UNKNOWN Chief Complaint: CODE BLUE History of Present Illness: This 73-year-old woman 3 days status post cervical spine decompressive surgery for bilateral arm radiculopathy was found in bed this morning unresponsive. A CODE BLUE was called. On my arrival the woman was mottled and poorly perfused. She had agonal respirations and we started bag mask ventilation immediately. She was in a sinus tachycardia with frequent premature beats. Blood pressure could not be obtained by cough but she was making agonal respiratory efforts. Under bag mask ventilations I transported her with the team rapidly to the [facility] where she was immediately intubated mechanical ventilation was instituted. Pressure support was obtained with intravenous levo fed at 20 mcg/min. Initial venous pH to the central circulation revealed pH 7.05 and a calculated bicarb of 14. Her room on the floor had a pungent smell consistent with gastrointestinal hemorrhage. She has a history of erosive gastritis and has bled in the past. Significant his recent treatment with Pradaxa for a nonocclusive venous thrombosis in 1 of the lower extremities. She has not had a pulmonary embolism by prior evaluation. She has been on DVT prophylaxis Lovenox for the past several days following her surgery. At this time the woman is in profound shock and undergoing resuscitation. The presumptive diagnosis is gastrointestinal Review of Systems Unobtainable, patient unresponsive, no family. [facility] - History History Provided By: Patient - Medical History Medical History: Medical History (Last Reviewed 07/07/18 @ 07:47 by Sharla Jenkins) Ileus Iron deficiency anemia GERD (gastroesophageal reflux disease) GI bleed Hyperosmolality and hypernatremia Hypokalemia Sepsis UTI (urinary tract infection) - Surgical History Surgical History: Surgical History (Last Reviewed 07/07/18 @ 07:37 by Vicky Shannon) Hx of tonsillectomy - Tobacco History Second Hand Smoke Exposure: No (quit smoking in high school) Tobacco Use In Past 30 Days: No Smoking Status: Former smoker Tobacco Type: Cigarettes - Alcohol History How Often Do You Have a Drink Containing Alcohol: Monthly or less - Substance Use History Substance History: No History of Abuse - Travel History Recent Travel in the [facility] Within the Last 8 Weeks: No Recent Travel Out of the Country Within the Last 8 Weeks: No - Immunization History Tetanus Immunization: <5 Years Hx Influenza Vaccine This Season: Yes Medications and Allergies Active Medications: Active Medications Acetaminophen (Tylenol) 650 mg PO Q4H PRN PRN Reason: pain 1-2, fever Last Admin: 07/07/18 06:06 Dose: 650 mg Hydrocodone Bitart/Acetaminophen (Flomot 10/325) 1 tab PO Q4H PRN PRN Reason: Pain Scale 1 To 5 Last Admin: 07/05/18 17:57 Dose: 1 tab Hydrocodone Bitart/Acetaminophen (Flomot 10/325) 2 tab PO Q4H PRN PRN Reason: PAIN SCALE 6 TO 10 Last Admin: 07/07/18 02:21 Dose: 2 tab Al Hydrox/Mg Hydrox/Simethicone (Mag-Al Plus Susp Liq) 30 ml PO Q6H PRN PRN Reason: DYSPEPSIA Al Hydroxide/Mg Hydroxide (Milk Of Magnesia Liq) 30 ml PO Q12H PRN PRN Reason: Mild Constipation Albuterol (Albuterol Neb (Prn)) 2.5 mg NEB Q4HR NEB PRN PRN Reason: WHEEZING Albuterol (Duoneb Neb (Prn)) 1 ampul NEB Q4HR NEB PRN PRN Reason: SHORTNESS OF BREATH Bisacodyl (Dulcolax Supp) 10 mg RECTAL DAILY PRN PRN Reason: SEVERE CONSITIPATION Chlorhexidine Gluconate (Chlorhexidine 2% Cloth) 3 pack TOPICAL DAILY@0400 [facility] Stop: 07/13/18 03:59 Chlorhexidine Gluconate (Chlorhexidine 2% Cloth) 3 pack TOPICAL DAILY@0400 PRN PRN Reason: Extra cloth needed Stop: 07/13/18 03:59 Clonidine HCl (Catapres) 0.1 mg NG/OG Q6H PRN PRN Reason: SYS BP GREATER THAN 170 MMHG Ferrous Sulfate (Ferosul) 325 mg PO BID [facility] Last Admin: 07/06/18 20:50 Dose: 325 mg Furosemide (Lasix Inj) 40 mg IV.PUSH BID@0900,1800 [facility] Last Admin: 07/06/18 17:33 Dose: 40 mg Magnesium Sulfate 2 gm/ Sodium (Chloride) 100 mls @ 100 mls/hr IV.SIG UNSCH PRN PRN Reason: MAGNESIUM LESS THAN 2 Potassium Chloride (Kcl 20 Meq Premix Inj) 20 meq in 100 mls @ 50 mls/hr IV.SIG UNSCH PRN PRN Reason: POTASSIUM LESS THAN 4 Calcium Gluconate 1 gm/ Sodium (Chloride) 110 mls @ 110 mls/hr IV.SIG UNSCH PRN PRN Reason: SEE LABEL COMMENTS Last Infusion: 07/04/18 18:43 Dose: Infused Norepinephrine Bitartrate 4 mg (/ Sodium Chloride) 250 mls @ 7.5 mls/hr IV.SIG TITRATE PRN; Protocol PRN Reason: Per Protocol Pantoprazole Sodium 80 mg/ (Sodium Chloride) 35 mls @ 420 mls/hr IV.SIG BOLUS ONE Stop: 07/07/18 09:04 Pantoprazole Sodium 80 mg/ (Sodium Chloride) 100 mls @ 10 mls/hr IV.CONT Q10H SEB Calcium Chloride 2 gm/ (Dextrose) 120 mls @ 120 mls/hr IV.SIG ONCE ONE Stop: 07/07/18 09:59 Lactulose (Lactulose Liq) 30 ml PO DAILY PRN PRN Reason: SEVERE CONSITIPATION Menthol (Argyle) 1 lozenge BUCCAL UNSCH PRN PRN Reason: SORE THROAT Metoprolol Tartrate (Lopressor) 25 mg PO BID [facility] Last Admin: 07/06/18 20:49 Dose: Not Given Morphine Sulfate (Morphine Inj) 2 mg IV.PUSH Q2H PRN PRN Reason: PAIN SCALE 6 TO 10 Last Admin: 07/07/18 03:37 Dose: 2 mg Ondansetron HCl (Zofran Inj) 4 mg IV.PUSH Q6H PRN PRN Reason: NAUSEA OR VOMITING Last Admin: 07/07/18 03:32 Dose: 4 mg Potassium Chloride (K-Dur) 20 meq PO DAILY [facility] Last Admin: 07/06/18 13:23 Dose: 20 meq Promethazine HCl (Phenergan Inj) 25 mg IM Q4H PRN PRN Reason: NAUSEA OR VOMITING Senna/Docusate Sodium (Gladys-Colace) 1 tab PO BID [facility] Last Admin: 07/06/18 20:50 Dose: 1 tab Sennosides (Senokot) 17.2 mg PO Q12H PRN PRN Reason: Moderate Constipation Sodium Chloride (Ns Flush) 2 ml IV.FLUSH BID [facility] Last Admin: 07/06/18 20:50 Dose: 2 ml Sodium Chloride (Ns Flush) 2 ml IV.FLUSH PRN PRN PRN Reason: FLUSH AFTER USING IV ACCESS Terbutaline Sulfate (Brethine Inj) 1 mg SQ UNSCH PRN PRN Reason: For Extravasation Allergies Allergy/AdvReac Type Severity Reaction Status Date / Time Penicillins AdvReac Dizziness Verified 05/26/18 19:40 Home Medications Medication Instructions Recorded Confirmed Type polyethylene glycol 3350 [Miralax] 17 gm PO DAILY 06/07/18 06/23/18 History acetaminophen 650 mg PO Q6H PRN 06/23/18 06/23/18 History ferrous sulfate 324 mg PO BID 06/23/18 06/23/18 History disymber-sme-irakh acid-vit K 500 mg PO DAILY 06/23/18 06/23/18 History [Multi For Her 50 Plus] potassium chloride 10 meq PO BID 06/23/18 06/23/18 History Physical Exam Vital signs: Vital Signs 07/06/18 07:56 07/06/18 12:00 07/06/18 14:19 Temperature 98.6 F Pulse Rate 89 Respiratory Rate 18 16 Blood Pressure 120/58 L Pulse Oximetry 95 97 07/06/18 20:00 07/07/18 00:00 07/07/18 01:00 Temperature 97.3 F L 97.7 F Pulse Rate 98 H 105 H Respiratory Rate 18 22 17 Blood Pressure 98/55 L 105/61 Pulse Oximetry 97 97 07/07/18 04:00 07/07/18 06:45 07/07/18 07:37 Temperature 97.4 F L Pulse Rate 132 H Respiratory Rate 20 18 16 Blood Pressure 94/50 L Pulse Oximetry 96 98 95 Intake & Output 07/06/18 07/07/18 07/07/18 18:59 06:59 18:59 Intake Total 3000 / 3000 240 / 240 Output Total 1600 / 1600 2725 / 2725 Balance 1400 / 1400 -2485 / -2485 Weight 100 kg Intake: IV 3000 / 3000 NS Inj 1,000 ML @ 100 mls/hr IV 3000 / 3000 .CONT .Q10H [facility] Rx#:[id number] Oral 240 / 240 Output: Urine Amount (Catheter) 1600 / 1600 2725 / 2725 Indwelling Urethral Catheter 1600 / 1600 2725 / 2725 Other: Date of Last Bowel Movement 07/06/18 07/06/18 # Bowel Movements 1 Narrative: General: Skin cold and clammy, profound shock Head: Atraumatic Neck: Dry and intact clean seen on anterior neck. Airway with secretions, nonobstructing. Lungs: Agonal respiratory effort, bilateral mobile secretions. No wheezes. Inadequate respiratory effort. Heart: Normal S1-S2 with frequent premature beats. Neck veins are flat. Abdomen: No guarding, soft, quiet. Extremities: Cool, poorly perfused. Neuro: Pupils 3 mm and sluggishly reactive to light. Groans to aggressive stimulation. Does not respond or track with eyes. Does not withdraw extremities to stimulation. - Urinary Catheter Management Indwelling Urethral Catheter Cath placed during this visit: yes Reason for continuing: Other continuation reason Insertion date: 07/03/18 Insertion time: 15:30 Assessment and Plan - Problem List (1) Hypovolemic shock Code(s): R57.1 - Status: Acute (2) Encephalopathy acute Code(s): G93.40 - Status: Acute (3) Acute hypoxemic respiratory failure Code(s): J96.01 - Status: Acute - Assessment and Plan Plan: Plan: Neuro -minimal sedation -Serial neuro checks Cardiovascular -Sodium bicarb replacement 3 AM stat -Serial venous blood gas through central venous line -Levo fed infusion to maintain map greater than 65 Respiratory -Intubation and mechanical ventilation -PRVC mode GI -Nasogastric tube to look for upper gastrointestinal source for hemorrhage -Consider other abdominal catastrophe -GI consultation -Continuous Protonix drip after 80 mg bolus -Transfuse 2 units of packed red blood cells -Follow central venous pressure to help gauge resuscitative efforts -Serial hemoglobin determination -Discontinue Lovenox DVT prophylaxis Heme -Bowel prep and endoscopy to locate source -May need arteriogram -Puckett to closed bag drainage for hourly output during initial resuscitation -Serial creatinine Infectious disease -Culture for fevers or leukocytosis Prophylaxis -Chemical DVT prophylaxis contraindicated because of probable active gastrointestinal hemorrhage -SCDs contraindicated because of lower extremity venous thrombus -Protonix infusion Lines -Right subclavian central venous line placed 07/07. Required for resuscitative efforts and vasoactive infusion Overall impression: This woman is critically ill and in hypovolemic shock. The cause appears to be gastrointestinal hemorrhage. She is presently in a profound metabolic acidosis likely related to inadequate peripheral perfusion. Resuscitative efforts are ongoing. Though abdomen is soft without guarding the chest x-ray may exhibit free air under the right diaphragm. We will try to get her stabilized enough to get a CAT scan to further evaluate this. Critical care time 60 minutes aside from invasive procedures
--- NOTE | 2018-07-07 08:09 | P.PCN ---
Procedure: Diagnosis: Hypovolemic shock, hypoxemic respiratory failure, acute Seizure: 1. Orotracheal intubation with #8 cuffed tube 2. Insertion right subclavian central venous access line 3. Insertion right common femoral arterial monitoring line Narrative: Timeout performed and patient suitably identified. Bag mask ventilation and process. Oxygen saturation unrecordable with pulse ox. Patient in profound hypovolemic shock. Levo fed drip at 20 mics per minute instituted through peripheral IV to maintain blood pressure. Airway widely patent. Ventilation easy. Due to recent cervical surgery I elected to sedate and paralyze the patient so as to minimize any prying movements. Versed 5 mg IV rocuronium 50 mg IV bag mask ventilation for several minutes. Using Warren 2 blade cords easily identified with minimal jaw opening. Intubated without difficulty and position confirmed with CO2 detection, bilateral breath sounds, oxygen saturation still not recordable. Mechanical ventilation instituted. Patient then placed in steep Trendelenburg position while right anterior chest wall prepped and draped. Using a thin-walled needle the subclavian vein was easily cannulated under the clavicle on the right side and a wire advanced to the central circulation. A dilator was passed and then the triple-lumen central venous line was advanced over the wire to a distance of 18 cm. A StatLock device was used to keep the line attached to the skin. A sterile dressing was applied. All 3 lm easily aspirated and flushed. Right groin prepped and draped. Using ultrasound guidance the right common femoral artery was cannulated with a thin-walled needle and a wire easily advanced a dilator was passed to the skin and the arterial line was passed over the wire to a distance of 15 cm. Arterial waveform was produced when connected to high pressure tubing. Sterile dressing was applied to the site after suture attachment to the skin. Suture was necessary because of the large body habitus and need to move the patient side to side. Popliteal pulse below the site was present after the procedure. A chest x-ray was ordered which confirmed ET tube and central venous line in good position and suitable for use.
[2018-07-07] MEDS ORDERED: Propofol 1000 mg/100 ml Inj 1,000 MG/100 ML BOTTLE IV.CONT PRN (08:30)
[2018-07-07 08:33] LABS: Lymphocytes 4 % (9-44); Metamyelocytes 3 % (0-1); Monocytes 1 % (0-8); Platelet Estimate Normal (Normal); Platelet Morphology Normal (Normal); Toxic Vacuolation Present
[2018-07-07] MEDS ORDERED: Pantoprazole Inj 80 MG in Sodium Chlor 0.9% Inj 35 ML IV.SIG ONE (09:00)
[2018-07-07] MEDS ORDERED: Calcium Chloride Inj 2 GM in Dextrose 5% in Water Inj 100 ML IV.SIG ONE ×2 (09:00)
[2018-07-07 09:14] LABS: VBG Base Excess -10.8 mmol/L (-2-2); VBG Blood Gas Oxygen Content 10.6 Vol % (9.0-17.0); VBG PCO2 43 mmHG (44-48); VBG PH 7.19 (7.360-7.400); VBG PO2 60 mmHG (35-40)
--- NOTE | 2018-07-07 09:49 | P.CONGI ---
History of Present Illness Consult date: 07/07/18 Requesting physician: Ahmet Lockwood Consult reason: GI Bleed, Hypotension Chief complaint: DVT Right SFA, GI Bleed History of Present Illness: Mrs. Hart is a 73-year-old female with significant past medical history for GERD, erosive esophagitis, hiatal hernia. Patient also has a history of iron deficiency anemia, GI bleeding ,sepsis and hypokalemia. Only known surgical history includes tonsillectomy. Patient was admitted to [facility] on 06/23/2018 for low hemoglobin 7.1 by outpatient lab results. Upon admission patient denied fever, chills ,nausea vomiting, abdominal pain, bright or dark red blood noted in stool. Hemoglobin 9.5 hematocrit 29.5 at that time. Patient co lower extremity pain. Venous Doppler study completed. Findings as follows--> There is a nonocclusive thrombus in the superficial femoral vein proximal to distal. Common femoral vein, saphenous vein, popliteal and peroneal and posterior tibial veins are patent. CONCLUSION: Positive for nonocclusive deep venous thrombosis in the left superficial femoral vein . Patient was then started on Lovenox 30 g sq daily. CTA chest negative for pulmonary embolism.This morning, patient was found to have agonal respirations this morning with severe hypo-tension. Patient was immediately intubated and mechanically ventilated. Patient is currently intubated with an endotracheal tube #8 size. Right-sided central venous access in place. Patient currently receiving IV fluid, IV antibiotics. Propofol infusing for continued sedation. Pantoprazole drip infusing at 10 mL's per hour. Blood pressure at this time 130/62, Levophed infusion at 12 mcg. As per my conversation with Dr. Ahmet Abernathy, patient is currently being transported to radiology for CT of the abdomen. NG tube in place to low intermittent wall suction with no output noted tube placement confirmed by chest x-ray this morning. Chest x-ray findings as follows--> Support apparatus in good position. Nasogastric tube across the GE junction.The heart and pulmonary vascularity are normal. The portion of the bony skeleton visualized is unremarkable. Free intraperitoneal air can't be entirely excluded. CONCLUSION: Support apparatus in good position. Decubitus pending to exclude free air. Abdomen firm and distended. CT abdomen and pelvis to rule out perforation at this time. As per Dr. Abernathy, surgery will be consulted to evaluate patient further as there does not seem to be an apparent GI bleed at this time. 2017 hemoglobin 10.1 hematocrit 32.6 platelets 308 most recent INR 1.1. We will continue to follow this patient at this time as we have been consulted to evaluate any noted obvious GI bleeding. Awaiting input from general surgery post CAT scan results. This patient appears critically ill at this time in hypovolemic shock. <Nettie Conroy - Last Filed: 07/07/18 16:13> Review of Systems unobtainable due to endotracheal tube, unobtainable due to mental condition <Nettie Conroy - Last Filed: 07/07/18 16:13> PMFSH - History History Provided By: Patient - Medical History Medical History: Medical History (Last Reviewed 07/07/18 @ 15:39 by Kary Ricardo) Ileus Iron deficiency anemia GERD (gastroesophageal reflux disease) GI bleed Hyperosmolality and hypernatremia Hypokalemia Sepsis UTI (urinary tract infection) - Surgical History Surgical History: Surgical History (Last Reviewed 07/07/18 @ 15:39 by Kary Ricardo) Hx of tonsillectomy - Tobacco History Second Hand Smoke Exposure: No (quit smoking in high school) Tobacco Use In Past 30 Days: No Smoking Status: Former smoker Tobacco Type: Cigarettes - Alcohol History How Often Do You Have a Drink Containing Alcohol: Monthly or less - Substance Use History Substance History: No History of Abuse - Travel History Recent Travel in the [place] Within the Last 8 Weeks: No Recent Travel Out of the Country Within the Last 8 Weeks: No - Immunization History Tetanus Immunization: <5 Years Hx Influenza Vaccine This Season: Yes <Nettie Conory - Last Filed: 07/07/18 16:13> - Medical History Medical History: Medical History (Last Reviewed 07/07/18 @ 15:39 by Kary Ricardo) Ileus Iron deficiency anemia GERD (gastroesophageal reflux disease) GI bleed Hyperosmolality and hypernatremia Hypokalemia Sepsis UTI (urinary tract infection) - Surgical History Surgical History: Surgical History (Last Reviewed 07/07/18 @ 15:39 by Kary Ricardo) Hx of tonsillectomy <Amado Chester - Last Filed: 07/07/18 21:46> Medications and Allergies Active Medications: Active Medications Acetaminophen (Tylenol) 650 mg PO Q4H PRN PRN Reason: pain 1-2, fever Last Admin: 07/07/18 06:06 Dose: 650 mg Hydrocodone Bitart/Acetaminophen (Preston 10/325) 1 tab PO Q4H PRN PRN Reason: Pain Scale 1 To 5 Last Admin: 07/05/18 17:57 Dose: 1 tab Hydrocodone Bitart/Acetaminophen (Preston 10/325) 2 tab PO Q4H PRN PRN Reason: PAIN SCALE 6 TO 10 Last Admin: 07/07/18 02:21 Dose: 2 tab Al Hydrox/Mg Hydrox/Simethicone (Mag-Al Plus Susp Liq) 30 ml PO Q6H PRN PRN Reason: DYSPEPSIA Al Hydroxide/Mg Hydroxide (Milk Of Magnesia Liq) 30 ml PO Q12H PRN PRN Reason: Mild Constipation Albuterol (Albuterol Neb (Prn)) 2.5 mg NEB Q4HR NEB PRN PRN Reason: WHEEZING Albuterol (Duoneb Neb (Prn)) 1 ampul NEB Q4HR NEB PRN PRN Reason: SHORTNESS OF BREATH Bisacodyl (Dulcolax Supp) 10 mg RECTAL DAILY PRN PRN Reason: SEVERE CONSITIPATION Chlorhexidine Gluconate (Chlorhexidine 2% Cloth) 3 pack TOPICAL DAILY@0400 [facility] Stop: 07/13/18 03:59 Chlorhexidine Gluconate (Chlorhexidine 2% Cloth) 3 pack TOPICAL DAILY@0400 PRN PRN Reason: Extra cloth needed Stop: 07/13/18 03:59 Clonidine HCl (Catapres) 0.1 mg NG/OG Q6H PRN PRN Reason: SYS BP GREATER THAN 170 MMHG Ferrous Sulfate (Ferosul) 325 mg PO BID [facility] Last Admin: 07/06/18 20:50 Dose: 325 mg Furosemide (Lasix Inj) 40 mg IV.PUSH BID@0900,1800 [facility] Last Admin: 07/06/18 17:33 Dose: 40 mg Magnesium Sulfate 2 gm/ Sodium (Chloride) 100 mls @ 100 mls/hr IV.SIG UNSCH PRN PRN Reason: MAGNESIUM LESS THAN 2 Potassium Chloride (Kcl 20 Meq Premix Inj) 20 meq in 100 mls @ 50 mls/hr IV.SIG UNSCH PRN PRN Reason: POTASSIUM LESS THAN 4 Calcium Gluconate 1 gm/ Sodium (Chloride) 110 mls @ 110 mls/hr IV.SIG UNSCH PRN PRN Reason: SEE LABEL COMMENTS Last Infusion: 07/04/18 18:43 Dose: Infused Norepinephrine Bitartrate 4 mg (/ Sodium Chloride) 250 mls @ 7.5 mls/hr IV.SIG TITRATE PRN; Protocol PRN Reason: Per Protocol Pantoprazole Sodium 80 mg/ (Sodium Chloride) 100 mls @ 10 mls/hr IV.CONT Q10H SEB Calcium Chloride 2 gm/ (Dextrose) 120 mls @ 120 mls/hr IV.SIG ONCE ONE Stop: 07/07/18 09:59 Propofol (Diprivan 1000 Mg/100 Ml Inj) 1,000 mg in 100 mls @ 3 mls/hr IV.CONT TITRATE PRN; Protocol PRN Reason: Per Protocol Aztreonam 1,000 mg/ Sodium (Chloride) 100 mls @ 200 mls/hr IV.SIG Q8H SEB Metronidazole/Sodium Chloride (Flagyl 500 Mg Inj) 100 mls @ 100 mls/hr IV.SIG Q8H SEB Lactulose (Lactulose Liq) 30 ml PO DAILY PRN PRN Reason: SEVERE CONSITIPATION Menthol (Chamberino) 1 lozenge BUCCAL UNSCH PRN PRN Reason: SORE THROAT Metoprolol Tartrate (Lopressor) 25 mg PO BID [facility] Last Admin: 07/06/18 20:49 Dose: Not Given Morphine Sulfate (Morphine Inj) 2 mg IV.PUSH Q2H PRN PRN Reason: PAIN SCALE 6 TO 10 Last Admin: 07/07/18 03:37 Dose: 2 mg Ondansetron HCl (Zofran Inj) 4 mg IV.PUSH Q6H PRN PRN Reason: NAUSEA OR VOMITING Last Admin: 07/07/18 03:32 Dose: 4 mg Potassium Chloride (K-Dur) 20 meq PO DAILY [facility] Last Admin: 07/06/18 13:23 Dose: 20 meq Promethazine HCl (Phenergan Inj) 25 mg IM Q4H PRN PRN Reason: NAUSEA OR VOMITING Senna/Docusate Sodium (Gladys-Colace) 1 tab PO BID [facility] Last Admin: 07/06/18 20:50 Dose: 1 tab Sennosides (Senokot) 17.2 mg PO Q12H PRN PRN Reason: Moderate Constipation Sodium Chloride (Ns Flush) 2 ml IV.FLUSH BID SEB Last Admin: 07/06/18 20:50 Dose: 2 ml Sodium Chloride (Ns Flush) 2 ml IV.FLUSH PRN PRN PRN Reason: FLUSH AFTER USING IV ACCESS Terbutaline Sulfate (Brethine Inj) 1 mg SQ UNSCH PRN PRN Reason: For Extravasation <ConroyNettie - Last Filed: 07/07/18 16:13> Active Medications: Active Medications Acetaminophen (Tylenol) 650 mg PO Q4H PRN PRN Reason: pain 1-2, fever Last Admin: 07/07/18 06:06 Dose: 650 mg Hydrocodone Bitart/Acetaminophen ([place] 10/325) 1 tab PO Q4H PRN PRN Reason: Pain Scale 1 To 5 Last Admin: 07/05/18 17:57 Dose: 1 tab Hydrocodone Bitart/Acetaminophen ([place]on 10/325) 2 tab PO Q4H PRN PRN Reason: PAIN SCALE 6 TO 10 Last Admin: 07/07/18 02:21 Dose: 2 tab Al Hydrox/Mg Hydrox/Simethicone (Mag-Al Plus Susp Liq) 30 ml PO Q6H PRN PRN Reason: DYSPEPSIA Al Hydroxide/Mg Hydroxide (Milk Of Magnesia Liq) 30 ml PO Q12H PRN PRN Reason: Mild Constipation Albuterol (Albuterol Neb (Prn)) 2.5 mg NEB Q4HR NEB PRN PRN Reason: WHEEZING Albuterol (Duoneb Neb (Prn)) 1 ampul NEB Q4HR NEB PRN PRN Reason: SHORTNESS OF BREATH Bisacodyl (Dulcolax Supp) 10 mg RECTAL DAILY PRN PRN Reason: SEVERE CONSITIPATION Chlorhexidine Gluconate (Chlorhexidine 2% Cloth) 3 pack TOPICAL DAILY@0400 [facility] Stop: 07/13/18 03:59 Chlorhexidine Gluconate (Chlorhexidine 2% Cloth) 3 pack TOPICAL DAILY@0400 PRN PRN Reason: Extra cloth needed Stop: 07/13/18 03:59 Clonidine HCl (Catapres) 0.1 mg NG/OG Q6H PRN PRN Reason: SYS BP GREATER THAN 170 MMHG Fentanyl Citrate (Fentanyl Inj) 75 mcg IV.PUSH Q1H PRN PRN Reason: BREAKTHROUGH PAIN Last Admin: 07/07/18 11:31 Dose: 75 mcg Ferrous Sulfate (Ferosul) 325 mg PO BID [facility] Last Admin: 07/07/18 21:10 Dose: Not Given Furosemide (Lasix Inj) 40 mg IV.PUSH BID@0900,1800 [facility] Last Admin: 07/06/18 17:33 Dose: 40 mg Hydrocortisone Sodium Succinate (Solucortef Inj) 100 mg IV.PUSH Q8HR [facility] Last Admin: 07/07/18 21:09 Dose: 100 mg Magnesium Sulfate 2 gm/ Sodium (Chloride) 100 mls @ 100 mls/hr IV.SIG UNSCH PRN PRN Reason: MAGNESIUM LESS THAN 2 Potassium Chloride (Kcl 20 Meq Premix Inj) 20 meq in 100 mls @ 50 mls/hr IV.SIG UNSCH PRN PRN Reason: POTASSIUM LESS THAN 4 Calcium Gluconate 1 gm/ Sodium (Chloride) 110 mls @ 110 mls/hr IV.SIG UNSCH PRN PRN Reason: SEE LABEL COMMENTS Last Infusion: 07/04/18 18:43 Dose: Infused Pantoprazole Sodium 80 mg/ (Sodium Chloride) 100 mls @ 10 mls/hr IV.CONT Q10H [facility] Last Admin: 07/07/18 18:02 Dose: Not Given Propofol (Diprivan 1000 Mg/100 Ml Inj) 1,000 mg in 100 mls @ 3 mls/hr IV.CONT TITRATE PRN; Protocol PRN Reason: Per Protocol Aztreonam 1,000 mg/ Sodium (Chloride) 100 mls @ 200 mls/hr IV.SIG Q8H [facility] Last Infusion: 07/07/18 18:38 Dose: Infused Metronidazole/Sodium Chloride (Flagyl 500 Mg Inj) 100 mls @ 100 mls/hr IV.SIG Q8H [facility] Last Admin: 07/07/18 18:01 Dose: 100 mls/hr Fluconazole (Diflucan 400 Mg Premix Bag) 200 mls @ 100 mls/hr IV.SIG Q24H [facility] Last Infusion: 07/07/18 17:01 Dose: Infused Fentanyl (Fentanyl 10 Mcg/Ml Premix Drip) 2,500 mcg in 250 mls @ 5 mls/hr IV.SIG TITRATE PRN; Protocol PRN Reason: Per Protocol Last Titration: 07/07/18 20:27 Dose: 0 mcg/hr, 0 mls/hr Sodium Chloride (Ns Inj) 1,000 mls @ 0 mls/hr IV.SIG BOLUS [facility] Stop: 07/08/18 10:46 Phenylephrine HCl 80 mg/ (Sodium Chloride) 500 mls @ 15 mls/hr IV.CONT TITRATE PRN; Protocol PRN Reason: See prorocol Last Admin: 07/07/18 20:25 Dose: 300 mcg/min, 112.5 mls/hr Vasopressin 40 unit/ Dextrose 100 mls @ 6 mls/hr IV.CONT CONT [facility]; Protocol Norepinephrine Bitartrate 16 (mg/ Sodium Chloride) 250 mls @ 1.87 mls/hr IV.SIG TITRATE PRN; Protocol PRN Reason: Per Protocol Dobutamine HCl 1,000 mg/ (Sodium Chloride) 250 mls @ 3.75 mls/hr IV.CONT .Q24H [facility] Last Admin: 07/07/18 21:10 Dose: 7.5 mcg/kg/min, 11.25 mls/hr Epinephrine HCl 4 mg/ Sodium (Chloride) 250 mls @ 11.25 mls/hr IV.CONT TITRATE PRN; Protocol PRN Reason: SEE DOSE INSTRUCTIONS Sodium Bicarbonate 150 meq/ (Sterile Water) 1,000 mls @ 150 mls/hr IV.CONT .Q6H40M [facility] Menthol (Chamberino) 1 lozenge BUCCAL UNSCH PRN PRN Reason: SORE THROAT Metoprolol Tartrate (Lopressor) 25 mg PO BID [facility] Last Admin: 07/07/18 11:30 Dose: 25 mg Morphine Sulfate (Morphine Inj) 2 mg IV.PUSH Q2H PRN PRN Reason: PAIN SCALE 6 TO 10 Last Admin: 07/07/18 03:37 Dose: 2 mg Ondansetron HCl (Zofran Inj) 4 mg IV.PUSH Q6H PRN PRN Reason: NAUSEA OR VOMITING Last Admin: 07/07/18 03:32 Dose: 4 mg Potassium Chloride (K-Dur) 20 meq PO DAILY [facility] Last Admin: 07/07/18 11:30 Dose: 20 meq Promethazine HCl (Phenergan Inj) 25 mg IM Q4H PRN PRN Reason: NAUSEA OR VOMITING Senna/Docusate Sodium (Gladys-Colace) 1 tab PO BID [facility] Last Admin: 07/07/18 21:10 Dose: Not Given Sennosides (Senokot) 17.2 mg PO Q12H PRN PRN Reason: Moderate Constipation Sodium Bicarbonate (Sodium Bicarbonate 8.4% Inj) 100 meq IV.PUSH ONCE ONE Stop: 07/07/18 22:01 Last Admin: 07/07/18 21:09 Dose: 100 meq Sodium Chloride (Ns Flush) 2 ml IV.FLUSH BID [facility] Last Admin: 07/07/18 21:10 Dose: Not Given Sodium Chloride (Ns Flush) 2 ml IV.FLUSH PRN PRN PRN Reason: FLUSH AFTER USING IV ACCESS Terbutaline Sulfate (Brethine Inj) 1 mg SQ UNSCH PRN PRN Reason: For Extravasation Terbutaline Sulfate (Brethine Inj) 1 mg SQ UNSCH PRN PRN Reason: For Extravasation <Amado Chester - Last Filed: 07/07/18 21:46> Allergies Allergy/AdvReac Type Severity Reaction Status Date / Time Penicillins AdvReac Dizziness Verified 05/26/18 19:40 Home Medications Medication Instructions Recorded Confirmed Type polyethylene glycol 3350 [Miralax] 17 gm PO DAILY 06/07/18 06/23/18 History acetaminophen 650 mg PO Q6H PRN 06/23/18 06/23/18 History ferrous sulfate 324 mg PO BID 06/23/18 06/23/18 History [id number] acid-vit K 500 mg PO DAILY 06/23/18 06/23/18 History [Multi For Her 50 Plus] potassium chloride 10 meq PO BID 06/23/18 06/23/18 History Exam Vital signs: Vital Signs 07/06/18 12:00 07/06/18 14:19 07/06/18 20:00 Temperature 98.6 F 97.3 F L Pulse Rate 89 98 H Respiratory Rate 18 16 18 Blood Pressure 120/58 L 98/55 L Pulse Oximetry 97 97 07/07/18 00:00 07/07/18 01:00 07/07/18 04:00 Temperature 97.7 F 97.4 F L Pulse Rate 105 H 132 H Respiratory Rate 22 17 20 Blood Pressure 105/61 94/50 L Pulse Oximetry 97 96 07/07/18 06:45 07/07/18 07:37 07/07/18 08:53 Temperature 98.0 F Pulse Rate 147 H Respiratory Rate 18 16 18 Blood Pressure 110/58 L Pulse Oximetry 98 95 96 07/07/18 08:59 Temperature 97.9 F Pulse Rate 131 H Respiratory Rate 18 Blood Pressure 163/72 H Pulse Oximetry 97 Intake & Output 07/06/18 07/07/18 07/07/18 18:59 06:59 18:59 Intake Total 3000 / 3000 240 / 240 0 / 0 Output Total 1600 / 1600 2725 / 2725 Balance 1400 / 1400 -2485 / -2485 0 / 0 Weight 100 kg Intake: IV 3000 / 3000 NS Inj 1,000 ML @ 100 mls/hr IV 3000 / 3000 .CONT .Q10H SEB Rx#:[id number] Oral 240 / 240 Intake (Blood Product) Amt 0 / 0 Rbc As-3 Leukoreduced Unit 0 / 0 [id number] Rbc As-3 Leukoreduced Unit 0 / 0 [id number] Output: Urine Amount (Catheter) 1600 / 1600 2725 / 2725 Indwelling Urethral Catheter 1600 / 1600 2725 / 2725 Other: Date of Last Bowel Movement 07/06/18 07/06/18 # Bowel Movements 1 - Constitutional chronically ill appearing - Routine HEENT Exam Head: Present: normocephalic Comments: ET intubation - Routine Respiratory Exam Present: patient mechanically ventilated - Routine Cardiovascular Exam Present: RRR - Routine Abdominal Exam Present: distended, firm - Routine Skin Exam Comments: cool and pale - Routine Neurological Exam groans to stimulation <Conroy,Nettie - Last Filed: 07/07/18 16:13> Vital signs: Vital Signs 07/07/18 00:00 07/07/18 01:00 07/07/18 04:00 Temperature 97.7 F 97.4 F L Pulse Rate 105 H 132 H Respiratory Rate 22 17 20 Blood Pressure 105/61 94/50 L Pulse Oximetry 97 96 07/07/18 06:45 07/07/18 07:00 07/07/18 07:37 Temperature Pulse Rate Respiratory Rate 18 18 16 Blood Pressure Pulse Oximetry 98 95 07/07/18 08:00 07/07/18 08:53 07/07/18 08:59 Temperature 98.8 F 98.0 F 97.9 F Pulse Rate 152 H 147 H 131 H Respiratory Rate 22 18 18 Blood Pressure 88/49 L 110/58 L 163/72 H Pulse Oximetry 98 96 97 07/07/18 10:00 07/07/18 10:01 07/07/18 10:04 Temperature Pulse Rate 138 H Respiratory Rate 20 Blood Pressure Pulse Oximetry 94 L 07/07/18 11:14 07/07/18 12:00 07/07/18 14:00 Temperature 96.3 F L Pulse Rate 125 H 125 H Respiratory Rate 28 H 24 Blood Pressure 97/58 L Pulse Oximetry 96 96 07/07/18 15:58 07/07/18 16:00 07/07/18 18:00 Temperature 96.3 F L Pulse Rate 121 H 111 H Respiratory Rate 30 H 22 Blood Pressure 109/75 Pulse Oximetry 96 96 07/07/18 20:19 Temperature Pulse Rate Respiratory Rate 22 Blood Pressure Pulse Oximetry 96 Intake & Output 07/07/18 07/07/18 07/08/18 06:59 18:59 06:59 Intake Total 240 / 240 7955 / 7955 500 / 500 Output Total 2725 / 2725 350 / 350 Balance -2485 / -2485 7605 / 7605 500 / 500 Weight 100 kg Intake: IV 1155 / 1155 500 / 500 Neosynephrine Inj 80 MG In NS 500 / 500 Inj 492 ML @ 40 MCG/MIN 15 mls/ hr IV.CONT TITRATE PRN Rx#: [id number] Azactam Inj 1,000 MG In NS Inj 200 / 200 100 ML @ 200 mls/hr IV.SIG Q8H SEB Rx#:[id number] Calcium Chloride Inj 2 GM In 120 / 120 D5W Inj 100 ML @ 120 mls/hr IV. SIG ONCE ONE Rx#:[id number] Diflucan 400 mg Premix Bag 200 200 / 200 ML @ 100 mls/hr IV.SIG Q24H SEB Rx#:[id number] Protonix Inj 80 MG In NS Inj 35 35 / 35 ML @ 420 mls/hr IV.SIG BOLUS ONE Rx#:[id number] NS Inj 500 ML @ As Directed IV. 500 / 500 SIG BOLUS ONE Rx#:[id number] Flagyl 500 MG Inj 100 ML @ 100 100 / 100 mls/hr IV.SIG Q8H SEB Rx#: [id number] Oral 240 / 240 Other 6000 / 6000 Intake (Blood Product) Amt 800 / 800 Rbc As-3 Leukoreduced Unit 400 / 400 [id number] Rbc As-3 Leukoreduced Unit 400 / 400 [id number] Output: Urine Amount (Catheter) 2725 / 2725 350 / 350 Indwelling Urethral Catheter 2724 / 272 350 / 350 Gastric Drainage 0 / 0 Orogastric Tube 0 / 0 Other: Other Intake Source Saline Solution Date of Last Bowel Movement 07/06/18 07/07/18 # Bowel Movements 1 <Amado Chester E - Last Filed: 07/07/18 21:46> Results - Labs CBC & Chem 7: 07/07/18 06:50 07/07/18 06:50 Labs: Laboratory Results - last 24 hr 07/07/18 07/07/18 07/07/18 06:23 06:50 06:50 WBC 8.4 RBC 3.19 L Hgb 10.1 L Hct 32.6 L MCV 102.1 H D MCH 31.6 MCHC 31.0 L RDW 18.8 H Plt Count 308 MPV 8.3 Prelim Diff (Auto) Slide review pending Neut % (Auto) 87.6 H Lymph % (Auto) 11.2 [place] % (Auto) 0.9 Eos % (Auto) 0.2 Baso % (Auto) 0.1 Neut # (Auto) 7.4 Lymph # (Auto) 0.9 L [place] # (Auto) 0.1 Eos # (Auto) 0.0 Baso # (Auto) 0.0 WBC Differential Manual diff final Seg Neuts % (Manual) 57 Band Neuts % (Manual) 35 H Lymphocytes % (Manual) 4 L Monocytes % (Manual) 1 Metamyelocytes % (Man) 3 H Abs Neuts (Manual) 8.0 H Differential Comment . Toxic Vacuolation Present H Platelet Estimate Normal Platelet Morphology Normal Puncture Site Patient Temperature VBG pH VBG pCO2 VBG pO2 VBG HCO3 VBG O2 Saturation VBG O2 Content VBG Base Excess VBG Carboxyhemoglobin VBG Methemoglobin Hemoglobin O2 Delivery Device Vent Setting Inspired O2 Critical Value Sodium 144 Potassium 3.5 Chloride 109 H Carbon Dioxide 11.9 L Anion Gap 23 H BUN 28 H Creatinine 1.39 H Estimated GFR 37 L POC Glucose 142 H Random Glucose 113 H Calcium 6.6 L* Prot Corrected Calcium 8.1 L Phosphorus Magnesium Cancelled Troponin I Total Protein 4.2 L Albumin 1.0 L Blood Type Blood Type Recheck Antibody Screen MTS Gel Crossmatch 07/07/18 07/07/18 07/07/18 06:50 06:50 06:50 WBC RBC Hgb Hct MCV MCH MCHC RDW Plt Count MPV Prelim Diff (Auto) Neut % (Auto) Lymph % (Auto) [place] % (Auto) Eos % (Auto) Baso % (Auto) Neut # (Auto) Lymph # (Auto) [place] # (Auto) Eos # (Auto) Baso # (Auto) WBC Differential Seg Neuts % (Manual) Band Neuts % (Manual) Lymphocytes % (Manual) Monocytes % (Manual) Metamyelocytes % (Man) Abs Neuts (Manual) Differential Comment Toxic Vacuolation Platelet Estimate Platelet Morphology Puncture Site Central line Patient Temperature 98.6 VBG pH 7.03 L* VBG pCO2 49 H VBG pO2 55 H VBG HCO3 12 L* VBG O2 Saturation 66 L VBG O2 Content 9.4 VBG Base Excess -16.4 L VBG Carboxyhemoglobin 0.3 VBG Methemoglobin 1.6 Hemoglobin 10.1 L O2 Delivery Device Ventilator Vent Setting 18/450/it1.0/5peep Inspired O2 100 Critical Value Yes Sodium Potassium Chloride Carbon Dioxide Anion Gap BUN Creatinine Estimated GFR POC Glucose Random Glucose Calcium Prot Corrected Calcium Phosphorus 4.9 Magnesium 1.9 Troponin I Less than 0.02 L Total Protein Albumin Blood Type A Positive Blood Type Recheck Not needed Antibody Screen Negative MTS Gel Crossmatch See Detail 07/07/18 08:32 WBC RBC Hgb Hct MCV MCH MCHC RDW Plt Count MPV Prelim Diff (Auto) Neut % (Auto) Lymph % (Auto) [place] % (Auto) Eos % (Auto) Baso % (Auto) Neut # (Auto) Lymph # (Auto) [place] # (Auto) Eos # (Auto) Baso # (Auto) WBC Differential Seg Neuts % (Manual) Band Neuts % (Manual) Lymphocytes % (Manual) Monocytes % (Manual) Metamyelocytes % (Man) Abs Neuts (Manual) Differential Comment Toxic Vacuolation Platelet Estimate Platelet Morphology Puncture Site Central line Patient Temperature 98.6 VBG pH 7.19 L* VBG pCO2 43 L VBG pO2 60 H VBG HCO3 16 L VBG O2 Saturation 79 H VBG O2 Content 10.6 VBG Base Excess -10.8 L VBG Carboxyhemoglobin 0.5 VBG Methemoglobin 1.7 Hemoglobin 9.5 L O2 Delivery Device Ventilator Vent Setting Prvc/ac Inspired O2 80 Critical Value Yes Sodium Potassium Chloride Carbon Dioxide Anion Gap BUN Creatinine Estimated GFR POC Glucose Random Glucose Calcium Prot Corrected Calcium Phosphorus Magnesium Troponin I Total Protein Albumin Blood Type Blood Type Recheck Antibody Screen MTS Gel Crossmatch - Imaging Impressions Chest X-Ray 07/07/18 00:00 CONCLUSION: Support apparatus in good position. Decubitus pending to exclude free air. <Nettie Conroy - Last Filed: 07/07/18 16:13> - Labs CBC & Chem 7: 07/07/18 06:50 07/07/18 06:50 Labs: Laboratory Results - last 24 hr 07/07/18 07/07/18 07/07/18 06:23 06:50 06:50 WBC 8.4 RBC 3.19 L Hgb 10.1 L Hct 32.6 L MCV 102.1 H D MCH 31.6 MCHC 31.0 L RDW 18.8 H Plt Count 308 MPV 8.3 Prelim Diff (Auto) Slide review pending Neut % (Auto) 87.6 H Lymph % (Auto) 11.2 [place] % (Auto) 0.9 Eos % (Auto) 0.2 Baso % (Auto) 0.1 Neut # (Auto) 7.4 Lymph # (Auto) 0.9 L [place] # (Auto) 0.1 Eos # (Auto) 0.0 Baso # (Auto) 0.0 WBC Differential Manual diff final Seg Neuts % (Manual) 57 Band Neuts % (Manual) 35 H Lymphocytes % (Manual) 4 L Monocytes % (Manual) 1 Metamyelocytes % (Man) 3 H Abs Neuts (Manual) 8.0 H Differential Comment . Toxic Vacuolation Present H Platelet Estimate Normal Platelet Morphology Normal Puncture Site Patient Temperature O2 Saturation ABG pH ABG pCO2 ABG pO2 ABG HCO3 ABG O2 Content ABG Base Excess ABG Methemoglobin Ean Test VBG pH VBG pCO2 VBG pO2 VBG HCO3 VBG O2 Saturation VBG O2 Content VBG Base Excess VBG Carboxyhemoglobin VBG Methemoglobin Hemoglobin Carboxyhemoglobin O2 Delivery Device Vent Setting Inspired O2 Critical Value Sodium 144 Potassium 3.5 Chloride 109 H Carbon Dioxide 11.9 L Anion Gap 23 H BUN 28 H Creatinine 1.39 H Estimated GFR 37 L POC Glucose 142 H Random Glucose 113 H Lactic Acid Calcium 6.6 L* Prot Corrected Calcium 8.1 L Phosphorus Magnesium Cancelled Troponin I Total Protein 4.2 L Albumin 1.0 L Nasal Screen MRSA (PCR) Blood Type Blood Type Recheck Antibody Screen MTS Gel Crossmatch 07/07/18 07/07/18 07/07/18 06:50 06:50 06:50 WBC RBC Hgb Hct MCV MCH MCHC RDW Plt Count MPV Prelim Diff (Auto) Neut % (Auto) Lymph % (Auto) [place] % (Auto) Eos % (Auto) Baso % (Auto) Neut # (Auto) Lymph # (Auto) [place] # (Auto) Eos # (Auto) Baso # (Auto) WBC Differential Seg Neuts % (Manual) Band Neuts % (Manual) Lymphocytes % (Manual) Monocytes % (Manual) Metamyelocytes % (Man) Abs Neuts (Manual) Differential Comment Toxic Vacuolation Platelet Estimate Platelet Morphology Puncture Site Central line Patient Temperature 98.6 O2 Saturation ABG pH ABG pCO2 ABG pO2 ABG HCO3 ABG O2 Content ABG Base Excess ABG Methemoglobin Ean Test VBG pH 7.03 L* VBG pCO2 49 H VBG pO2 55 H VBG HCO3 12 L* VBG O2 Saturation 66 L VBG O2 Content 9.4 VBG Base Excess -16.4 L VBG Carboxyhemoglobin 0.3 VBG Methemoglobin 1.6 Hemoglobin 10.1 L Carboxyhemoglobin O2 Delivery Device Ventilator Vent Setting 18/450/it1.0/5peep Inspired O2 100 Critical Value Yes Sodium Potassium Chloride Carbon Dioxide Anion Gap BUN Creatinine Estimated GFR POC Glucose Random Glucose Lactic Acid Calcium Prot Corrected Calcium Phosphorus 4.9 Magnesium 1.9 Troponin I Less than 0.02 L Total Protein Albumin Nasal Screen MRSA (PCR) Blood Type A Positive Blood Type Recheck Not needed Antibody Screen Negative MTS Gel Crossmatch See Detail 07/07/18 07/07/18 07/07/18 08:32 10:33 11:37 WBC RBC Hgb Cancelled Hct MCV MCH MCHC RDW Plt Count MPV Prelim Diff (Auto) Neut % (Auto) Lymph % (Auto) [place] % (Auto) Eos % (Auto) Baso % (Auto) Neut # (Auto) Lymph # (Auto) [place] # (Auto) Eos # (Auto) Baso # (Auto) WBC Differential Seg Neuts % (Manual) Band Neuts % (Manual) Lymphocytes % (Manual) Monocytes % (Manual) Metamyelocytes % (Man) Abs Neuts (Manual) Differential Comment Toxic Vacuolation Platelet Estimate Platelet Morphology Puncture Site Central line Patient Temperature 98.6 O2 Saturation ABG pH ABG pCO2 ABG pO2 ABG HCO3 ABG O2 Content ABG Base Excess ABG Methemoglobin Ean Test VBG pH 7.19 L* VBG pCO2 43 L VBG pO2 60 H VBG HCO3 16 L VBG O2 Saturation 79 H VBG O2 Content 10.6 VBG Base Excess -10.8 L VBG Carboxyhemoglobin 0.5 VBG Methemoglobin 1.7 Hemoglobin 9.5 L Carboxyhemoglobin O2 Delivery Device Ventilator Vent Setting Prvc/ac Inspired O2 80 Critical Value Yes Sodium Potassium Chloride Carbon Dioxide Anion Gap BUN Creatinine Estimated GFR POC Glucose Random Glucose Lactic Acid 10.1 H* Calcium Prot Corrected Calcium Phosphorus Magnesium Troponin I Total Protein Albumin Nasal Screen MRSA (PCR) Blood Type Blood Type Recheck Antibody Screen MTS Gel Crossmatch 07/07/18 07/07/18 07/07/18 12:30 13:00 13:12 WBC RBC Hgb Hct MCV MCH MCHC RDW Plt Count MPV Prelim Diff (Auto) Neut % (Auto) Lymph % (Auto) [place] % (Auto) Eos % (Auto) Baso % (Auto) Neut # (Auto) Lymph # (Auto) [place] # (Auto) Eos # (Auto) Baso # (Auto) WBC Differential Seg Neuts % (Manual) Band Neuts % (Manual) Lymphocytes % (Manual) Monocytes % (Manual) Metamyelocytes % (Man) Abs Neuts (Manual) Differential Comment Toxic Vacuolation Platelet Estimate Platelet Morphology Puncture Site Art line Patient Temperature 98.6 O2 Saturation 91 ABG pH 7.37 L ABG pCO2 22 L* ABG pO2 69 ABG HCO3 12 L* ABG O2 Content 16.7 ABG Base Excess -12.1 L ABG Methemoglobin 1.3 Ean Test VBG pH VBG pCO2 VBG pO2 VBG HCO3 VBG O2 Saturation VBG O2 Content VBG Base Excess VBG Carboxyhemoglobin VBG Methemoglobin Hemoglobin 13.1 Carboxyhemoglobin 0.8 O2 Delivery Device Ventilator Vent Setting Prvc/ac Inspired O2 60 Critical Value Yes Sodium Potassium Chloride Carbon Dioxide Anion Gap BUN Creatinine Estimated GFR POC Glucose Random Glucose Lactic Acid Calcium Prot Corrected Calcium Phosphorus Magnesium Troponin I 0.12 H D Total Protein Albumin Nasal Screen MRSA (PCR) Mrsa detected Blood Type Blood Type Recheck Antibody Screen MTS Gel Crossmatch 07/07/18 07/07/18 07/07/18 15:11 20:29 20:34 WBC RBC Hgb Hct MCV MCH MCHC RDW Plt Count MPV Prelim Diff (Auto) Neut % (Auto) Lymph % (Auto) [place] % (Auto) Eos % (Auto) Baso % (Auto) Neut # (Auto) Lymph # (Auto) [place] # (Auto) Eos # (Auto) Baso # (Auto) WBC Differential Seg Neuts % (Manual) Band Neuts % (Manual) Lymphocytes % (Manual) Monocytes % (Manual) Metamyelocytes % (Man) Abs Neuts (Manual) Differential Comment Toxic Vacuolation Platelet Estimate Platelet Morphology Puncture Site Iv [place] Patient Temperature 98.6 98.6 O2 Saturation 95 ABG pH 6.99 L* ABG pCO2 20 L* ABG pO2 119 ABG HCO3 5 L* ABG O2 Content 16.1 ABG Base Excess -24.6 L ABG Methemoglobin 1.0 Ean Test Present VBG pH 6.92 L* VBG pCO2 41 L VBG pO2 43 H VBG HCO3 8 L* VBG O2 Saturation 54 L VBG O2 Content 10.0 VBG Base Excess -21.9 L VBG Carboxyhemoglobin 0.0 VBG Methemoglobin 1.4 Hemoglobin 13.2 12.0 Carboxyhemoglobin 0.0 O2 Delivery Device Ventilator Vent Setting See comments See comments Inspired O2 100 100 Critical Value Yes Yes Sodium Potassium Chloride Carbon Dioxide Anion Gap BUN Creatinine Estimated GFR POC Glucose Random Glucose Lactic Acid 9.3 H* Calcium Prot Corrected Calcium Phosphorus Magnesium Troponin I Total Protein Albumin Nasal Screen MRSA (PCR) Blood Type Blood Type Recheck Antibody Screen MTS Gel Crossmatch - Imaging Impressions Chest X-Ray 07/07/18 00:00 CONCLUSION: Support apparatus in good position. Decubitus pending to exclude free air. Abdomen/Pelvis CT 07/07/18 09:08 CONCLUSION: 1. Significant free intraperitoneal air without fluid majority in the upper abdomen suggesting an upper abdominal source. <Amado Chester E - Last Filed: 07/07/18 21:46> Assessment and Plan (1) Hematemesis/vomiting blood Status: Acute Code(s): K92.0 - Hematemesis (2) Acute GI bleeding Status: Acute Code(s): K92.2 - Gastrointestinal hemorrhage, unspecified - Plan Mrs. Hart is a 73-year-old female with significant past medical history for GERD, erosive esophagitis, hiatal hernia. Patient also has a history of iron deficiency anemia, GI bleeding ,sepsis and hypokalemia. Only known surgical history includes tonsillectomy. Patient was admitted to [facility] on 06/23/2018 for low hemoglobin 7.1 by outpatient lab results. Upon admission patient denied fever, chills ,nausea vomiting, abdominal pain, bright or dark red blood noted in stool. Hemoglobin 9.5 hematocrit 29.5 at that time. Patient co lower extremity pain. Venous Doppler study completed. Findings as follows--> There is a nonocclusive thrombus in the superficial femoral vein proximal to distal. Common femoral vein, saphenous vein, popliteal and peroneal and posterior tibial veins are patent. CONCLUSION: Positive for nonocclusive deep venous thrombosis in the left superficial femoral vein . Patient was then started on Lovenox 30 g sq daily. CTA chest negative for pulmonary embolism.This morning, patient was found to have agonal respirations this morning with severe hypo-tension. Patient was immediately intubated and mechanically ventilated. Patient is currently intubated with an endotracheal tube #8 size. Right-sided central venous access in place. Patient currently receiving IV fluid, IV antibiotics. Propofol infusing for continued sedation. Pantoprazole drip infusing at 10 mL's per hour. Blood pressure at this time 130/62, Levophed infusion at 12 mcg. As per my conversation with Dr. Ahmet Abernathy, patient is currently being transported to radiology for CT of the abdomen. NG tube in place to low intermittent wall suction with no output noted tube placement confirmed by chest x-ray this morning. Chest x-ray findings as follows--> Support apparatus in good position. Nasogastric tube across the GE junction.The heart and pulmonary vascularity are normal. The portion of the bony skeleton visualized is unremarkable. Free intraperitoneal air can't be entirely excluded. CONCLUSION: Support apparatus in good position. Decubitus pending to exclude free air. Abdomen firm and distended. CT abdomen and pelvis to rule out perforation at this time. As per Dr. Abernathy, surgery will be consulted to evaluate patient further as there does not seem to be an apparent GI bleed at this time. 2017 hemoglobin 10.1 hematocrit 32.6 platelets 308 most recent INR 1.1. We will continue to follow this patient at this time as we have been consulted to evaluate any noted obvious GI bleeding. Awaiting input from general surgery post CAT scan results. This patient appears critically ill at this time in hypovolemic shock Plan: -NG tube to low intermittent wall suction -Monitor for signs of upper or lower GI bleeding -Continuous Protonix drip -Transfuse as needed -Continue serial hemoglobin monitoring -Awaiting CAT scan results of abdomen and pelvis -General surgery consulted as per critical care -Supportive care -Further recommendations to follow This patient has been seen by myself and Dr. Chester and this note is written on his behalf <Nettie Conroy - Last Filed: 07/07/18 16:13> (1) Hematemesis/vomiting blood Status: Acute Code(s): K92.0 - Hematemesis (2) Acute GI bleeding Status: Acute Code(s): K92.2 - Gastrointestinal hemorrhage, unspecified - Plan Patient seen and examined Agree with above Continue with current supportive care Monitor labs At this point the patient is critically ill with a perforated gut and barely sustainable blood pressure on multiple vasopressors No evidence of any active bleeding at this point Not sure there is much that we can add from a GI perspective at this point therefore we will sign off <Amado Chester - Last Filed: 07/07/18 21:46>
--- NOTE | 2018-07-07 10:09 | CT ---
EXAM DATE: 07/07/2018 9:40 AM EDT AGE/SEX: 73 years / Female INDICATIONS: Abdominal distention, free air. CLINICAL DATA: This is the patient's initial encounter. Patient reports that signs and symptoms have been present for 1 day and indicates a pain score of Nonresponsive. MEDICAL/SURGICAL HISTORY: . GI bleed, GERD, Ileus, anemia, sepsis. None. RADIATION DOSE: 11.28 CTDI (mGy) COMPARISON: [facility] [place], CT ABDOMEN & PELVIS W/O CONTRAST, 05/26/2018. . TECHNIQUE: Multiple contiguous axial images were obtained through the abdomen. Images were obtained using multiple row detector helical technique. Using automated exposure control and adjustment of the mA and/or kV according to patient size, radiation dose was kept as low as reasonably achievable to o btain optimal diagnostic quality images. DICOM format image data is available electronically for rev iew and comparison. FINDINGS: The lower lungs are clear. Significant free intraperitoneal air is present majority in the upper abdomen. Large amount of solid stool is seen in the colon. There are no significant diverticuli evident. There is no mesenteric saige a. Nasogastric tube across the GE junction There is moderate fatty replacement to the liver. Vena cava filter is in place. Kidneys are small. There is no ascites. Pelvic contents are grossly unremarkable. CONCLUSION: 1. Significant free intraperitoneal air without fluid majority in the upper abdomen suggesting an up per abdominal source. Electronically signed by: eZke Gutierres MD 07/07/2018 10:08 AM EDT
[2018-07-07] MEDS ORDERED: fentaNYL 10 mcg/mL Premix Drip 2,500 MCG/250 ML BAG IV.SIG PRN (10:31)
[2018-07-07] MEDS ORDERED: fentaNYL Citrate Inj 100 MCG/2 ML Ampul IV.PUSH PRN (10:31)
[2018-07-07] MEDS ORDERED: Sod Chloride 0.9% Inj 1,000 ML IV.SIG SCH (10:45)
--- NOTE | 2018-07-07 10:53 | P.PNNS ---
Subjective Interval history: Transferred to ICU this AM, intubated, d/w Dr. Lockwood at bedside, suspect abdominal source Physical Exam Vital signs: Vital Signs 07/06/18 12:00 07/06/18 14:19 07/06/18 20:00 Temperature 98.6 F 97.3 F L Pulse Rate 89 98 H Respiratory Rate 18 16 18 Blood Pressure 120/58 L 98/55 L Pulse Oximetry 97 97 07/07/18 00:00 07/07/18 01:00 07/07/18 04:00 Temperature 97.7 F 97.4 F L Pulse Rate 105 H 132 H Respiratory Rate 22 17 20 Blood Pressure 105/61 94/50 L Pulse Oximetry 97 96 07/07/18 06:45 07/07/18 07:37 07/07/18 08:53 Temperature 98.0 F Pulse Rate 147 H Respiratory Rate 18 16 18 Blood Pressure 110/58 L Pulse Oximetry 98 95 96 07/07/18 08:59 07/07/18 10:01 07/07/18 10:04 Temperature 97.9 F Pulse Rate 131 H Respiratory Rate 18 20 Blood Pressure 163/72 H Pulse Oximetry 97 94 L Intake & Output 07/06/18 07/07/18 07/07/18 18:59 06:59 18:59 Intake Total 3000 / 3000 240 / 240 0 / 0 Output Total 1600 / 1600 2725 / 2725 Balance 1400 / 1400 -2485 / -2485 0 / 0 Weight 100 kg Intake: IV 3000 / 3000 NS Inj 1,000 ML @ 100 mls/hr IV 3000 / 3000 .CONT .Q10H [facility] Rx#:[id number] Oral 240 / 240 Intake (Blood Product) Amt 0 / 0 Rbc As-3 Leukoreduced Unit 0 / 0 [id number] Rbc As-3 Leukoreduced Unit 0 / 0 [id number] Output: Urine Amount (Catheter) 1600 / 1600 2725 / 2725 Indwelling Urethral Catheter 1600 / 1600 2725 / 2725 Other: Date of Last Bowel Movement 07/06/18 07/06/18 # Bowel Movements 1 Narrative: Intubated. abdominal distention Pupils sluggishly reactive 3mm, Groans to aggressive stim, moved hands prior to intubation to command per report. Sedated for procedures. - Urinary Catheter Management Indwelling Urethral Catheter Cath placed during this visit: yes Reason for continuing: Other continuation reason Insertion date: 07/03/18 Insertion time: 15:30 Assessment and Plan - Plan Ms. Hart is a 73 y/o female with multiple medical issues (esophagitis, DVT, syncope) who presented with signs and symptoms of cervical myelopathy s/p C5/[address] Reynolds on 07/04/18. Medical decline this AM requiring intubation and further workup. P: Maintain cervical collar. Suspect neurologic exam stable, defer remainder workup to ICU, GI/ G. Surg pending results. Will follow.
[2018-07-07] MEDS: Ferrous Sulfate 325 MG Tablet PO SCH ×2 (11:20→21:10)
[2018-07-07] MEDS: Sodium Chloride 0.9% 2 ML Flush BID IV.FLUSH SCH ×2 (11:21→21:10)
[2018-07-07] MEDS: Pantoprazole Inj 80 MG in Sodium Chlor 0.9% Inj 100 ML IV.CONT SCH ×2 (11:21→18:02)
[2018-07-07] MEDS: Senna/Docusate Sodium 8.6/50 MG Tablet PO SCH ×2 (11:21→21:10)
[2018-07-07] MEDS: Metoprolol Tartrate 25 MG Tablet PO SCH (11:30)
[2018-07-07 13:26] LABS: ABG Base Excess -12.1 mmol/L (-2-2); ABG PCO2 22 mmHg (38-42); ABG PO2 69 mmHg (61-120)
[2018-07-07 13:32] VITALS: TEMP 96.3
[2018-07-07] MEDS: Sodium Bicarbonate 8.4% Inj 150 MEQ in Water for Inj, Sterile 850 ML IV.CONT SCH ×2 (15:16→22:43)
[2018-07-07] MEDS: Phenylephrine Inj 80 MG in Sodium Chlor 0.9% Inj 492 ML IV.CONT PRN ×2 (16:16→20:25)
[2018-07-07 17:17] VITALS: BP 109/75
--- NOTE | 2018-07-07 17:56 | P.PNCC ---
Subjective Subjective Remarks/Hospital Course: This 73-year-old woman 3 days status post cervical spine decompressive surgery for bilateral arm radiculopathy was found in bed this morning unresponsive. A CODE BLUE was called. On my arrival the woman was mottled and poorly perfused. She had agonal respirations and we started bag mask ventilation immediately. She was in a sinus tachycardia with frequent premature beats. Blood pressure could not be obtained by cough but she was making agonal respiratory efforts. Under bag mask ventilations I transported her with the team rapidly to the [facility] where she was immediately intubated mechanical ventilation was instituted. Pressure support was obtained with intravenous levo fed at 20 mcg/min. Initial venous pH to the central circulation revealed pH 7.05 and a calculated bicarb of 14. Her room on the floor had a pungent smell consistent with gastrointestinal hemorrhage. She has a history of erosive gastritis and has bled in the past. Significant his recent treatment with Pradaxa for a nonocclusive venous thrombosis in 1 of the lower extremities. She has not had a pulmonary embolism by prior evaluation. She has been on DVT prophylaxis Lovenox for the past several days following her surgery. At this time the woman is in profound shock and undergoing resuscitation. The presumptive diagnosis is gastrointestinal. 07/07, 1730 hours: During 180 minutes of ongoing critical care this morning the patient progressed from levo fed to vasopressin and Anand-Synephrine to maintain a mean arterial pressure. The etiology of the shock state is clear now, peritonitis related to probable gastric perforation. CAT scan demonstrates a large amount of free air in the upper abdomen under the diaphragms. Broad- spectrum antibiotics have been added including fungal coverage. We have placed invasive monitoring lines and serial blood gas determinations demonstrated an ongoing metabolic acidosis which despite 9 A of sodium bicarb in a continuous infusion bicarbonate solution we are unable to reverse this course. Lactic acid remains elevated at 9.3 and urine output is minimal. Oxygen saturation continues to deteriorate and we are now on elevated PEEP at 8 and requiring 75% fractional inspired oxygen concentration. At no time since the resuscitation began early this morning as the patient been stable enough for any type of operative procedure. Our best intentions were to stabilize the patient to a point where she would tolerate a general anesthetic and hopefully repair of the viscus defect laparoscopically. But she is remained in profound distributive shock and is not stable enough for an operation. Her brother has been updated by telephone throughout the day and he realizes that she is in dire straits. Femoral arterial line and flow tract monitor if indicated a stroke volume variation in excess of 25% for much of the day despite infusion of 8 L of normal saline and of packed red blood cells. Her lower extremities remain mottled and urine output is minimal. Objective Vital Signs / I&O: Vital Signs 07/06/18 20:00 07/07/18 00:00 07/07/18 01:00 Temperature 97.3 F L 97.7 F Pulse Rate 98 H 105 H Respiratory Rate 18 22 17 Blood Pressure 98/55 L 105/61 Pulse Oximetry 97 97 07/07/18 04:00 07/07/18 06:45 07/07/18 07:00 Temperature 97.4 F L Pulse Rate 132 H Respiratory Rate 20 18 18 Blood Pressure 94/50 L Pulse Oximetry 96 98 07/07/18 07:37 07/07/18 08:00 07/07/18 08:53 Temperature 98.8 F 98.0 F Pulse Rate 152 H 147 H Respiratory Rate 16 22 18 Blood Pressure 88/49 L 110/58 L Pulse Oximetry 95 98 96 07/07/18 08:59 07/07/18 10:00 07/07/18 10:01 Temperature 97.9 F Pulse Rate 131 H 138 H Respiratory Rate 18 Blood Pressure 163/72 H Pulse Oximetry 97 94 L 07/07/18 10:04 07/07/18 11:14 07/07/18 12:00 Temperature 96.3 F L Pulse Rate 125 H Respiratory Rate 20 28 H 24 Blood Pressure 97/58 L Pulse Oximetry 96 96 07/07/18 14:00 07/07/18 15:58 07/07/18 16:00 Temperature 96.3 F L Pulse Rate 125 H 121 H Respiratory Rate 30 H 22 Blood Pressure 109/75 Pulse Oximetry 96 96 Intake & Output 07/06/18 07/07/18 07/07/18 18:59 06:59 18:59 Intake Total 3000 / 3000 240 / 240 1055 / 1055 Output Total 1600 / 1600 2725 / 2725 Balance 1400 / 1400 -2485 / -2485 1055 / 1055 Weight 100 kg Intake: IV 3000 / 3000 1055 / 1055 NS Inj 1,000 ML @ 100 mls/hr IV 3000 / 3000 .CONT .Q10H [facility] Rx#:[id number] Azactam Inj 1,000 MG In NS Inj 100 / 100 100 ML @ 200 mls/hr IV.SIG Q8H [facility] Rx#:[id number] Calcium Chloride Inj 2 GM In 120 / 120 D5W Inj 100 ML @ 120 mls/hr IV. SIG ONCE ONE Rx#:[id number] Diflucan 400 mg Premix Bag 200 200 / 200 ML @ 100 mls/hr IV.SIG Q24H [facility] Rx#:[id number] Protonix Inj 80 MG In NS Inj 35 35 / 35 ML @ 420 mls/hr IV.SIG BOLUS ONE Rx#:[id number] NS Inj 500 ML @ As Directed IV. 500 / 500 SIG BOLUS ONE Rx#:[id number] Flagyl 500 MG Inj 100 ML @ 100 100 / 100 mls/hr IV.SIG Q8H [facility] Rx#: [id number] Oral 240 / 240 Intake (Blood Product) Amt 0 / 0 Rbc As-3 Leukoreduced Unit 0 / 0 [id number] Rbc As-3 Leukoreduced Unit 0 / 0 [id number] Output: Urine Amount (Catheter) 1600 / 1600 2725 / 2725 Indwelling Urethral Catheter 1600 / 1600 2725 / 2725 Other: Date of Last Bowel Movement 07/06/18 07/06/18 07/07/18 # Bowel Movements 1 Result Diagrams: 07/07/18 06:50 07/07/18 06:50 Objective Remarks: Narrative: General: Skin remains cold and clammy. Head: Atraumatic Neck: Dressing dry and intact, clean seen on anterior neck. Orotracheal intubation. Lungs: Good bilateral upper breath sounds with diminished sounds bases related to elevated diaphragms. No wheezes. Heart: Normal S1-S2 with frequent premature beats. Neck veins not distended. Abdomen: Moderately distended, tympanitic, quiet. Extremities: Cool, poorly perfused. Lower legs and feet mottled. Neuro: Pupils 3 mm and reactive to light. Moves hand spontaneously and seemingly with purpose. Continuous fentanyl infusion running. - Assessment and Plan - Problem List (1) Hypovolemic shock Code(s): R57.1 - Hypovolemic shock Status: Acute (2) Encephalopathy acute Code(s): G93.40 - Encephalopathy, unspecified Status: Acute (3) Acute hypoxemic respiratory failure Code(s): J96.01 - Acute respiratory failure with hypoxia Status: Acute - Assessment and Plan Plan: Plan: Neuro -minimal sedation -Serial neuro checks -Fentanyl analgesia continuous infusion. Cardiovascular -Sodium bicarb replacement 3 AM stat -Serial venous blood gas through central venous line -Levo fed infusion to maintain map greater than 65 -Continuous infusion sodium bicarb drip Respiratory -Intubation and mechanical ventilation -PRVC mode -PEEP 8 -Serial ABG GI -Nasogastric tube to look for upper gastrointestinal source for hemorrhage -Consider other abdominal catastrophe -GI consultation -Continuous Protonix drip after 80 mg bolus -Transfuse 2 units of packed red blood cells -Follow central venous pressure to help gauge resuscitative efforts -Serial hemoglobin determination -Discontinue Lovenox DVT prophylaxis -Broad-spectrum antibiotic coverage including fungal Heme -Bowel prep and endoscopy to locate source -Serial hemoglobin determination -[place] to closed bag drainage for hourly output during initial resuscitation -Serial creatinine, deteriorating renal function Infectious disease -Culture for fevers or leukocytosis -Azactam, Flagyl, Diflucan started July 07 Prophylaxis -Chemical DVT prophylaxis contraindicated because of probable active gastrointestinal hemorrhage -SCDs contraindicated because of lower extremity venous thrombus -Protonix infusion Lines -Right subclavian central venous line placed 07/07. Required for resuscitative efforts and vasoactive infusion Overall impression: This woman remains critically ill and in distributive shock. The cause appears to be spontaneous gastroduodenal perforation and peritonitis. She continues presently in a profound metabolic acidosis likely related to inadequate peripheral perfusion. Resuscitative efforts continue and include massive fluid transfusion and triple vasopressor therapy. Despite these efforts she continues to be hypotensive with a severe metabolic acidosis and refractory lactic acid elevation. She is far too unstable to tolerate any type of operative intervention at this time. Critical care time 110 minutes aside from invasive procedures
[2018-07-07] MEDS ORDERED: Vasopressin Inj 40 UNIT in Dextrose 5% in Water Inj 98 ML IV.CONT SCH ×2 (19:00)
[2018-07-07] MEDS: Norepinephrine Inj 16 MG in Sodium Chlor 0.9% Inj 234 ML IV.SIG PRN (20:30)
[2018-07-07 21:00] LABS: ABG Base Excess -24.6 mmol/L (-2-2); ABG PCO2 20 mmHg (38-42); ABG PO2 119 mmHg (61-120)
[2018-07-07] MEDS: EPINEPHrine (1:1000) Inj 4 MG in Sodium Chlor 0.9% Inj 246 ML IV.CONT PRN (21:00)
[2018-07-07] MEDS ORDERED: DOBUTamine Inj 1,000 MG in Sodium Chlor 0.9% Inj 170 ML IV.CONT SCH (21:00)
[2018-07-07 21:03] LABS: VBG Base Excess -21.9 mmol/L (-2-2); VBG PCO2 41 mmHG (44-48); VBG PH 6.92 (7.360-7.400); VBG PO2 43 mmHG (35-40)
[2018-07-07] MEDS ORDERED: Sodium Bicarbonate 8.4% Inj 150 MEQ in Water for Inj, Sterile 850 ML IV.CONT SCH (22:00)
[2018-07-07] MEDS ORDERED: Hydrocortisone Sod Succinate 100 MG Vial IV.PUSH SCH (22:00)
--- NOTE | 2018-07-07 22:17 | P.PNCC ---
Critical Care Event Note Code activated: No Narrative: Noted patient is currently on 4 vasopressors including norepinephrine at 100 mcg /min, vasopressin at 0.04 units/min, phenylephrine drip at 300 mcg/min and epinephrine drip at 10 mg/min. Started on dobutamine drip at 10 mcg/kg/min due to abnormal VBG and low cardiac index. Attempted to contact family however no answer. We will continue aggressive care at the present time. [place] however is very dire. Discussed with RN at bedside. Noted evaluate by surgeon Dr. Castro earlier this evening. Not a surgical candidate due to extreme hemodynamic instability. his case had a high probability of a clinically significant, sudden, or life threatening deterioration of this patient's condition which required my full and direct attention, intervention and personal management. Critical care time: less than 30 mins
[2018-07-07 23:18] VITALS: O2SAT 92
--- NOTE | 2018-07-07 23:22 | P.PNCC ---
Critical Care Event Note Code activated: Yes Narrative: Patient without discernible palpable pulse. CODE CANDICE called at 2302. CPR initiated with chest compression. Ambu bag on ventilator. Patient received 1 mg epinephrine, 1 ampoule of sodium bicarbonate and 1 g of calcium chloride. Return of spontaneous circulation at 2305. This case had a high probability of a clinically significant, sudden, or life threatening deterioration of this patient's condition which required my full and direct attention, intervention and personal management. Critical care time: less than 30 mins
[2018-07-07 23:28] LABS: Baso % (Auto) 0.2 % (0.0-2.0); Eos # (Auto) 0.1 th/mm3 (0.0-0.4); Eos % (Auto) 1.9 % (0.0-4.0); Hematocrit 36.7 % (35.0-46.0); Hemoglobin 11.7 gm/dL (11.6-15.3); Lymph # (Auto) 1.1 th/mm3 (1.0-4.8); Lymph % (Auto) 18.5 % (9.0-44.0); Mean Corpuscular Volume 96.9 fL (80.0-100.0); Mean Platelet Volume 8.3 fL (7.0-11.0); Mono % (Auto) 0.6 % (0.0-8.0); Neut # (Auto) 4.5 th/mm3 (1.8-7.7); Neut % (Auto) 78.8 % (16.0-70.0); Platelet Count 172 th/mm3 (150-450); Red Blood Count 3.79 mil/mm3 (4.00-5.30); Red Cell Distribution Width 20.1 % (11.6-17.2); White Blood Count 5.7 th/mm3 (4.0-11.0)
[2018-07-07 23:43] LABS: Activated Partial Thrombo Time 51.8 sec (24.3-30.1); INR 1.7 Ratio
[2018-07-07 23:53] LABS: Calcium 9.6 mg/dL (8.5-10.1); Carbon Dioxide 11.8 meq/L (21.0-32.0); Magnesium 1.6 mg/dL (1.5-2.5); Potassium 4.6 meq/L (3.5-5.1)
[2018-07-08] MEDS ORDERED: Dextrose 50% in Water Syringe 50 ML ONE (00:02)
[2018-07-08] MEDS ORDERED: Dextrose 10% in Water Inj 1,000 ML IV.SIG SCH (00:15)
[2018-07-08 00:16] LABS: CKMB Percent 2.4 % (0.0-4.0); Creatine Kinase MB 4.7 ng/mL (0.5-3.6)
[2018-07-08] MEDS: Norepinephrine Inj 16 MG in Sodium Chlor 0.9% Inj 234 ML IV.SIG PRN ×2 (00:21→03:43)
[2018-07-08] MEDS ORDERED: Dextrose 10% in Water Inj 1,000 ML IV.CONT SCH (01:30)
[2018-07-08] MEDS ORDERED: Phytonadione Inj 10 MG in Sodium Chlor 0.9% Inj 50 ML IV.SIG ONE (01:30)
[2018-07-08 01:58] LABS: Lymphocytes 14 % (9-44); Metamyelocytes 11 % (0-1); Monocytes 1 % (0-8); Myelocytes 1 % (0-0); Tallied Nucleated RBC 10 (0-0)
[2018-07-08 01:59] LABS: Dohle Bodies Present; Platelet Estimate Normal (Normal); Platelet Morphology Normal (Normal); Toxic Granulation 1+
[2018-07-08] MEDS: Phenylephrine Inj 80 MG in Sodium Chlor 0.9% Inj 492 ML IV.CONT PRN (02:21)
[2018-07-08 03:51] LABS: Baso % (Auto) 0.1 % (0.0-2.0); Eos # (Auto) 0.1 th/mm3 (0.0-0.4); Eos % (Auto) 2.1 % (0.0-4.0); Hematocrit 26.3 % (35.0-46.0); Hemoglobin 8.1 gm/dL (11.6-15.3); Lymph # (Auto) 1.4 th/mm3 (1.0-4.8); Lymph % (Auto) 24.4 % (9.0-44.0); Mean Corpuscular Hemoglobin 31.4 pg (27.0-34.0); Mean Corpuscular Volume 101.6 fL (80.0-100.0); Mean Platelet Volume 8.8 fL (7.0-11.0); Mono # (Auto) 0.1 th/mm3 (0.0-0.9); Mono % (Auto) 1.1 % (0.0-8.0); Neut # (Auto) 4.2 th/mm3 (1.8-7.7); Neut % (Auto) 72.3 % (16.0-70.0); Platelet Count 112 th/mm3 (150-450); Red Blood Count 2.59 mil/mm3 (4.00-5.30); White Blood Count 5.8 th/mm3 (4.0-11.0)
[2018-07-08 03:55] LABS: Mean Corpuscular HGB Conc 30.9 % (32.0-36.0)
[2018-07-08 03:59] VITALS: PULSE 93
[2018-07-08] MEDS ORDERED: Chlorhexidine Gluconate 2% 1 Pack (2 Cloths) TOPICAL SCH (04:00)
[2018-07-08] MEDS ORDERED: WATER IV.SIG SCH ×2 (04:00)
[2018-07-08] MEDS ORDERED: Chlorhexidine Gluconate 2% 1 Pack (2 Cloths) TOPICAL PRN (04:00)
[2018-07-08] MEDS ORDERED: DEXTROSE 50% IV.SIG SCH ×2 (04:00)
[2018-07-08] MEDS ORDERED: STERILE IV.SIG SCH ×2 (04:00)
[2018-07-08] MEDS ORDERED: Sodium Bicarbonate 8.4% Inj 150 MEQ in Dextrose 5% in Water Inj 850 ML IV.CONT SCH ×2 (04:00)
[2018-07-08] MEDS ORDERED: WATER FOR INJ IV.SIG SCH ×2 (04:00)
--- NOTE | 2018-07-08 04:15 | P.PNADD ---
Addendum to Inpatient Note Reason for Addendum: Additional Documentation Additional information: S: Renetta Lang and Yovanny heard overhead page for a CODE BLUE at 02:[address] [facility] and responded. On arrival in pt room at 02:55, Ms Hart was in active code with pulseless activity with chest compressions being performed. She had been admitted with syncope, DVT, esophagitis and cervical myelopathy and had deteriorated and sent to the ICU. She had coded the previous evening at 23:05 hours with ROSC after administration of epinephrine x1. She is currently maxed out on pressor support including norepinephrine at 100 mcg/min, vasopressin at 0.04 units/min, phenylephrine drip at 300 mcg/min, epinephrine drip at 10 mg/min and dobutamine drip at 10 mcg/kg/min due to abnormal VBG and low cardiac index. The family still wishes for maximum medical management of her problems in spite of her dire prognosis. O: On room entry: HR - pulseless / Fi O2 100% 15 L intubated and sedated on vent Vital Signs - 8 hr 07/07/18 20:19 07/07/18 22:00 07/07/18 23:02 Pulse Rate 125 H Respiratory Rate 22 Pulse Oximetry 96 92 L 07/08/18 00:37 07/08/18 02:00 Pulse Rate 93 H Respiratory Rate 28 H Pulse Oximetry Physical exam: GENERAL: Elderly female with eyes open, non-responsive pupils SKIN: Cool and dry. HEAD: Normocephalic. NECK: Trachea midline. CARDIOVASCULAR: PEA. Chest compressions being performed. RESPIRATORY: On vent. 100% FiO2 at 15L. No accessory muscle use. GASTROINTESTINAL: Abdomen soft, non-tender, distended. A/P: 73 YO female in active code with PEA and ACLS being performed by [facility] care team. Timeline of Code activity as below: Start 02:53 - Code Blue called - start chest compressions/pt already intubated and on vent Epinephrine #1 - 02:54 Bicarb amp #1 - 02:55 Calcium - 2:56 Pulse check #1 - 2:57 Epinephrine #2 - 02:57 Bicarb amp #2 - 02:59 Pulse check #2 - 03:00 Epinephrine #3 - 03:00 Pulse check #3 - 03:03 - ROSC with HR 109 and BP 137/58 Blood glucose 40 - 03:03 D10 IV push once - 03:03 Blood glucose 100 - 03:04 D50 IV push once - 03:05 Blood glucose 306 - 03:06 Code terminated 03:07 Dr Velez arrived at termination of code and case was discussed Pt SDW Dr Hairston
[2018-07-08 04:28] LABS: INR 2.4 Ratio; Prothrombin Time 24.4 sec (9.8-11.6)
[2018-07-08 04:30] VITALS: RESP 26
[2018-07-08 04:33] LABS: Sodium 149 meq/L (136-145)
[2018-07-08 04:34] LABS: Anion Gap 29 meq/L (5-15); Blood Urea Nitrogen 22 mg/dL (7-18); Carbon Dioxide 12.1 meq/L (21.0-32.0); Chloride 108 meq/L (98-107); Glomerular Filtration Rate 34 mL/min (>89)
[2018-07-08 04:36] LABS: Calcium 7.6 mg/dL (8.5-10.1); Glucose,Random 299 mg/dL (74-106); Phosphorus 9.4 mg/dL (2.5-4.9)
[2018-07-08 04:37] LABS: Alanine Aminotransferase 62 U/L (10-53); Albumin 0.3 g/dL (3.4-5.0); Alkaline Phosphatase 93 U/L (45-117); Aspartate Aminotransferase 299 U/L (15-37); Total Protein 1.6 g/dL (6.4-8.2)
[2018-07-08 04:42] LABS: Potassium 6.7 meq/L (3.5-5.1)
[2018-07-08 04:48] LABS: Dohle Bodies Present; Eosinophils 1 % (0-4); Lymphocytes 20 % (9-44); Metamyelocytes 8 % (0-1); Monocytes 1 % (0-8); Myelocytes 2 % (0-0); Platelet Morphology Normal (Normal); Promyelocyte 1 % (0-0); Tallied Nucleated RBC 14 (0-0); Toxic Granulation 1+; Toxic Vacuolation Present
[2018-07-08 04:50] LABS: ABG Base Excess -24.2 mmol/L (-2-2); ABG PCO2 37 mmHg (38-42); ABG PO2 70 mmHg (61-120)
[2018-07-08 04:52] LABS: Pappenheimer Bodies Present
[2018-07-08 05:02] LABS: Activated Partial Thrombo Time 111.8 sec (24.3-30.1)
[2018-07-08] MEDS: Pantoprazole Inj 80 MG in Sodium Chlor 0.9% Inj 100 ML IV.CONT SCH (05:06)
[2018-07-08] MEDS: EPINEPHrine (1:1000) Inj 4 MG in Sodium Chlor 0.9% Inj 246 ML IV.CONT PRN (05:09)
[2018-07-08] MEDS ORDERED: Calcium Chloride Inj 1 GM/10 ML Syringe ONE (05:32)
--- NOTE | 2018-07-08 05:51 | XR ---
EXAM DATE: 07/08/2018 12:00 AM EDT AGE/SEX: 73 years / Female INDICATIONS: Shortness of breath. CLINICAL DATA: This is the patient's subsequent encounter. Patient reports that signs and symptoms h ave been present for 2 days and indicates a pain score of Nonresponsive. MEDICAL/SURGICAL HISTORY: . GERD. GI Bleed. hyperosmolality and hypernatremia. hypokalemia. Ile us. Anemia. UTI. Sepsis. . tonsillectomy. cervical fusion COMPARISON: [facility], CHEST 1V SINGLE AP, 07/07/2018. . FINDINGS: Stable ETT, right subclavian central line and NGT in the stomach. Mild patchy perihilar opacities eber aterally. Cardiomediastinal contours are within normal limits. Redemonstration of free air below the diaphragms. Remainder of the exam is unchanged. CONCLUSION: 1. Redemonstration of free intraperitoneal air. 2. Stable tubes and lines. 3. Progressive lateral perihilar patchy airspace disease. Electronically signed by: Yo Ridley MD 07/08/2018 5:50 AM EDT
--- NOTE | 2018-07-08 05:57 | P.PNCC ---
Critical Care Event Note Code activated: Yes Narrative: Patient in a pulseless electrical activity at 0526. Chest compressions were initiated. Patient was ventilated with an Ambu bag. Remains on norepinephrine , epinephrine, dobutamine and phenylephrine and vasopressin drips. Patient received 5 mg epinephrine, 3 ampoules sodium bicarb and 1 g calcium chloride. During pulse checks, patient in asystole with no perfusable rhythm. Findings verified with manual palpation of carotid and femoral arteries. Notified son. Patient noted to have a lactate of 24, pH of 6.8, elevated potassium. At the present time this is not a survivable event. Discussed with son and termination of code at 0542. This case had a high probability of a clinically significant, sudden, or life threatening deterioration of this patient's condition which required my full and direct attention, intervention and personal management. Critical care time: less than 30 mins
--- NOTE | 2018-07-08 06:48 | P.HPCC ---
History of Present Illness Service: Critical care medicine Primary Care Physician: UNKNOWN Chief Complaint: CODE BLUE History of Present Illness: The patient is a 73-year-old female with past history significant for GERD and recent admission to the hospital for the weakness,dehydrationk, and readmission for ileus, severe n/v and severe esophagitis and coffee ground emesis. She also had pneumotosis coli for unclear reasons but a course of flagyl was given. case discussed with gen surgery who felt no surgery indicated. Pt did have an EGD that showed severe erosive esophagitis and pt sent back to snf with ppi bid. Sent to ED last night for reported hgb of 7. On arrival hgb found to be over 9 and similar to recent dc hgb. She complained to ED of left leg pain x 1 week. An u/s revealed nonocclusive dvt in sup fem vein. ED checked and positive heme stool....but pt on iron and no obvious bleeding. Heparin initiated and admitted. PMH -gerd -hh -recent ileus and n/v. -pneumotosis coli -severe esophagitis. - CT Abdomen/Pelvis (05/26/18) 1. Abnormal appearance to the bowel with pneumatosis coli and dilated loops of both small and large bowel. No evidence of free fluid, portal gas, or free intraperitoneal gas. 2. Moderate size hiatus hernia. 3. Tiny bilateral pleural effusions. -EGD 05/28 Severe esophagitis Large hiatal hernia Gastritis sh: no etoh/tob fh: noncontributory. - - Diagnosis (1) Hypovolemic shock (2) Encephalopathy acute (3) Acute hypoxemic respiratory failure Inpatient Certification: I certify that the inpatient services were ordered in accordance with Medicare regulations governing the order. This includes certification that hospital inpatient services are reasonable and necessary and in the case of services not specified as inpatient-only under 42 CFR 419.22(n), that they are appropriately provided as inpatient services in accordance to with the 2-midnight benchmark under 43 CFR 412.3(e) Estimated Total Length of Stay (Days): 5 Plans for Post Hospital Care: SNF PENDING SALE TO [facility] - History History Provided By: Patient - Medical History Medical History: Medical History (Last Reviewed 07/07/18 @ 15:39 by Kary Ricardo) Ileus Iron deficiency anemia GERD (gastroesophageal reflux disease) GI bleed Hyperosmolality and hypernatremia Hypokalemia Sepsis UTI (urinary tract infection) - Surgical History Surgical History: Surgical History (Last Reviewed 07/07/18 @ 15:39 by Kary Ricardo) Hx of tonsillectomy - Tobacco History Second Hand Smoke Exposure: No (quit smoking in high school) Tobacco Use In Past 30 Days: No Smoking Status: Former smoker Tobacco Type: Cigarettes - Alcohol History How Often Do You Have a Drink Containing Alcohol: Monthly or less - Substance Use History Substance History: No History of Abuse - Travel History Recent Travel in the [place] Within the Last 8 Weeks: No Recent Travel Out of the Country Within the Last 8 Weeks: No - Immunization History Tetanus Immunization: <5 Years Hx Influenza Vaccine This Season: Yes Medications and Allergies Active Medications: Active Medications Acetaminophen (Tylenol) 650 mg PO Q4H PRN PRN Reason: pain 1-2, fever Last Admin: 07/07/18 06:06 Dose: 650 mg Hydrocodone Bitart/Acetaminophen ([place] 10/325) 1 tab PO Q4H PRN PRN Reason: Pain Scale 1 To 5 Last Admin: 07/05/18 17:57 Dose: 1 tab Hydrocodone Bitart/Acetaminophen ([place] 10/325) 2 tab PO Q4H PRN PRN Reason: PAIN SCALE 6 TO 10 Last Admin: 07/07/18 02:21 Dose: 2 tab Al Hydrox/Mg Hydrox/Simethicone (Mag-Al Plus Susp Liq) 30 ml PO Q6H PRN PRN Reason: DYSPEPSIA Al Hydroxide/Mg Hydroxide (Milk Of Magnesia Liq) 30 ml PO Q12H PRN PRN Reason: Mild Constipation Albuterol (Albuterol Neb (Prn)) 2.5 mg NEB Q4HR NEB PRN PRN Reason: WHEEZING Albuterol (Duoneb Neb (Prn)) 1 ampul NEB Q4HR NEB PRN PRN Reason: SHORTNESS OF BREATH Bisacodyl (Dulcolax Supp) 10 mg RECTAL DAILY PRN PRN Reason: SEVERE CONSITIPATION Chlorhexidine Gluconate (Chlorhexidine 2% Cloth) 3 pack TOPICAL DAILY@0400 SEB Stop: 07/13/18 03:59 Last Admin: 07/08/18 03:44 Dose: Not Given Chlorhexidine Gluconate (Chlorhexidine 2% Cloth) 3 pack TOPICAL DAILY@0400 PRN PRN Reason: Extra cloth needed Stop: 07/13/18 03:59 Clonidine HCl (Catapres) 0.1 mg NG/OG Q6H PRN PRN Reason: SYS BP GREATER THAN 170 MMHG Fentanyl Citrate (Fentanyl Inj) 75 mcg IV.PUSH Q1H PRN PRN Reason: BREAKTHROUGH PAIN Last Admin: 07/07/18 11:31 Dose: 75 mcg Ferrous Sulfate (Ferosul) 325 mg PO BID [facility] Last Admin: 07/07/18 21:10 Dose: Not Given Furosemide (Lasix Inj) 40 mg IV.PUSH BID@0900,1800 [facility] Last Admin: 07/06/18 17:33 Dose: 40 mg Hydrocortisone Sodium Succinate (Solucortef Inj) 100 mg IV.PUSH Q8HR [facility] Last Admin: 07/07/18 21:09 Dose: 100 mg Magnesium Sulfate 2 gm/ Sodium (Chloride) 100 mls @ 100 mls/hr IV.SIG UNSCH PRN PRN Reason: MAGNESIUM LESS THAN 2 Potassium Chloride (Kcl 20 Meq Premix Inj) 20 meq in 100 mls @ 50 mls/hr IV.SIG UNSCH PRN PRN Reason: POTASSIUM LESS THAN 4 Calcium Gluconate 1 gm/ Sodium (Chloride) 110 mls @ 110 mls/hr IV.SIG UNSCH PRN PRN Reason: SEE LABEL COMMENTS Last Infusion: 07/04/18 18:43 Dose: Infused Pantoprazole Sodium 80 mg/ (Sodium Chloride) 100 mls @ 10 mls/hr IV.CONT Q10H [facility] Last Admin: 07/08/18 05:06 Dose: Not Given Propofol (Diprivan 1000 Mg/100 Ml Inj) 1,000 mg in 100 mls @ 3 mls/hr IV.CONT TITRATE PRN; Protocol PRN Reason: Per Protocol Aztreonam 1,000 mg/ Sodium (Chloride) 100 mls @ 200 mls/hr IV.SIG Q8H SEB Last Infusion: 07/08/18 03:37 Dose: Infused Metronidazole/Sodium Chloride (Flagyl 500 Mg Inj) 100 mls @ 100 mls/hr IV.SIG Q8H SEB Last Infusion: 07/08/18 04:00 Dose: Infused Fluconazole (Diflucan 400 Mg Premix Bag) 200 mls @ 100 mls/hr IV.SIG Q24H [facility] Last Infusion: 07/07/18 17:01 Dose: Infused Fentanyl (Fentanyl 10 Mcg/Ml Premix Drip) 2,500 mcg in 250 mls @ 5 mls/hr IV.SIG TITRATE PRN; Protocol PRN Reason: Per Protocol Last Titration: 07/07/18 20:27 Dose: 0 mcg/hr, 0 mls/hr Sodium Chloride (Ns Inj) 1,000 mls @ 0 mls/hr IV.SIG BOLUS SEB Stop: 07/08/18 10:46 Phenylephrine HCl 80 mg/ (Sodium Chloride) 500 mls @ 15 mls/hr IV.CONT TITRATE PRN; Protocol PRN Reason: See prorocol Last Admin: 07/08/18 02:21 Dose: 300 mcg/min, 112.5 mls/hr Vasopressin 40 unit/ Dextrose 100 mls @ 6 mls/hr IV.CONT CONT SEB; Protocol Norepinephrine Bitartrate 16 (mg/ Sodium Chloride) 250 mls @ 1.87 mls/hr IV.SIG TITRATE PRN; Protocol PRN Reason: Per Protocol Last Admin: 07/08/18 03:43 Dose: 100 mcg/min, 93.75 mls/hr Dobutamine HCl 1,000 mg/ (Sodium Chloride) 250 mls @ 3.75 mls/hr IV.CONT .Q24H SEB Last Infusion: 07/07/18 21:57 Dose: 10 mcg/kg/min, 15 mls/hr Epinephrine HCl 4 mg/ Sodium (Chloride) 250 mls @ 11.25 mls/hr IV.CONT TITRATE PRN; Protocol PRN Reason: SEE DOSE INSTRUCTIONS Last Admin: 07/08/18 05:09 Dose: 10 mcg/min, 37.5 mls/hr Dextrose (D10w Inj) 1,000 mls @ 20 mls/hr IV.SIG .Q24H SEB Last Admin: 07/08/18 00:18 Dose: 20 mls/hr Dextrose (D10w Inj) 1,000 mls @ 42 mls/hr IV.CONT .[id number] SEB Last Admin: 07/08/18 02:17 Dose: 42 mls/hr Sodium Bicarbonate 150 meq/ (Dextrose) 1,000 mls @ 125 mls/hr IV.CONT .Q8H SEB Last Admin: 07/08/18 03:47 Dose: 125 mls/hr Dextrose 200 ml/ Sterile Water 500 mls @ 50 mls/hr IV.SIG Q10H [facility] Last Admin: 07/08/18 03:47 Dose: 50 mls/hr Menthol ([place]) 1 lozenge BUCCAL UNSCH PRN PRN Reason: SORE THROAT Metoprolol Tartrate (Lopressor) 25 mg PO BID [facility] Last Admin: 07/07/18 11:30 Dose: 25 mg Morphine Sulfate (Morphine Inj) 2 mg IV.PUSH Q2H PRN PRN Reason: PAIN SCALE 6 TO 10 Last Admin: 07/07/18 03:37 Dose: 2 mg Mupirocin (Bactroban 2% Nasal Oint) 1 applicatio EACH NARE BID [facility] Ondansetron HCl (Zofran Inj) 4 mg IV.PUSH Q6H PRN PRN Reason: NAUSEA OR VOMITING Last Admin: 07/07/18 03:32 Dose: 4 mg Potassium Chloride (K-Dur) 20 meq PO DAILY [facility] Last Admin: 07/07/18 11:30 Dose: 20 meq Promethazine HCl (Phenergan Inj) 25 mg IM Q4H PRN PRN Reason: NAUSEA OR VOMITING Senna/Docusate Sodium (Gladys-Colace) 1 tab PO BID [facility] Last Admin: 07/07/18 21:10 Dose: Not Given Sennosides (Senokot) 17.2 mg PO Q12H PRN PRN Reason: Moderate Constipation Sodium Chloride (Ns Flush) 2 ml IV.FLUSH BID [facility] Last Admin: 07/07/18 21:10 Dose: Not Given Sodium Chloride (Ns Flush) 2 ml IV.FLUSH PRN PRN PRN Reason: FLUSH AFTER USING IV ACCESS Terbutaline Sulfate (Brethine Inj) 1 mg SQ UNSCH PRN PRN Reason: For Extravasation Terbutaline Sulfate (Brethine Inj) 1 mg SQ UNSCH PRN PRN Reason: For Extravasation Allergies Allergy/AdvReac Type Severity Reaction Status Date / Time Penicillins AdvReac Dizziness Verified 05/26/18 19:40 Home Medications Medication Instructions Recorded Confirmed Type polyethylene glycol 3350 [Miralax] 17 gm PO DAILY 06/07/18 06/23/18 History acetaminophen 650 mg PO Q6H PRN 06/23/18 06/23/18 History ferrous sulfate 324 mg PO BID 06/23/18 06/23/18 History [id number] acid-vit K 500 mg PO DAILY 06/23/18 06/23/18 History [Multi For Her 50 Plus] potassium chloride 10 meq PO BID 06/23/18 06/23/18 History Results - Labs CBC & Chem 7: 07/08/18 03:29 07/08/18 03:13 Labs: Short CBC 07/07/18 07/07/18 07/07/18 Range/Units 06:50 10:33 23:00 WBC 8.4 5.7 (4.0-11.0) th/mm3 Hgb 10.1 L Cancelled 11.7 (11.6-15.3) gm/dL Hct 32.6 L 36.7 (35.0-46.0) % Plt Count 308 172 D (150-450) th/mm3 07/08/18 Range/Units 03:29 WBC 5.8 (4.0-11.0) th/mm3 Hgb 8.1 L D (11.6-15.3) gm/dL Hct 26.3 L (35.0-46.0) % Plt Count 112 L D (150-450) th/mm3 BMP 07/07/18 07/07/18 07/08/18 06:50 23:00 03:13 Sodium 144 150 H 149 H Potassium 3.5 4.6 D 6.7 H* D Chloride 109 H 113 H 108 H Carbon Dioxide 11.9 L 11.8 L 12.1 L BUN 28 H 23 H 22 H Creatinine 1.39 H 1.49 H 1.51 H Calcium 6.6 L* 9.6 D 7.6 L D Cardiac Enzymes 07/07/18 07/07/18 07/07/18 Range/Units 06:50 13:00 23:00 Total Creatine Kinase 197 H (26-192) U/L CK-MB (CK-2) 4.7 H (0.5-3.6) ng/mL Troponin I Less than 0.02 L 0.12 H D (0.02-0.05) ng/mL Liver Function 07/07/18 07/08/18 Range/Units 06:50 03:13 Total Bilirubin 0.5 (0.2-1.0) mg/dL AST 299 H (15-37) U/L ALT 62 H (10-53) U/L Alkaline Phosphatase 93 (45-117) U/L Albumin 1.0 L 0.3 L D (3.4-5.0) g/dL - Imaging Impressions Chest X-Ray 07/07/18 00:00 CONCLUSION: Support apparatus in good position. Decubitus pending to exclude free air. Abdomen/Pelvis CT 07/07/18 09:08 CONCLUSION: 1. Significant free intraperitoneal air without fluid majority in the upper abdomen suggesting an upper abdominal source. Chest X-Ray 07/08/18 00:00 CONCLUSION: 1. Redemonstration of free intraperitoneal air. 2. Stable tubes and lines. 3. Progressive lateral perihilar patchy airspace disease. Exam Vital signs: Vital Signs 07/07/18 07:00 07/07/18 07:37 07/07/18 08:00 Temperature 98.8 F Pulse Rate 152 H Respiratory Rate 18 16 22 Blood Pressure 88/49 L Pulse Oximetry 95 98 07/07/18 08:53 07/07/18 08:59 07/07/18 10:00 Temperature 98.0 F 97.9 F Pulse Rate 147 H 131 H 138 H Respiratory Rate 18 18 Blood Pressure 110/58 L 163/72 H Pulse Oximetry 96 97 07/07/18 10:01 07/07/18 10:04 07/07/18 11:14 Temperature Pulse Rate Respiratory Rate 20 28 H Blood Pressure Pulse Oximetry 94 L 96 07/07/18 12:00 07/07/18 14:00 07/07/18 15:58 Temperature 96.3 F L Pulse Rate 125 H 125 H Respiratory Rate 24 30 H Blood Pressure 97/58 L Pulse Oximetry 96 96 07/07/18 16:00 07/07/18 18:00 07/07/18 19:00 Temperature 96.3 F L Pulse Rate 121 H 111 H Respiratory Rate 22 22 Blood Pressure 109/75 Pulse Oximetry 96 07/07/18 20:00 07/07/18 20:19 07/07/18 22:00 Temperature Pulse Rate 112 H 125 H Respiratory Rate 22 Blood Pressure Pulse Oximetry 90 L 96 07/07/18 23:02 07/08/18 00:37 07/08/18 02:00 Temperature Pulse Rate 93 H Respiratory Rate 28 H Blood Pressure Pulse Oximetry 92 L 07/08/18 04:28 Temperature Pulse Rate Respiratory Rate 26 H Blood Pressure Pulse Oximetry Intake & Output 07/07/18 07/07/18 07/08/18 06:59 18:59 06:59 Intake Total 240 / 240 7955 / 7955 4681 / 4681 Output Total 2725 / 2725 350 / 350 Balance -2485 / -2485 7605 / 7605 4681 / 4681 Weight 100 kg Intake: IV 1155 / 1155 4681 / 4681 D50W Syringe 50 ML @ 0 mls/hr . 50 / 50 ROUTE .STK-MED ONE Rx#:[id number] EPINEPHrine (1:1000) Inj 4 MG 250 / 250 In NS Inj 246 ML @ 3 MCG/MIN 11 .25 mls/hr IV.CONT TITRATE PRN Rx#:[id number] Protonix Inj 80 MG In NS Inj 100 / 100 100 ML @ 10 mls/hr IV.CONT Q10H [facility] Rx#:[id number] Neosynephrine Inj 80 MG In NS 1000 / 1000 Inj 492 ML @ 40 MCG/MIN 15 mls/ hr IV.CONT TITRATE PRN Rx#: [id number] Sodium Bicarbonate 8.4% Inj 150 1950 / 1950 MEQ In Sterile Water for Inj 850 ML @ 150 mls/hr IV.CONT . Q6H40M [facility] Rx#:[id number] Azactam Inj 1,000 MG In NS Inj 200 / 200 100 / 100 100 ML @ 200 mls/hr IV.SIG Q8H [facility] Rx#:[id number] Calcium Chloride Inj 2 GM In 120 / 120 D5W Inj 100 ML @ 120 mls/hr IV. SIG ONCE ONE Rx#:[id number] Diflucan 400 mg Premix Bag 200 200 / 200 ML @ 100 mls/hr IV.SIG Q24H [facility] Rx#:[id number] Levophed Inj 16 MG In NS Inj 750 / 750 234 ML @ 2 MCG/MIN 1.87 mls/hr IV.SIG TITRATE PRN Rx#:[id number] Protonix Inj 80 MG In NS Inj 35 35 / 35 ML @ 420 mls/hr IV.SIG BOLUS ONE Rx#:[id number] Vitamin K Inj 10 MG In NS Inj 51 / 51 50 ML @ 102 mls/hr IV.SIG ONCE ONE Rx#:[id number] NS Inj 500 ML @ As Directed IV. 500 / 500 SIG BOLUS ONE Rx#:[id number] Flagyl 500 MG Inj 100 ML @ 100 100 / 100 200 / 200 mls/hr IV.SIG Q8H [facility] Rx#: [id number] Oral 240 / 240 Other 6000 / 6000 Intake (Blood Product) Amt 800 / 800 Rbc As-3 Leukoreduced Unit 400 / 400 [id number] Rbc As-3 Leukoreduced Unit 400 / 400 [id number] Output: Urine Amount (Catheter) 272 / 272 350 / 350 Indwelling Urethral Catheter 2724 350 / 350 Gastric Drainage 0 / 0 Orogastric Tube 0 / 0 Other: Other Intake Source Saline Solution Date of Last Bowel Movement 07/06/18 07/07/18 # Bowel Movements 1 Caprini VTE Risk Assessment Caprini VTE Risk Assessment: Moderate/High Risk (score >= 2) Caprini Risk Assessment Model: Point Value = 1 Point Value = 2 Point Value = 3 Point Value = 5 Age 41-60 Minor surgery BMI > 25 kg/m2 Swollen legs Varicose veins or History of unexplained or recurrent spontaneous Oral contraceptives or hormone replacement Sepsis (< 1 month) Serious lung disease, including pneumonia (< 1 month) Abnormal pulmonary function Acute myocardial infarction Congestive heart failure (< 1 month) History of inflammatory bowel disease Medical patient at bed rest Age 61-74 Arthroscopic surgery Major open surgery (> 45 min) Laparoscopic surgery (> 45 min) Malignancy Confined to bed (> 72 hours) Immobilizing plaster cast Central venous access Age >= 75 History of VTE Family history of VTE Factor V Leiden Prothrombin [id number] Lupus anticoagulant Anticardiolipin antibodies Elevated serum homocysteine Heparin-induced thrombocytopenia Other congenital or acquired thrombophilia Stroke (< 1 month) Elective arthroplasty Hip, pelvis, or leg fracture Acute spinal cord injury (< 1 month) Prophylaxis Regimen: Total Risk Factor Score Risk Level Prophylaxis Regimen 0-1 Low Early ambulation 2 Moderate Order ONE of the following: *Sequential Compression Device (SCD) *Heparin 5000 units SQ BID 3-4 Higher Order ONE of the following medications: *Heparin 5000 units SQ TID *Enoxaparin/Lovenox 40 mg SQ daily (WT < 150 kg, CrCl > 30 mL/min) *Enoxaparin/Lovenox 30 mg SQ daily (WT < 150 kg, CrCl > 10-29 mL/min) *Enoxaparin/Lovenox 30 mg SQ BID (WT < 150 kg, CrCl > 30 mL/min) AND/OR *Sequential Compression Device (SCD) 5 or more Highest Order ONE of the following medications: *Heparin 5000 units SQ TID (Preferred with Epidurals) *Enoxaparin/Lovenox 40 mg SQ daily (WT < 150 kg, CrCl > 30 mL/min) *Enoxaparin/Lovenox 30 mg SQ daily (WT < 150 kg, CrCl > 10-29 mL/min) *Enoxaparin/Lovenox 30 mg SQ BID (WT < 150 kg, CrCl > 30 mL/min) AND *Sequential Compression Device (SCD) Assessment and Plan - Problem List (1) Hypovolemic shock Code(s): R57.1 - Hypovolemic shock Status: Acute (2) Encephalopathy acute Code(s): G93.40 - Encephalopathy, unspecified Status: Acute (3) Acute hypoxemic respiratory failure Code(s): J96.01 - Acute respiratory failure with hypoxia Status: Acute - Assessment and Plan Plan: Plan: Neuro -minimal sedation -Serial neuro checks -Fentanyl analgesia continuous infusion. Cardiovascular -Sodium bicarb replacement 3 AM stat -Serial venous blood gas through central venous line -Levo fed infusion to maintain map greater than 65 -Continuous infusion sodium bicarb drip Respiratory -Intubation and mechanical ventilation -PRVC mode -PEEP 8 -Serial ABG GI -Nasogastric tube to look for upper gastrointestinal source for hemorrhage -Consider other abdominal catastrophe -GI consultation -Continuous Protonix drip after 80 mg bolus -Transfuse 2 units of packed red blood cells -Follow central venous pressure to help gauge resuscitative efforts -Serial hemoglobin determination -Discontinue Lovenox DVT prophylaxis -Broad-spectrum antibiotic coverage including fungal Heme -Bowel prep and endoscopy to locate source -Serial hemoglobin determination -Puckett to closed bag drainage for hourly output during initial resuscitation -Serial creatinine, deteriorating renal function Infectious disease -Culture for fevers or leukocytosis -Azactam, Flagyl, Diflucan started July 07 Prophylaxis -Chemical DVT prophylaxis contraindicated because of probable active gastrointestinal hemorrhage -SCDs contraindicated because of lower extremity venous thrombus -Protonix infusion Lines -Right subclavian central venous line placed 07/07. Required for resuscitative efforts and vasoactive infusion Overall impression: This woman remains critically ill and in distributive shock. The cause appears to be spontaneous gastroduodenal perforation and peritonitis. She continues presently in a profound metabolic acidosis likely related to inadequate peripheral perfusion. Resuscitative efforts continue and include massive fluid transfusion and triple vasopressor therapy. Despite these efforts she continues to be hypotensive with a severe metabolic acidosis and refractory lactic acid elevation. She is far too unstable to tolerate any type of operative intervention at this time. Critical care time 110 minutes aside from invasive procedures H&P: Quality - VTE Deep Vein Thrombosis/Pulmonary Embolism Present on Admission: Yes
--- NOTE | 2018-07-08 06:58 | P.DS ---
Date of admission: 06/23/18 23:12 Primary care physician: UNKNOWN Attending physician on discharge: Ahmet Lockwood Brief History from admission: The patient is a 73-year-old female with past history significant for GERD and recent admission to the hospital for the weakness,dehydrationk, and readmission for ileus, severe n/v and severe esophagitis and coffee ground emesis. She also had pneumotosis coli for unclear reasons but a course of flagyl was given. case discussed with gen surgery who felt no surgery indicated. Pt did have an EGD that showed severe erosive esophagitis and pt sent back to snf with ppi bid. Sent to ED last night for reported hgb of 7. On arrival hgb found to be over 9 and similar to recent dc hgb. She complained to ED of left leg pain x 1 week. An u/s revealed nonocclusive dvt in sup fem vein. ED checked and positive heme stool....but pt on iron and no obvious bleeding. Heparin initiated and admitted. PMH -gerd -hh -recent ileus and n/v. -pneumotosis coli -severe esophagitis. - CT Abdomen/Pelvis (05/26/18) 1. Abnormal appearance to the bowel with pneumatosis coli and dilated loops of both small and large bowel. No evidence of free fluid, portal gas, or free intraperitoneal gas. 2. Moderate size hiatus hernia. 3. Tiny bilateral pleural effusions. -EGD 05/28 Severe esophagitis Large hiatal hernia Gastritis sh: no etoh/tob fh: noncontributory. - Patient update on day of discharge: This 73-year-old woman 3 days status post cervical spine decompressive surgery for bilateral arm radiculopathy was found in bed this morning unresponsive. A CODE BLUE was called. On my arrival the woman was mottled and poorly perfused. She had agonal respirations and we started bag mask ventilation immediately. She was in a sinus tachycardia with frequent premature beats. Blood pressure could not be obtained by cough but she was making agonal respiratory efforts. Under bag mask ventilations I transported her with the team rapidly to the [facility] where she was immediately intubated mechanical ventilation was instituted. Pressure support was obtained with intravenous levo fed at 20 mcg/min. Initial venous pH to the central circulation revealed pH 7.05 and a calculated bicarb of 14. Her room on the floor had a pungent smell consistent with gastrointestinal hemorrhage. She has a history of erosive gastritis and has bled in the past. Significant his recent treatment with Pradaxa for a nonocclusive venous thrombosis in 1 of the lower extremities. She has not had a pulmonary embolism by prior evaluation. She has been on DVT prophylaxis Lovenox for the past several days following her surgery. At this time the woman is in profound shock and undergoing resuscitation. The presumptive diagnosis is gastrointestinal. 07/07, 1730 hours: During 180 minutes of ongoing critical care this morning the patient progressed from levo fed to vasopressin and Anand-Synephrine to maintain a mean arterial pressure. The etiology of the shock state is clear now, peritonitis related to probable gastric perforation. CAT scan demonstrates a large amount of free air in the upper abdomen under the diaphragms. Broad- spectrum antibiotics have been added including fungal coverage. We have placed invasive monitoring lines and serial blood gas determinations demonstrated an ongoing metabolic acidosis which despite 9 A of sodium bicarb in a continuous infusion bicarbonate solution we are unable to reverse this course. Lactic acid remains elevated at 9.3 and urine output is minimal. Oxygen saturation continues to deteriorate and we are now on elevated PEEP at 8 and requiring 75% fractional inspired oxygen concentration. At no time since the resuscitation began early this morning as the patient been stable enough for any type of operative procedure. Our best intentions were to stabilize the patient to a point where she would tolerate a general anesthetic and hopefully repair of the viscus defect laparoscopically. But she is remained in profound distributive shock and is not stable enough for an operation. Her brother has been updated by telephone throughout the day and he realizes that she is in dire straits. Femoral arterial line and flow tract monitor if indicated a stroke volume variation in excess of 25% for much of the day despite infusion of 8 L of normal saline and of packed red blood cells. Her lower extremities remain mottled and urine output is minimal. 07/08: Continued deterioration with refractory metabolic acidosis unresponsive to all efforts to improve circulating volume and perfusion. She sustained a cardiac arrest several times during the course of the late night. She at 0542 hours of cardiac standstill. Cause of is severe peritonitis related to perforation of intestinal viscus and subsequent refractory septic shock. The family was notified, they are out of state. DS: Diagnosis - Discharge Diagnosis (1) Septic shock Status: Acute (2) Acute hypoxemic respiratory failure Status: Acute (3) Perforated stomach Status: Acute (4) Encephalopathy acute Status: Acute (5) Peritonitis (acute) generalized Status: Acute (6) Metabolic acidosis Status: Acute (7) Acute metabolic encephalopathy Status: Acute DS: Summary Hospital Course: This 73-year-old woman 3 days status post cervical spine decompressive surgery for bilateral arm radiculopathy was found in bed this morning unresponsive. A CODE BLUE was called. On my arrival the woman was mottled and poorly perfused. She had agonal respirations and we started bag mask ventilation immediately. She was in a sinus tachycardia with frequent premature beats. Blood pressure could not be obtained by cough but she was making agonal respiratory efforts. Under bag mask ventilations I transported her with the team rapidly to the [facility] where she was immediately intubated mechanical ventilation was instituted. Pressure support was obtained with intravenous levo fed at 20 mcg/min. Initial venous pH to the central circulation revealed pH 7.05 and a calculated bicarb of 14. Her room on the floor had a pungent smell consistent with gastrointestinal hemorrhage. She has a history of erosive gastritis and has bled in the past. Significant his recent treatment with Pradaxa for a nonocclusive venous thrombosis in 1 of the lower extremities. She has not had a pulmonary embolism by prior evaluation. She has been on DVT prophylaxis Lovenox for the past several days following her surgery. At this time the woman is in profound shock and undergoing resuscitation. The presumptive diagnosis is gastrointestinal. 07/07, 1730 hours: During 180 minutes of ongoing critical care this morning the patient progressed from levo fed to vasopressin and Anand-Synephrine to maintain a mean arterial pressure. The etiology of the shock state is clear now, peritonitis related to probable gastric perforation. CAT scan demonstrates a large amount of free air in the upper abdomen under the diaphragms. Broad- spectrum antibiotics have been added including fungal coverage. We have placed invasive monitoring lines and serial blood gas determinations demonstrated an ongoing metabolic acidosis which despite 9 A of sodium bicarb in a continuous infusion bicarbonate solution we are unable to reverse this course. Lactic acid remains elevated at 9.3 and urine output is minimal. Oxygen saturation continues to deteriorate and we are now on elevated PEEP at 8 and requiring 75% fractional inspired oxygen concentration. At no time since the resuscitation began early this morning as the patient been stable enough for any type of operative procedure. Our best intentions were to stabilize the patient to a point where she would tolerate a general anesthetic and hopefully repair of the viscus defect laparoscopically. But she is remained in profound distributive shock and is not stable enough for an operation. Her brother has been updated by telephone throughout the day and he realizes that she is in dire straits. Femoral arterial line and flow tract monitor if indicated a stroke volume variation in excess of 25% for much of the day despite infusion of 8 L of normal saline and of packed red blood cells. Her lower extremities remain mottled and urine output is minimal. 07/08: Continued deterioration with refractory metabolic acidosis unresponsive to all efforts to improve circulating volume and perfusion. She sustained a cardiac arrest several times during the course of the late night. She at 0542 hours of cardiac standstill. Cause of is severe peritonitis related to perforation of intestinal viscus and subsequent refractory septic shock. The family was notified, they are out of state. - Time Spent with Patient Total time spent providing and/or coordinating discharge services: Greater than 30 minutes - Quality: VTE Deep Vein Thrombosis/Pulmonary Embolism Present on Admission: Yes Exam Vital signs: Vital Signs 07/07/18 07:00 07/07/18 07:37 07/07/18 08:00 Temperature 98.8 F Pulse Rate 152 H Respiratory Rate 18 16 22 Blood Pressure 88/49 L Pulse Oximetry 95 98 07/07/18 08:53 07/07/18 08:59 07/07/18 10:00 Temperature 98.0 F 97.9 F Pulse Rate 147 H 131 H 138 H Respiratory Rate 18 18 Blood Pressure 110/58 L 163/72 H Pulse Oximetry 96 97 07/07/18 10:01 07/07/18 10:04 07/07/18 11:14 Temperature Pulse Rate Respiratory Rate 20 28 H Blood Pressure Pulse Oximetry 94 L 96 07/07/18 12:00 07/07/18 14:00 07/07/18 15:58 Temperature 96.3 F L Pulse Rate 125 H 125 H Respiratory Rate 24 30 H Blood Pressure 97/58 L Pulse Oximetry 96 96 07/07/18 16:00 07/07/18 18:00 07/07/18 19:00 Temperature 96.3 F L Pulse Rate 121 H 111 H Respiratory Rate 22 22 Blood Pressure 109/75 Pulse Oximetry 96 07/07/18 20:00 07/07/18 20:19 07/07/18 22:00 Temperature Pulse Rate 112 H 125 H Respiratory Rate 22 Blood Pressure Pulse Oximetry 90 L 96 07/07/18 23:02 07/08/18 00:37 07/08/18 02:00 Temperature Pulse Rate 93 H Respiratory Rate 28 H Blood Pressure Pulse Oximetry 92 L 07/08/18 04:28 Temperature Pulse Rate Respiratory Rate 26 H Blood Pressure Pulse Oximetry Intake & Output 07/07/18 07/07/18 07/08/18 06:59 18:59 06:59 Intake Total 240 / 240 7955 / 7955 4681 / 4681 Output Total 2725 / 2725 350 / 350 Balance -2485 / -2485 7605 / 7605 4681 / 4681 Weight 100 kg Intake: IV 1155 / 1155 4681 / 4681 D50W Syringe 50 ML @ 0 mls/hr . 50 / 50 ROUTE .STK-MED ONE Rx#:[id number] EPINEPHrine (1:1000) Inj 4 MG 250 / 250 In NS Inj 246 ML @ 3 MCG/MIN 11 .25 mls/hr IV.CONT TITRATE PRN Rx#:[id number] Protonix Inj 80 MG In NS Inj 100 / 100 100 ML @ 10 mls/hr IV.CONT Q10H SEB Rx#:[id number] Neosynephrine Inj 80 MG In NS 1000 / 1000 Inj 492 ML @ 40 MCG/MIN 15 mls/ hr IV.CONT TITRATE PRN Rx#: [id number] Sodium Bicarbonate 8.4% Inj 150 1950 / 1950 MEQ In Sterile Water for Inj 850 ML @ 150 mls/hr IV.CONT . Q6H40M SEB Rx#:[id number] Azactam Inj 1,000 MG In NS Inj 200 / 200 100 / 100 100 ML @ 200 mls/hr IV.SIG Q8H SEB Rx#:[id number] Calcium Chloride Inj 2 GM In 120 / 120 D5W Inj 100 ML @ 120 mls/hr IV. SIG ONCE ONE Rx#:[id number] Diflucan 400 mg Premix Bag 200 200 / 200 ML @ 100 mls/hr IV.SIG Q24H SEB Rx#:[id number] Levophed Inj 16 MG In NS Inj 750 / 750 234 ML @ 2 MCG/MIN 1.87 mls/hr IV.SIG TITRATE PRN Rx#:[id number] Protonix Inj 80 MG In NS Inj 35 35 / 35 ML @ 420 mls/hr IV.SIG BOLUS ONE Rx#:[id number] Vitamin K Inj 10 MG In NS Inj 51 / 51 50 ML @ 102 mls/hr IV.SIG ONCE ONE Rx#:[id number] NS Inj 500 ML @ As Directed IV. 500 / 500 SIG BOLUS ONE Rx#:[id number] Flagyl 500 MG Inj 100 ML @ 100 100 / 100 200 / 200 mls/hr IV.SIG Q8H SEB Rx#: [id number] Oral 240 / 240 Other 6000 / 6000 Intake (Blood Product) Amt 800 / 800 Rbc As-3 Leukoreduced Unit 400 / 400 [id number] Rbc As-3 Leukoreduced Unit 400 / 400 [id number] Output: Urine Amount (Catheter) 2725 / 2725 350 / 350 Indwelling Urethral Catheter 2725 / 2725 350 / 350 Gastric Drainage 0 / 0 Orogastric Tube 0 / 0 Other: Other Intake Source Saline Solution Date of Last Bowel Movement 07/06/18 07/07/18 # Bowel Movements 1 Narrative: . Results Procedures completed during hospitalization: Scan abdomen and chest Intubation and mechanical ventilation Labs on day of discharge: Labs from last 24 hours 07/08/18 07/08/18 07/08/18 05:34 04:34 03:29 WBC 5.8 RBC 2.59 L Hgb 8.1 L D Hct 26.3 L MCV 101.6 H D MCH 31.4 MCHC 30.9 L RDW 21.0 H Plt Count 112 L D MPV 8.8 Prelim Diff (Auto) Slide review pending Neut % (Auto) 72.3 H Lymph % (Auto) 24.4 [place] % (Auto) 1.1 Eos % (Auto) 2.1 Baso % (Auto) 0.1 Neut # (Auto) 4.2 Lymph # (Auto) 1.4 [place] # (Auto) 0.1 Eos # (Auto) 0.1 Baso # (Auto) 0.0 WBC Differential Manual diff final Seg Neuts % (Manual) 8 L Band Neuts % (Manual) 59 H Lymphocytes % (Manual) 20 Monocytes % (Manual) 1 Eosinophils % (Manual) 1 Metamyelocytes % (Man) 8 H Myelocytes % (Man) 2 H Promyelocytes % (Man) 1 H Abs Neuts (Manual) 4.5 Nucleated RBCs/100 WBC 14 H Differential Comment . Toxic Granulation 1+ H Toxic Vacuolation Present H Dohle Bodies Present H Platelet Estimate Low L Platelet Morphology Normal Pappenheimer Bodies Present H PT INR APTT Fibrinogen Puncture Site Art line Patient Temperature 98.6 O2 Saturation 81 L* ABG pH 6.86 L* ABG pCO2 37 L ABG pO2 70 ABG HCO3 6 L* ABG O2 Content 8.8 L ABG Base Excess -24.2 L ABG Methemoglobin 1.7 Ean Test VBG pH VBG pCO2 VBG pO2 VBG HCO3 VBG O2 Saturation VBG O2 Content VBG Base Excess VBG Carboxyhemoglobin VBG Methemoglobin Hemoglobin 7.7 L* Carboxyhemoglobin 0.0 O2 Delivery Device Ventilator Vent Setting See comment Inspired O2 100 Critical Value Yes Sodium Potassium Chloride Carbon Dioxide Anion Gap BUN Creatinine Estimated GFR POC Glucose 227 H Random Glucose Lactic Acid Calcium Prot Corrected Calcium Phosphorus Magnesium Total Bilirubin AST ALT Alkaline Phosphatase Ammonia Total Creatine Kinase CK-MB (CK-2) CK-MB (CK-2) % Troponin I Total Protein Albumin Nasal Screen MRSA (PCR) Blood Type Blood Type Recheck Antibody Screen MTS Gel Crossmatch 07/08/18 07/08/18 07/08/18 03:13 03:13 03:13 WBC RBC Hgb Hct MCV MCH MCHC RDW Plt Count MPV Prelim Diff (Auto) Neut % (Auto) Lymph % (Auto) [place] % (Auto) Eos % (Auto) Baso % (Auto) Neut # (Auto) Lymph # (Auto) [place] # (Auto) Eos # (Auto) Baso # (Auto) WBC Differential Seg Neuts % (Manual) Band Neuts % (Manual) Lymphocytes % (Manual) Monocytes % (Manual) Eosinophils % (Manual) Metamyelocytes % (Man) Myelocytes % (Man) Promyelocytes % (Man) Abs Neuts (Manual) Nucleated RBCs/100 WBC Differential Comment Toxic Granulation Toxic Vacuolation Dohle Bodies Platelet Estimate Platelet Morphology Pappenheimer Bodies PT 24.4 H INR 2.4 APTT 111.8 H* D Fibrinogen Puncture Site Patient Temperature O2 Saturation ABG pH ABG pCO2 ABG pO2 ABG HCO3 ABG O2 Content ABG Base Excess ABG Methemoglobin Ean Test VBG pH VBG pCO2 VBG pO2 VBG HCO3 VBG O2 Saturation VBG O2 Content VBG Base Excess VBG Carboxyhemoglobin VBG Methemoglobin Hemoglobin Carboxyhemoglobin O2 Delivery Device Vent Setting Inspired O2 Critical Value Sodium Potassium Chloride Carbon Dioxide Anion Gap BUN Creatinine Estimated GFR POC Glucose Random Glucose Lactic Acid 24.6 H* Calcium Prot Corrected Calcium Phosphorus Magnesium Total Bilirubin AST ALT Alkaline Phosphatase Ammonia 1274 H Total Creatine Kinase CK-MB (CK-2) CK-MB (CK-2) % Troponin I Total Protein Albumin Nasal Screen MRSA (PCR) Blood Type Blood Type Recheck Antibody Screen MTS Gel Crossmatch 07/08/18 07/08/18 07/08/18 03:13 03:05 01:08 WBC RBC Hgb Hct MCV MCH MCHC RDW Plt Count MPV Prelim Diff (Auto) Neut % (Auto) Lymph % (Auto) [place] % (Auto) Eos % (Auto) Baso % (Auto) Neut # (Auto) Lymph # (Auto) [place] # (Auto) Eos # (Auto) Baso # (Auto) WBC Differential Seg Neuts % (Manual) Band Neuts % (Manual) Lymphocytes % (Manual) Monocytes % (Manual) Eosinophils % (Manual) Metamyelocytes % (Man) Myelocytes % (Man) Promyelocytes % (Man) Abs Neuts (Manual) Nucleated RBCs/100 WBC Differential Comment Toxic Granulation Toxic Vacuolation Dohle Bodies Platelet Estimate Platelet Morphology Pappenheimer Bodies PT INR APTT Fibrinogen Puncture Site Patient Temperature O2 Saturation ABG pH ABG pCO2 ABG pO2 ABG HCO3 ABG O2 Content ABG Base Excess ABG Methemoglobin Ean Test VBG pH VBG pCO2 VBG pO2 VBG HCO3 VBG O2 Saturation VBG O2 Content VBG Base Excess VBG Carboxyhemoglobin VBG Methemoglobin Hemoglobin Carboxyhemoglobin O2 Delivery Device Vent Setting Inspired O2 Critical Value Sodium 149 H Potassium 6.7 H* D Chloride 108 H Carbon Dioxide 12.1 L Anion Gap 29 H BUN 22 H Creatinine 1.51 H Estimated GFR 34 L POC Glucose 40 L* 43 L* Random Glucose 299 H D Lactic Acid Calcium 7.6 L D Prot Corrected Calcium Phosphorus 9.4 H D Magnesium 2.0 Total Bilirubin 0.5 AST 299 H ALT 62 H Alkaline Phosphatase 93 Ammonia Total Creatine Kinase CK-MB (CK-2) CK-MB (CK-2) % Troponin I Total Protein 1.6 L D Albumin 0.3 L D Nasal Screen MRSA (PCR) Blood Type Blood Type Recheck Antibody Screen MTS Gel Crossmatch 07/07/18 07/07/18 07/07/18 23:00 23:00 23:00 WBC RBC Hgb Hct MCV MCH MCHC RDW Plt Count MPV Prelim Diff (Auto) Neut % (Auto) Lymph % (Auto) [place] % (Auto) Eos % (Auto) Baso % (Auto) Neut # (Auto) Lymph # (Auto) [place] # (Auto) Eos # (Auto) Baso # (Auto) WBC Differential Seg Neuts % (Manual) Band Neuts % (Manual) Lymphocytes % (Manual) Monocytes % (Manual) Eosinophils % (Manual) Metamyelocytes % (Man) Myelocytes % (Man) Promyelocytes % (Man) Abs Neuts (Manual) Nucleated RBCs/100 WBC Differential Comment Toxic Granulation Toxic Vacuolation Dohle Bodies Platelet Estimate Platelet Morphology Pappenheimer Bodies PT 17.0 H INR 1.7 APTT 51.8 H Fibrinogen 185 L Puncture Site Patient Temperature O2 Saturation ABG pH ABG pCO2 ABG pO2 ABG HCO3 ABG O2 Content ABG Base Excess ABG Methemoglobin Ean Test VBG pH VBG pCO2 VBG pO2 VBG HCO3 VBG O2 Saturation VBG O2 Content VBG Base Excess VBG Carboxyhemoglobin VBG Methemoglobin Hemoglobin Carboxyhemoglobin O2 Delivery Device Vent Setting Inspired O2 Critical Value Sodium 150 H Potassium 4.6 D Chloride 113 H Carbon Dioxide 11.8 L Anion Gap 25 H BUN 23 H Creatinine 1.49 H Estimated GFR 34 L POC Glucose Random Glucose 23 L* Lactic Acid Calcium 9.6 D Prot Corrected Calcium Phosphorus 7.0 H D Magnesium 1.6 Total Bilirubin AST ALT Alkaline Phosphatase Ammonia Total Creatine Kinase 197 H CK-MB (CK-2) 4.7 H CK-MB (CK-2) % 2.4 Troponin I Total Protein Albumin Nasal Screen MRSA (PCR) Blood Type Blood Type Recheck Antibody Screen MTS Gel Crossmatch 07/07/18 07/07/18 07/07/18 23:00 23:00 23:00 WBC 5.7 RBC 3.79 L Hgb 11.7 Hct 36.7 MCV 96.9 D MCH 31.0 MCHC 32.0 RDW 20.1 H Plt Count 172 D MPV 8.3 Prelim Diff (Auto) Slide review pending Neut % (Auto) 78.8 H Lymph % (Auto) 18.5 [place] % (Auto) 0.6 Eos % (Auto) 1.9 Baso % (Auto) 0.2 Neut # (Auto) 4.5 Lymph # (Auto) 1.1 [place] # (Auto) 0.0 Eos # (Auto) 0.1 Baso # (Auto) 0.0 WBC Differential Manual diff final Seg Neuts % (Manual) 15 L Band Neuts % (Manual) 58 H Lymphocytes % (Manual) 14 Monocytes % (Manual) 1 Eosinophils % (Manual) Metamyelocytes % (Man) 11 H Myelocytes % (Man) 1 H Promyelocytes % (Man) Abs Neuts (Manual) 4.8 Nucleated RBCs/100 WBC 10 H Differential Comment . Toxic Granulation 1+ H Toxic Vacuolation Dohle Bodies Present H Platelet Estimate Normal Platelet Morphology Normal Pappenheimer Bodies PT INR APTT Fibrinogen Cancelled Puncture Site Patient Temperature O2 Saturation ABG pH ABG pCO2 ABG pO2 ABG HCO3 ABG O2 Content ABG Base Excess ABG Methemoglobin Ean Test VBG pH VBG pCO2 VBG pO2 VBG HCO3 VBG O2 Saturation VBG O2 Content VBG Base Excess VBG Carboxyhemoglobin VBG Methemoglobin Hemoglobin Carboxyhemoglobin O2 Delivery Device Vent Setting Inspired O2 Critical Value Sodium Potassium Chloride Carbon Dioxide Anion Gap BUN Creatinine Estimated GFR POC Glucose Random Glucose Lactic Acid 18.0 H* Calcium Prot Corrected Calcium Phosphorus Magnesium Total Bilirubin AST ALT Alkaline Phosphatase Ammonia Total Creatine Kinase CK-MB (CK-2) CK-MB (CK-2) % Troponin I Total Protein Albumin Nasal Screen MRSA (PCR) Blood Type Blood Type Recheck Antibody Screen MTS Gel Crossmatch 07/07/18 07/07/18 07/07/18 20:34 20:29 15:11 WBC RBC Hgb Hct MCV MCH MCHC RDW Plt Count MPV Prelim Diff (Auto) Neut % (Auto) Lymph % (Auto) [place] % (Auto) Eos % (Auto) Baso % (Auto) Neut # (Auto) Lymph # (Auto) [place] # (Auto) Eos # (Auto) Baso # (Auto) WBC Differential Seg Neuts % (Manual) Band Neuts % (Manual) Lymphocytes % (Manual) Monocytes % (Manual) Eosinophils % (Manual) Metamyelocytes % (Man) Myelocytes % (Man) Promyelocytes % (Man) Abs Neuts (Manual) Nucleated RBCs/100 WBC Differential Comment Toxic Granulation Toxic Vacuolation Dohle Bodies Platelet Estimate Platelet Morphology Pappenheimer Bodies PT INR APTT Fibrinogen Puncture Site Lu Iv Patient Temperature 98.6 98.6 O2 Saturation 95 ABG pH 6.99 L* ABG pCO2 20 L* ABG pO2 119 ABG HCO3 5 L* ABG O2 Content 16.1 ABG Base Excess -24.6 L ABG Methemoglobin 1.0 Ean Test Present VBG pH 6.92 L* VBG pCO2 41 L VBG pO2 43 H VBG HCO3 8 L* VBG O2 Saturation 54 L VBG O2 Content 10.0 VBG Base Excess -21.9 L VBG Carboxyhemoglobin 0.0 VBG Methemoglobin 1.4 Hemoglobin 12.0 13.2 Carboxyhemoglobin 0.0 O2 Delivery Device Ventilator Vent Setting See comments See comments Inspired O2 100 100 Critical Value Yes Yes Sodium Potassium Chloride Carbon Dioxide Anion Gap BUN Creatinine Estimated GFR POC Glucose Random Glucose Lactic Acid 9.3 H* Calcium Prot Corrected Calcium Phosphorus Magnesium Total Bilirubin AST ALT Alkaline Phosphatase Ammonia Total Creatine Kinase CK-MB (CK-2) CK-MB (CK-2) % Troponin I Total Protein Albumin Nasal Screen MRSA (PCR) Blood Type Blood Type Recheck Antibody Screen MTS Gel Crossmatch 07/07/18 07/07/18 07/07/18 13:12 13:00 12:30 WBC RBC Hgb Hct MCV MCH MCHC RDW Plt Count MPV Prelim Diff (Auto) Neut % (Auto) Lymph % (Auto) [place] % (Auto) Eos % (Auto) Baso % (Auto) Neut # (Auto) Lymph # (Auto) [place] # (Auto) Eos # (Auto) Baso # (Auto) WBC Differential Seg Neuts % (Manual) Band Neuts % (Manual) Lymphocytes % (Manual) Monocytes % (Manual) Eosinophils % (Manual) Metamyelocytes % (Man) Myelocytes % (Man) Promyelocytes % (Man) Abs Neuts (Manual) Nucleated RBCs/100 WBC Differential Comment Toxic Granulation Toxic Vacuolation Dohle Bodies Platelet Estimate Platelet Morphology Pappenheimer Bodies PT INR APTT Fibrinogen Puncture Site Art line Patient Temperature 98.6 O2 Saturation 91 ABG pH 7.37 L ABG pCO2 22 L* ABG pO2 69 ABG HCO3 12 L* ABG O2 Content 16.7 ABG Base Excess -12.1 L ABG Methemoglobin 1.3 Ean Test VBG pH VBG pCO2 VBG pO2 VBG HCO3 VBG O2 Saturation VBG O2 Content VBG Base Excess VBG Carboxyhemoglobin VBG Methemoglobin Hemoglobin 13.1 Carboxyhemoglobin 0.8 O2 Delivery Device Ventilator Vent Setting Prvc/ac Inspired O2 60 Critical Value Yes Sodium Potassium Chloride Carbon Dioxide Anion Gap BUN Creatinine Estimated GFR POC Glucose Random Glucose Lactic Acid Calcium Prot Corrected Calcium Phosphorus Magnesium Total Bilirubin AST ALT Alkaline Phosphatase Ammonia Total Creatine Kinase CK-MB (CK-2) CK-MB (CK-2) % Troponin I 0.12 H D Total Protein Albumin Nasal Screen MRSA (PCR) Mrsa detected Blood Type Blood Type Recheck Antibody Screen MTS Gel Crossmatch 07/07/18 07/07/18 07/07/18 11:37 10:33 08:32 WBC RBC Hgb Cancelled Hct MCV MCH MCHC RDW Plt Count MPV Prelim Diff (Auto) Neut % (Auto) Lymph % (Auto) [place] % (Auto) Eos % (Auto) Baso % (Auto) Neut # (Auto) Lymph # (Auto) [place] # (Auto) Eos # (Auto) Baso # (Auto) WBC Differential Seg Neuts % (Manual) Band Neuts % (Manual) Lymphocytes % (Manual) Monocytes % (Manual) Eosinophils % (Manual) Metamyelocytes % (Man) Myelocytes % (Man) Promyelocytes % (Man) Abs Neuts (Manual) Nucleated RBCs/100 WBC Differential Comment Toxic Granulation Toxic Vacuolation Dohle Bodies Platelet Estimate Platelet Morphology Pappenheimer Bodies PT INR APTT Fibrinogen Puncture Site Central line Patient Temperature 98.6 O2 Saturation ABG pH ABG pCO2 ABG pO2 ABG HCO3 ABG O2 Content ABG Base Excess ABG Methemoglobin Ean Test VBG pH 7.19 L* VBG pCO2 43 L VBG pO2 60 H VBG HCO3 16 L VBG O2 Saturation 79 H VBG O2 Content 10.6 VBG Base Excess -10.8 L VBG Carboxyhemoglobin 0.5 VBG Methemoglobin 1.7 Hemoglobin 9.5 L Carboxyhemoglobin O2 Delivery Device Ventilator Vent Setting Prvc/ac Inspired O2 80 Critical Value Yes Sodium Potassium Chloride Carbon Dioxide Anion Gap BUN Creatinine Estimated GFR POC Glucose Random Glucose Lactic Acid 10.1 H* Calcium Prot Corrected Calcium Phosphorus Magnesium Total Bilirubin AST ALT Alkaline Phosphatase Ammonia Total Creatine Kinase CK-MB (CK-2) CK-MB (CK-2) % Troponin I Total Protein Albumin Nasal Screen MRSA (PCR) Blood Type Blood Type Recheck Antibody Screen MTS Gel Crossmatch 07/07/18 07/07/18 07/07/18 06:50 06:50 06:50 WBC RBC Hgb Hct MCV MCH MCHC RDW Plt Count MPV Prelim Diff (Auto) Neut % (Auto) Lymph % (Auto) [place] % (Auto) Eos % (Auto) Baso % (Auto) Neut # (Auto) Lymph # (Auto) [place] # (Auto) Eos # (Auto) Baso # (Auto) WBC Differential Seg Neuts % (Manual) Band Neuts % (Manual) Lymphocytes % (Manual) Monocytes % (Manual) Eosinophils % (Manual) Metamyelocytes % (Man) Myelocytes % (Man) Promyelocytes % (Man) Abs Neuts (Manual) Nucleated RBCs/100 WBC Differential Comment Toxic Granulation Toxic Vacuolation Dohle Bodies Platelet Estimate Platelet Morphology Pappenheimer Bodies PT INR APTT Fibrinogen Puncture Site Central line Patient Temperature 98.6 O2 Saturation ABG pH ABG pCO2 ABG pO2 ABG HCO3 ABG O2 Content ABG Base Excess ABG Methemoglobin Ean Test VBG pH 7.03 L* VBG pCO2 49 H VBG pO2 55 H VBG HCO3 12 L* VBG O2 Saturation 66 L VBG O2 Content 9.4 VBG Base Excess -16.4 L VBG Carboxyhemoglobin 0.3 VBG Methemoglobin 1.6 Hemoglobin 10.1 L Carboxyhemoglobin O2 Delivery Device Ventilator Vent Setting 18/450/it1.0/5peep Inspired O2 100 Critical Value Yes Sodium Potassium Chloride Carbon Dioxide Anion Gap BUN Creatinine Estimated GFR POC Glucose Random Glucose Lactic Acid Calcium Prot Corrected Calcium Phosphorus 4.9 Magnesium 1.9 Total Bilirubin AST ALT Alkaline Phosphatase Ammonia Total Creatine Kinase CK-MB (CK-2) CK-MB (CK-2) % Troponin I Less than 0.02 L Total Protein Albumin Nasal Screen MRSA (PCR) Blood Type A Positive Blood Type Recheck Not needed Antibody Screen Negative MTS Gel Crossmatch See Detail 07/07/18 07/07/18 06:50 06:50 WBC 8.4 RBC 3.19 L Hgb 10.1 L Hct 32.6 L MCV 102.1 H D MCH 31.6 MCHC 31.0 L RDW 18.8 H Plt Count 308 MPV 8.3 Prelim Diff (Auto) Slide review pending Neut % (Auto) 87.6 H Lymph % (Auto) 11.2 [place] % (Auto) 0.9 Eos % (Auto) 0.2 Baso % (Auto) 0.1 Neut # (Auto) 7.4 Lymph # (Auto) 0.9 L [place] # (Auto) 0.1 Eos # (Auto) 0.0 Baso # (Auto) 0.0 WBC Differential Manual diff final Seg Neuts % (Manual) 57 Band Neuts % (Manual) 35 H Lymphocytes % (Manual) 4 L Monocytes % (Manual) 1 Eosinophils % (Manual) Metamyelocytes % (Man) 3 H Myelocytes % (Man) Promyelocytes % (Man) Abs Neuts (Manual) 8.0 H Nucleated RBCs/100 WBC Differential Comment . Toxic Granulation Toxic Vacuolation Present H Dohle Bodies Platelet Estimate Normal Platelet Morphology Normal Pappenheimer Bodies PT INR APTT Fibrinogen Puncture Site Patient Temperature O2 Saturation ABG pH ABG pCO2 ABG pO2 ABG HCO3 ABG O2 Content ABG Base Excess ABG Methemoglobin Ean Test VBG pH VBG pCO2 VBG pO2 VBG HCO3 VBG O2 Saturation VBG O2 Content VBG Base Excess VBG Carboxyhemoglobin VBG Methemoglobin Hemoglobin Carboxyhemoglobin O2 Delivery Device Vent Setting Inspired O2 Critical Value Sodium 144 Potassium 3.5 Chloride 109 H Carbon Dioxide 11.9 L Anion Gap 23 H BUN 28 H Creatinine 1.39 H Estimated GFR 37 L POC Glucose Random Glucose 113 H Lactic Acid Calcium 6.6 L* Prot Corrected Calcium 8.1 L Phosphorus Magnesium Cancelled Total Bilirubin AST ALT Alkaline Phosphatase Ammonia Total Creatine Kinase CK-MB (CK-2) CK-MB (CK-2) % Troponin I Total Protein 4.2 L Albumin 1.0 L Nasal Screen MRSA (PCR) Blood Type Blood Type Recheck Antibody Screen MTS Gel Crossmatch - Impressions ITS Impressions Venous Doppler Study 06/23/18 21:52 CONCLUSION: 1. Positive for nonocclusive deep venous thrombosis in the left superficial femoral vein. Chest CTA 06/24/18 00:00 CONCLUSION: This study is negative for pulmonary embolism. Cervical Spine MRI 06/28/18 00:00 CONCLUSION: 1. Degenerative changes are noted most pronounced at C5-6 where severe canal stenosis is seen. Myocardial Perfusion Scan Nuc Med 07/02/18 00:00 CONCLUSION: 1. No left ventricle perfusion abnormality is identified. 2. Normal left ventricle ejection fraction and wall motion. IVC Filter Placement X-Ray 07/03/18 00:00 CONCLUSION: 1. Uncomplicated inferior vena cava filter placement as above. Cervical Spine X-Ray 07/04/18 00:00 CONCLUSION: Fusion C5-6 as above. Abdomen/Pelvis CT 07/07/18 09:08 CONCLUSION: 1. Significant free intraperitoneal air without fluid majority in the upper abdomen suggesting an upper abdominal source. Chest X-Ray 07/08/18 00:00 CONCLUSION: 1. Redemonstration of free intraperitoneal air. 2. Stable tubes and lines. 3. Progressive lateral perihilar patchy airspace disease. Discharge Plan - Discharge Disposition Patient Disposition: 20 - Discharge Order Discharge Orders: Discharge Order (Routine); Ordered 07/08/18 Ordered By: Ahmet Lockwood - Discharge Details Date/Time: 07/08/18 07:20 - Physicians Team Primary Care Provider: UNKNOWN, Attending Provider: Quinn Mancilla Other Providers: [employer] [facility] ; Gerhard Bennett MD ; Graham Segura, DO ; Amado Chester MD ; [facility] ; Severiano Carlin MD
--- NOTE | 2018-07-08 07:06 | P.PNADD ---
Addendum to Inpatient Note Reason for Addendum: Additional Documentation Additional information: Mary Ann Dmitriy was called at 0526 and Renetta Lang and Yovanny answered the page. On arrival at [address]N Dr Velez was leading the code effort. Renetta Lang and Yovanny assisted in performing high quality CPR during the code. Code was terminated at 0542. Full report of activities contained in Dr Velez's report.
[2018-07-08] MEDS ORDERED: Sodium Bicarbonate 8.4% Inj 50 MEQ/50 ML Syringe IV.CONT ONE ×2 (07:19)
[2018-07-08] MEDS ORDERED: Calcium Chloride Inj 1 GM/10 ML Syringe IV.CONT ONE (07:19)
[2018-07-08] MEDS ORDERED: Mupirocin 2% Nasal Oint Topical Syringe EACH NARE SCH (09:00)
== END 2018-07-08 07:20 | disposition expired ==
LOC: NEPE 20:56 → NEDA 23:12 → HCIS 06-24 05:03 → N06 07-04 12:00 → N07 07-04 12:42 → N06 07-04 13:41 → N03 07-07 06:32
PROVIDERS: ADMIT Hospitalist; ATTEND Hospitalist